=== PATIENT | female | born 1960 | race Caucasian/White ===

== ENCOUNTER 2018-01-12 17:33 | Emergency (ER) | payer MEDICAID, SELFPAY ==
[2018-01-12 17:35] VITALS: BP 113/56; PULSE 98; RESP 18; TEMP 37.3; O2SAT 97
[2018-01-12 17:50] LABS: Bedside Glucose 170 mg/dL (70-110)
--- NOTE | 2018-01-12 17:51 | ED.VISSUMM ---
- ER Visit Summary Date of Service: 01/12/18 Chief Complaint: Cat bite History of Present Illness: The patient is a 57 F with a cat bite to her left index finger that occurred 3 days ago. This was a stray cat that she was attempting to help. It bit her and then ran away. She has had increasing redness, pain, and swelling to the left index finger since the bite. Unsure of tetanus status. Physical Examination: Afebrile and vital signs unremarkable. Patient has 2 puncture wounds near the PIP of her left index finger. They are associated with erythema, tenderness, swelling. There is good range of motion through the joints. All of the erythema and swelling is localized to the puncture wounds. The rest of her fingers and hand are unremarkable. Test Results: X-rays pending. Emergency Department Course and Treatment: Patient has a history of diabetes. I checked her blood sugar and it was 170. She said her hemoglobin A1c runs about 7. Will check x-rays. Tetanus was updated. Rabies was discussed. The patient is declining vaccination and treatment for this. There are some signs that the patient could be developing an early flexor tenosynovitis. There is no sign of necrotizing fasciitis or any other emergent surgical complication. Basic labs are pending. She was treated with a round of IV clindamycin. Hand surgery is not available at this facility. I did speak with general orthopedics here, and the concern was if the patient had a complication, they would not be able to properly take care of this patient's medical condition. I notified the patient of this information and they requested [facility]. I spoke with Dr. Bautista who will accept the patient. X-rays and laboratory studies are pending at the time of this dictation, but there is nothing that will change the disposition at this time. Treatment Plan: As above Disposition: Transferred to [facility] Impression: 1. Cat bite left index finger 2. Cellulitis left index finger This note was generated with [employer] software. It may contain incorrect words, spelling, and punctuation that were not noted in review of the chart prior to signing ED Disposition - Plan for ED Patient: Chief Complaint: Bite Referrals: Darrell Langley MD [Primary Care Provider] -
[2018-01-12] MEDS: Diphth,Pertuss(Acell),Tet Vac 0.5 ML Vial IM (17:53)
[2018-01-12] MEDS: Doxycycline 100 MG CAPSULE PO (17:54)
--- NOTE | 2018-01-12 18:05 | RAD_ITS ---
STUDY: X-RAY - LEFT HAND, ATTENTION SECOND FINGER REASON FOR EXAM: Female, 57 years old. Pain and swelling after recent cat bite. TECHNIQUE: 3 view(s) of the finger were obtained. COMPARISON: None. FINDINGS: Normal metacarpal head. There is mild degenerative arthrosis of the metacarpophalangeal joint. Normal proximal phalanx. Normal middle phalanx. Normal distal phalanx. There is mild degenerative arthrosis of the proximal interphalangeal joint. There is mild degenerative arthrosis of the distal interphalangeal joint. RAD/Finger(s) Min 2 Views IMPRESSION: No acute bone or joint findings. Negative for fracture, osteolytic or blastic bone lesion. Soft tissue swelling without underlying foreign body. Mild degenerative joint changes. Electronically Signed: Unique Albarran MD at 19:22 EDT , Service support ,
[2018-01-12 19:00] LABS: Absolute Lymphocyte Count 3.74 X10^3/ul (0.83-4.51); Absolute Neutrophil Count 5.2 X10^3/uL (2.0-7.7); Basophil# 0.06 X10^3/uL; Basophil% 0.6 % (0-1); Eosinophil# 0.37 X10^3/uL; Eosinophils% 3.7 % (0-5); Hematocrit 43.3 % (37-47); Hemoglobin 14.3 g/dl (12.0-15.0); Lymphocyte # 3.74 X10^3/ul (4.0); Lymphocyte % 37.6 % (19-41); Mean Corpuscular Hgb 31.6 pg (27.0-32.0); Mean Corpuscular Volume 95.8 fL (81-99); Mean Platelet Vol. 10.5 fl (6.2-12.0); Monocyte# 0.57 X10^3/uL; Monocyte% 5.7 % (0-10); Neutrophil # 5.21 X10^3/uL (2.7-7.7); Neutrophil % 52.3 % (47-70); Platelet Count 293 K/mm3 (150-450); RBC Distribution Width CV 12.7 % (11.6-14.6); RBC Distribution Width SD 44.3 fl (35.1-43.9); Red Blood Count 4.52 M/mm3 (4.2-5.4)
[2018-01-12 19:04] LABS: POSITIVE COUNT NO; POSITIVE DIFFERENTIAL NO; POSITIVE MORPHOLOGY NO
[2018-01-12 19:08] VITALS: BP 141/105; PULSE 88; RESP 18; O2SAT 98
[2018-01-12] MEDS: Clindamycin 600 MG/50 ML BAG 100 MG IV (19:08)
[2018-01-12 19:15] LABS: Anion Gap 9 (5-15); BUN 16 mg/dL (7-18); BUN/Creat Ratio 16.6 RATIO (10-20); Calcium,Total 9.3 mg/dL (8.5-10.1); Chloride 104 mmol/L (98-107); Creatinine, Serum 0.96 mg/dL (0.55-1.02); EST Glomerular Filtration Rate 63 mL/min (>60); Est Glom Filt Rate - Afr Amer 76 mL/min (>60); Estimated Creatinine Clearance 62.12 ml/min; Glucose 158 mg/dL (74-106); Potassium 3.8 mmol/L (3.5-5.1); Sodium Level 140 mmol/L (136-145)
[2018-01-12 19:41] VITALS: BP 141/105
== END 2018-01-12 19:45 | disposition short-term general hospital (02) ==
PROVIDERS: Emergency Provider Emergency Medicine; Family Provider Family Medicine; PCP Family Medicine
DX: L03.012 Cellulitis of left finger (principal); W55.01XA Bitten by cat, initial encounter; Y93.9 Activity, unspecified; Y92.9 Unspecified place or not applicable; Y99.9 Unspecified external cause status; Z23 Encounter for immunization; E11.9 Type 2 diabetes mellitus without complications; I10 Essential (primary) hypertension; E78.00 Pure hypercholesterolemia, unspecified; Z72.0 Tobacco use
CPT/HCPCS: 73140; 80048; 82962; 85025; 90715; 99284; J7040; A4216

== ENCOUNTER 2018-01-19 12:53 | Emergency (ER) | payer MEDICAID, SELFPAY ==
[2018-01-19 12:55] VITALS: BP 125/81; PULSE 97; RESP 15; TEMP 36.9; O2SAT 98; BMI 29.5
[2018-01-19 13:55] LABS: Absolute Lymphocyte Count 2.74 X10^3/ul (0.83-4.51); Absolute Neutrophil Count 7.4 X10^3/uL (2.0-7.7); Basophil# 0.14 X10^3/uL; Basophil% 1.2 % (0-1); Eosinophil# 0.31 X10^3/uL; Eosinophils% 2.7 % (0-5); Hematocrit 43.1 % (37-47); Hemoglobin 14.7 g/dl (12.0-15.0); Lymphocyte # 2.74 X10^3/ul (4.0); Lymphocyte % 24.2 % (19-41); Mean Corp Hgb Conc 34.1 g/gl (32-36); Mean Corpuscular Hgb 32.2 pg (27.0-32.0); Mean Corpuscular Volume 94.5 fL (81-99); Mean Platelet Vol. 10.6 fl (6.2-12.0); Monocyte# 0.68 X10^3/uL; Neutrophil % 65.6 % (47-70); POSITIVE COUNT NO; POSITIVE DIFFERENTIAL NO; POSITIVE MORPHOLOGY NO; Platelet Count 313 K/mm3 (150-450); RBC Distribution Width CV 12.6 % (11.6-14.6); Red Blood Count 4.56 M/mm3 (4.2-5.4); White Blood Count 11.3 K/mm3 (4.4-11.0)
[2018-01-19 14:05] LABS: Anion Gap 9 (5-15); BUN 10 mg/dL (7-18); Calcium,Total 9.3 mg/dL (8.5-10.1); Chloride 106 mmol/L (98-107); Creatinine, Serum 0.71 mg/dL (0.55-1.02); EST Glomerular Filtration Rate 89 mL/min (>60); Est Glom Filt Rate - Afr Amer 108 mL/min (>60); Estimated Creatinine Clearance 83.99 ml/min; Glucose 114 mg/dL (74-106); Sodium Level 138 mmol/L (136-145)
[2018-01-19] MEDS: Clindamycin 600 MG/50 ML BAG 100 MG IV (14:27)
--- NOTE | 2018-01-19 14:43 | RAD_ITS ---
STUDY: X-RAY - LEFT HAND REASON FOR EXAM: Female, 57 years old. Pain and swelling following recent cat bite. TECHNIQUE: 3 view(s) of the hand. COMPARISON: Comparison is made with prior study dated January 12, 2018. FINDINGS: Normal radiocarpal articulation. Normal distal radioulnar joint. Normal visualized carpal bones. Normal carpal articulations Normal carpometacarpal articulation of the thumb. Normal second through fifth carpometacarpal joints. Normal metacarpi. Normal metacarpophalangeal joint of the thumb. Normal interphalangeal joint of the thumb. Normal proximal and distal phalanges of the thumb. Normal metacarpophalangeal joints of the second through fifth fingers. Normal proximal and distal interphalangeal joints of the second through fifth fingers. Normal phalanges of the second through fifth fingers. Soft tissue swelling. No radiopaque foreign body is seen. RAD/Hand Min 3 Views IMPRESSION: Soft tissue swelling. Electronically Signed: Paco Park MD at 15:15 EDT Tel [phone], Service support ,
[2018-01-19] MEDS: Ciprofloxacin 400 MG/200 ML BAG 200 MG IV (15:15)
[2018-01-19 15:17] VITALS: BP 149/92; PULSE 74; RESP 18; O2SAT 99
[2018-01-19] MEDS: HYDROcodone Bitartrate/Apap 5/325 Tablet PO (15:26)
--- NOTE | 2018-01-19 16:29 | ED.VISSUMM ---
- ER Visit Summary Date of Service: 01/19/18 Chief Complaint: [Cat bite left hand] History of Present Illness: The patient is a 57 F [presents to the emergency department with complaint of a cat bite to her left hand that occurred 10 days ago. Patient was seen initially in the emergency department at [place] and was transferred to home in hospital. Patient was treated with IV antibiotics and was taken to the OR for I&D by surgeon there. Patient was seen by infectious disease as well. Patient tells me she was discharged to home on Augmentin and she is allergic to penicillin therefore she did not take the Augmentin. Patient called her primary care physician 2 days ago and was ordered clindamycin as well as doxycycline which the patient started taking yesterday. Patient was seen by primary care physician today and there was concern for continued infection sent to the ER for evaluation and possible admission for IV antibiotics. Patient denies any fevers. Patient complains of continued swelling and pain in the left index finger. Patient apparently was very unhappy with the infectious disease doctor who put her on the Augmentin after she told that she was allergic to the medication and her allergy was vomiting.] Physical Examination: [HEENT-PERRLA, EOMI. Cranial nerves II through XII grossly intact. TMs clear. Mucous membranes moist. No adenopathy. Cardiovascular-regular rate and rhythm without murmur or ectopy Lungs-clear to auscultation, chest wall stable without crepitus or subcu emphysema Abdomen-normoactive bowel sounds, soft, nontender, no rebound or rigidity, no peritoneal signs. Extremities-intact ?4, normal range of motion, normal pulses. Left hand-patient has edema and erythema of the left index finger. Patient has incisions noted to the proximal phalanx medially and laterally from prior I&D these are now closed and scabbed over. Patient also has an incision over the palmar aspect of the second MCP joint with continued soft tissue swelling here. No overt cellulitis noted. Patient is able to flex and extend the digit however it is limited due to swelling and pain. She has normal cap refill. ] Test Results: [CBC with differential obtained showed a white count of 11.3, hemoglobin 14.7, hematocrit 43, platelets 313. Chemistries unremarkable. Initially discussed case with Dr. Mansoor Sheth who is on-call for orthopedics here who asked that patient be evaluated by hand surgeon. I discussed case with patient's surgeon of record from [facility] Antonina Meehan. Patient was to be seen today by the orthopedic surgeon however patient chose not to go but rather follow-up with her primary care physician. I was told that if I felt the patient needed readmission to [facility] to speak with the blood coordinator there and the hand surgeon on-call at this time. I spoke with the hand surgeon on-call at [facility] today who stated that based on my description of the wounds and exam that he did not feel the patient needed to be admitted for IV antibiotics or any further intervention at this time but recommended that patient be treated with clindamycin and Cipro and follow-up in the office with the surgeon. Was also told that if the patient felt that her symptoms were continuing to worsen that she could go to [place] [facility] where he would be able to see her and perform further evaluation]. I discussed this plan with patient's primary care physician in the patient. Patient is comfortable with this. X-ray of the left hand showed soft tissue swelling but no foreign body or evidence of osteo-myelitis. Emergency Department Course and Treatment: [Patient received IV Cipro and Flagyl in the emergency department. ] Treatment Plan: [Follow-up with orthopedic surgeon within the next 4-5 days.] Disposition: [Urged home in stable condition] Impression: [Bite left hand-infected] This note was generated with [employer] dictation software. It may contain incorrect words, spelling, and punctuation that were not noted in review of the chart prior to signing ED Disposition - Plan for ED Patient: Chief Complaint: Wound Check Referrals: Darrell Langley MD [Primary Care Provider] -
--- NOTE | 2018-01-19 16:35 | ED.DCSUM_ITS ---
- ER Visit Summary Date of Service: 01/19/18 Chief Complaint: [Cat bite left hand] History of Present Illness: The patient is a 57 F [presents to the emergency department with complaint of a cat bite to her left hand that occurred 10 days ago. Patient was seen initially in the emergency department at [place] and was transferred to home in hospital. Patient was treated with IV antibiotics and was taken to the OR for I&D by surgeon there. Patient was seen by infectious disease as well. Patient tells me she was discharged to home on Augmentin and she is allergic to penicillin therefore she did not take the Augmentin. Patient called her primary care physician 2 days ago and was ordered clindamycin as well as doxycycline which the patient started taking yesterday. Patient was seen by primary care physician today and there was concern for continued infection sent to the ER for evaluation and possible admission for IV antibiotics. Patient denies any fevers. Patient complains of continued swelling and pain in the left index finger. Patient apparently was very unhappy with the infectious disease doctor who put her on the Augmentin after she told that she was allergic to the medication and her allergy was vomiting.] Physical Examination: [HEENT-PERRLA, EOMI. Cranial nerves II through XII grossly intact. TMs clear. Mucous membranes moist. No adenopathy. Cardiovascular-regular rate and rhythm without murmur or ectopy Lungs-clear to auscultation, chest wall stable without crepitus or subcu emphysema Abdomen-normoactive bowel sounds, soft, nontender, no rebound or rigidity, no peritoneal signs. Extremities-intact ?4, normal range of motion, normal pulses. Left hand- patient has edema and erythema of the left index finger. Patient has incisions noted to the proximal phalanx medially and laterally from prior I&D these are now closed and scabbed over. Patient also has an incision over the palmar aspect of the second MCP joint with continued soft tissue swelling here. No overt cellulitis noted. Patient is able to flex and extend the digit however it is limited due to swelling and pain. She has normal cap refill. ] Test Results: [CBC with differential obtained showed a white count of 11.3, hemoglobin 14.7, hematocrit 43, platelets 313. Chemistries unremarkable. Initially discussed case with Dr. Mansoor Sheth who is on-call for orthopedics here who asked that patient be evaluated by hand surgeon. I discussed case with patient's surgeon of record from [facility] Antonina Meehan. Patient was to be seen today by the orthopedic surgeon however patient chose not to go but rather follow-up with her primary care physician. I was told that if I felt the patient needed readmission to [facility] to speak with the catering coordinator there and the hand surgeon on-call at this time. I spoke with the hand surgeon on-call at [facility] today who stated that based on my description of the wounds and exam that he did not feel the patient needed to be admitted for IV antibiotics or any further intervention at this time but recommended that patient be treated with clindamycin and Cipro and follow-up in the office with the surgeon. Was also told that if the patient felt that her symptoms were continuing to worsen that she could go to [place] [facility] where he would be able to see her and perform further evaluation]. I discussed this plan with patient's primary care physician in the patient. Patient is comfortable with this. X-ray of the left hand showed soft tissue swelling but no foreign body or evidence of osteo-myelitis. Emergency Department Course and Treatment: [Patient received IV Cipro and Flagyl in the emergency department. ] Treatment Plan: [Follow-up with orthopedic surgeon within the next 4-5 days.] Disposition: [Urged home in stable condition] Impression: [Bite left hand-infected] This note was generated with [employer] dictation software. It may contain incorrect words, spelling, and punctuation that were not noted in review of the chart prior to signing ED Disposition - Plan for ED Patient: Chief Complaint: Wound Check Referrals: Darrell Langley MD [Primary Care Provider] -
--- NOTE | 2018-01-19 16:35 | ED.DEP ---
ED Disposition - Plan for ED Patient: Chief Complaint: Wound Check Instructions: ED Bite Cat Prescriptions: Ciprofloxacin [Cipro] 500 mg PO BID #20 tab Referrals: Darrell Langley MD [Primary Care Provider] - Additional Instructions: see your Surgeon on 01-23 or 01-24. If symptoms worsen the hand surgeon asked that you go to [facility] where he can evaluate you further.
[2018-01-19 17:11] VITALS: BP 145/85; PULSE 71; RESP 18; O2SAT 99
[2018-01-19 17:12] VITALS: BP 145/85; PULSE 71; RESP 18; O2SAT 99
== END 2018-01-19 17:13 | disposition home or self-care (01) ==
PROVIDERS: Emergency Provider Emergency Medicine; Family Provider Family Medicine; PCP Family Medicine
DX: S60.572D Other superficial bite of hand of left hand, subsequent encounter (principal); W55.01XD Bitten by cat, subsequent encounter; Z88.0 Allergy status to penicillin; E11.9 Type 2 diabetes mellitus without complications
CPT/HCPCS: 73130; 80048; 85025; 99284; J7040; A4216; J0744

== ENCOUNTER 2018-02-05 14:49 | Outpatient (RCR) | payer MEDICAID, SELFPAY ==
--- NOTE | 2018-02-05 14:49 | DT_ITS ---
This patient was seen during an EMR downtime January 29, 2018 - February 05, 2018. This patient may have a combination of paper and electronic documentation or all paper documentation. All documentation is viewable within the e-chart portion of [facility] for each patient visit.
== END 2018-02-24 23:59 ==
LOC: DC 14:49
PROVIDERS: Family Provider Family Medicine; PCP Family Medicine; Visit Provider Family Medicine
DX: E11.9 Type 2 diabetes mellitus without complications (principal); Z71.3 Dietary counseling and surveillance

== ENCOUNTER → 2018-08-08 13:57 | Outpatient (CLI) | payer MEDICAID, SELFPAY ==
[2018-08-08 16:19] LABS: Vitamin D,25 Hydroxy 13.7 ng/mL (29.95-100.01)
[2018-08-08 16:27] LABS: Microalbumin,Random Urine 10.3 mg/L (NO RANGE EST.); Microalbumin:Creatinine Ratio 9.8 mg/g CRE (<30 mg/g CRE)
[2018-08-08 16:38] LABS: BUN 15 mg/dL (7-18); Creatinine, Serum 0.66 mg/dL (0.55-1.02); Glucose 79 mg/dL (74-106)
[2018-08-08 16:39] LABS: AST(SGOT) 12 U/L (15-37); Alanine Aminotransfer ALT/SGPT 25 U/L (13-56); Albumin, Serum 3.9 g/dL (3.2-5.0); Alkaline Phosphatase 75 U/L (45-117); Anion Gap 7 (5-15); BUN/Creat Ratio 22.9 RATIO (10-20); Bilirubin, Direct 0.09 mg/dL (0.00-0.30); Calcium,Total 9.1 mg/dL (8.5-10.1); Chloride 104 mmol/L (98-107); Cholesterol 175 mg/dL (200); EST Glomerular Filtration Rate 98 mL/min (>60); Est Glom Filt Rate - Afr Amer 119 mL/min (>60); Globulin 4.3 g/dL (2.2-4.2); High Density Lipoprotein 45 mg/dL; Potassium 3.7 mmol/L (3.5-5.1); Protein, Total 8.2 g/dL (6.4-8.2); Sodium Level 136 mmol/L (136-145); Triglycerides 228 mg/dL; Very Low Density Lipoprotein 46 mg/dL (5-40)
--- OUTSIDE RECORDS SUMMARY | 2018-09-24 18:26 | XMS RPT_ITS ---
:1960 Author Organization [facility] Care Team Providers Name Role Phone ALAINA LITTLE MD Attending Unavailable PHYSICIAN, NOT RECORDED Primary Care Unavailable ALAINA LITTLE MD Admitting Unavailable HUMPHREY HAMILTON MD Consulting Unavailable CAROLYN COLON MD Consulting Unavailable MARINE CRAIG MD Consulting Unavailable ALAINA LITTLE MD Consulting Unavailable HOSPITALISTFAUSTINO Consulting Unavailable BERNARD SANTIAGO MD Consulting Unavailable Darrell Langley Attending Unavailable Darrell Langley Primary Care Unavailable Darrell Langley Primary Care Unavailable Romario Huston Attending Unavailable Darrell Langley Primary Care Unavailable Marcellus Gilmore Attending Unavailable Darrell Langley Attending Unavailable Darrell Langley Primary Care Unavailable Darrell Langley Attending Unavailable Darrell Langley Primary Care Unavailable PROBLEMS PROBLEMS DATE TYPE CONDITION / CODE ATTENDING STATUS SOURCE 02/25/2018 Unknown E11.9 - Type 2 Darrell Langley Active [place] diabetes mellitus [facility] complications / Repository E11.9(ICD-10) PROCEDURES PROCEDURES No Procedure Records FoundRESULTS RESULTS VITAMIN D,25 HYDROXY Collected: 08/08/2018 Status: F Source: [place] 1:57 PM [facility] REPOSITORY TYPE CODE TESTS RESULT OUT OF REFERENCE UNITS RANGE LAB L506.1000 29.95-100.01 ng/mL Low Vitamin D 13.7 25-OH Result Comment: Vitamin D 25(OH) Status Range Deficiency <20 ng/mL (50nmol/L) Insuffciency 20 - 30 ng/mL (50 - 75 nmol/L) Sufficiency 30 - 100 ng/mL (75 - 250 nmol/L) Toxicity >100 ng/mL (>250 nmol/L) Performed By: #### L506.1000 #### [facility] [address] [place], [address] MICROALB:CREAT Collected: 08/08/2018 Status: F Source: [place] RATIO,RANDOM UR 1:57 PM [facility] REPOSITORY TYPE CODE TESTS RESULT OUT OF RANGE REFERENCE UNITS LAB L501.1200 NO RANGE EST. mg/dL Normal UR CREAT 105.00 LAB L502.0500 NO RANGE EST. mg/L Normal 10.3 MICROALBUMIN ,UR LAB L502.0600 <30 mg/g CRE mg/g CRE Normal 9.8 MALB:CREAT Performed By: #### L502.0250 #### [facility] [address] [place], [place], [address] BASIC METABOLIC Collected: 08/08/2018 Status: F Source: [place] PROFILE (BMP) 1:57 PM [facility] REPOSITORY TYPE CODE TESTS RESULT OUT OF RANGE REFERENCE UNITS LAB L501.0100 74-106 mg/dL Normal GLU 79 Result Comment: Please note revised GLUCOSE reference range effective 2017. LAB L501.1000 7-18 mg/dL Normal BUN 15 LAB L501.1100 0.55-1.02 mg/dL Normal CREAT,SERUM 0.66 Result Comment: The validity of the calculated GFR AND GFRAA in patients over 70 years has not been determined. Clinical correlation is essential. LAB L501.1110 >60 mL/min Normal EST GFR 98 Result Comment: Non- GFR Calc LAB L501.1115 >60 mL/min Normal EST GFR - AA 119 Result Comment: GFR Calc LAB L501.1300 10-20 RATIO High BUN/CRE 22.9 LAB L501.2200 8.5-10.1 mg/dL CA Normal 9.1 LAB L501.5300 136-145 mmol/L NA Normal 136 LAB L501.5600 3.5-5.1 mmol/L K Normal 3.7 LAB L501.5900 98-107 mmol/L CL Normal 104 LAB L501.6100 21.0-32.0 mmol/L Normal CO2 25.0 LAB L501.6200 5-15 Normal GAP 7 Performed By: #### L500.2500, L500.3400, L500.4100 #### [facility] [address] [place], [address] LIVER PROFILE Collected: 08/08/2018 Status: F Source: [place] 1:57 PM [facility] REPOSITORY TYPE CODE TESTS RESULT OUT OF RANGE REFERENCE UNITS LAB L501.1500 6.4-8.2 g/dL Normal T PROT 8.2 LAB L501.1800 3.2-5.0 g/dL Normal ALB 3.9 LAB L501.1950 2.2-4.2 g/dL High GLOB 4.3 LAB L501.4100 15-37 U/L Low AST 12 LAB L501.4305 45-117 U/L Normal ALK P 75 LAB L501.4405 13-56 U/L Normal ALT 25 LAB L501.4600 0.20-1.00 mg/dL Normal T BILI 0.30 LAB L501.4700 0.00-0.30 mg/dL Normal D BILI 0.09 Performed By: #### L500.2500, L500.3400, L500.4100 #### [facility] [address] [place], [address] LIPID PROFILE Collected: 08/08/2018 Status: F Source: [place] 1:57 PM [facility] REPOSITORY TYPE CODE TESTS RESULT OUT OF RANGE REFERENCE UNITS LAB L501.4900 200 mg/dL Normal CHOL 175 Result Comment: <200 mg/dL Desirable 200-240 mg/dL Borderline >240 mg/dL High Risk LAB L501.5000 mg/dL High TRIG 228 Result Comment: The drugs N-Acetylcysteine and Metamizole may falsely depress this assay. Serum Triglycerides Reference Interval Normal <150 mg/dL Borderline high 150 - 199 mg/dL High 200 - 499 mg/dL Very High > or = 500 mg/dL LAB L501.6400 mg/dL Normal HDL 45 Result Comment: The drugs N-Acetylcysteine and Metamizole may falsely depress this assay. Reference Range HDL <40 mg/dL Low HDL Cholesterol HDL >or= 60 mg/dL High HDL Cholesterol LAB L501.6500 0-130 mg/dL Normal LDL 84 LAB L501.6600 5-40 mg/dL High VLDL 46 Performed By: #### L500.2500, L500.3400, L500.4100 #### [facility] [address] [place], [address] DOWNTIME REPORT Observed: 02/15/2018 Status: F Source: [place] 11:46 AM [facility] Medical Records Department [address] [place] [address] Downtime Report MR#: [id number] Acct: [id number] Name: ALANAOVIARACELI Azucena Rep #: [id number] : 1960 57 From: Torsten Sheth PCP: Darrell Langley MD Status: REG RCR This patient was seen during an EMR downtime January 29, 2018 - February 05, 2018. This patient may have a combination of paper and electronic documentation or all paper documentation. All documentation is viewable within the e-chart portion of [employer] for each patient visit. DISCHARGE INSTRUCTION Observed: 01/19/2018 Status: F Source: [place] 4:37 PM [facility] Medical Records Department [address] [place] [address] Discharge Instruction 01/19/18 1635 MR#: [id number] Acct: [id number] Name: ARACELI WARNER Rep #: [id number] : 1960 57 From: Marcellus Gilmore DO PCP: Darrell Langley MD Status: REG ER ED Disposition - Plan for ED Patient: Chief Complaint: Wound Check Instructions: ED Bite Cat Prescriptions: Ciprofloxacin [Cipro] 500 mg PO BID #20 tab Referrals: Darrell Langley MD [Primary Care Provider] - Additional Instructions: see your Surgeon on 01-23 or 01-24. If symptoms worsen the hand surgeon asked that you go to [place] [facility] where he can evaluate you further. What to do if you have Problems For any increased pain, shortness of breath, bleeding, nausea or vomiting, chest pain, or any unexpected problems, contact your Primary Care Provider. Call [facility] ([phone]) or report to the closest Emergency Room. Call 911 if necessary. 01/19/18 1637 <Electronically signed by Marcellus Gilmore DO> Date Marcellus Gilmore DO Cosigner Signature (If Indicated): Date CC: Darrell Langley MD EMERGENCY DEPARTMENT Observed: 01/19/2018 Status: F Source: [place] SUMMARY 4:35 PM [facility] REPOSITORY [facility] Medical Records Department [address] [facility] [address] Emergency Department Summary 01/19/18 1629 MR#: [id number] Acct: [id number] Name: ARACELI WARNRE Rep #: [id number] : 1960 57 From: Marcellus Gilmore DO PCP: Darrell Langley MD Status: REG ER - ER Visit Summary Date of Service: 01/19/18 Chief Complaint: [Cat bite left hand] History of Present Illness: The patient is a 57 F [presents to the emergency department with complaint of a cat bite to her left hand that occurred 10 days ago. Patient was seen initially in the emergency department at [facility] and was transferred to home in hospital. Patient was treated with IV antibiotics and was taken to the OR for I AND D by surgeon there. Patient was seen by infectious disease as well. Patient tells me she was discharged to home on Augmentin and she is allergic to penicillin therefore she did not take the Augmentin. Patient called her primary care physician 2 days ago and was ordered clindamycin as well as doxycycline which the patient started taking yesterday. Patient was seen by primary care physician today and there was concern for continued infection sent to the ER for evaluation and possible admission for IV antibiotics. Patient denies any fevers. Patient complains of continued swelling and pain in the left index finger. Patient apparently was very unhappy with the infectious disease doctor who put her on the Augmentin after she told that she was allergic to the medication and her allergy was vomiting.] Physical Examination: [HEENT-PERRLA, EOMI. Cranial nerves II through XII grossly intact. TMs clear. Mucous membranes moist. No adenopathy. Cardiovascular-regular rate and rhythm without murmur or ectopy Lungs-clear to auscultation, chest wall stable without crepitus or subcu emphysema Abdomen-normoactive bowel sounds, soft, nontender, no rebound or rigidity, no peritoneal signs. Extremities-intact 4, normal range of motion, normal pulses. Left hand-patient has edema and erythema of the left index finger. Patient has incisions noted to the proximal phalanx medially and laterally from prior I AND D these are now closed and scabbed over. Patient also has an incision over the palmar aspect of the second MCP joint with continued soft tissue swelling here. No overt cellulitis noted. Patient is able to flex and extend the digit however it is limited due to swelling and pain. She has normal cap refill. ] Test Results: [CBC with differential obtained showed a white count of 11.3, hemoglobin 14.7, hematocrit 43, platelets 313. Chemistries unremarkable. Initially discussed case with Dr. Mansoor Sheth who is on-call for orthopedics here who asked that patient be evaluated by hand surgeon. I discussed case with patient's surgeon of record from [facility] Antonina Little. Patient was to be seen today by the orthopedic surgeon however patient chose not to go but rather follow-up with her primary care physician. I was told that if I felt the patient needed readmission to [facility] to speak with the weatherization coordinator there and the hand surgeon on-call at this time. I spoke with the hand surgeon on-call at [facility] today who stated that based on my description of the wounds and exam that he did not feel the patient needed to be admitted for IV antibiotics or any further intervention at this time but recommended that patient be treated with clindamycin and Cipro and follow-up in the office with the surgeon. Was also told that if the patient felt that her symptoms were continuing to worsen that she could go to [place] [facility] where he would be able to see her and perform further evaluation]. I discussed this plan with patient's primary care physician in the patient. Patient is comfortable with this. X-ray of the left hand showed soft tissue swelling but no foreign body or evidence of osteo-myelitis. Emergency Department Course and Treatment: [Patient received IV Cipro and Flagyl in the emergency department. ] Treatment Plan: [Follow-up with orthopedic surgeon within the next 4-5 days.] Disposition: [Urged home in stable condition] Impression: [Bite left hand-infected] This note was generated with [email or web address] dictation software. It may contain incorrect words, spelling, and punctuation that were not noted in review of the chart prior to signing ED Disposition - Plan for ED Patient: Chief Complaint: Wound Check Referrals: Darrell Langley MD [Primary Care Provider] - What to do if you have Problems For any increased pain, shortness of breath, bleeding, nausea or vomiting, chest pain, or any unexpected problems, contact your Primary Care Provider. Call [facility] ([phone]) or report to the closest Emergency Room. Call 911 if necessary. 01/19/18 0375 <Electronically signed by Marcellus Gilmore DO> Date Marcellus Gilmore DO Cosigner Signature (If Indicated): Date CC: Darrell Langley MD HAND MIN 3 VIEWS Observed: 01/19/2018 Status: F Source: [place] 2:36 PM [facility] REPOSITORY [facility] Imaging Services [address] [place] [address] Hand Min 3 Views MR#: [id number] Acct: [id number] Name: ARACELI WARNER Rep #: [id number] : 1960 F 57 From: Paco Park MD PCP: Darrell Langley MD Status: REG ER Study: Hand Min 3 Views Date of Exam: 01/19/18 Exam# [id number] Ordering Dr: Marcellus Gilmore DO STUDY: X-RAY - LEFT HAND REASON FOR EXAM: Female, 57 years old. Pain and swelling following recent cat bite. TECHNIQUE: 3 view(s) of the hand. COMPARISON: Comparison is made with prior study dated January 12, 2018. FINDINGS: Normal radiocarpal articulation. Normal distal radioulnar joint. Normal visualized carpal bones. Normal carpal articulations Normal carpometacarpal articulation of the thumb. Normal second through fifth carpometacarpal joints. Normal metacarpi. Normal metacarpophalangeal joint of the thumb. Normal interphalangeal joint of the thumb. Normal proximal and distal phalanges of the thumb. Normal metacarpophalangeal joints of the second through fifth fingers. Normal proximal and distal interphalangeal joints of the second through fifth fingers. Normal phalanges of the second through fifth fingers. Soft tissue swelling. No radiopaque foreign body is seen. RAD/Hand Min 3 Views IMPRESSION: Soft tissue swelling. Electronically Signed: Paco Park MD at 15:15 EDT Tel [phone], Service support , CC: Darrell Langley MD; Marcellus Gilmore DO Director [employer] Agency: Signed CBC W/DIFF, AUTOMATED Collected: 01/19/2018 Status: F Source: [place] 1:45 PM [facility] REPOSITORY TYPE CODE TESTS RESULT OUT OF RANGE REFERENCE UNITS LAB L100.1000 4.4-11.0 K/mm3 High WBC 11.3 LAB L100.1200 4.2-5.4 M/mm3 Normal RBC 4.56 LAB L100.1300 12.0-15.0 g/dl Normal HGB 14.7 LAB L100.1400 37-47 % Normal HCT 43.1 LAB L100.1500 81-99 fL Normal MCV 94.5 LAB L100.1600 27.0-32.0 pg High MCH 32.2 LAB L100.1700 32-36 g/gl Normal MCHC 34.1 LAB L100.1810 11.6-14.6 % Normal RDW CV 12.6 LAB L100.1820 35.1-43.9 fl Normal RDW SD 42.0 LAB L100.1900 150-450 K/mm3 Normal PLT 313 LAB L100.2000 6.2-12.0 fl Normal MPV 10.6 LAB L100.2100 47-70 % Normal NEUT% 65.6 LAB L100.2200 19-41 % Normal LY% 24.2 LAB L100.2300 0-10 % Normal MONO% 6.0 LAB L100.2400 0-5 % Normal EO% 2.7 LAB L100.2500 0-1 % High BASO% 1.2 LAB L100.2550 0.0-0.9 % Normal IM GRAN % 0.300 Result Comment: IG% - Immature Granulocytes (promyelocytes, myelocytes and metamyelocytes) > 1% indicates that a LEFT SHIFT is Present. LAB L100.2620 2.0-7.7 X10 3/uL Normal Absolute Neut 7.4 LAB L100.2720 0.83-4.51 X10 3/ul Normal Absolute Lymph 2.74 Performed By: #### L100.0100 #### [facility] [address] [place] [address]. [place], [place], [address] BASIC METABOLIC Collected: 01/19/2018 Status: F Source: [place] PROFILE (BMP) 1:45 PM [facility] REPOSITORY TYPE CODE TESTS RESULT OUT OF RANGE REFERENCE UNITS LAB L501.0100 74-106 mg/dL High GLU 114 Result Comment: Fasting Glucose result from 100 to 125 mg/dL suggests IMPAIRED HOMEOSTASIS per A.D.A. criteria. Please note revised GLUCOSE reference range effective 2017. LAB L501.1000 7-18 mg/dL Normal BUN 10 LAB L501.1100 0.55-1.02 mg/dL Normal CREAT,SERUM 0.71 Result Comment: The validity of the calculated GFR AND GFRAA in patients over 70 years has not been determined. Clinical correlation is essential. LAB L501.1110 >60 mL/min Normal EST GFR 89 Result Comment: Non- GFR Calc LAB L501.1115 >60 mL/min Normal EST GFR - AA 108 Result Comment: GFR Calc LAB L501.1255 ml/min Normal Estimated CRCL 83.99 LAB L501.1300 10-20 RATIO Normal BUN/CRE 14.0 LAB L501.2200 8.5-10 mg/dL Normal .1 CA 9.3 LAB L501.5300 136-14 mmol/L Normal 5 NA 138 LAB L501.5600 3.5-5. mmol/L Normal 1 K 4.0 LAB L501.5900 98-107 mmol/L Normal CL 106 LAB L501.6100 21.0-3 mmol/L Normal 2.0 CO2 23.0 LAB L501.6200 5-15 Normal GAP 9 Performed By: #### L500.2500 #### [facility] [address] [place] [address]. [place], [place], [address] OWEN Collected: 01/16/2018 Status: F Source: [facility] 3:57 AM [facility] REPOSITORY TYPE CODE TESTS RESULT OUT OF REFERENCE UNITS RANGE LAB CAION(LOINC 1.12-1.32 mmol/L ) Calcium 1.16 Ionized Performed By: #### OWEN, CBC, ADIFF, ANEU, BMP, GFR #### [facility] [address] [place] [address] CBC Collected: 01/16/2018 Status: F Source: [facility] 3:57 AM [facility] REPOSITORY TYPE CODE TESTS RESULT OUT OF REFERENCE UNITS RANGE LAB WBC(LOINC) 4.50-10.80 10 3/mcL WBC 8.80 LAB RBCCT(LOINC 4.10-5.30 10 6/mcL ) Low RBC 3.60 LAB HGB(LOINC) 12.0-16.0 G/dL Low Hgb 11.7 LAB HCT(LOINC) 34.0-46.0 % Hct 34.2 LAB MCV(LOINC) 80.0-99.0 fL MCV 94.8 LAB MCH(LOINC) 27.0-33.0 pg MCH 32.4 LAB MCHC(LOINC) 32.0-36.0 G/dL MCHC 34.2 LAB RDW(LOINC) 11.5-15.5 % RDW 12.8 LAB PLT(LOINC) 150-450 10 3/mcL Platelet 234 LAB MPV(LOINC) 6.6-10.5 fL MPV 8.7 Performed By: #### OWEN, CBC, ADIFF, ANEU, BMP, GFR #### [address] [address] .AUTO DIFF Collected: 01/16/2018 Status: F Source: [facility] 3:57 AM [facility] REPOSITORY TYPE CODE TESTS RESULT OUT OF REFERENCE UNITS RANGE LAB FRAN(LOINC) 50.0-75.0 % Neutrophil % 51.3 LAB LYM(LOINC) 20.0-40.0 % Lymphocyte % 37.1 LAB MON(LOINC) 2.0-13.0 % Monocyte % 6.5 LAB EO(LOINC) 0.0-6.0 % Eosinophil % 4.2 LAB BAS(LOINC) 0.0-2.5 % Basophil % 0.9 LAB ABLYM(LOIN 0.90-4.32 10 3/mcL C) Lymphocyte, 3.30 Absolute LAB DURAN(LOINC 0.09-1.40 10 3/mcL ) Monocyte, 0.60 Absolute LAB AEOS(LOINC 0.00-0.65 10 3/mcL ) Eosinophil, 0.40 Absolute LAB ABAS(LOINC 0.00-0.27 10 3/mcL ) Basophil, 0.10 Absolute Performed By: #### OWEN, CBC, ADIFF, ANEU, BMP, GFR #### [address] [address] .NEUABS Collected: 01/16/2018 Status: F Source: [facility] 3:57 AM [facility] REPOSITORY TYPE CODE TESTS RESULT OUT OF REFERENCE UNITS RANGE LAB ANEU(LOINC) 2.25-8.10 10 3/mcL Neutrophil, 4.50 Absolute Performed By: #### CAIKARL, CBC, ADIFF, ANEU, BMP, GFR #### [address] [address] BMP Collected: 01/16/2018 Status: F Source: [facility] 3:57 AM [facility] REPOSITORY TYPE CODE TESTS RESULT OUT OF REFERENCE UNITS RANGE LAB GLU(LOINC) 70-110 mg/dL Glucose Level 103 LAB NA(LOINC) 136-145 mEq/L Sodium Level 141 LAB K(LOINC) 3.5-5.0 mEq/L Potassium Level 3.7 LAB CL(LOINC) 98-110 mEq/L Chloride 107 LAB CO2(LOINC) 22-32 mEq/L CO2 28 LAB EBAL(LOINC 4.0-15.0 mEq/L ) Electrolyte Balance 6.0 LAB BUN(LOINC) 8.0-22.0 mg/dL BUN 14.0 LAB CRE(LOINC) 0.50-1.20 mg/dL Creatinine Lvl (s) 0.65 LAB BC(LOINC) 10.0-22.0 ratio BUN/Creatinine 21.5 Ratio LAB CA(LOINC) 8.4-10.1 mg/dL Low Calcium Lvl 8.3 Performed By: #### CAION, CBC, ADIFF, ANEU, BMP, GFR #### [place] [address] .GFR Collected: 01/16/2018 Status: F Source: [facility] 3:57 AM [facility] REPOSIT[facility] TYPE CODE TESTS RESULT OUT OF REFERENCE UNITS RANGE LAB GFRAA(LOINC ml/min/1.73 ) sqm GFR >60 Belgian Result Comment: GFR Population mean for , Non- Americans Ages 20-29 = 116 mL/min/1.73 sq.m. Ages 30-39 = 107 mL/min/1.73 sq.m. Ages 40-49 = 99 mL/min/1.73 sq.m. Ages 50-59 = 93 mL/min/1.73 sq.m. Ages 60-69 = 85 mL/min/1.73 sq.m. Ages 70+ = 75 mL/min/1.73 sq.m. Chronic Kidney Disease: Less than 60 mL/min/1.73 square meters End Stage Renal Disease: Less than 15 mL/min/1.73 square meters LAB GFRNO(LOINC) ml/min/1.73sqm GFR Non- >60 Result Comment: GFR Population mean for , Non- Americans Ages 20-29 = 116 mL/min/1.73 sq.m. Ages 30-39 = 107 mL/min/1.73 sq.m. Ages 40-49 = 99 mL/min/1.73 sq.m. Ages 50-59 = 93 mL/min/1.73 sq.m. Ages 60-69 = 85 mL/min/1.73 sq.m. Ages 70+ = 75 mL/min/1.73 sq.m. Chronic Kidney Disease: Less than 60 mL/min/1.73 square meters End Stage Renal Disease: Less than 15 mL/min/1.73 square meters Performed By: #### CAION, CBC, ADIFF, ANEU, BMP, GFR #### [address] [address] CAION Collected: 01/15/2018 Status: F Source: [facility] 3:44 AM [facility] REPOSITORY TYPE CODE TESTS RESULT OUT OF REFERENCE UNITS RANGE LAB CAION(LOINC 1.12-1.32 mmol/L ) Calcium 1.15 Ionized Performed By: #### OWEN, CBC, ADIFF, ANEU, BMP, GFR #### [address] [address] CBC Collected: 01/15/2018 Status: F Source: [facility] 3:44 AM [facility] REPOSITORY TYPE CODE TESTS RESULT OUT OF REFERENCE UNITS RANGE LAB WBC(LOINC) 4.50-10.80 10 3/mcL WBC 6.90 LAB RBCCT(LOINC 4.10-5.30 10 6/mcL ) Low RBC 3.66 LAB HGB(LOINC) 12.0-16.0 G/dL Hgb 12.1 LAB HCT(LOINC) 34.0-46.0 % Hct 34.8 LAB MCV(LOINC) 80.0-99.0 fL MCV 95.2 LAB MCH(LOINC) 27.0-33.0 pg High MCH 33.1 LAB MCHC(LOINC) 32.0-36.0 G/dL MCHC 34.7 LAB RDW(LOINC) 11.5-15.5 % RDW 13.1 LAB PLT(LOINC) 150-450 10 3/mcL Platelet 219 LAB MPV(LOINC) 6.6-10.5 fL MPV 8.8 Performed By: #### CAION, CBC, ADIFF, ANEU, BMP, GFR #### [place] [address] .AUTO DIFF Collected: 01/15/2018 Status: F Source: [facility] 3:44 AM [facility] REPOSITORY TYPE CODE TESTS RESULT OUT OF REFERENCE UNITS RANGE LAB FRAN(LOINC) 50.0-75.0 % Low Neutrophil % 49.6 LAB LYM(LOINC) 20.0-40.0 % Lymphocyte % 36.9 LAB MON(LOINC) 2.0-13.0 % Monocyte % 6.8 LAB EO(LOINC) 0.0-6.0 % Eosinophil % 5.5 LAB BAS(LOINC) 0.0-2.5 % Basophil % 1.2 LAB ABLYM(LOIN 0.90-4.32 10 3/mcL C) Lymphocyte, 2.50 Absolute LAB DURAN(LOINC 0.09-1.40 10 3/mcL ) Monocyte, 0.50 Absolute LAB AEOS(LOINC 0.00-0.65 10 3/mcL ) Eosinophil, 0.40 Absolute LAB ABAS(LOINC 0.00-0.27 10 3/mcL ) Basophil, 0.10 Absolute Performed By: #### CAION, CBC, ADIFF, ANEU, BMP, GFR #### [place] [address] .NEUABS Collected: 01/15/2018 Status: F Source: [facility] 3:44 AM [facility] REPOSITORY TYPE CODE TESTS RESULT OUT OF REFERENCE UNITS RANGE LAB ANEU(LOINC) 2.25-8.10 10 3/mcL Neutrophil, 3.40 Absolute Performed By: #### CAION, CBC, ADIFF, ANEU, BMP, GFR #### [place] [address] BMP Collected: 01/15/2018 Status: F Source: [facility] 3:44 AM [facility] REPOSITORY TYPE CODE TESTS RESULT OUT OF REFERENCE UNITS RANGE LAB GLU(LOINC) 70-110 mg/dL Glucose High Level 115 LAB NA(LOINC) 136-145 mEq/L Sodium Level 142 LAB K(LOINC) 3.5-5.0 mEq/L Potassium Level 3.9 LAB CL(LOINC) 98-110 mEq/L Chloride 110 LAB CO2(LOINC) 22-32 mEq/L CO2 25 LAB EBAL(LOINC 4.0-15.0 mEq/L ) Electrolyte Balance 7.0 LAB BUN(LOINC) 8.0-22.0 mg/dL BUN 12.0 LAB CRE(LOINC) 0.50-1.20 mg/dL Creatinine Lvl (s) 0.63 LAB BC(LOINC) 10.0-22.0 ratio BUN/Creatinine 19.0 Ratio LAB CA(LOINC) 8.4-10.1 mg/dL Low Calcium Lvl 8.3 Performed By: #### CAION, CBC, ADIFF, ANEU, BMP, GFR #### [facility] [address] [place] [address] .GFR Collected: 01/15/2018 Status: F Source: [facility] 3:44 AM [facility] REPOSITORY TYPE CODE TESTS RESULT OUT OF REFERENCE UNITS RANGE LAB GFRAA(LOINC ml/min/1.73 ) sqm GFR >60 Belgian Result Comment: GFR Population mean for , Non- Americans Ages 20-29 = 116 mL/min/1.73 sq.m. Ages 30-39 = 107 mL/min/1.73 sq.m. Ages 40-49 = 99 mL/min/1.73 sq.m. Ages 50-59 = 93 mL/min/1.73 sq.m. Ages 60-69 = 85 mL/min/1.73 sq.m. Ages 70+ = 75 mL/min/1.73 sq.m. Chronic Kidney Disease: Less than 60 mL/min/1.73 square meters End Stage Renal Disease: Less than 15 mL/min/1.73 square meters LAB GFRNO(LOINC) ml/min/1.73sqm GFR Non- >60 Result Comment: GFR Population mean for , Non- Americans Ages 20-29 = 116 mL/min/1.73 sq.m. Ages 30-39 = 107 mL/min/1.73 sq.m. Ages 40-49 = 99 mL/min/1.73 sq.m. Ages 50-59 = 93 mL/min/1.73 sq.m. Ages 60-69 = 85 mL/min/1.73 sq.m. Ages 70+ = 75 mL/min/1.73 sq.m. Chronic Kidney Disease: Less than 60 mL/min/1.73 square meters End Stage Renal Disease: Less than 15 mL/min/1.73 square meters Performed By: #### CAION, CBC, ADIFF, ANEU, BMP, GFR #### [address] [address] CBC Collected: 01/14/2018 Status: F Source: [facility] 3:47 AM [facility] REPOSITORY TYPE CODE TESTS RESULT OUT OF REFERENCE UNITS RANGE LAB WBC(LOINC) 4.50-10.80 10 3/mcL WBC 9.00 LAB RBCCT(LOINC 4.10-5.30 10 6/mcL ) Low RBC 3.69 LAB HGB(LOINC) 12.0-16.0 G/dL Hgb 12.2 LAB HCT(LOINC) 34.0-46.0 % Hct 35.4 LAB MCV(LOINC) 80.0-99.0 fL MCV 95.8 LAB MCH(LOINC) 27.0-33.0 pg MCH 32.9 LAB MCHC(LOINC) 32.0-36.0 G/dL MCHC 34.4 LAB RDW(LOINC) 11.5-15.5 % RDW 12.8 LAB PLT(LOINC) 150-450 10 3/mcL Platelet 225 LAB MPV(LOINC) 6.6-10.5 fL MPV 8.7 Performed By: #### CBC, ADIFF, ANEU, CAION, MG, GFR, CMP #### [address] [address] .AUTO DIFF Collected: 01/14/2018 Status: F Source: [facility] 3:47 AM [facility] REPOSITORY TYPE CODE TESTS RESULT OUT OF REFERENCE UNITS RANGE LAB FRAN(LOINC) 50.0-75.0 % Neutrophil % 63.6 LAB LYM(LOINC) 20.0-40.0 % Lymphocyte % 26.7 LAB MON(LOINC) 2.0-13.0 % Monocyte % 4.8 LAB EO(LOINC) 0.0-6.0 % Eosinophil % 3.8 LAB BAS(LOINC) 0.0-2.5 % Basophil % 1.1 LAB ABLYM(LOIN 0.90-4.32 10 3/mcL C) Lymphocyte, 2.40 Absolute LAB DURAN(LOINC 0.09-1.40 10 3/mcL ) Monocyte, 0.40 Absolute LAB AEOS(LOINC 0.00-0.65 10 3/mcL ) Eosinophil, 0.30 Absolute LAB ABAS(LOINC 0.00-0.27 10 3/mcL ) Basophil, 0.10 Absolute Performed By: #### CBC, ADIFF, ANEU, CAION, MG, GFR, CMP #### [place] [address] .NEUABS Collected: 01/14/2018 Status: F Source: [facility] 3:47 AM [facility] REPOSITORY TYPE CODE TESTS RESULT OUT OF REFERENCE UNITS RANGE LAB ANEU(LOINC) 2.25-8.10 10 3/mcL Neutrophil, 5.70 Absolute Performed By: #### CBC, ADIFF, ANEU, CAION, MG, GFR, CMP #### [place] [address] CAION Collected: 01/14/2018 Status: F Source: [facility] 3:47 AM [facility] REPOSITORY TYPE CODE TESTS RESULT OUT OF REFERENCE UNITS RANGE LAB CAION(LOINC 1.12-1.32 mmol/L ) Calcium 1.12 Ionized Performed By: #### CBC, ADIFF, ANEU, CAION, MG, GFR, CMP #### [place] [address] MG Collected: 01/14/2018 Status: F Source: [facility] 3:47 AM [facility] REPOSITORY TYPE CODE TESTS RESULT OUT OF REFERENCE UNITS RANGE LAB MG(LOINC) 1.6-2.4 mg/dL Magnesium Lvl 2.0 Performed By: #### CBC, ADIFF, ANEU, CAION, MG, GFR, CMP #### [place] [address] .GFR Collected: 01/14/2018 Status: F Source: [facility] 3:47 AM [facility] REPOSITORY TYPE CODE TESTS RESULT OUT OF REFERENCE UNITS RANGE LAB GFRAA(LOINC ml/min/1.73 ) sqm GFR >60 Belgian Result Comment: GFR Population mean for , Non- Americans Ages 20-29 = 116 mL/min/1.73 sq.m. Ages 30-39 = 107 mL/min/1.73 sq.m. Ages 40-49 = 99 mL/min/1.73 sq.m. Ages 50-59 = 93 mL/min/1.73 sq.m. Ages 60-69 = 85 mL/min/1.73 sq.m. Ages 70+ = 75 mL/min/1.73 sq.m. Chronic Kidney Disease: Less than 60 mL/min/1.73 square meters End Stage Renal Disease: Less than 15 mL/min/1.73 square meters LAB GFRNO(LOINC) ml/min/1.73sqm GFR Non- >60 Result Comment: GFR Population mean for , Non- Americans Ages 20-29 = 116 mL/min/1.73 sq.m. Ages 30-39 = 107 mL/min/1.73 sq.m. Ages 40-49 = 99 mL/min/1.73 sq.m. Ages 50-59 = 93 mL/min/1.73 sq.m. Ages 60-69 = 85 mL/min/1.73 sq.m. Ages 70+ = 75 mL/min/1.73 sq.m. Chronic Kidney Disease: Less than 60 mL/min/1.73 square meters End Stage Renal Disease: Less than 15 mL/min/1.73 square meters Performed By: #### CBC, ADIFF, ANEU, CAION, MG, GFR, CMP #### [place] [address] CMP Collected: 01/14/2018 Status: F Source: [facility] 3:47 AM [facility] REPOSITORY TYPE CODE TESTS RESULT OUT OF REFERENCE UNITS RANGE LAB GLU(LOINC) 70-110 mg/dL Glucose High Level 118 LAB NA(LOINC) 136-145 mEq/L Sodium Level 143 LAB K(LOINC) 3.5-5.0 mEq/L Potassium Level 4.1 LAB CL(LOINC) 98-110 mEq/L Chloride High 111 LAB CO2(LOINC) 22-32 mEq/L CO2 24 LAB EBAL(LOINC 4.0-15.0 mEq/L ) Electrolyte Balance 8.0 LAB BUN(LOINC) 8.0-22.0 mg/dL BUN 17.0 LAB CRE(LOINC) 0.50-1.20 mg/dL Creatinine Lvl (s) 0.67 LAB BC(LOINC) 10.0-22.0 ratio High BUN/Creatinine 25.4 Ratio LAB CA(LOINC) 8.4-10.1 mg/dL Low Calcium Lvl 8.2 LAB PROT(LOINC 6.0-8.5 G/dL ) Total Protein 6.1 LAB ALB(LOINC) 3.2-4.8 G/dL Low Albumin Level 3.1 LAB GLB(LOINC) 1.5-3.8 G/dL Globulin 3.0 LAB AG(LOINC) 0.9-1.6 ratio A/G Ratio 1.0 LAB BILT(LOINC 0.2-1.2 mg/dL ) Bili Total 0.2 LAB AP(LOINC) 38-126 U/L Alk Phos 69 LAB AST(LOINC) 8-34 U/L AST/SGOT 18 LAB ALT(LOINC) 10-49 U/L ALT/SGPT 28 Performed By: #### CBC, ADIFF, ANEU, CAION, MG, GFR, CMP #### [place] [address] Observed: 01/13/2018 Status: F Source: [facility] 7:59 AM [facility] REPOSITORY . MICRO - Microbiology PROCEDURE: Culture Wound Deep Aerobe/Anaerobe w Gram Stain [O1 *1] SOURCE: Wound (deep) BODY SITE: Hand L COLLECTED DATE/TIME: 01/13/2018 07:59 EDT RECEIVED DATE/TIME: 01/13/2018 08:35 EDT START DATE/TIME: 01/13/2018 08:35 EDT FREE TEXT SOURCE: left index finger FINAL REPORTS Final Report [] Verified Date/Time/Personnel: 01/17/2018 10:49 EDT Light Staphylococcus aureus Light Pasteurella aerogenes Sensitivity testing is not recommended for one of the following reasons: 1. Established susceptibility patterns are available or 2. Interpretative criteria are not available. No anaerobes isolated at 96 hours. PRELIMINARY REPORTS Preliminary Report [] Verified Date/Time/Personnel: 01/16/2018 12:48 EDT Light Staphylococcus aureus Light Pasteurella aerogenes Sensitivity testing is not recommended for one of the following reasons: 1. Established susceptibility patterns are available or 2. Interpretative criteria are not available. Preliminary Report [] Verified Date/Time/Personnel: 01/15/2018 10:38 EDT Light Staphylococcus aureus BEL to follow Light Non Fermentering Gram Negative Rods Final identification and BEL to follow. Final report to follow. Preliminary Report [] Verified Date/Time/Personnel: 01/14/2018 11:53 EDT Culture results pending. STAINS GS [] Verified Date/Time/Personnel: 01/13/2018 13:43 EDT No White Blood Cells No organisms seen. SUSCEPTIBILITY RESULTS Staphylococcus aureus Antibiotic BEL Dilutn BEL Interp Ampicillin <=2 Beta Lactamase Positive Ceftriaxone <=8 Susceptible Clindamycin <=0.5 Susceptible Erythromycin <=0.5 Susceptible Oxacillin <=0.25 Susceptible Penicillin 2 Beta Lactamase Positive Tetracycline <=4 Susceptible MICRO - Microbiology SUSCEPTIBILITY RESULTS Staphylococcus aureus Antibiotic BEL Dilutn BEL Interp Trimethoprim/ <=0.5/9.5 Susceptible Sulfa Vancomycin 1 Susceptible Order Comments O1: Culture Wound Deep Aerobe/Anaerobe w Gram Stain (Wound Deep Culture (Aerobe and Anaerobe) w Gram Stain) Left index finger Procedure- Irrigation and Debridement Left Index Finger Performing Locations *1: This test was performed at: [address], [address] [place] [address] Performed By: #### CWDP #### [place] [address] CBC Collected: 01/13/2018 Status: F Source: [facility] 4:16 AM [facility] REPOSITORY TYPE CODE TESTS RESULT OUT OF REFERENCE UNITS RANGE LAB WBC(LOINC) 4.50-10.80 10 3/mcL WBC 9.90 LAB RBCCT(LOINC 4.10-5.30 10 6/mcL ) RBC 4.35 LAB HGB(LOINC) 12.0-16.0 G/dL Hgb 14.1 LAB HCT(LOINC) 34.0-46.0 % Hct 41.6 LAB MCV(LOINC) 80.0-99.0 fL MCV 95.7 LAB MCH(LOINC) 27.0-33.0 pg MCH 32.3 LAB MCHC(LOINC) 32.0-36.0 G/dL MCHC 33.8 LAB RDW(LOINC) 11.5-15.5 % RDW 12.9 LAB PLT(LOINC) 150-450 10 3/mcL Platelet 265 LAB MPV(LOINC) 6.6-10.5 fL MPV 8.9 Performed By: #### CBC, ADIFF, ANEU, MG, PHOS, TSH, T4, CMP, GFR, B12, ESR #### [address] [address] .AUTO DIFF Collected: 01/13/2018 Status: F Source: [facility] 4:16 AM [facility] REPOSITORY TYPE CODE TESTS RESULT OUT OF REFERENCE UNITS RANGE LAB FRAN(LOINC) 50.0-75.0 % Low Neutrophil % 46.8 LAB LYM(LOINC) 20.0-40.0 % High Lymphocyte % 42.0 LAB MON(LOINC) 2.0-13.0 % Monocyte % 6.3 LAB EO(LOINC) 0.0-6.0 % Eosinophil % 4.0 LAB BAS(LOINC) 0.0-2.5 % Basophil % 0.9 LAB ABLYM(LOIN 0.90-4.32 10 3/mcL C) Lymphocyte, 4.20 Absolute LAB DURAN(LOINC 0.09-1.40 10 3/mcL ) Monocyte, 0.60 Absolute LAB AEOS(LOINC 0.00-0.65 10 3/mcL ) Eosinophil, 0.40 Absolute LAB ABAS(LOINC 0.00-0.27 10 3/mcL ) Basophil, 0.10 Absolute Performed By: #### CBC, ADIFF, ANEU, MG, PHOS, TSH, T4, CMP, GFR, B12, ESR #### [address] [address] .NEUABS Collected: 01/13/2018 Status: F Source: [facility] 4:16 AM [facility] REPOSITORY TYPE CODE TESTS RESULT OUT OF REFERENCE UNITS RANGE LAB ANEU(LOINC) 2.25-8.10 10 3/mcL Neutrophil, 4.60 Absolute Performed By: #### CBC, ADIFF, ANEU, MG, PHOS, TSH, T4, CMP, GFR, B12, ESR #### [address] [address] MG Collected: 01/13/2018 Status: F Source: [facility] 4:16 AM [facility] REPOSITORY TYPE CODE TESTS RESULT OUT OF REFERENCE UNITS RANGE LAB MG(LOINC) 1.6-2.4 mg/dL Magnesium Lvl 2.2 Performed By: #### CBC, ADIFF, ANEU, MG, PHOS, TSH, T4, CMP, GFR, B12, ESR #### [address] [address] PHOS Collected: 01/13/2018 Status: F Source: [facility] 4:16 AM [facility] REPOSITORY TYPE CODE TESTS RESULT OUT OF REFERENCE UNITS RANGE LAB PHOS(LOINC 2.5-4.5 mg/dL ) Phosphorus 3.4 Performed By: #### CBC, ADIFF, ANEU, MG, PHOS, TSH, T4, CMP, GFR, B12, ESR #### [address] [address] TSH Collected: 01/13/2018 Status: F Source: [facility] 4:16 AM [facility] REPOSITORY TYPE CODE TESTS RESULT OUT OF RANGE REFERENCE UNITS LAB TSH(LOINC) 0.360-3.740 mcIU/mL TSH 2.350 Result Comment: Please note ? as of 03/11/17 new pediatric reference intervals were added for this test. Performed By: #### CBC, ADIFF, ANEU, MG, PHOS, TSH, T4, CMP, GFR, B12, ESR #### [address] [address] T4 Collected: 01/13/2018 Status: F Source: [facility] 4:16 AM [facility] REPOSITORY TYPE CODE TESTS RESULT OUT OF RANGE REFERENCE UNITS LAB T4(LOINC) 4.7-11.4 mcg/dL T4 9.6 Result Comment: Please note ? as of 03/11/17 new pediatric reference intervals were added for this test. Performed By: #### CBC, ADIFF, ANEU, MG, PHOS, TSH, T4, CMP, GFR, B12, ESR #### [address] [address] CMP Collected: 01/13/2018 Status: F Source: [facility] 4:16 AM [facility] REPOSITORY TYPE CODE TESTS RESULT OUT OF REFERENCE UNITS RANGE LAB GLU(LOINC) 70-110 mg/dL Glucose High Level 128 LAB NA(LOINC) 136-145 mEq/L Sodium Level 140 LAB K(LOINC) 3.5-5.0 mEq/L Potassium Level 4.3 LAB CL(LOINC) 98-110 mEq/L Chloride 104 LAB CO2(LOINC) 22-32 mEq/L CO2 25 LAB EBAL(LOINC 4.0-15.0 mEq/L ) Electrolyte Balance 11.0 LAB BUN(LOINC) 8.0-22.0 mg/dL BUN 18.0 LAB CRE(LOINC) 0.50-1.20 mg/dL Creatinine Lvl (s) 0.59 LAB BC(LOINC) 10.0-22.0 ratio High BUN/Creatinine 30.5 Ratio LAB CA(LOINC) 8.4-10.1 mg/dL Calcium Lvl 9.1 LAB PROT(LOINC 6.0-8.5 G/dL ) Total Protein 7.4 LAB ALB(LOINC) 3.2-4.8 G/dL Albumin Level 3.9 LAB GLB(LOINC) 1.5-3.8 G/dL Globulin 3.5 LAB AG(LOINC) 0.9-1.6 ratio A/G Ratio 1.1 LAB BILT(LOINC 0.2-1.2 mg/dL ) Bili Total 0.4 LAB AP(LOINC) 38-126 U/L Alk Phos 71 LAB AST(LOINC) 8-34 U/L AST/SGOT 20 LAB ALT(LOINC) 10-49 U/L ALT/SGPT 34 Performed By: #### CBC, ADIFF, ANEU, MG, PHOS, TSH, T4, CMP, GFR, B12, ESR #### [place] [address] .GFR Collected: 01/13/2018 Status: F Source: [facility] 4:16 AM [facility] REPOSITORY TYPE CODE TESTS RESULT OUT OF REFERENCE UNITS RANGE LAB GFRAA(LOINC ml/min/1.73 ) sqm GFR >60 Belgian Result Comment: GFR Population mean for , Non- Americans Ages 20-29 = 116 mL/min/1.73 sq.m. Ages 30-39 = 107 mL/min/1.73 sq.m. Ages 40-49 = 99 mL/min/1.73 sq.m. Ages 50-59 = 93 mL/min/1.73 sq.m. Ages 60-69 = 85 mL/min/1.73 sq.m. Ages 70+ = 75 mL/min/1.73 sq.m. Chronic Kidney Disease: Less than 60 mL/min/1.73 square meters End Stage Renal Disease: Less than 15 mL/min/1.73 square meters LAB GFRNO(LOINC) ml/min/1.73sqm GFR Non- >60 Result Comment: GFR Population mean for , Non- Americans Ages 20-29 = 116 mL/min/1.73 sq.m. Ages 30-39 = 107 mL/min/1.73 sq.m. Ages 40-49 = 99 mL/min/1.73 sq.m. Ages 50-59 = 93 mL/min/1.73 sq.m. Ages 60-69 = 85 mL/min/1.73 sq.m. Ages 70+ = 75 mL/min/1.73 sq.m. Chronic Kidney Disease: Less than 60 mL/min/1.73 square meters End Stage Renal Disease: Less than 15 mL/min/1.73 square meters Performed By: #### CBC, ADIFF, ANEU, MG, PHOS, TSH, T4, CMP, GFR, B12, ESR #### [address] [address] B12 Collected: 01/13/2018 Status: F Source: [facility] 4:16 AM [facility] REPOSITORY TYPE CODE TESTS RESULT OUT OF REFERENCE UNITS RANGE LAB B12(LOINC) 211-911 pg/mL Vitamin B12 298 Lvl Performed By: #### CBC, ADIFF, ANEU, MG, PHOS, TSH, T4, CMP, GFR, B12, ESR #### [address] [address] ESR Collected: 01/13/2018 Status: F Source: [facility] 4:16 AM [facility] REPOSITORY TYPE CODE TESTS RESULT OUT OF REFERENCE UNITS RANGE LAB ESR(LOINC) 0-30 mm/hr Erythrocyte High Sed Rate 40 Performed By: #### CBC, ADIFF, ANEU, MG, PHOS, TSH, T4, CMP, GFR, B12, ESR #### [address] [address] CBC Collected: 01/13/2018 Status: F Source: [facility] 12:24 AM [facility] REPOSITORY TYPE CODE TESTS RESULT OUT OF REFERENCE UNITS RANGE LAB WBC(LOINC) 4.50-10.80 10 3/mcL WBC 10.10 LAB RBCCT(LOINC 4.10-5.30 10 6/mcL ) RBC 4.27 LAB HGB(LOINC) 12.0-16.0 G/dL Hgb 13.9 LAB HCT(LOINC) 34.0-46.0 % Hct 40.7 LAB MCV(LOINC) 80.0-99.0 fL MCV 95.2 LAB MCH(LOINC) 27.0-33.0 pg MCH 32.5 LAB MCHC(LOINC) 32.0-36.0 G/dL MCHC 34.2 LAB RDW(LOINC) 11.5-15.5 % RDW 13.2 LAB PLT(LOINC) 150-450 10 3/mcL Platelet 267 LAB MPV(LOINC) 6.6-10.5 fL MPV 8.8 Performed By: #### CBC, ADIFF, ANEU, BMP, GFR #### [address] [address] .AUTO DIFF Collected: 01/13/2018 Status: F Source: [facility] 12:24 AM [facility] REPOSITORY TYPE CODE TESTS RESULT OUT OF REFERENCE UNITS RANGE LAB FRAN(LOINC) 50.0-75.0 % Low Neutrophil % 48.3 LAB LYM(LOINC) 20.0-40.0 % High Lymphocyte % 41.5 LAB MON(LOINC) 2.0-13.0 % Monocyte % 5.9 LAB EO(LOINC) 0.0-6.0 % Eosinophil % 3.5 LAB BAS(LOINC) 0.0-2.5 % Basophil % 0.8 LAB ABLYM(LOIN 0.90-4.32 10 3/mcL C) Lymphocyte, 4.20 Absolute LAB DURAN(LOINC 0.09-1.40 10 3/mcL ) Monocyte, 0.60 Absolute LAB AEOS(LOINC 0.00-0.65 10 3/mcL ) Eosinophil, 0.30 Absolute LAB ABAS(LOINC 0.00-0.27 10 3/mcL ) Basophil, 0.10 Absolute Performed By: #### CBC, ADIFF, ANEU, BMP, GFR #### [address] [address] .NEUABS Collected: 01/13/2018 Status: F Source: [facility] 12:24 AM [facility] REPOSITORY TYPE CODE TESTS RESULT OUT OF REFERENCE UNITS RANGE LAB ANEU(LOINC) 2.25-8.10 10 3/mcL Neutrophil, 4.90 Absolute Performed By: #### NYIAH CASTILLO ANEU, BMP, GFR #### [place] [id number] BMP Collected: 01/13/2018 Status: F Source: [facility] 12:24 AM [facility] REPOSITORY TYPE CODE TESTS RESULT OUT OF REFERENCE UNITS RANGE LAB GLU(LOINC) 70-110 mg/dL Glucose High Level 143 LAB NA(LOINC) 136-145 mEq/L Sodium Level 140 LAB K(LOINC) 3.5-5.0 mEq/L Potassium Level 4.1 LAB CL(LOINC) 98-110 mEq/L Chloride 106 LAB CO2(LOINC) 22-32 mEq/L CO2 22 LAB EBAL(LOINC 4.0-15.0 mEq/L ) Electrolyte Balance 12.0 LAB BUN(LOINC) 8.0-22.0 mg/dL BUN 20.0 LAB CRE(LOINC) 0.50-1.20 mg/dL Creatinine Lvl (s) 0.62 LAB BC(LOINC) 10.0-22.0 ratio High BUN/Creatinine 32.3 Ratio LAB CA(LOINC) 8.4-10.1 mg/dL Calcium Lvl 8.7 Performed By: #### NIYAH CASTILLO ANEU, BMP, GFR #### [address] [address] .GFR Collected: 01/13/2018 Status: F Source: [facility] 12:24 AM [facility] REPOSITORY TYPE CODE TESTS RESULT OUT OF REFERENCE UNITS RANGE LAB GFRAA(LOINC ml/min/1.73 ) sqm GFR >60 Belgian Result Comment: GFR Population mean for , Non- Americans Ages 20-29 = 116 mL/min/1.73 sq.m. Ages 30-39 = 107 mL/min/1.73 sq.m. Ages 40-49 = 99 mL/min/1.73 sq.m. Ages 50-59 = 93 mL/min/1.73 sq.m. Ages 60-69 = 85 mL/min/1.73 sq.m. Ages 70+ = 75 mL/min/1.73 sq.m. Chronic Kidney Disease: Less than 60 mL/min/1.73 square meters End Stage Renal Disease: Less than 15 mL/min/1.73 square meters LAB GFRNO(LOINC) ml/min/1.73sqm GFR Non- >60 Result Comment: GFR Population mean for , Non- Americans Ages 20-29 = 116 mL/min/1.73 sq.m. Ages 30-39 = 107 mL/min/1.73 sq.m. Ages 40-49 = 99 mL/min/1.73 sq.m. Ages 50-59 = 93 mL/min/1.73 sq.m. Ages 60-69 = 85 mL/min/1.73 sq.m. Ages 70+ = 75 mL/min/1.73 sq.m. Chronic Kidney Disease: Less than 60 mL/min/1.73 square meters End Stage Renal Disease: Less than 15 mL/min/1.73 square meters Performed By: #### CBC, ADIFF, ANEU, BMP, GFR #### [place] [address] EMERGENCY DEPARTMENT Observed: 01/12/2018 Status: F Source: [place] SUMMARY 10:48 PM [facility] REPOSITORY [facility] Medical Records Department [address] [place] [address] Emergency Department Summary 01/12/18 1751 MR#: [id number] Acct: [id number] Name: ARACELI WARNER Rep #: [id number] : [id number] 57 From: Romario Huston MD PCP: Darrell Langley MD Status: DEP ER - ER Visit Summary Date of Service: 01/12/18 Chief Complaint: Cat bite History of Present Illness: The patient is a 57 F with a cat bite to her left index finger that occurred 3 days ago. This was a stray cat that she was attempting to help. It bit her and then ran away. She has had increasing redness, pain, and swelling to the left index finger since the bite. Unsure of tetanus status. Physical Examination: Afebrile and vital signs unremarkable. Patient has 2 puncture wounds near the PIP of her left index finger. They are associated with erythema, tenderness, swelling. There is good range of motion through the joints. All of the erythema and swelling is localized to the puncture wounds. The rest of her fingers and hand are unremarkable. Test Results: X-rays pending. Emergency Department Course and Treatment: Patient has a history of diabetes. I checked her blood sugar and it was 170. She said her hemoglobin A1c runs about 7. Will check x-rays. Tetanus was updated. Rabies was discussed. The patient is declining vaccination and treatment for this. There are some signs that the patient could be developing an early flexor tenosynovitis. There is no sign of necrotizing fasciitis or any other emergent surgical complication. Basic labs are pending. She was treated with a round of IV clindamycin. Hand surgery is not available at this facility. I did speak with general orthopedics here, and the concern was if the patient had a complication, they would not be able to properly take care of this patient's medical condition. I notified the patient of this information and they requested [facility]. I spoke with Dr. Bautista who will accept the patient. X-rays and laboratory studies are pending at the time of this dictation, but there is nothing that will change the disposition at this time. Treatment Plan: As above Disposition: Transferred to [place] Impression: 1. Cat bite left index finger 2. Cellulitis left index finger This note was generated with [email or web address] dictation software. It may contain incorrect words, spelling, and punctuation that were not noted in review of the chart prior to signing ED Disposition - Plan for ED Patient: Chief Complaint: Bite Referrals: Darrell Langley MD [Primary Care Provider] - What to do if you have Problems For any increased pain, shortness of breath, bleeding, nausea or vomiting, chest pain, or any unexpected problems, contact your Primary Care Provider. Call [facility] ([phone]) or report to the closest Emergency Room. Call 911 if necessary. 01/12/18 9335 <Electronically signed by Romario Huston MD> Date Romario Huston MD Cosigner Signature (If Indicated): Date CC: Darrell Langley MD CBC W/DIFF, AUTOMATED Collected: 01/12/2018 Status: F Source: [facility] 6:45 PM [facility] REPOSITORY TYPE CODE TESTS RESULT OUT OF RANGE REFERENCE UNITS LAB L100.1000 4.4-11.0 K/mm3 Normal WBC 10.0 LAB L100.1200 4.2-5.4 M/mm3 Normal RBC 4.52 LAB L100.1300 12.0-15.0 g/dl Normal HGB 14.3 LAB L100.1400 37-47 % Normal HCT 43.3 LAB L100.1500 81-99 fL Normal MCV 95.8 LAB L100.1600 27.0-32.0 pg Normal MCH 31.6 LAB L100.1700 32-36 g/gl Normal MCHC 33.0 LAB L100.1810 11.6-14.6 % Normal RDW CV 12.7 LAB L100.1820 35.1-43.9 fl High RDW SD 44.3 LAB L100.1900 150-450 K/mm3 Normal PLT 293 LAB L100.2000 6.2-12.0 fl Normal MPV 10.5 LAB L100.2100 47-70 % Normal NEUT% 52.3 LAB L100.2200 19-41 % Normal LY% 37.6 LAB L100.2300 0-10 % Normal MONO% 5.7 LAB L100.2400 0-5 % Normal EO% 3.7 LAB L100.2500 0-1 % Normal BASO% 0.6 LAB L100.2550 0.0-0.9 % Normal IM GRAN % 0.100 Result Comment: IG% - Immature Granulocytes (promyelocytes, myelocytes and metamyelocytes) > 1% indicates that a LEFT SHIFT is Present. LAB L100.2620 2.0-7.7 X10 3/uL Normal Absolute Neut 5.2 LAB L100.2720 0.83-4.51 X10 3/ul Normal Absolute Lymph 3.74 Performed By: #### L100.0100 #### [facility] [address] [place], [address] BASIC METABOLIC Collected: 01/12/2018 Status: F Source: [facility] PROFILE (BMP) 6:45 PM [facility] REPOSITORY TYPE CODE TESTS RESULT OUT OF RANGE REFERENCE UNITS LAB L501.0100 74-106 mg/dL High GLU 158 Result Comment: Fasting Glucose result greater than or equal to 126 mg/dL suggests DIABETES MELLITUS per A.D.A. criteria. Please note revised GLUCOSE reference range effective 2017. LAB L501.1000 7-18 mg/dL Normal BUN 16 LAB L501.1100 0.55-1.02 mg/dL Normal CREAT,SERUM 0.96 Result Comment: The validity of the calculated GFR AND GFRAA in patients over 70 years has not been determined. Clinical correlation is essential. LAB L501.1110 >60 mL/min Normal EST GFR 63 Result Comment: Non- GFR Calc LAB L501.1115 >60 mL/min Normal EST GFR - AA 76 Result Comment: GFR Calc LAB L501.1255 ml/min Normal Estimated CRCL 62.12 LAB L501.1300 10-20 RATIO Normal BUN/CRE 16.6 LAB L501.2200 8.5-10 mg/dL Normal .1 CA 9.3 LAB L501.5300 136-14 mmol/L Normal 5 NA 140 LAB L501.5600 3.5-5. mmol/L Normal 1 K 3.8 LAB L501.5900 98-107 mmol/L Normal CL 104 LAB L501.6100 21.0-3 mmol/L Normal 2.0 CO2 27.0 LAB L501.6200 5-15 Normal GAP 9 Performed By: #### L500.2500 #### [facility] [address] [facility] [place], [address] FINGER(S) MIN 2 VIEWS Observed: 01/12/2018 Status: F Source: [place] 5:46 PM [facility] REPOSITORY [facility] Imaging Services [address] [place] [address] Finger(s) Min 2 Views MR#: [id number] Acct: [id number] Name: ARACELI WARNER Rep #: [id number] : 1960 F 57 From: Unique Albarran MD PCP: Darrell Langley MD Status: REG ER Study: Finger(s) Min 2 Views Date of Exam: 01/12/18 Exam# [id number] Ordering Dr: Romario Huston MD STUDY: X-RAY - LEFT HAND, ATTENTION SECOND FINGER REASON FOR EXAM: Female, 57 years old. Pain and swelling after recent cat bite. TECHNIQUE: 3 view(s) of the finger were obtained. COMPARISON: None. FINDINGS: Normal metacarpal head. There is mild degenerative arthrosis of the metacarpophalangeal joint. Normal proximal phalanx. Normal middle phalanx. Normal distal phalanx. There is mild degenerative arthrosis of the proximal interphalangeal joint. There is mild degenerative arthrosis of the distal interphalangeal joint. RAD/Finger(s) Min 2 Views IMPRESSION: No acute bone or joint findings. Negative for fracture, osteolytic or blastic bone lesion. Soft tissue swelling without underlying foreign body. Mild degenerative joint changes. Electronically Signed: Unique Albarran MD at 19:22 EDT , Service support , CC: Romario Huston MD; Darrell Langley MD Director [employer] Agency: Signed BEDSIDE GLUCOSE Collected: 01/12/2018 Status: F Source: [place] 5:44 PM [facility] REPOSITORY TYPE CODE TESTS RESULT OUT OF REFERENCE UNITS [facility] L501.080 70-110 mg/dL High BEDSIDE GLU 170 Result Comment: MANAGEMENT OF PATIENT CARE PER NURSING PROTOCOL Performed By: #### L501.080 #### [facility] Point of Care [address] [place] [address] ALLERGIES ALLERGIES DATE TYPE / CODE NAME / CODE REACTION SEVERITY SOURCE 01/19/2018 Drug Penicillins/ Unknown Unknown [facility] Allergy/4160 [id number]([place] [address](SNOMED XNORM) Repository CT) 01/19/2018 Drug propoxyphene Unknown Unknown [facility] Allergy/4160 /[id number]( [place] [address](SNOMED RXNORM) Repository CT) 01/19/2018 Drug acetaminophe Unknown Unknown [facility] Allergy/4160 n/[id number] [facility] [address](SNOMED (RXNORM) Repository CT) 01/19/2018 Drug meperidine/F Other Unknown [facility] Allergy/4160 [id number]([facility] [address](SNOMED NORM) Repository CT) 01/19/2018 Drug hydromorphon Vomiting Unknown [facility] Allergy/4160 e/[id number] Hospital [address](SNOMED (RXNORM) Repository CT) ENCOUNTERS ENCOUNTERS ADMIT/DISCHARGE ACCOUNT NUMBER ADMITTING ENCOUNTER LOCATION SOURCE CLASS 08/08/2018 [id number] Ambulatory [facility] ding:MFPLAB Repository 03/07/2018 [id number] Ambulatory [facility] ding:DC Repository 02/05/2018/02/25/20 [id number] Ambulatory [address] ding:DC Repository 01/19/2018/01/20/20 [id number] Emergency [address] ding:ED Repository 01/12/2018/01/17/20 [id number] ANABEL CARLISLE, Inpatient ABuilding:BENSON [place] [address] ALAINA Bee Encounter 5Room: [place] [address]Bed: A [facility] Repository 01/12/2018/01/13/20 [id number] Emergency [address] ding:ED Repository PAYERS PAYERS ENCOUNTER GUARANTOR PAYER SUBSCRIBER SOURCE 08/08/2018 ARACELI S Primary ARACELI S Angie [id number] Insurance:CARESOURCE CORBINDOB: [facility] Policy Number: [id number], [id number] [place]ository [place] [address]Adw: [phone]) Date:2018-08-08 O [phone] () [address]ATTN: [place] [address]MY: 08/08/2018 Secondary NOT GIVENUNK Angie Insurance:SELF PAY [facility] Number: Effective Repository Date:2018-08-08 03/07/2018 ARACELI S Primary ARACELI S Angie [id number] Insurance:CARESOURCE CORBINDOB: [facility] Policy Number: [id number] [place], [id number] [place]ository [place] [address]Ehk: ([phone]) Date:2018-01-17P O [phone] () [address]ATTN: [place] [address]UO: 03/07/2018 Secondary NOT GIVENUNK [place] Insurance:SELF PAY [facility] Number: Effective Repository Date:2018-02-25 02/05/2018 ARACELI S Primary ARACELI S Angie [id number] Insurance:CARESOURCE CORBINDOB: [facility] Policy Number: [id number] [place], [id number] [place]ository [place] [address]Bee: ([phone]) Date:2018-01-17P O [phone] () [address]ATTN[place] [address]PO: 02/05/2018 Secondary NOT GIVENUNK Angie Insurance:SELF PAY [facility] Number: Effective Repository Date:2018-01-17 01/19/2018 ARACELI S Primary ARACELI S Angie [id number] Insurance:CARESOURCE CORBINDOB: [facility] Policy Number: [id number] [place], [id number] [place] [address]Soj: ([phone]) Date:2018-01-19P O [phone] () [address]ATTN: [place] [address]PY: 01/19/2018 Secondary NOT GIVENUNK Angie Insurance:SELF PAY [facility] Number: Effective Repository Date:2018-01-19 01/12/2018 ARACELI CORBINDOB: Primary ARACELI CORBINDOB: [facility] [id number] Insurance:CARESOURCE [id number] Foundation [place] Repository [facility] [place], Number: [facility] [place], [place] [address]Vzt: [phone] [id number] [place] [address]Vii: () Date:2018-01-12 [phone] ()Tel: [phone] Name:XPO Box (WP) [address] [place] [address]HT: 01/12/2018 ARACELI [id number] Primary ARACELI CORBINDOB: [place] [facility] [id number] Community [facility] [place], Policy Number: [facility] [id number]: (277) [id number] Repository [phone] () Date:2018-01-12P [address]ATTN: [place] [address]QQ: 01/12/2018 Secondary NOT GIVENUNK [place] Insurance:SELF PAY [facility] Number: Effective Repository Date:2018-01-12
== END ==
PROVIDERS: Family Provider Family Medicine; PCP Family Medicine; Visit Provider Family Medicine
DX: E11.9 Type 2 diabetes mellitus without complications (principal); E55.9 Vitamin D deficiency, unspecified
CPT/HCPCS: 36415; 80048; 80061; 80076; 82043; 82306; 82570

== ENCOUNTER → 2019-02-11 09:28 | Outpatient (CLI) | payer MEDICAID, SELFPAY ==
[2019-02-11 13:21] LABS: Anion Gap 13 (5-15); BUN 11 mg/dL (7-18); BUN/Creat Ratio 14.9 RATIO (10-20); Calcium,Total 9.5 mg/dL (8.5-10.1); Chloride 101 mmol/L (98-107); Creatinine, Serum 0.74 mg/dL (0.55-1.02); EST Glomerular Filtration Rate 86 mL/min (>60); Est Glom Filt Rate - Afr Amer 104 mL/min (>60); Glucose 236 mg/dL (74-106); Potassium 4.2 mmol/L (3.5-5.1); Sodium Level 137 mmol/L (136-145)
== END ==
PROVIDERS: Family Provider Family Medicine; PCP Family Medicine; Referring Provider Family Medicine; Visit Provider Family Medicine
DX: E55.9 Vitamin D deficiency, unspecified (principal); E11.9 Type 2 diabetes mellitus without complications
CPT/HCPCS: 36415; 80048; 82306

== ENCOUNTER → 2019-09-02 09:02 | Outpatient (CLI) | payer MEDICAID, SELFPAY ==
[2019-09-02 10:25] LABS: Anion Gap 6 (5-15); BUN 15 mg/dL (7-18); BUN/Creat Ratio 19.9 RATIO (10-20); Calcium,Total 9.2 mg/dL (8.5-10.1); Chloride 108 mmol/L (98-107); Creatinine, Serum 0.76 mg/dL (0.55-1.02); EST Glomerular Filtration Rate 83 mL/min (>60); Est Glom Filt Rate - Afr Amer 101 mL/min (>60); Glucose 209 mg/dL (74-106); Potassium 3.9 mmol/L (3.5-5.1); Sodium Level 139 mmol/L (136-145)
== END ==
PROVIDERS: Family Provider Family Medicine; PCP Family Medicine; Visit Provider Family Medicine
DX: E11.9 Type 2 diabetes mellitus without complications (principal); E55.9 Vitamin D deficiency, unspecified
CPT/HCPCS: 36415; 80048; 82306

== ENCOUNTER → 2020-04-29 14:40 | Outpatient (CLI) | payer MEDICAID, SELFPAY ==
[2020-04-29 18:16] LABS: AST(SGOT) 43 U/L (15-37); Alanine Aminotransfer ALT/SGPT 46 U/L (13-56); Albumin, Serum 3.8 g/dL (3.2-5.0); Alkaline Phosphatase 60 U/L (45-117); Anion Gap 5 (5-15); BUN 11 mg/dL (7-18); BUN/Creat Ratio 15.6 RATIO (10-20); Calcium,Total 9.6 mg/dL (8.5-10.1); Chloride 110 mmol/L (98-107); EST Glomerular Filtration Rate 90 mL/min (>60); Est Glom Filt Rate - Afr Amer 109 mL/min (>60); Globulin 3.9 g/dL (2.2-4.2); Glucose 115 mg/dL (74-106); Protein, Total 7.7 g/dL (6.4-8.2); Sodium Level 141 mmol/L (136-145)
== END ==
PROVIDERS: PCP Family Medicine; Referring Provider Family Medicine; Visit Provider Family Medicine
DX: E78.5 Hyperlipidemia, unspecified (principal)
CPT/HCPCS: 36415; 80053

== ENCOUNTER → 2021-03-10 09:21 | Outpatient (CLI) | payer MEDICAID, SELFPAY ==
[2021-03-10 10:36] LABS: Anion Gap 6 (5-15); BUN 18 mg/dL (7-18); Chloride 107 mmol/L (98-107); Cholesterol 188 mg/dL (200); Creatinine, Serum 0.75 mg/dL (0.55-1.02); EST Glomerular Filtration Rate 83 mL/min (>60); Est Glom Filt Rate - Afr Amer 101 mL/min (>60); Glucose 182 mg/dL (74-106); High Density Lipoprotein 43 mg/dL; Sodium Level 136 mmol/L (136-145); Triglycerides 192 mg/dL; Very Low Density Lipoprotein 38 mg/dL (5-40)
== END ==
PROVIDERS: PCP Family Medicine; Referring Provider Family Medicine; Visit Provider Family Medicine
DX: E11.9 Type 2 diabetes mellitus without complications (principal)
CPT/HCPCS: 36415; 80048; 80061

== ENCOUNTER 2021-09-15 11:13 | Outpatient (CLI) | payer MEDICAID, SELFPAY ==
[2021-09-15 15:33] LABS: Anion Gap 7 (5-15); BUN 17 mg/dL (7-18); BUN/Creat Ratio 23.4 RATIO (10-20); Calcium,Total 9.4 mg/dL (8.5-10.1); Chloride 105 mmol/L (98-107); Cholesterol 189 mg/dL (200); Creatinine, Serum 0.73 mg/dL (0.55-1.02); EST Glomerular Filtration Rate 86 mL/min (>60); Est Glom Filt Rate - Afr Amer 104 mL/min (>60); Glucose 116 mg/dL (74-106); High Density Lipoprotein 44 mg/dL; Potassium 4.1 mmol/L (3.5-5.1); Sodium Level 136 mmol/L (136-145); Triglycerides 215 mg/dL; Very Low Density Lipoprotein 43 mg/dL (5-40)
== END 2021-09-15 23:59 | disposition short-term general hospital (02) ==
LOC: MFPLAB 11:24
PROVIDERS: PCP Family Medicine; Referring Provider Family Medicine; Visit Provider Family Medicine
DX: E11.9 Type 2 diabetes mellitus without complications (principal)
CPT/HCPCS: 36415; 80048; 80061

== ENCOUNTER → 2021-11-10 | Emergency (ER) | payer MEDICAID, SELFPAY ==
[2021-11-10 11:07] VITALS: BP 136/77; PULSE 97; RESP 14; TEMP 36.1; O2SAT 100; BMI 29.3
--- NOTE | 2021-11-10 11:21 | EX.ED.DYSGE1 ---
HPI History of Present Illness Chief Complaint: Lower Extremity Injury Narrative Narrative: Patient ran into the door with her right foot 4 days ago, she continues to have pain and swelling of the right foot. No other injuries. Although she is complaining of a chronic rash for about 3 to 4 months. PFSH PFSH Home Medications Exenatide Microspheres [Bydureon] 2 mg QWEEK 06/07/16 [History Last Taken Unknown] gabapentin 600 mg PO BIDCM 06/07/16 [History Last Taken Unknown] metformin 1,000 mg PO BIDCM 06/07/16 [History Last Taken Unknown] simvastatin 20 mg PO QHS 06/07/16 [History Last Taken Unknown] lisinopril 2.5 mg PO DAILY 01/12/18 [History Last Taken Unknown] ciprofloxacin HCl 500 mg PO BID #20 tab 01/19/18 [Rx Last Taken Unknown] oxycodone 5 mg PO BID PRN 3 Days #7 cap 11/10/21 [Rx Last Taken Unknown] Allergy/AdvReac Type Severity Reaction Status Date / Time acetaminophen Allergy Unknown Verified 11/10/21 11:09 [From Darvocet-N] Penicillins Allergy Unknown Verified 11/10/21 11:09 propoxyphene Allergy Unknown Verified 11/10/21 11:09 [From Darvocet-N] hydromorphone [From Dilaudid] AdvReac Vomiting Verified 11/10/21 11:09 meperidine [From Demerol] AdvReac Other Verified 11/10/21 11:09 Social History Smoking Status: Current every day smoker tobacco type: cigarettes ROS ROS ED ROS Narrative Past medical history: Diabetes, hyper cholesterolemia, hypertension, depression Medications: Reviewed Social history: Noncontributory Review of systems: Musculoskeletal: Right foot injury Skin: Chronic rash Neurological: No weakness or paresthesias Hematologic: No easy bleeding or easy bruising EXAM Physical Exam Narrative Exam Narrative: Physical exam General: Patient appears comfortable. She appears chronically ill but not acutely ill Head: Normocephalic, Atraumatic Neck: Supple, Nontender, No lymphadenopathy Cardiovascular: Regular rate, Regular rhythm Respiratory: No distress, CTA bilaterally Abdomen: Soft, Nontender, Nondistended Back: Nontender, Normal Inspection. Negative for: CVA tenderness Extremities: Right foot has tenderness over the proximal fourth and fifth metatarsal region. There is also some tenderness over the fifth digit, there is also some swelling in that region. Neurovascularly intact Skin: Patient has diffuse scaly rash throughout her trunk and extremities this consistent with dry skin and/or eczema. I do not see any signs of superinfection. Neurological: Alert, Normal Strength, Normal Sensation Psychological: Normal affect Const Vital Signs: 11/10/21 11:07 Temperature 97.0 F L Temperature Source Temporal Pulse Rate 97 Respiratory Rate 14 Blood Pressure 136/77 H Blood Pressure Mean 96 Pulse Ox 100 Oxygen Delivery Method Room Air MDM MDM MDM Narrative Medical decision making narrative: Patient has a proximal fifth phalanx fracture. I will treat with a postop shoe and henrietta tape and discharged to follow-up with podiatry. Radiography Diagnostic Testing: Clinical Impression(s) from Imaging Studies Foot X-Ray 11/10/21 11:25 IMPRESSION: Fifth proximal phalangeal fracture. Electronically Signed: Kana Boo MD at 12:01 EDT , Foot x-ray read by me and radiologist shows a proximal phalanx fracture that is transverse. It is not intra-articular. Discharge Plan Triage Chief Complaint: Lower Extremity Injury ED Provider: Darrell Bush Dx/Rx/DC Orders Clinical Impression: Fracture of toe Instructions: Fx Finger Toe Prescriptions: New oxycodone 5 mg capsule 5 mg PO BID PRN (Reason: pain) 3 Days Qty: 7 RF: 0 No Action gabapentin 600 MG tablet 600 mg PO BIDCM RF: 0 simvastatin 20 MG tablet 20 mg PO QHS RF: 0 metformin 1,000 MG tablet 1,000 mg PO BIDCM RF: 0 Exenatide Microspheres [Bydureon] 2 MG Vial 2 mg QWEEK RF: 0 lisinopril 2.5 tablet 2.5 mg PO DAILY RF: 0 ciprofloxacin HCl 500 MG tablet 500 mg PO BID Qty: 20 RF: 0 Primary Care Provider: Darrell Langley Referrals: Jose Rodriguez DPM [STAFF PHYSICIAN] - 2 Days Darrell Langley MD [Primary Care Provider] - Disposition Disposition: Home, Self Care
--- NOTE | 2021-11-10 11:25 | RAD_ITS ---
STUDY: X-RAY - RIGHT FOOT CLINICAL: Lateral right foot pain, right foot injury yesterday. TECHNIQUE: 3 view(s) of the foot. COMPARISON: None. FINDINGS: There are posterior and plantar calcaneal enthesophytes. Otherwise, unremarkable talus, calcaneus, and tarsal bones. Normal visualized subtalar, talonavicular, calcaneocuboid, tarsal and tarsometatarsal articulations. Normal metatarsi. Normal metatarsophalangeal joint of the great toe. Normal tibial and fibular sesamoid bones. Normal interphalangeal joint of the great toe. Normal phalanges of the great toe. Normal second through fifth metatarsophalangeal joints. There is a nondisplaced transverse fracture through the proximal metaphysis of the fifth proximal phalanx. There is soft tissue swelling at the base of the fifth toe. RAD/Foot min 3 Views IMPRESSION: Fifth proximal phalangeal fracture. Electronically Signed: Kana Boo MD at 12:01 EDT ,
== END | disposition home or self-care (01) ==
PROVIDERS: Emergency Provider Emergency Medicine; PCP Family Medicine; Visit Provider Emergency Medicine
DX: S92.511A Displaced fracture of proximal phalanx of right lesser toe(s), initial encounter for closed fracture (principal); E11.9 Type 2 diabetes mellitus without complications; W22.09XA Striking against other stationary object, initial encounter; I10 Essential (primary) hypertension; E78.00 Pure hypercholesterolemia, unspecified; F17.210 Nicotine dependence, cigarettes, uncomplicated; Z79.84 Long term (current) use of oral hypoglycemic drugs; Z79.899 Other long term (current) drug therapy
CPT/HCPCS: 73630; 99283

== ENCOUNTER → 2022-06-01 | Outpatient (CLI) | payer MEDICAID, SELFPAY ==
[2022-06-01 16:27] LABS: Anion Gap 7 (5-15); BUN 18 mg/dL (7-18); BUN/Creat Ratio 23.7 RATIO (10-20); Calcium,Total 9.7 mg/dL (8.5-10.1); Chloride 107 mmol/L (98-107); Cholesterol 178 mg/dL (200); Creatinine, Serum 0.76 mg/dL (0.55-1.02); EST Glomerular Filtration Rate 82 mL/min (>60); Est Glom Filt Rate - Afr Amer 99 mL/min (>60); Glucose 142 mg/dL (74-106); High Density Lipoprotein 45 mg/dL; Potassium 4.2 mmol/L (3.5-5.1); Sodium Level 135 mmol/L (136-145); Triglycerides 176 mg/dL; Very Low Density Lipoprotein 35 mg/dL (5-40)
[2022-06-01 16:29] LABS: Hemoglobin A1c 7.7 % (3.8-5.6)
[2022-06-02 14:45] LABS: Microalbumin,Random Urine 15.4 mg/L (NO RANGE EST.); Microalbumin:Creatinine Ratio 13.9 mg/g CRE (<30 mg/g CRE)
== END | disposition home or self-care (01) ==
LOC: MFPLAB 12:02
PROVIDERS: PCP Family Medicine; Referring Provider Family Medicine; Visit Provider Family Medicine
DX: E11.9 Type 2 diabetes mellitus without complications (principal)
CPT/HCPCS: 36415; 80048; 80061; 82043; 82570; 83036

== ENCOUNTER → 2022-06-16 | Outpatient (CLI) | payer MEDICAID, SELFPAY ==
--- NOTE | 2022-06-16 | LES_PTH ---
PATIENT: ARACELI WARNER LOC: [facility] U#:[id number] AGE/SX: 62/F ROOM: RE06/16/[address]: Dr. Darrell Langley MD : 1960 BED: DIS: 06/16/2022 SPEC #: [id number] RECD: 06/16/22 15:02 STATUS: ELVA MARIA G #: [id number] ALEXANDER: 06/16/22 00:[address]: Darrell Langley DEPT: SURGICAL PATHOLOGY RECD BY: Daniel Becerra Tissues: Skin of upper extremity, NOS Procedures: Surgery Specimen Level IV HEADER OPERATION: Skin excision PRE-OP DIAGNOSIS: Right shoulder suspicious skin lesion TISSUE SUBMITTED: Right shoulder suspicious skin lesion MICROSCOPIC DIAGNOSIS Skin lesion of right shoulder, excision: Minimally invasive squamous cell carcinoma, keratoacanthomatous type. See comment. AM:lisy 06/20/2022 COMMENT The lesion appears to have been completely excised in the planes examined. MICROSCOPIC DESCRIPTION Slides are reviewed. GROSS DESCRIPTION Received in fixative is one container labeled with the patient's name and designated right shoulder lesion. The specimen consists of an irregular fragment of firm, white-rodriguez soft tissue measuring 1.6 x 1.5 x 0.7 cm. The specimen is inked, serially sectioned and totally submitted in one cassette. / AM:lisy 06/17/2022 TC:0 [facility]: [id number]
== END | disposition home or self-care (01) ==
LOC: LABSPEC 15:29
PROVIDERS: PCP Family Medicine; Visit Provider Family Medicine
DX: C44.622 Squamous cell carcinoma of skin of right upper limb, including shoulder (principal)
CPT/HCPCS: 88305

== ENCOUNTER → 2023-03-20 | Outpatient (CLI) | payer MEDICAID, SELFPAY ==
[2023-03-20 11:37] LABS: Anion Gap 5 (5-15); BUN 21 mg/dL (7-18); BUN/Creat Ratio 24.5 RATIO (10-20); Calcium,Total 9.2 mg/dL (8.5-10.1); Chloride 106 mmol/L (98-107); Cholesterol 171 mg/dL (200); Creatinine, Serum 0.86 mg/dL (0.55-1.02); EST Glomerular Filtration Rate 71 mL/min (>60); Est Glom Filt Rate - Afr Amer 86 mL/min (>60); Glucose 180 mg/dL (74-106); High Density Lipoprotein 41 mg/dL; Sodium Level 137 mmol/L (136-145); Triglycerides 159 mg/dL; Very Low Density Lipoprotein 32 mg/dL (5-40)
== END | disposition home or self-care (01) ==
LOC: MFPLAB 09:24
PROVIDERS: PCP Family Medicine; Visit Provider Family Medicine
DX: E11.9 Type 2 diabetes mellitus without complications (principal)
CPT/HCPCS: 36415; 80048; 80061

== ENCOUNTER → 2023-07-21 | Outpatient (CLI) | payer MEDICAID, SELFPAY ==
[2023-07-21 17:46] LABS: Anion Gap 7 (5-15); BUN 17 mg/dL (7-18); Calcium,Total 9.1 mg/dL (8.5-10.1); Chloride 107 mmol/L (98-107); Cholesterol 195 mg/dL (200); Creatinine, Serum 0.77 mg/dL (0.55-1.02); EST Glomerular Filtration Rate 80 mL/min (>60); Est Glom Filt Rate - Afr Amer 97 mL/min (>60); Glucose 158 mg/dL (74-106); High Density Lipoprotein 43 mg/dL; Potassium 4.1 mmol/L (3.5-5.1); Sodium Level 138 mmol/L (136-145); Triglycerides 274 mg/dL; Very Low Density Lipoprotein 55 mg/dL (5-40)
[2023-07-21 17:53] LABS: Microalbumin,Random Urine 21.4 mg/L (NO RANGE EST.)
== END | disposition home or self-care (01) ==
LOC: MFPLAB 14:09
PROVIDERS: PCP Family Medicine; Visit Provider Family Medicine
DX: E11.9 Type 2 diabetes mellitus without complications (principal)
CPT/HCPCS: 36415; 80048; 80061; 82043; 82570

== ENCOUNTER → 2023-10-31 | Outpatient (CLI) | payer MEDICAID, SELFPAY ==
--- NOTE | 2023-10-31 11:07 | US_ITS ---
HISTORY: Localized swelling, mass and lump. TECHNIQUE: Routine and color duplex imaging of the right axilla. 26 images. Comparison: none. FINDINGS: 1.2 x 2.1 x 2.2 cm solid and mildly heterogeneous circumscribed oval lesion in the right axilla corresponding to the palpable abnormality. US/Ext Non Vasc Limited/Soft Tiss IMPRESSION: 2.2 cm soft tissue mass in the right axilla, which may represent a pathologically enlarged lymph node. Consider follow-up or correlation with tissue diagnosis. Electronically Signed: Dina King MD at 9:14 EST ,
== END | disposition home or self-care (01) ==
LOC: US 11:05
PROVIDERS: PCP Family Medicine; Referring Provider Family Medicine; Visit Provider Family Medicine
DX: R22.30 Localized swelling, mass and lump, unspecified upper limb (principal)
CPT/HCPCS: 76882

== ENCOUNTER → 2023-11-15 | Outpatient (CLI) | payer MEDICAID, SELFPAY ==
--- NOTE | 2023-11-15 09:02 | BI_ITS ---
MAMMOGRAPHY - BILATERAL DIAGNOSTIC REASON FOR EXAM: Female, 63 years old. Right axillary lymph node. PERTINENT HISTORY: Non-contributory. TECHNIQUE: Digital bilateral breast guillermo (3D mammographic acquisition) in the CC and MLO projections. 2-D mediolateral oblique (MLO) and craniocaudad (CC) views of both breasts were obtained. CAD: Full Field Digital Mammography with Computer Added Detection was performed. COMPARISON: No comparison mammograms available at this time. If any prior films become available, an addendum to this report can be generated. FINDINGS: Breast Composition: The breasts are almost entirely fatty. 1.7 cm dominant lymph node in the right axilla. This is palpable. Small benign-appearing lymph nodes are also seen in the both axilla No other significant abnormalities are identified. BI/DIAG MAMM W/CAD, BILAT IMPRESSION: The palpable lump corresponds to a 1.7 cm lymph node in the right axilla. ASSESSMENT CATEGORY: BIRADS Category 2: Benign. A letter regarding these results will be sent to the patient by the facility within 30 days. Approximately 10% of breast cancers are not detected by mammography. A normal mammogram should not delay biopsy of a clinically suspicious abnormality. Electronically Signed: Paco Park MD at 9:59 EDT ,
== END | disposition home or self-care (01) ==
LOC: OPBI 09:02
PROVIDERS: PCP Family Medicine; Referring Provider Surgery; Visit Provider Surgery
DX: R22.31 Localized swelling, mass and lump, right upper limb (principal)
CPT/HCPCS: 77062; 77066; G0279

== ENCOUNTER → 2024-02-12 | Outpatient (CLI) | payer MEDICAID, SELFPAY ==
[2024-02-12 20:40] LABS: Anion Gap 10 (5-15); BUN 21 mg/dL (7-18); BUN/Creat Ratio 23.3 RATIO (10-20); Calcium,Total 9.7 mg/dL (8.5-10.1); Chloride 105 mmol/L (98-107); Cholesterol 174 mg/dL (200); EST Glomerular Filtration Rate 67 mL/min (>60); Est Glom Filt Rate - Afr Amer 81 mL/min (>60); Glucose 96 mg/dL (74-106); High Density Lipoprotein 42 mg/dL; Potassium 4.6 mmol/L (3.5-5.1); Sodium Level 138 mmol/L (136-145); Triglycerides 239 mg/dL; Very Low Density Lipoprotein 48 mg/dL (5-40)
[2024-02-12 22:23] LABS: Microalbumin,Random Urine 12.1 mg/L (NO RANGE EST.); Microalbumin:Creatinine Ratio 8.9 mg/g CRE (<30 mg/g CRE)
== END | disposition home or self-care (01) ==
LOC: MFPLAB 11:35
PROVIDERS: PCP Family Medicine; Visit Provider Family Medicine
DX: E11.9 Type 2 diabetes mellitus without complications (principal)
CPT/HCPCS: 36415; 80048; 80061; 82043; 82570

== ENCOUNTER 2024-07-03 01:49 | Emergency (ER) | payer MEDICARE, MEDICAID, SELFPAY ==
[2024-07-03 01:51] VITALS: BP 171/72; PULSE 89; RESP 16; TEMP 37.3; O2SAT 94; BMI 27.5
[2024-07-03] MEDS: Clindamycin HCl 150 MG Capsule 300 MG PO (02:14)
[2024-07-03] MEDS: Lidocaine 2% /Epi 1:100 (20ml) 20 ML VIAL INFILT (02:14)
[2024-07-03] MEDS: Ondansetron ODT 4 MG Tablet PO (02:15)
[2024-07-03] MEDS: morphine 10 MG/ML Syringe 8 MG IM (02:16)
[2024-07-03] MEDS: oxyCODONE 5 MG Tablet 10 MG PO (03:06)
[2024-07-03 03:07] VITALS: BP 138/73; PULSE 86; RESP 18; TEMP 36.7; O2SAT 94
== END 2024-07-03 03:09 | disposition home or self-care (01) ==
PROVIDERS: Emergency Provider Emergency Medicine; PCP Family Medicine; Visit Provider Emergency Medicine
DX: K04.7 Periapical abscess without sinus (principal); E11.638 Type 2 diabetes mellitus with other oral complications; Z87.891 Personal history of nicotine dependence; E78.5 Hyperlipidemia, unspecified; I10 Essential (primary) hypertension
CPT/HCPCS: 41800; 64999; 96372; 99283

== ENCOUNTER → 2024-08-12 | Outpatient (CLI) | payer MEDICARE, MEDICAID, SELFPAY ==
--- NOTE | 2024-08-12 13:51 | RAD_ITS ---
EXAM: XR RIGHT CALCANEUS, 2 OR MORE VIEWS CLINICAL INDICATION: pain in feet TECHNIQUE: Lateral and plantar views of the right calcaneus. COMPARISON: No relevant prior studies available. FINDINGS: BONES/JOINTS: No acute fracture or subluxation. Dorsal and plantar calcaneal spurring is present. SOFT TISSUES: Normal. No soft tissue swelling or gas. No radiopaque foreign body. RAD/Calcaneus min 2 Views IMPRESSION: 1. No acute osseous findings. 2. Dorsal and plantar calcaneal spurring. Electronically Signed: Francis Barr MD at 14:57 EST ,
[2024-08-12 15:35] LABS: ALB/GLOB Ratio 0.9 RATIO (0.9-2.4); AST(SGOT) 11 U/L (15-37); Alanine Aminotransfer ALT/SGPT 20 U/L (13-56); Albumin, Serum 3.7 g/dL (3.2-5.0); Alkaline Phosphatase 60 U/L (45-117); Anion Gap 5 (5-15); BUN 21 mg/dL (7-18); BUN/Creat Ratio 27.2 RATIO (10-20); Calcium,Total 9.4 mg/dL (8.5-10.1); Chloride 105 mmol/L (98-107); Cholesterol 174 mg/dL (200); Creatinine, Serum 0.77 mg/dL (0.55-1.02); EST Glomerular Filtration Rate 80 mL/min (>60); Est Glom Filt Rate - Afr Amer 96 mL/min (>60); Globulin 4.3 g/dL (2.2-4.2); Glucose 79 mg/dL (74-106); High Density Lipoprotein 53 mg/dL; Potassium 3.9 mmol/L (3.5-5.1); Sodium Level 136 mmol/L (136-145); Triglycerides 156 mg/dL; Very Low Density Lipoprotein 31 mg/dL (5-40)
[2024-08-12 15:36] LABS: Hemoglobin A1c 5.4 % (3.8-5.6)
== END | disposition home or self-care (01) ==
PROVIDERS: PCP Family Medicine; Referring Provider Family Medicine; Visit Provider Family Medicine
DX: E11.9 Type 2 diabetes mellitus without complications (principal)
CPT/HCPCS: 36415; 73650; 80053; 80061; 83036

== ENCOUNTER 2024-09-10 09:10 | Day surgery (SDC) | payer MEDICARE, MEDICAID, SELFPAY ==
[2024-09-10] VITALS (10 sets, daily range): BP systolic 93–129; BP diastolic 48–71; PULSE 69–73; RESP 14–18; TEMP 36.1–37; O2SAT 88–98; BMI 27.2
[2024-09-10 10:08] LABS: Bedside Glucose 95 mg/dL (74-106)
--- NOTE | 2024-09-10 10:46 | PRE.ANES_ITS ---
ASA Classification* ASA Classification ASA Classification: 2 Assessment & Plan Anesthesia* Anesthesia Assessment Anesthesia Assessment: Discussed sedation and/or anesthesia options, risks, benefits, and alternatives with patient/parents/legal guardian/POA. Questions invited. The patient/parents/legal guardian/POA seems to understand and agrees to proceed with anesthesia plan. Reviewed the physical assessment, medical history, allergy history and patient home medications list prior to surgery/procedure/anesthetic and documented any changes. Performed airway and anesthesia risk assessments. Anesthesia Type Anesthesia Type: MAC History Source History Obtained from:: Patient and Chart Anesthesia Focused Assessment* Temperature: 98.6 F Pulse Rate: 69 Blood Pressure: 129/71 Respiratory Rate: 18 Pulse Ox: 98 Oxygen Delivery Method: Room Air Airway Assessment Mouth opens: >3 cm Mallampati Score: III Teeth Condition: Dentures (Upper dentures are out.) and Missing (Patient has several missing molars on the lower jaw. Remaining teeth are tight.) Neck Range of motion (ROM): Full ROM Focused Labs Anesthesia Preop lab: CBC WBC 11.3 K/mm3 (4.4-11.0) H 01/19/18 13:45 RBC 4.56 M/mm3 (4.2-5.4) 01/19/18 13:45 Hgb 14.7 g/dl (12.0-15.0) 01/19/18 13:45 Hct 43.1 % (37-47) 01/19/18 13:45 Plt Count 313 K/mm3 (150-450) 01/19/18 13:45 CHEMISTRY Potassium 3.9 mmol/L (3.5-5.1) 08/12/24 13:48 Sodium 136 mmol/L (136-145) 08/12/24 13:48 BUN 21 mg/dL (7-18) H 08/12/24 13:48 Creatinine 0.77 mg/dL (0.55-1.02) 08/12/24 13:48 Glucose 79 mg/dL (74-106) 08/12/24 13:48 POC Glucose 95 mg/dL (74-106) 09/10/24 09:41 TSH 1.04 uIU/mL (0.358-3.74) 07/28/17 09:45 COAG Pre-Assessment Diagnosis/Proposed Procedure Planned Operative Procedure(s): U/S RIGHT EXCISIONAL BREAST BIOPSY OF AXILLA LYMPH NODE Anesthesia History Anesthesia History - info specialist: Anesthesia History - info specialist Hx Hospitalization No 09/06/24 10:08 Any Problems With Anesthesia Yes: SLOW TO AWAKEN 09/06/24 10:08 Cholinesterase deficiency No 09/06/24 10:08 You/Your Family Experience No 09/06/24 10:08 fever (hyperthermia) with Relationship Recent Exposure to Contagious No 09/10/24 09:43 Disease Does patient have nerve No 09/06/24 10:08 stimulator Patient instructed to have device shut off --Does patient have Pacemaker No 09/10/24 09:43 or ICD? When Was Last Pacemaker Check QUESTION #4 FULL TEXT: You/Your Family Experience fever (hyperthermia) with Anesthesia Last Oral Intake Last Oral intake: Last Oral Intake NPO since 08:30 09/10/24 09:43 Meds taken in AM with sips of No 09/10/24 09:43 water? Meds patient instructed to take am of surgery Any additional information?: Yes NPO since: 08:30 (Patient had black coffee at 8:30 AM.) PONV PONV - info specialist: PONV - info specialist Female Yes 09/06/24 10:08 HX of Motion Sickness No 09/06/24 10:08 HX of N/V After Surgery No 09/06/24 10:08 Non-Smoker Yes 09/06/24 10:08 Duration of Surgery greater Yes 09/06/24 10:08 than 60 minutes Number of Risk Factors 3 09/06/24 10:08 PONV Score Moderate Risk 09/06/24 10:08 Height & Weight Height & Weight: Anesthesia: Height & Weight Height 5 ft 7 in 09/10/24 09:43 Weight: 79 kg 09/10/24 09:43 Body Mass Index (BMI) 27.2 09/10/24 09:43 Respiratory Assessment Respiratory Assessment - info specialist: Respiratory Tract Infection Hx - info specialist Hx Respiratory Tract Infection No 09/06/24 10:08 STOP Sleep Apnea STOP Sleep Apnea - info specialist: STOP Sleep Apnea - info specialist Hx Hypertension Yes: CONTROLLED WITH MED 09/06/24 10:08 Hx Sleep Apnea No 09/06/24 10:08 CPAP BIPAP Do you snore loudly (louder No 09/06/24 10:08 than talking or can be heard Do you often feel tired/ No 09/06/24 10:08 fatigued/ sleepy during daytime? Has anyone observed you stop No 09/06/24 10:08 breathing during sleep? STOP Results Negative 09/06/24 10:08 QUESTION #5 FULL TEXT : Do you snore loudly (louder than talking or can be heard through closed doors)? 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 - info specialist: Tobacco Use History - info specialist Tobacco Use Cigarettes 09/05/23 08:55 Smoking Status Former smoker 09/06/24 10:08 Hx Tobacco Use No 09/06/24 10:08 Years Smoking Packs Smoked per Day Smoking Cessation Date was Yes - quit smoking within 15 09/06/24 10:08 within the last 15 years years Hx Smoking Cessation Date 07/28/23 09/06/24 10:08 Hx Smoking Cessation No 09/06/24 10:08 Counseling Hematologic Medial History Hematologic Hx - info specialist: Hematologic Medical Hx - dredge mate Hx of Blood Transfusion Yes 09/06/24 10:08 Hx of Transfusion in last 3 No 09/06/24 10:08 Months Date of Last Transfusion (if within last 3 months) Ever experience any problems No 09/06/24 10:08 with transfusion(s)? Specify any problems Hx of Preganancy in last 3 No 09/06/24 10:08 Months Nurse Filling Out Transfusion DSCHRIBER 09/06/24 10:08 & Questions: Date: 09/06/24 09/06/24 10:08 Time: 10:09 09/06/24 10:08 Patient unable to answer at this time (ie. confused, unrespo /Reproduction History /Reproductive History - info specialist: /Reproductive Hx- info specialist Hx Now No 09/06/24 10:08 Gestational Age (in weeks): EDC: Hx Hx Para Hx Section SAB No 09/06/24 10:08 Active Medications Active Medications: Current Medications Generic Name Dose Route Start Last Admin Trade Name Freq PRN Reason Stop Dose Admin Clindamycin Phosphate 900 mg in 50 mls @ 75 mls/hr 09/10/24 11:00 Cleocin IV 09/10/24 11:39 PREOP ONE [facility] Medical History Loss of hearing Wears glasses Wears dentures Cancer Post-menopausal Anxiety Arthritis Low iron Dietary restriction Shortness of breath on exertion Former smoker Leg cramps History of rheumatic fever Axillary mass Tobacco user Obesity Hyperlipidemia Diabetes mellitus, type 2 Depression Benign essential hypertension Home Medications ?Medication ?Instructions ?Recorded ?Last Taken ?Type metformin 1,000 mg tablet 1,000 mg PO BIDCM 06/07/16 Unknown History ergocalciferol (vitamin D2) 1,250 1,250 mcg PO QWEEK 11/09/23 Unknown History mcg (50,000 unit) capsule glimepiride 4 mg tablet 4 mg PO BID 11/09/23 Unknown History lisinopril 5 mg tablet 5 mg PO QDAY 11/09/23 Unknown History sertraline 25 mg tablet 25 mg PO QDAY 11/09/23 Unknown History simvastatin 40 mg tablet 40 mg PO QHS 11/09/23 Unknown History semaglutide 1 mg/dose (4 mg/3 mL) 1 mg subcut WE 07/03/24 08/28/24 History subcutaneous pen injector (Ozempic) Allergy/AdvReac Type Severity Reaction Status Date / Time acetaminophen (From Allergy Unknown Verified 09/10/24 09:37 Darvocet-N) Penicillins Allergy Unknown Verified 09/10/24 09:37 propoxyphene (From Allergy Unknown Verified 09/10/24 09:37 Darvocet-N) hydromorphone (From Dilaudid) AdvReac Vomiting Verified 09/10/24 09:37 meperidine (From Demerol) AdvReac Other Verified 09/10/24 09:37 Family History Father Prostate cancer Skin cancer Surgical History Hx of appendectomy S/P tonsillectomy and adenoidectomy H/O tubal ligation Social History Smoking Status: Former smoker alcohol intake: never substance use type: does not use Review of Systems (Anesthesia) ROS Narrative System reviewed and no additional complaints, except as documented.
--- NOTE | 2024-09-10 11:00 | CYST_PTH ---
PATIENT: ARACELI WARNER [place] [facility] [id number] AGE/SX: 64/F ROOM: RE09/10/[address]: Dr. Jose Whitmore MD : 1960 BED: DIS: 09/10/2024 SPEC #: [id number] RECD: 09/10/24 14:12 STATUS: ELVA MARIA G #: [id number] ALEXANDER: 09/10/24 11:[address]: Jose Whitmore DEPT: SURGICAL PATHOLOGY RECD BY: Halley Monteiro ENTERED: 09/11/24 10:01 SP TYPE: Cyst OTHR DR: Dr. Darrell Langley MD Tissues: CYST Procedures: Surgery Specimen Level III HEADER OPERATION: Ultrasound excision of axilla sebaceous cyst PRE-OP DIAGNOSIS: Axillary mass, lymph node, sebaceous cyst TISSUE SUBMITTED: Sebaceous cyst MICROSCOPIC DIAGNOSIS Sebaceous cyst, excision: Epidermal inclusion cyst. SJ.mr 09/12/2024 MICROSCOPIC DESCRIPTION Slides are reviewed. GROSS DESCRIPTION Received in fixative is one container labeled with the patient's name and designated Sebaceous cyst. The specimen consists of a previously ruptured cyst filled with rodriguez-white cheesy material measuring 2.5 x 2.0 x 1.5cm. Branner Machine Tender sections are submitted in one cassette. 09/11/2024 TC:5 CPT:41865
--- NOTE | 2024-09-10 12:03 | PCM.HP.BLA ---
History and Physical I have examined the patient and the H&P has been reviewed. There are no clinical changes since date of exam. Right axillary lymph node has remained stable in size and appearance since our last visit on 08/30/2024. Overview of procedure as well as postprocedural wound care instructions was provided. Patient denies any further questions. Consents were confirmed. Proceed to the operating room for planned excision of right axillary lymph node.
[2024-09-10] MEDS: Clindamycin 900 MG/50 ML BAG 75 MG IV (12:19)
[2024-09-10] MEDS: Bupivacaine Mpf 0.5% 30 ML VIAL (12:33)
--- NOTE | 2024-09-10 12:59 | PCM.OPRPT ---
Procedures Integumentary 114x: [id number] Exc tr-ext b9+ghazal 2.1-3cm/< Operative Report (Standard) Operative Information Date of Procedure: 09/10/24 Pre-Operative Diagnosis: Right axillary adenopathy Post-Operative Diagnosis: Right axillary sebaceous cyst (2 cm) Surgery/Procedure Performed: Excision of right axillary sebaceous cyst relationship banker: Yes District Service Manager: Alycia Winter Tasks completed by assistant grocery: Opening & closing and Retracting Type of Anesthesia: MAC/Supplemental RN Documented Start/Stop Times: Operation Date: 09/10/24 11:00 Case Time Into Pre-Op 09/10/24 09:28 Out of Pre-Op 09/10/24 12:11 Anesthesia Start 09/10/24 12:13 Into Room 09/10/24 12:13 Procedure Start 09/10/24 12:34 Procedure End 09/10/24 13:00 Anesthesia End 09/10/24 13:05 Out of Room 09/10/24 13:05 Into Recovery 09/10/24 13:07 Out of Recovery 09/10/24 13:49 Into Phase II Recovery 09/10/24 13:50 Out of Phase II 09/10/24 14:24 Procedure Start Time: 12:34 Procedure Stop Time: 13:00 Select all DRAINS/GRAFTS/IMPLANTS that apply: None Estimated Blood Loss: 2ml Specimen collected: Yes Description of specimen(s) removed: Sebaceous cyst Description of surgery: After appropriate identification the preoperative holding area patient was brought to the operating room where she was positioned in a supine position with her right arm extended on a armboard. There she was administered a local MAC. Preoperative antibiotics were infused. Her axilla was prepped and draped in usual sterile fashion. A formal timeout followed to confirm both patient and procedure. I then performed a local block with 0.5% bupivacaine and made a oblique incision parallel to the lines of Langerhans 3 cm long along the mid aspect of patient's superficial nodular area. Despite extending this just to the level of the dermis was immediately met with extrusion of curd-like material and recognized that we had inadvertently disrupted the capsule of the underlying sebaceous cyst. Recognizing this pathologic entity I took great care to avoid any further disruption of the capsule and using Metzenbaum scissors sharply excised this lesion from the surrounding subcutaneous tissue. The cyst capsule, fortunately, was cleanly excised and the mass, completely extirpated, was passed off the operative field for pathology. The resulting cavity was irrigated and inspected for hemostasis which was found to be largely intact aside from a few isolated skin bleeders which were promptly addressed with selective electrocautery. The cavity was then closed in layers 3-0 Vicryl for the dermis and in a subcuticular fashion using 4-0 Monocryl. Dermabond was applied and the patient's sedation was lightened and she was transferred to the PACU bed for her ongoing care. Surgical Findings: ? Superficial sebaceous cyst abutting the dermis Complications Complications: No Admit VTE Documentation VTE Mechan Device Prophylaxis: SCD's
--- NOTE | 2024-09-10 13:01 | DCINST_ITS ---
Discharge Instructions Diet Discharge Diet: No restrictions Activity Discharge Activity: May Drive (No driving while using narcotic pain medication) May shower in (days): 1 Lifting Restrictions: Limit lifting with left upper extremity to no more than 5 pounds Dressing / Incision Call your doctor if your incision/area has: Continuous Slow Oozing, Sudden Increased Bleeding, Increased Pain/ Swelling, Increased Redness, Foul Smelling Discharge and Swelling at the incision site Call your doctor if you observe: Fever of 101 or Higher Suture Line Care: Avoid Pulling/Pushing Cleanse incision/area with: Soap & Water Follow Up Care Please Follow Up With: Sherrie Lozano PA-C When: 10-14 days postop Test Results: Test results from this visit will be discussed in further detail at your follow-up appointment, if applicable. Discharge Plan Admission Primary Reason for Your Visit: Excision of sebaceous cyst Attending Provider: Jose Whitmore Primary Care Provider: Darrell Langley Instructions Print Language: Kosovan Discharge Orders/Prescriptions Prescriptions: Continued simvastatin 40 mg tablet 40 mg PO QHS ergocalciferol (vitamin D2) 1,250 mcg (50,000 unit) capsule 1,250 mcg PO QWEEK lisinopril 5 mg tablet 5 mg PO QDAY sertraline 25 mg tablet 25 mg PO QDAY glimepiride 4 mg tablet 4 mg PO BID metformin 1,000 MG tablet 1,000 mg PO BIDCM Ozempic 1 mg/dose (4 mg/3 mL) pen injector 1 mg subcut WE Referrals / Follow Up: Darrell Langley MD [Primary Care Provider] - Disposition Disposition (needs filled in before D/C Order can be placed): Home, Self Care
--- NOTE | 2024-09-10 13:39 | PCM.POST.ANE ---
Anesthesia: Postop Eval I Current Vital Signs Temperature: 97 F Pulse Rate: 71 Blood Pressure: 114/63 Respiratory Rate: 16 Pulse Ox: 97 Oxygen Delivery Method: Room Air Assessment Airway patent: Yes Spontaneous unlabored respirations: Yes Mental status: Awake and Calm nausea: No Vomiting: No Anesthesia Complication: No Fluid Hydration Crystalloid volume administer (ml): 400 Total IV fluid infused: 400 Progress Note Anesthesia document: Postop Eval 1 completed: Yes
--- NOTE | 2024-09-10 21:08 | POSTOPAN2_ITS ---
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 [email or web address].[email or web address] respirations Mental status Awake,Calm 09/10/24 13:40 MACHINE BANDER AND CELLOPHANER [email or web address].[email or web address] nausea No 09/10/24 13:40 MACHINE BANDER AND CELLOPHANER HELPER.[email or web address] Vomiting No 09/10/24 13:40 MACHINE BANDER AND CELLOPHANER HELPER.[email or web address] Anesthesia Postop Eval I: Fluid Summary Crystalloid volume administer 400 09/10/24 13:40 MACHINE BANDER AND CELLOPHANER HELPER.[email or web address] (ml) Colloids volume administered ( ml) Blood Product volume administered (ml) Total IV fluid infused 400 09/10/24 13:40 MACHINE BANDER AND CELLOPHANER HELPER.[email or web address] Anesthesia Postop Eval I: Summary Notes Anesthesia Complication No 09/10/24 13:40 MACHINE 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
--- NOTE | 2024-09-10 21:08 | PCM.POSTANE2 ---
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 Spontaneous unlabored Yes 09/10/24 13:40 DEHYDROGENATION CONVERTER OPERATOR.[email or web address] respirations Mental status Awake,Calm 09/10/24 13:40 DEHYDROGENATION CONVERTER OPERATOR.[email or web address] nausea No 09/10/24 13:40 DEHYDROGENATION CONVERTER OPERATOR.[email or web address] Vomiting No 09/10/24 13:40 DEHYDROGENATION CONVERTER OPERATOR.[email or web address] Anesthesia Postop Eval I: Fluid Summary Crystalloid volume administer 400 09/10/24 13:40 DEHYDROGENATION CONVERTER OPERATOR.[email or web address] (ml) Colloids volume administered ( ml) Blood Product volume administered (ml) Total IV fluid infused 400 09/10/24 13:40 DEHYDROGENATION CONVERTER OPERATOR.[email or web address] Anesthesia Postop Eval I: Summary Notes Anesthesia Complication No 09/10/24 13:40 DEHYDROGENATION CONVERTER OPERATOR.[email or web address] Anesthesia Complication Comment: Post-operative progress note Anesthesia: Postop Eval II Evaluation Mental status: Awake and Calm Pain Level: 1 nausea: No Vomiting: No Complications Anesthesia Complication: No
== END 2024-09-10 14:24 | disposition home or self-care (01) ==
LOC: SDC 09:12 → AC 09:14
PROVIDERS: PCP Family Medicine; Referring Provider Surgery; Visit Provider Surgery
PROC: (CPT 38500; principal; 2024-09-10 10:45)
DX: L72.0 Epidermal cyst (principal); E11.9 Type 2 diabetes mellitus without complications; Z79.84 Long term (current) use of oral hypoglycemic drugs; Z79.899 Other long term (current) drug therapy; I10 Essential (primary) hypertension; E78.5 Hyperlipidemia, unspecified; Z87.891 Personal history of nicotine dependence; Z79.85 Long-term (current) use of injectable non-insulin antidiabetic drugs; R20.0 Anesthesia of skin
CPT/HCPCS: 24075; 12031; 01710

== ENCOUNTER → 2024-10-14 | Outpatient (CLI) | payer MEDICARE, MEDICAID, SELFPAY ==
--- NOTE | 2024-10-14 09:31 | ART_ITS ---
Reason For Study Reason For Study: PVD Procedure A bilateral lower extremity continuous wave Doppler with analog waveform analysis,segmental pressures,and ankle brachial indexes without exercise. Left Segmental Pressures Left brachial= 140mmHg. Left high thigh = 192mmHg. Left low thigh = 156mmHg. Left calf = 142mmHg. Left posterior tibial artery = 123mmHg. Left dorsalis pedis artery = 126mmHg. Left digit = 97 mmHg. Right Segmental Pressures Right brachial= 138mmHg. Right posterior tibial artery = 148mmHg. Right dorsalis pedis artery = 145mmHg. Right digit = 85 mmHg. Indices The right ankle brachial index by the posterior tibial artery is 1.06. The right ankle brachial index by the dorsalis pedis is 1.04. The right digital-brachial index is 0.61. The left ankle brachial index by the posterior tibial artery is 0.88. The left ankle brachial index by the dorsalis pedis is 0.90. The left digital-brachial index is 0.69. VL/Lower Ext Art Exam w/o Exercis Interpretation Summary Triphasic Doppler waveforms are noted at ankle level bilaterally. Pulse-volume recordings appear diminished at digital levels bilaterally, but satisfactory at all other levels bilaterally. The resti ng right ankle-brachial index is normal. The resting left ankle-brachial index is mildly diminished. Digital-brachial in dices are mildly diminished bilaterally. Arterial flow appears normal at ankle level on the right. 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 Ordering Physician: Tab Sparks Referring Physician: Darerll Langley Performed By: Patrizia Ruvalcaba RDCS/RVT
--- NOTE | 2024-10-14 09:31 | VDLE_ITS ---
Reason For Study Reason For Study: Leg Pain BLE RIGHT LEFT GSV is normal. GSV is normal. CFV is compressible, spontaneous, phasic, competent CFV is compressible, spontaneous, phasic, competent, and demonstrates normal augmentation. and demonstrates normal augmentation. FV is compressible, spontaneous, phasic, competent FV is compressible, spontaneous, phasic, competent and demonstrates normal augmentation. and demonstrates normal augmentation. POP V is compressible, spontaneous, phasic, competent POP V is compressible, spontaneous, phasic, competent and demonstrates normal augmentation. and demonstrates normal augmentation. T/P Trunk is compressible. T/P Trunk is compressible. PTV is compressible. PTV is compressible. RT PerV is compressible. LT PerV is compressible. Procedure This is a venous duplex using B-mode, color flow and spectral Doppler. Exam performed in department. A preliminary report was called and/or faxed to Dr. Sparks. VL/Venous Duplex US - [place] Extrem Interpretation Summary Deep veins of the lower extremities are bilaterally patent and compressible seg mentally. There is no evidence of deep vein thrombosis on either side. Valvular competence appears intact within the p roximal deep venous systems bilaterally. The great saphenous veins appear bilaterally patent and compressible segmentall y. Ordering Physician: Tab Sparks Referring Physician: Darrell Langley Performed By: Patrizia Ruvalcaba, JASMIN, RVT
== END | disposition home or self-care (01) ==
PROVIDERS: PCP Family Medicine; Referring Provider Podiatrist Foot & Ankle Surgery; Visit Provider Podiatrist Foot & Ankle Surgery
DX: I73.89 Other specified peripheral vascular diseases (principal); M79.604 Pain in right leg; M79.605 Pain in left leg
CPT/HCPCS: 93923; 93970

== ENCOUNTER 2024-10-24 06:20 | Day surgery (SDC) | payer MEDICARE, MEDICAID, SELFPAY ==
[2024-10-24] VITALS (9 sets, daily range): BP systolic 119–134; BP diastolic 64–75; PULSE 62–77; RESP 16; TEMP 36.1–36.8; O2SAT 92–98; BMI 28.3
--- NOTE | 2024-10-24 07:15 | PCM.PRE.AN2 ---
ASA Classification* ASA Classification ASA Classification: 2 Assessment & Plan Anesthesia* Anesthesia Assessment Anesthesia Assessment: Discussed sedation and/or anesthesia options, risks, benefits, and alternatives with patient/parents/legal guardian/POA. Questions invited. The patient/parents/legal guardian/POA seems to understand and agrees to proceed with anesthesia plan. Reviewed the physical assessment, medical history, allergy history and patient home medications list prior to surgery/procedure/anesthetic and documented any changes. Performed airway and anesthesia risk assessments. Anesthesia Type Anesthesia Type: MAC History Source History Obtained from:: Patient and Chart Anesthesia Focused Assessment* Temperature: 98.3 F Pulse Rate: 77 Blood Pressure: 134/67 Respiratory Rate: 16 Pulse Ox: 97 Oxygen Delivery Method: Room Air Airway Assessment Mouth opens: >3 cm Mallampati Score: IV Teeth Condition: Dentures (Patient has full upper dentures. They are out.) and Missing (Patient has multiple missing teeth on the lower jaw. Rest are tight.) Neck Range of motion (ROM): Full ROM Focused Labs Anesthesia Preop lab: CBC WBC 11.3 K/mm3 (4.4-11.0) H 01/19/18 13:45 01/19/18 RBC 4.56 M/mm3 (4.2-5.4) 01/19/18 13:45 01/19/18 Hgb 14.7 g/dl (12.0-15.0) 01/19/18 13:45 01/19/18 Hct 43.1 % (37-47) 01/19/18 13:45 01/19/18 Plt Count 313 K/mm3 (150-450) 01/19/18 13:45 01/19/18 CHEMISTRY Potassium 3.9 mmol/L (3.5-5.1) 08/12/24 13:48 08/12/24 Sodium 136 mmol/L (136-145) 08/12/24 13:48 08/12/24 BUN 21 mg/dL (7-18) H 08/12/24 13:48 08/12/24 Creatinine 0.77 mg/dL (0.55-1.02) 08/12/24 13:48 08/12/24 Glucose 79 mg/dL (74-106) 08/12/24 13:48 08/12/24 POC Glucose 95 mg/dL (74-106) 09/10/24 09:41 09/10/24 TSH 1.04 uIU/mL (0.358-3.74) 07/28/17 09:45 07/28/17 COAG Pre-Assessment Diagnosis/Proposed Procedure Planned Operative Procedure(s): COLONOSCOPY Anesthesia History 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 When Was Last Pacemaker Check QUESTION #4 FULL TEXT: You/Your Family Experience fever (hyperthermia) with Anesthesia Last Oral Intake Last Oral intake: Last Oral Intake NPO since 22:00 10/24/24 06:55 Meds taken in AM with sips of water? Meds patient instructed to take am of surgery PONV PONV - credit card control clerk: PONV - credit card control clerk Female Yes 10/18/24 10:39 HX of Motion Sickness No 10/18/24 10:39 HX of N/V After Surgery No 10/18/24 10:39 Non-Smoker Yes 10/18/24 10:39 Duration of Surgery greater No 10/18/24 10:39 than 60 minutes Number of Risk Factors 2 10/18/24 10:39 PONV Score Moderate Risk 10/18/24 10:39 Height & Weight Height & Weight: Anesthesia: Height & Weight Height 5 ft 7 in 10/24/24 06:55 Weight: 81.9 kg 10/24/24 06:55 Body Mass Index (BMI) 28.3 10/24/24 06:55 Respiratory Assessment Respiratory Assessment - credit card control clerk: Respiratory Tract Infection Hx - credit card control clerk Hx Respiratory Tract Infection No 10/18/24 10:39 STOP Sleep Apnea STOP Sleep Apnea - credit card control clerk: STOP Sleep Apnea - credit card control clerk Hx Hypertension No 10/18/24 10:39 Hx Sleep Apnea No 10/18/24 10:39 CPAP BIPAP Do you snore loudly (louder No 10/18/24 10:39 than talking or can be heard Do you often feel tired/ No 10/18/24 10:39 fatigued/ sleepy during daytime? Has anyone observed you stop No 10/18/24 10:39 breathing during sleep? STOP Results Negative 10/18/24 10:39 QUESTION #5 FULL TEXT : Do you snore loudly (louder than talking or can be heard through closed doors)? 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 Specify any problems Hx of Preganancy in last 3 No 10/18/24 10:39 Months Nurse Filling Out Transfusion [facility] 10/18/24 10:39 & Questions: Date: 10/18/24 10/18/24 10:39 Time: 10:43 10/18/24 10:39 Patient unable to answer at this time (ie. confused, unrespo /Reproduction History /Reproductive History - credit card control clerk: /Reproductive Hx- credit card control clerk Hx Now Gestational Age (in weeks): EDC: Hx Hx Para Hx Section SAB No 09/06/24 10:08 PFSH Medical History Sebaceous cyst of axilla Loss of hearing Wears glasses Wears dentures Cancer Post-menopausal Anxiety Arthritis Low iron Dietary restriction Shortness of breath on exertion Former smoker Leg cramps History of rheumatic fever Axillary mass Tobacco user Obesity Hyperlipidemia Diabetes mellitus, type 2 Depression Benign essential hypertension Home Medications ?Medication ?Instructions ?Recorded ?Last Taken ?Type metformin 1,000 mg tablet 1,000 mg PO BIDCM 06/07/16 10/22/24 History ergocalciferol (vitamin D2) 1,250 1,250 mcg PO QWEEK 11/09/23 Unknown History mcg (50,000 unit) capsule glimepiride 4 mg tablet 4 mg PO BID 11/09/23 10/22/24 History lisinopril 5 mg tablet 5 mg PO QDAY 11/09/23 10/22/24 History sertraline 25 mg tablet 25 mg PO QDAY 11/09/23 10/22/24 History simvastatin 40 mg tablet 40 mg PO QHS 11/09/23 10/22/24 History semaglutide 1 mg/dose (4 mg/3 mL) 1 mg subcut WE 07/03/24 10/16/24 History subcutaneous pen injector (Ozempic) Allergy/AdvReac Type Severity Reaction Status Date / Time acetaminophen (From Allergy Unknown Verified 10/24/24 06:54 Darvocet-N) Penicillins Allergy Unknown Verified 10/24/24 06:54 propoxyphene (From Allergy Unknown Verified 10/24/24 06:54 Darvocet-N) hydromorphone (From Dilaudid) AdvReac Vomiting Verified 10/24/24 06:54 meperidine (From Demerol) AdvReac Other Verified 10/24/24 06:54 Family History Father Prostate cancer Skin cancer Surgical History History of surgery Hx of appendectomy S/P tonsillectomy and adenoidectomy H/O tubal ligation Social History Smoking Status: Former smoker alcohol intake: never substance use type: does not use Review of Systems (Anesthesia) ROS Narrative System reviewed and no additional complaints, except as documented.
--- NOTE | 2024-10-24 07:21 | PCM.HP.BLA ---
History and Physical Date of Admission: 10/24/24 Date of Service: 08/30/24 MR#: [id number] Acct: [id number] Name: ARACELI ACOSTA Rep #: [id number] : 1960 Provider: Dr. 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 Required: No Is patient in pain?: No Allergies acetaminophen (From Darvocet-N) Allergy (Verified 08/30/24 14:08) UnknownPenicillins Allergy (Verified 08/30/24 14:08) Unknownpropoxyphene (From Darvocet-N) Allergy (Verified 08/30/24 14:08) Unknownhydromorphone (From Dilaudid) Adverse Reaction (Verified 08/30/24 14:08) Vomitingmeperidine (From Demerol) Adverse Reaction (Verified 08/30/24 14:08) Other Medications ?Medication ?Instructions ?Recorded ?Confirmed ?Type metformin 1,000 mg tablet 1,000 mg PO BIDCM 06/07/16 08/30/24 History ergocalciferol (vitamin D2) 1,250 1,250 mcg PO QWEEK 11/09/23 08/30/24 History mcg (50,000 unit) capsule glimepiride 4 mg tablet 4 mg PO BID 11/09/23 08/30/24 History lisinopril 5 mg tablet 5 mg PO QDAY 11/09/23 08/30/24 History sertraline 25 mg tablet 25 mg PO QDAY 11/09/23 08/30/24 History simvastatin 40 mg tablet 40 mg PO QHS 11/09/23 08/30/24 History clindamycin HCl 300 mg capsule 300 mg PO 4X/DAY 10 days #40 caps 07/03/24 08/30/24 Rx ondansetron 4 mg disintegrating 4 mg PO TID PRN nausea and 07/03/24 08/30/24 Rx tablet vomiting #21 tabs oxycodone 5 mg tablet 5 mg PO Q6H PRN pain 3 days #12 07/03/24 08/30/24 Rx tabs semaglutide 1 mg/dose (4 mg/3 mL) mg subcut 07/03/24 08/30/24 History subcutaneous pen injector (Ozempic) Have you fallen in the past year?: No PFSH Medical History (Updated 08/30/24 @ 14:[address] Jose Whitmore MD) Tobacco user Benign essential hypertension Depression Diabetes mellitus, type 2 Hyperlipidemia Obesity Axillary mass Surgical History (Updated 08/30/24 @ 14:06 by Natalie Roberson) S/P tonsillectomy and adenoidectomy H/O tubal ligation Family History Father Prostate cancer Skin cancer Social History Smoking Status: Former smoker alcohol intake: never substance use type: does not use HPI HPI HPI: Patient is a 64-year-old female who presents for need to schedule diagnostic colonoscopy secondary to positive Cologuard testing for her insurance. They are referred for surgical consultation from Dr. Langley. Patient actually presented to this office earlier last year due to complaints of a nontender right axillary lymph node and was due for excisional biopsy but somewhere along the lines became convinced that she was to just wait and see if it decreased in size spontaneously. When this did not happen she simply let the issue drop. She notes that it is a same size and remains nontender. Patient has not had prior colonoscopy. Patient has no personal history of colon cancer, phonatory bowel disease, or diverticulitis. They describe their bowel habits as normal. They have approximately 1 bowel movements per day and spend roughly minutes on the toilet without significant straining. They have not noticed recent bleeding or dark stools. There is no history of hemorrhoids Patient has no family history of colon cancer, colon polyps, or diverticulitis. The patient's weight is not stable and she shares that she has lost approximately 10 pounds through use of Ozempic over the last year for her diabetes. The patient is not prescribed anticoagulants/blood thinners. Relevant prior abdominal surgical history includes: Laparoscopic appendectomy Patient does not have a significant history of GERD/heartburn ROS General General: Yes weight change (loss); No appetite, fatigue, colon cancer, breast cancer or weakness HEENT HEENT: No difficulty swallowing, eye injury, eye surgery, swollen glands or hoarseness Endo Endocrine: Yes diabetes mellitus; No thyroid disease, thyroid cancer, Hair loss, heat intolerance or cold intolerance Skin Skin: No rash or changing moles Musc Musculoskeletal: No back problems, arthritis, rheumatoid arthritis, gout or joint pain Cardio Cardiovascular: No murmur, pacemaker, heart disease, atrial fibrillation, high blood pressure, heart attack, heart stent, palpitations, shortness of breat with exertion or chest pain Psych Psychiatric: No depression, anxiety or hearing voices Resp Respiratory: No shortness of breath, No sleep apnea, No cough, No COPD, No asthma, No emphysema and No wheezing Gastro Gastrointestinal: No abdominal pain, No nausea or vomiting, No diarrhea, No constipation, No blood in stool, No acid reflux, No hemorrhoids, No ulcers, No gallbladder problem and No black,tarry stools Edy Hematologic: No blood thinners, No blood disorders, No bleeding, No anemia and No blood clots Neuro Neurologic: Yes numbness, Yes tingling and No weakness Exam Const General: cooperative, comfortable and no acute distress Orientation: alert, awake and oriented x3 Resp Effort & Inspection: normal respiratory effort GI Other: Nondistended Assessment and Plan Assessment and Plan (1) Positive colorectal cancer screening using Cologuard test: Status: Acute Comment: Patient is 64-year-old female who presents for positive Cologuard testing and need to schedule reflex diagnostic colonoscopy. She denies any current bowel or GI issues. She appears to be at average risk for colon cancer through her negative family history. She is on no blood thinning medications. I extended the recommendation for colonoscopy and provided detail describing the procedure as well as postprocedure results reporting of polypectomy or biopsy is performed. I also described the need for preprocedure prep and use of a inventory associate and driver the day of the procedure given sedation used for the procedure. Plan: Plan will be to complete colonoscopy on first mutually agreeable date under local MAC. Pre-procedure prep discussed and paper instructions provided. Patient is also made aware that she will need to have a inventory associate and driver with her the day of the procedure. We will need to look into when her Ozempic must be held to proceed with her procedure. (2) Axillary mass: Status: Chronic Qualifiers: Laterality: right Qualified Code(s): R22.31 - Localized swelling, mass and lump, right upper limb Comment: This is a 63-year-old female who presents for a enlarging right axillary mass that was recently evaluated by ultrasound and read by radiology is consistent with a pathologically enlarged lymph node. Patient denies any tenderness with this finding but it is rather superficial and when I discussed biopsy options (core needle versus excisional) patient readily stated her preference was to simply have it removed in total. 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 Per pathology this was felt to be removed in its entirety. Unfortunately, Mrs. Acosta has not had any recent breast screening. A clinical breast exam was performed bilaterally today along with both axillae. She has moderately dense breast with some lobular architecture but I did not feel any discrete mass lesions. I have advised that we should proceed for bilateral screening mammography and, if negative, then proceed to the operating room for excisional biopsy of right axillary lymph node. Ms. Acosta expresses normally understanding and appreciation of this recommendation and wishes to proceed as described. Update 08/30/2024: Patient was lost to follow-up on this issue after initial consultation October 2023. As above, is recommending excisional biopsy, but patient became convinced that we were simply going to enter a period of watchful waiting. She did complete a screening mammogram that was a BI-RADS 2. However, the nodule area persists both in size and nontender characteristic. While I find the stability of size reassuring the nontender aspect of this nodule remains suspicious. With it so superficially located I do believe core needle biopsy would risk the biopsy device coming through the skin. Therefore, I have reiterated the recommendation to pursue biopsy via an excisional technique in the operating room. Patient is receptive. Will look to schedule her at first mutual availability. Plan: Plan for excisional biopsy of right axillary lymph node in OR I have examined the patient and the H&P has been reviewed. There are no clinical changes since date of exam. Patient confirms he completed prep for today's procedure and her output is now clear. Apart from a distaste for the prep she denies any issues with taking the prep and specifically denies notice of any passage of blood. Will now proceed to endoscopy suite for planned colonoscopy following positive Cologuard testing.
[2024-10-24 07:27] LABS: Bedside Glucose 169 mg/dL (74-106)
--- NOTE | 2024-10-24 07:30 | COLBX_PTH ---
PATIENT: ARACELI WARNER LOC: EN U#:[id number] AGE/SX: 64/F ROOM: RE10/24/[address]: Dr. Jose Whitmore MD : 1960 BED: DIS: 10/24/2024 SPEC #: [id number] RECD: 10/24/24 09:11 STATUS: ELVA CUMMINS #: [id number] ALEXANDER: 10/24/24 07:[address]: Jose Whitmore DEPT: SURGICAL PATHOLOGY RECD BY: Mina Reyes ENTERED: 10/24/24 11:06 SP TYPE: COLON BX OTHR DR: Dr. Darrell Langley MD Tissues: POLYP Procedures: Surgery Specimen Level IV HEADER OPERATION: Colonoscopy with polypectomy PRE-OP DIAGNOSIS: Positive colorectal cancer screening using Cologuard test, polyp TISSUE SUBMITTED: Rectal polyp MICROSCOPIC DIAGNOSIS Rectal polyp, polypectomy: Tubular adenoma. 10/25/2024 MICROSCOPIC DESCRIPTION Slides are reviewed. GROSS DESCRIPTION Received in fixative is one container labeled with the patient's name and designated Rectal polyp. The specimen consists of a pink-red polyp measuring 1 x 0.9 x 0.9 cm. The presumed base is inked. The polyp is serially sectioned and submitted entirely in one cassette. 10/24/2024 TC:1 CPT:04008
--- NOTE | 2024-10-24 08:12 | PCM.POST.ANE ---
Anesthesia: Postop Eval I Current Vital Signs Temperature: 97.6 F Pulse Rate: 71 Blood Pressure: 119/68 Respiratory Rate: 16 Pulse Ox: 98 Oxygen Delivery Method: Room Air Assessment Airway patent: Yes Spontaneous unlabored respirations: Yes Mental status: Awake and Calm nausea: No Vomiting: No Anesthesia Complication: No Fluid Hydration Crystalloid volume administer (ml): 30 Total IV fluid infused: 30 Progress Note Anesthesia document: Postop Eval 1 completed: Yes
--- NOTE | 2024-10-24 08:15 | OP.COLON_ITS ---
Patient Name: Kaitlin Acosta Procedure Date: 10/24/2024 7:21 AM Date of : 1960 Age: 64 Procedure: Colonoscopy Indications: Positive Cologuard test Providers: Jose Whitmore MD Medicines: See the Anesthesia note for documentation of the administered medications Patient Profile: Refer to note in patient chart for documentation of history and physical. Last Colonoscopy: none. The patient's first colonoscopy is today. Complications: No immediate complications. Procedure: Pre-Anesthesia Assessment: - The heart rate, respiratory rate, oxygen saturations, blood pressure, adequacy of pulmonary ventilation, and response to care were monitored throughout the procedure. After I obtained informed consent, the scope was passed under direct vision. Throughout the procedure, the patient's blood pressure, pulse, and oxygen saturations were monitored continuously. The Colonoscope was introduced through the anus with the intention of advancing to the cecum. The scope was advanced to the splenic flexure before the procedure was aborted. Medications were given. The colonoscopy was performed with difficulty due to poor bowel prep with stool present. Successful completion of the procedure was aided by lavage. The patient tolerated the procedure well. The quality of the bowel preparation was 50 percent obscured. Scope In: 7:36:25 AM Scope Withdrawal Time 0 hours 0 minutes 49 seconds Scope Out: 8:03:04 AM Total Procedure Duration Time 0 hours 26 minutes 39 seconds Findings: The perianal and digital rectal examinations were normal. A 15 mm polyp was found in the mid rectum. The polyp was semi-pedunculated. The polyp was removed with a hot snare. Resection and retrieval were complete. Estimated blood loss: none. A large amount of stool was found in the sigmoid colon and in the descending colon, interfering with visualization. Lavage of the area was performed using copious amounts of sterile water, resulting in incomplete clearance with continued poor visualization. The retroflexed view of the distal rectum and anal verge was normal and showed no anal or rectal abnormalities. No biopsies or other specimens were collected for this exam. Impression: - One 15 mm polyp in the mid rectum, removed with a hot snare. Resected and retrieved. - Stool in the sigmoid colon and in the descending colon. - The distal rectum and anal verge are normal on retroflexion view. - The procedure was aborted due to poor bowel prep with stool present. Recommendation: - Discharge patient to home (via wheelchair). - Resume previous diet today. - No aspirin, ibuprofen, naproxen, or other non-steroidal anti-inflammatory drugs for 2 days after polyp removal. - Await pathology results. - Repeat colonoscopy in 3 months because the examination was incomplete. - Telephone my office for pathology results in 1 week. Procedure Code(s): --- Professional --- 14774, 52, Colonoscopy, flexible; with removal of tumor(s), polyp(s), or other lesion(s) by snare technique Diagnosis Code(s): --- Professional --- D12.8, Benign neoplasm of rectum R19.5, Other fecal abnormalities CPT copyright 2021 [employer]. All rights reserved. The codes documented in this report are preliminary and upon him coder review may be revised to meet current compliance requirements. Jose Whitmore MD 10/24/2024 8:15:03 AM This report has been signed electronically. Number of Addenda: 0 Note Initiated On: 10/24/2024 7:21 AM
--- NOTE | 2024-10-24 08:16 | OP.CCLET_ITS ---
10/24/2024 Darrell Langley MD [address] [place] [address] Re : Colonoscopy procedure for Kaitlin Acosta Dear Dr. Langley This procedure was performed on September. My impressions and recommendations are as follows: Impressions : - One 15 mm polyp in the mid rectum, removed with a hot snare. Resected and retrieved. - Stool in the sigmoid colon and in the descending colon. - The distal rectum and anal verge are normal on retroflexion view. - The procedure was aborted due to poor bowel prep with stool present. Recommendations : - Discharge patient to home (via wheelchair). - Resume previous diet today. - No aspirin, ibuprofen, naproxen, or other non-steroidal anti-inflammatory drugs for 2 days after polyp removal. - Await pathology results. - Repeat colonoscopy in 3 months because the examination was incomplete. - Telephone my office for pathology results in 1 week. My findings are described in the full procedure note, which is enclosed. If I can be of further assistance, please feel free to contact me at Doctor phone number(s): , Work: . Sincerely, Jose Whitmore MD 10/24/2024 8:15:03 AM This report has been signed electronically.
--- NOTE | 2024-10-24 12:07 | POSTOPAN2_ITS ---
Anesthesia Postop Eval I Sum Postop Eval Completion status Anesthesia document: Postop Eval 1 completed: Yes Anesthesia Postop Eval I Summary Anesthesia Postop Eval I Summary: Anesthesia Postop Eval I: Assessment Summary Airway patent Yes 10/24/24 08:13 [email or web address] Spontaneous unlabored Yes 10/24/24 08:13 [email or web address] [email or web address] respirations Mental status Awake,Calm 10/24/24 08:13 [email or web address] nausea No 10/24/24 08:13 [email or web address] Vomiting No 10/24/24 08:13 [email or web address] Anesthesia Postop Eval I: Fluid Summary Crystalloid volume administer 30 10/24/24 08:13 [email or web address] (ml) Colloids volume administered ( ml) Blood Product volume administered (ml) Total IV fluid infused 30 10/24/24 08:13 [email or web address] Anesthesia Postop Eval I: Summary Notes Anesthesia Complication No 10/24/24 08:13 [email or web address] Anesthesia Complication Comment: Post-operative progress note Anesthesia: Postop Eval II Evaluation Mental status: Awake and Calm Pain Level: 0 nausea: No Vomiting: No Complications Anesthesia Complication: No
--- NOTE | 2024-10-24 12:07 | PCM.POSTANE2 ---
Anesthesia Postop Eval I Sum Postop Eval Completion status Anesthesia document: Postop Eval 1 completed: Yes Anesthesia Postop Eval I Summary Anesthesia Postop Eval I Summary: Anesthesia Postop Eval I: Assessment Summary Airway patent Yes 10/24/24 08:13 MAINSPRING FABRICATION [email or web address] Spontaneous unlabored Yes 10/24/24 08:13 MAINSPRING FABRICATION [email or web address] respirations Mental status Awake,Calm 10/24/24 08:13 MAINSPRING FABRICATION [email or web address] nausea No 10/24/24 08:13 MAINSPRING FABRICATION [email or web address] Vomiting No 10/24/24 08:13 MAINSPRING FABRICATION [email or web address] Anesthesia Postop Eval I: Fluid Summary Crystalloid volume administer 30 10/24/24 08:13 MAINSPRING FABRICATION [email or web address] (ml) Colloids volume administered ( ml) Blood Product volume administered (ml) Total IV fluid infused 30 10/24/24 08:13 MAINSPRING FABRICATION [email or web address] Anesthesia Postop Eval I: Summary Notes Anesthesia Complication No 10/24/24 08:13 MAINSPRING FABRICATION [email or web address] Anesthesia Complication Comment: Post-operative progress note Anesthesia: Postop Eval II Evaluation Mental status: Awake and Calm Pain Level: 0 nausea: No Vomiting: No Complications Anesthesia Complication: No
== END 2024-10-24 09:25 | disposition home or self-care (01) ==
LOC: EN 06:21 → AC 06:23
PROVIDERS: PCP Family Medicine; Referring Provider Family Medicine; Visit Provider Surgery
PROC: 0DJD8ZZ Inspection of Lower Intestinal Tract, Via Natural or Artificial Opening Endoscopic (ICD-10-PCS; CPT 45378; principal; 2024-10-24 07:25)
DX: E11.9 Type 2 diabetes mellitus without complications (principal); Z87.891 Personal history of nicotine dependence; D12.8 Benign neoplasm of rectum; E78.5 Hyperlipidemia, unspecified; I10 Essential (primary) hypertension; R22.31 Localized swelling, mass and lump, right upper limb; Z53.09 Procedure and treatment not carried out because of other contraindication; Z79.84 Long term (current) use of oral hypoglycemic drugs; Z79.85 Long-term (current) use of injectable non-insulin antidiabetic drugs; Z79.899 Other long term (current) drug therapy
CPT/HCPCS: 45385; 82962; 88305; A4216

== ENCOUNTER → 2024-11-04 | Outpatient (CLI) | payer MEDICARE, SELFPAY ==
[2024-11-04 17:59] LABS: Absolute Lymphocyte Count 3.32 X10^3/uL (0.83-4.51); Absolute Neutrophil Count 5.9 X10^3/uL (2.0-7.7); Basophil# 0.08 X10^3/uL; Basophil% 0.8 % (0-1); Eosinophils% 3.8 % (0-5); Hematocrit 39.8 % (37-47); Hemoglobin 13.2 g/dL (12.0-15.0); Lymphocyte # 3.32 X10^3/ul (0.83-4.51); Lymphocyte % 31.7 % (19-41); Mean Corp Hgb Conc 33.2 g/dL (32-36); Mean Corpuscular Volume 96.6 fL (81-99); Mean Platelet Vol. 10.7 fl (6.2-12.0); Monocyte# 0.72 X10^3/uL; Monocyte% 6.9 % (0-10); NRBC Flagged by Analyzer 0 % (0-5); Neutrophil % 56.4 % (47-70); Platelet Count 343 K/mm3 (150-450); RBC Distribution Width CV 13.2 % (11.6-14.6); RBC Distribution Width SD 47.3 fl (35.1-43.9); Red Blood Count 4.12 M/mm3 (4.2-5.4); White Blood Count 10.5 K/mm3 (4.4-11.0)
[2024-11-04 18:08] LABS: Hemoglobin A1c 6.1 % (<=5.6)
[2024-11-04 18:26] LABS: Anion Gap 12 (5-15); BUN 15 mg/dL (4-19); BUN/Creat Ratio 19.6 RATIO (10-20); Calcium,Total 9.6 mg/dL (7.6-11.0); Carbon Dioxide 22.6 mmol/L (21.0-32.0); Chloride 102 mmol/L (98-108); Creatinine, Serum 0.76 mg/dL (0.70-1.20); EST Glomerular Filtration Rate 87 (>60); Glucose 132 mg/dL (70-99); Potassium 3.9 mmol/L (3.3-5.1); Sodium Level 136 mmol/L (133-145); Vitamin D,25 Hydroxy 47.2 ng/mL (30-100)
[2024-11-04 19:03] LABS: Microalbumin,Random Urine < 12.0 mg/L (NO RANGE EST.); Microalbumin:Creatinine Ratio UNABLE TO CALCULATE mg/g CRE
[2024-11-11 08:07] LABS: Cotinine Screen Blood 161.1 ng/mL (.); Nicotine Blood 12.8 ng/mL (.)
== END | disposition home or self-care (01) ==
LOC: MFPLAB 15:08
PROVIDERS: PCP Family Medicine; Visit Provider Family Medicine
DX: Z01.818 Encounter for other preprocedural examination (principal); E11.9 Type 2 diabetes mellitus without complications
CPT/HCPCS: 36415; 80048; 80323; 82043; 82306; 82570; 83036; 85025; G0480

== ENCOUNTER 2024-11-15 05:47 | Day surgery (SDC) | payer MEDICARE, SELFPAY ==
[2024-11-15] VITALS (14 sets, daily range): BP systolic 108–141; BP diastolic 57–68; PULSE 62–91; RESP 16–20; TEMP 35.8–36.7; O2SAT 92–99; BMI 27.2
--- NOTE | 2024-11-15 | TESH_PTH ---
PATIENT: ARACELI WARNER LOC: [facility] [place] U#:[id number] AGE/SX: 64/F ROOM: RE11/15/[address]: Dr. Tab Sparks DPM : 1960 BED: DIS: 11/15/2024 SPEC #: [id number] RECD: 11/15/24 12:56 STATUS: ELVA REAravind #: [id number] ALEXANDER: 11/15/24 00:[address]: Tab Sparks DEPT: SURGICAL PATHOLOGY RECD BY: Daniel Becerra ENTERED: 11/15/24 12:57 SP TYPE: TENDON OTHR DR: Dr. Darrell Langley MD Tissues: Tendon and tendon sheath, NOS Procedures: Surgery Specimen Level III HEADER OPERATION: Right achilles tendon debridement and repair PRE-OP DIAGNOSIS: Right foot pain, right achilles tendonitis, calcaneal spurring, right lower extremity, bursitis, right heel, edema, right foot TISSUE SUBMITTED: A- Achilles tendon MICROSCOPIC DIAGNOSIS Achilles tendon, excision:Fibrous, fibroelastic, and adipose tissueDesiree Osorio MD 11/24/2024 MICROSCOPIC DESCRIPTION Slides are reviewed. GROSS DESCRIPTION A. Received in fixative is one container labeled with the patient's name and designated Achilles tendonosis. The specimen consists of five fragments of fibrous tissue measuring in aggregate 2.7 x 1.4 x 2cm. Hat Block Bench Hand sections are submitted in one cassette. 11/15/2024 CPT:31756, TC:4
[2024-11-15] MEDS: 0.9% Normal Saline (1000mL) 1,000 ML 15 ML IV (06:27)
[2024-11-15 06:50] LABS: Bedside Glucose 161 mg/dL (74-106)
--- NOTE | 2024-11-15 06:50 | OP.PCM_ITS ---
Problems Associated Problem List Diagnoses (1) Achilles bursitis of right lower extremity: (2) Achilles tendinitis, right leg: (3) Calcaneal spur of right foot: (4) Pain in right foot: Operative Report (Standard) Operative Information Date of Procedure: 11/15/24 Pre-Operative Diagnosis: 1. Pain, right lower extremity 2. Achilles tendinitis, right lower extremity 3. Calcaneal spur, right lower extremity 4. Retrocalcaneal bursitis, right lower extremity 5. Soft tissue defect, right lower extremity Post-Operative Diagnosis: Same as preoperative diagnosis Surgery/Procedure Performed: Procedure #1: Excision of bursa, right lower extremity Procedure #2: Partial excision of calcaneus, right lower extremity Procedure #3: Achilles tendon debridement repair, right lower extremity Procedure #4: Application of graft jacket, right lower extremity Procedure #5: Advancement flap closure, right lower extremity Procedure #6: Application posterior splint, right lower extremity corporation lawyer: Yes Reproduction Production Manager: Joan Trimble PGY2 Tasks completed by per diem physical therapist assistant: Opening, Closing, Dissecting tissue, Removing tissue, Implanting device and Altering tissue Additional development assistant?: No Type of Anesthesia: General/Regional RN Documented Start/Stop Times: Operation Date: 11/15/24 07:30 Case Time Into Pre-Op 11/15/24 05:55 Anesthesia Start 11/15/24 07:38 Into Room 11/15/24 07:38 Procedure Start 11/15/24 08:03 Procedure End 11/15/24 09:40 Anesthesia End 11/15/24 09:47 Out of Room 11/15/24 09:47 Into Recovery 11/15/24 09:50 Into Phase II Recovery 11/15/24 11:43 Out of Recovery 11/15/24 11:43 Out of Phase II 11/15/24 13:04 Procedure Start Time: 08:03 Procedure Stop Time: 09:40 Select all DRAINS/GRAFTS/IMPLANTS that apply: Graft Graft details: Pichardo medical graft jacket and Implanted device Implanted device details: Suture fix 3.5 mm anchors, x 4 Special Medications: Per anesthesia Estimated Blood Loss: 25 mL Fluids Replaced: Per anesthesia Specimen collected: Yes Description of specimen(s) removed: Right lower extremity Achilles tendinosis Description of surgery: Indications For Operation: Mrs. Acosta is a 64-year-old female who was admitted to [facility] for right lower extremity surgery consisting of the procedure above. Patient was seen in the private office for multiple visits where we have exhausted conservative treatment consisting of home physical therapy and stretching, offloading, taping, nonsteroid anti-inflammatories. Due to the patient failing conservative treatment as an outpatient we have discussed surgical intervention with removal of the increased bone growth to the right calcaneal region. All risk and benefits were discussed with the patient in great detail. The patient is diabetic and is well-controlled and has A1c around 5.2%. Patient is very compliant and does not show any signs of neuropathy to the level of the surgical area that we will be doing today. Patient was seen in the office for surgical consultation with all risk and benefits discussed with the patient in great detail. Her chart was reviewed and consents signed. She was cleared by her medicine doctor for elective surgery to the right lower extremity today. Due to increasing Achilles tendon pain as well as exostosis growing in the Achilles tendon at the level of the calcaneus it was deemed necessary at this time to take the patient the operating room to perform the above procedures to help decrease her constant pain, repair her Achilles tendon with advancement flap closure and get the patient back to normal functional activity.. The nature of the problem, anticipated procedures, postop recovery/convalences and risk/complications include but not limited to infection, wound healing complications, digital amputation, hypertrophic scarring, numbness, tingling, chronic pain, CRPS, over and under correction, recurrence of deformity, DVT and or PE and the need for further surgery have been discussed in great detail with the patient. All questions have been answered to the patient's satisfaction. There are no guarantees given as to the outcome of the procedure. Description of Procedure: Under mild sedation, the patient was brought into the operating room and placed on the operating table in supine position. Once the patient was under general anesthesia by the anesthesia team with endotracheal tube, please see anesthesia notes for further detail. The patient was then placed in a prone position. The right lower extremity was blocked with popetial and adductor block per anesthesia in the PACU before the case, please see anesthesia notes for details. Next, a well-padded thigh tourniquet was applied to the right lower extremity. Next, the right lower extremity was prepped and draped in normal aseptic manner. Next, a timeout was then undertaken verifying the correct patient, extremity, visibility of preoperative markings, availability of the equipment. Next, attention was directed to the right lower extremity. Using a 6 inch Esmarch, right lower extremity was exsanguinated and elevated to 60 degrees for 1 minute. Procedure #1: Excision of bursa, right lower extremity (CPT code: 31024) Next, attention was directed to the Achilles tendon, a skin marker was used to map out the incision which would be slightly posterior medial. Using a #15 blade a full-thickness incision down to subcutaneous tissue was made. Continued blunt dissection was carried down to the level of the peritenon. Next, using a deep #15 blade the Achilles tendon was incised centrally all the way down to the enthesophyte. The Achilles tendon was booked ended allowing for exposure of the Ervin's deformity as well as enthesophyte. The retro-calcaneus bursa was identified and removed at this time. Copious amounts of normal saline were used to flush the incision area. Procedure #2: Partial excision of calcaneus, right lower extremity (CPT code: 48593) Next, using a sagittal saw and blade, the enthesophyte was cut and removed without incident. It was noted that there was a depression after removal of the enthesophyte which was completely removed. Next, using the sagittal saw and blade, the Ervin's deformity was removed via partial excision of the calcaneus. All sharp edges were made smoothed with a reciprocating rasp. Procedure #3: Achilles tendon debridement repair, right lower extremity (CPT code: 43195) / Procedure #4: Application of graft jacket, right lower extremity (CPT code: 76989) Next, attention was redirected back to the Achilles tendon, there showed evidence on the operating table of Achilles tendinosis. Using a #15 blade Achilles tendon was debrided down to and including tendon which was removed and sent to the back table to be sent off for pathology. Incision area was again flushed with copious rounds of normal saline. Next, the Achilles tendon was reattached to its insertion using the Miriam citrefix anchoring system in a double row fashion per the antiquer's recommendation with the rep in the room. The Achilles tendon was reapproximated and closed with 2-0 FiberWire in running suture technique. Again, copious amounts of normal saline were used to flush out the incision area. Next, time was taken to perform a Jackson test, the right lower extremity was elevated to 90 degrees with the knee flexed, squeezing of the gastrocnemius and soleus complex caused a plantarflexory attitude with the foot in the air. Next the right thigh tourniquet was deflated with reperfusion noted instantly to the right lower extremity. All bleeders were cauterized and ligated as necessary. A 2 x 4 cm graft jacket was applied over the Achilles tendon and sutured in place with 3-0 Vicryl to decrease adhesions. The peritenon was reapproximated and closed with 3-0 Vicryl and running locking suture technique. Procedure #5: Advancement flap closure, right lower extremity (CPT code: 00729) Next, due to large defect after removal of the bone the skin was undermined and remodeled to allow for a more tight closure at the level of the calcaneal bone. Next, the skin was advanced and closed with the subcutaneous layer being reapproximated closed with 3-0 Vicryl in running suture technique. The skin was reapproximated and closed with 4-0 Monocryl and running subcuticular suture technique. 1 cc of via flow was injected to the incision to help with healing as well as decrease inflammatory effects in the postoperative phase. Procedure #6: Application of posterior splint, right lower extremity (CPT code: 50580) Right posterior incision was dressed with quarter inch Steri-Strips cut in half, Betadine soaked Adaptic, 4 x 4's, dry sterile dressing and a double layer Nicholas AO splint was donned to the right lower extremity in a plantarflexion fashion. The patient tolerated the procedure and anesthesia well and apparent satisfactory condition and was transported to the PACU for further monitoring prior to discharge home. Vital signs stable and vascular status intact to all digits bilateral. Post Operative Plan: Weightbearing: Nonweightbearing to right lower extremity with assist of the knee scooter and or crutches. Full weightbearing left lower extremity. Antibiotics: 900 mg of clindamycin through the IV DVT Prophylaxis: 81 mg aspirin Stratton: None Dressing: Betadine soaked Adaptic, dry sterile dressing double layer Nicholas AO splint in plantarflexion X-Rays: Post-operative films taken on the operating room. Pain Medication: Percocet 5/325, Flexeril 10 mg 3 times daily Follow-up: Follow-up 1 week in private office. Page Dr. Sparks with any question or concerns Surgical Findings: 1. Evidence of Achilles tendinosis that was passed back table to be sent off for pathology. 2. Evidence of anatomic repair of the Achilles tendon after debridement and implantation of suture fix anchors to the calcaneus. 3. Negative Jackson test when tested with the knee flexed. Complications Complications: No Admit VTE Documentation VTE Present on Admission: No VTE Mechan Device Prophylaxis: SCD's VTE Pharm Prophylaxis ordered?: Yes
--- NOTE | 2024-11-15 07:38 | PCM.PRE.AN2 ---
ASA Classification* ASA Classification ASA Classification: 2 Assessment & Plan Anesthesia* Anesthesia Assessment Anesthesia Assessment: Discussed sedation and/or anesthesia options, risks, benefits, and alternatives with patient/parents/legal guardian/POA. Questions invited. The patient/parents/legal guardian/POA seems to understand and agrees to proceed with anesthesia plan. Reviewed the physical assessment, medical history, allergy history and patient home medications list prior to surgery/procedure/anesthetic and documented any changes. Performed airway and anesthesia risk assessments. Anesthesia Type Anesthesia Type: General and Block (Popliteal SS and ACB SS) History Source History Obtained from:: Patient and Chart Anesthesia Focused Assessment* Temperature: 98.0 F Pulse Rate: 91 Blood Pressure: 108/65 Respiratory Rate: 16 Pulse Ox: 99 Oxygen Delivery Method: Room Air Airway Assessment Mouth opens: >3 cm Mallampati Score: II Teeth Condition: Dentures (upper dentures), Lower (lower poor dentition) and Upper Neck Range of motion (ROM): Limited ROM (mildly restricted) Focused Labs Anesthesia Preop lab: CBC WBC 10.5 K/mm3 (4.4-11.0) 11/04/24 15:11/04/24 RBC 4.12 M/mm3 (4.2-5.4) L 11/04/24 15:11/04/24 Hgb 13.2 g/dL (12.0-15.0) 11/04/24 15:11/04/24 Hct 39.8 % (37-47) 11/04/24 15:11/04/24 Plt Count 343 K/mm3 (150-450) 11/04/24 15:11/04/24 CHEMISTRY Potassium 3.9 mmol/L (3.3-5.1) 11/04/24 15:11/04/24 Sodium 136 mmol/L (133-145) 11/04/24 15:11/04/24 BUN 15 mg/dL (4-19) 11/04/24 15:11/04/24 Creatinine 0.76 mg/dL (0.70-1.20) 11/04/24 15:11/04/24 Glucose 132 mg/dL (70-99) H 11/04/24 15:11/04/24 POC Glucose 161 mg/dL (74-106) H 11/15/24 06:08 11/15/24 TSH 1.04 uIU/mL (0.358-3.74) 07/28/17 09:45 07/28/17 COAG Pre-Assessment Diagnosis/Proposed Procedure Planned Operative Procedure(s): (R) Right Achilles tendon debridement and repair with partial excision of calcaneal, Possible Flexor hallucis longus tendon transfer with application of a graft jacket, Excision of a bursa and advancement flap closure. 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 When Was Last Pacemaker Check QUESTION #4 FULL TEXT: You/Your Family Experience fever (hyperthermia) with Anesthesia Last Oral Intake Last Oral intake: Last Oral Intake NPO since 23:00 11/15/24 06:12 Meds taken in AM with sips of No 11/15/24 06:12 water? 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 Female Yes 11/01/24 14:16 HX of Motion Sickness No 11/01/24 14:16 HX of N/V After Surgery No 11/01/24 14:16 Non-Smoker Yes 11/01/24 14:16 Duration of Surgery greater Yes 11/01/24 14:16 than 60 minutes Number of Risk Factors 3 11/01/24 14:16 PONV Score Moderate Risk 11/01/24 14:16 Height & Weight Height & Weight: Anesthesia: Height & Weight Height 5 ft 7 in 11/15/24 06:12 Weight: 79 kg 11/15/24 06:12 Body Mass Index (BMI) 27.2 11/15/24 06:12 Respiratory Assessment Respiratory Assessment - 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 Has anyone observed you stop No 11/01/24 14:16 breathing during sleep? STOP Results Negative 11/01/24 14:16 QUESTION #5 FULL TEXT : Do you snore loudly (louder than talking or can be heard through closed doors)? 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 Specify any problems Hx of Preganancy in last 3 No 11/01/24 14:16 Months Nurse Filling Out Transfusion VCHRISTIN 11/01/24 14:16 & Questions: Date: 11/01/24 11/01/24 14:16 Time: 14:17 11/01/24 14:16 Patient unable to answer at this time (ie. 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: /Reproductive Hx- butadiene converter utility operator Hx Now No 11/01/24 14:16 Gestational Age (in weeks): EDC: Hx Hx Para Hx Section SAB No 11/01/24 14:16 Active Medications Active Medications: Current Medications Generic Name Dose Route Start Last Admin Trade Name Brie PRN Reason Stop Dose Admin Clindamycin Phosphate 900 mg in 50 mls @ 75 mls/hr 11/15/24 07:30 Cleocin IV 11/15/24 08:09 PREOP ONE Sodium Chloride 1,000 mls @ 15 mls/hr 11/15/24 06:00 11/15/24 06:27 IV 15 mls/hr .Q48H LILLI Administration PFSH Medical History Sebaceous cyst of axilla Loss of hearing Wears glasses Wears dentures Cancer Post-menopausal Anxiety Arthritis Low iron Dietary restriction Shortness of breath on exertion Former smoker Leg cramps History of rheumatic fever Axillary mass Tobacco user Obesity Hyperlipidemia Diabetes mellitus, type 2 Depression Benign essential hypertension Home Medications ?Medication ?Instructions ?Recorded ?Last Taken ?Type metformin 1,000 mg tablet 1,000 mg PO BIDCM 06/07/16 10/22/24 History glimepiride 4 mg tablet 4 mg PO BID 11/09/23 10/22/24 History lisinopril 5 mg tablet 5 mg PO QDAY 11/09/23 10/22/24 History sertraline 25 mg tablet 25 mg PO QDAY 11/09/23 10/22/24 History simvastatin 40 mg tablet 40 mg PO QHS 11/09/23 10/22/24 History semaglutide 1 mg/dose (4 mg/3 mL) 1 mg subcut WE 07/03/24 10/16/24 History subcutaneous pen injector (Ozempic) cholecalciferol (vitamin D3) 50 50 mcg PO DAILY 11/01/24 Unknown History mcg (2,000 unit) capsule (Vitamin D3) Allergy/AdvReac Type Severity Reaction Status Date / Time acetaminophen (From Allergy Unknown Verified 11/15/24 06:11 Darvocet-N) Penicillins Allergy Unknown Verified 11/15/24 06:11 propoxyphene (From Allergy Unknown Verified 11/15/24 06:11 Darvocet-N) hydromorphone (From Dilaudid) AdvReac Vomiting Verified 11/15/24 06:11 meperidine (From Demerol) AdvReac Other Verified 11/15/24 06:11 Family History Father Prostate cancer Skin cancer Surgical History (Updated 11/01/24 @ 14:15 by Kerri Abdalla) Hx of colonoscopy History of surgery Hx of appendectomy S/P tonsillectomy and adenoidectomy H/O tubal ligation Social History Smoking Status: Former smoker alcohol intake: never substance use type: does not use Review of Systems (Anesthesia) ROS Narrative System reviewed and no additional complaints, except as documented.
[2024-11-15] MEDS: Clindamycin 900 MG/50 ML BAG 75 MG IV (07:50)
--- NOTE | 2024-11-15 07:50 | RAD_ITS ---
EXAM: XR Right Calcaneus, 2 or More Views CLINICAL INDICATION: PAIN TECHNIQUE: Lateral and plantar views of the right calcaneus. COMPARISON: No relevant prior studies available. FINDINGS: BONES/JOINTS: Unremarkable. No acute fracture. No dislocation. SOFT TISSUES: Unremarkable. No radiopaque foreign body. OTHER FINDINGS: Fluoroscopic guidance was used intraoperatively. 1 spot image was performed. Total fluoroscopy time 41 seconds. Total radiation dose 0.78 mGy. RAD/Calcaneus min 2 Views IMPRESSION: Intra op fluoroscopic guidance was used. Please refer to operative note for fu rther details. Reading Location: [facility]
--- NOTE | 2024-11-15 09:55 | PCM.POST.ANE ---
Anesthesia: Postop Eval I Current Vital Signs Temperature: 96.5 F Pulse Rate: 85 Blood Pressure: 141/61 Respiratory Rate: 20 Pulse Ox: 97 Oxygen Delivery Method: Room Air Assessment Airway patent: Yes Spontaneous unlabored respirations: Yes Mental status: Asleep nausea: No Vomiting: No Anesthesia Complication: No Fluid Hydration Crystalloid volume administer (ml): 1,400 Total IV fluid infused: 1,400 Progress Note Anesthesia document: Postop Eval 1 completed: Yes
--- NOTE | 2024-11-15 11:50 | POSTOPAN2_ITS ---
Anesthesia Postop Eval I Sum Postop Eval Completion status Anesthesia document: Postop Eval 1 completed: Yes Anesthesia Postop Eval I Summary Anesthesia Postop Eval I Summary: Anesthesia Postop Eval I: Assessment Summary Airway patent Yes 11/15/24 09:56 [email or web address] Spontaneous unlabored Yes 11/15/24 09:56 [email or web address] respirations Mental status Asleep 11/15/24 09:56 [email or web address] nausea No 11/15/24 09:56 [email or web address] [email or web address] Vomiting No 11/15/24 09:56 [email or web address] Anesthesia Postop Eval I: Fluid Summary Crystalloid volume administer 1,400 11/15/24 09:56 [email or web address] (ml) Colloids volume administered ( ml) Blood Product volume administered (ml) Total IV fluid infused 1,400 11/15/24 09:56 [email or web address] Anesthesia Postop Eval I: Summary Notes Anesthesia Complication No 11/15/24 09:56 [email or web address] Anesthesia Complication Comment: Post-operative progress note Anesthesia: Postop Eval II Evaluation Mental status: Awake Pain Level: 2 nausea: No Vomiting: No Complications Anesthesia Complication: No
--- NOTE | 2024-11-15 11:50 | PCM.POSTANE2 ---
Anesthesia Postop Eval I Sum Postop Eval Completion status Anesthesia document: Postop Eval 1 completed: Yes Anesthesia Postop Eval I Summary Anesthesia Postop Eval I Summary: Anesthesia Postop Eval I: Assessment Summary Airway patent Yes 11/15/24 09:56 FLIGHT CONTROLS [email or web address] Spontaneous unlabored Yes 11/15/24 09:56 FLIGHT CONTROLS [email or web address].[email or web address] respirations Mental status Asleep 11/15/24 09:56 FLIGHT CONTROLS [email or web address] nausea No 11/15/24 09:56 FLIGHT CONTROLS [email or web address].[email or web address] Vomiting No 11/15/24 09:56 FLIGHT CONTROLS [email or web address] Anesthesia Postop Eval I: Fluid Summary Crystalloid volume administer 1,400 11/15/24 09:56 FLIGHT CONTROLS [email or web address] (ml) Colloids volume administered ( ml) Blood Product volume administered (ml) Total IV fluid infused 1,400 11/15/24 09:56 FLIGHT CONTROLS [email or web address].[email or web address] Anesthesia Postop Eval I: Summary Notes Anesthesia Complication No 11/15/24 09:56 FLIGHT CONTROLS [email or web address].[email or web address] Anesthesia Complication Comment: Post-operative progress note Anesthesia: Postop Eval II Evaluation Mental status: Awake Pain Level: 2 nausea: No Vomiting: No Complications Anesthesia Complication: No
== END 2024-11-15 13:04 | disposition home or self-care (01) ==
LOC: SDC 05:49 → AC 05:51
PROVIDERS: PCP Family Medicine; Referring Provider Podiatrist Foot & Ankle Surgery; Visit Provider Podiatrist Foot & Ankle Surgery
PROC: (CPT 27650; principal; 2024-11-15 07:15)
DX: M76.61 Achilles tendinitis, right leg (principal); E11.9 Type 2 diabetes mellitus without complications; M77.31 Calcaneal spur, right foot; M77.51 Other enthesopathy of right foot and ankle; I10 Essential (primary) hypertension; F41.9 Anxiety disorder, unspecified; F32.A Depression, unspecified; E78.5 Hyperlipidemia, unspecified; Z88.0 Allergy status to penicillin; Z79.84 Long term (current) use of oral hypoglycemic drugs; Z79.85 Long-term (current) use of injectable non-insulin antidiabetic drugs; Z79.899 Other long term (current) drug therapy; Z87.891 Personal history of nicotine dependence
CPT/HCPCS: 27652; 28090; 28120; 14040; 01470; 64445; 64447; 73650; 76000; 82962; 88304; C1713; J2405

== ENCOUNTER → 2025-02-10 | Outpatient (CLI) | payer MEDICARE, SELFPAY ==
[2025-02-11 15:58] LABS: ALB/GLOB Ratio 1.3 RATIO (0.9-2.4); AST(SGOT) 17 U/L (<=31); Alanine Aminotransfer ALT/SGPT 20 U/L (<=34); Albumin, Serum 4.4 g/dL (3.4-4.8); Alkaline Phosphatase 75 U/L (35-104); Anion Gap 12 (5-15); BUN 13 mg/dL (4-19); BUN/Creat Ratio 16.4 RATIO (10-20); Calcium,Total 9.9 mg/dL (7.6-11.0); Carbon Dioxide 22.2 mmol/L (21.0-32.0); Chloride 102 mmol/L (98-108); Cholesterol 275 mg/dL (<=200); EST Glomerular Filtration Rate 82 (>60); Globulin 3.2 g/dL (2.2-4.2); Glucose 164 mg/dL (70-99); High Density Lipoprotein 37 mg/dL; Low Density Lipoprotein Calc. 169 mg/dL; Potassium 4.6 mmol/L (3.3-5.1); Protein, Total 7.6 g/dL (5.9-8.4); Sodium Level 137 mmol/L (133-145); Total Bilirubin 0.28 mg/dL (0.00-1.30); Triglycerides 343 mg/dL; Very Low Density Lipoprotein 69 mg/dL (5-40); cholesterol:hdl ratio screen 7.39
== END | disposition home or self-care (01) ==
LOC: MFPLAB 11:01
PROVIDERS: PCP Family Medicine; Referring Provider Family Medicine; Visit Provider Family Medicine
DX: E11.9 Type 2 diabetes mellitus without complications (principal)
CPT/HCPCS: 36415; 80053; 80061

== ENCOUNTER 2025-03-20 06:11 | Day surgery (SDC) | payer MEDICARE, SELFPAY ==
--- OUTSIDE RECORDS SUMMARY | 2025-03-20 06:13 | XMS RPT_ITS | CCD ---
Author Organization [facility] Care Team Providers Care Angle Shear Set Up Operator Name Role Phone ALAINA LITTLE Unavailable Unavailable PHYSICIAN, NOT RECORDED Unavailable Unavaila ALAINA Wakefield Unavailable Unavailable HUMPHREY HAMILTON Unavailable Unavailable CAROLYN COLON Unavailable Unavaila MARINE Mitchell Unavailable Unavailable ALAINA LITTLE Unavailable Unavailable MARGARITO ALEXANDER Unavailable Unavailable BERNARD SANTIAGO Unavailable Unavailable Darrell Langley Primary Care Provider [phone] Dr. Darrell Langley Primary Care Provider Dr. Darrell Langley Referring Provider Dr. Jose Whitmore Attending Provider Dr. Darrell Langley MD Primary Care Provider Dr. Darrell Langley MD Attending Provider Dr. Darrell Langley MD Referring Provider Dr. Jose Whitmore MD Attending Provider Dr. Jose Whitmore MD Referring Provider Myranda CARLISLE, Dr. Garcia Other Provider Sherrie Lozano PA-C Attending Provider Bridger ANTUNEZ, Dr. Barth Attending Provider Dr. Tab Sparks DPM Referring Provider Laureano CARLISLE, Dr. Paresh Sarkar Attending Provider hSivam CARLISLE, Dr. Ramírez Primary Care Provider Dr. Darrell Langley MD Referring Provider Myranda CARLISLE, Dr. Garcia Attending Provider Myranda CARLISLE, Dr. Garcia Other Provider Shivam CARLISLE, Dr. Ramírez Attending Provider Sparks DPM, Dr. Barth Attending Provider Bridger DPM, Dr. Barth Referring Provider Devon CARLISLE, Dr. Newman Attending Provider Devon CARLISLE, Dr. Newman Referring Provider Natalie Roberson Attending Provider Unavailable Sparks, Tab Referring Unavailable Sparks, Tab Attending Unavailable Langley, Darrell Primary Care Unavailable Bortz, Jose Referring Unavailable Bortz, Jose Attending Unavailable Langley, Darrell Primary Care Unavailable Bortz, Jose Attending Unavailable Langley, Darrell Primary Care Unavailable Langley, Darrell Referring Unavailable Sparks, Tab Referring Unavailable Sparks, Tab Attending Unavailable Langley, Darrell Primary Care Unavailable Sherrie Tripp Attending Unavailable Langley, Darrell Primary Care Unavailable Langley, Darrell Referring Unavailable Sailors, Trent Referring Unavailable Sailors, Trent Attending Unavailable Langley, Darrell Primary Care Unavailable Natalie Roberson Attending Unavailable Langley, Darrell Primary Care Unavailable Bortz, Jose Consulting Unavailable Bortz, Jose Referring Unavailable Bortz, Jose Attending Unavailable Langley, Darrell Primary Care Unavailable Bortz, Jose Consulting Unavailable Bortz, Jose Attending Unavailable Langley, Darrell Primary Care Unavailable Langley, Darrell Referring Unavailable Bortz, Jose Attending Unavailable Langley, Darrell Primary Care Unavailable Langley, Darrell Referring Unavailable Bortz, Jose Attending Unavailable Langley, Darrell Primary Care Unavailable Langley, Darrell Primary Care Unavailable Langley, Darrell Attending Unavailable Langley, Darrell Primary Care Unavailable Langley, Darrell Attending Unavailable Langley, Darrell Referring Unavailable Langley, Darrell Attending Unavailable Langley, Darrell Referring Unavailable Langley, Darrell Primary Care Unavailable Rj Hartmann Attending Unavailable Langley, Darrell Primary Care Unavailable Allergies Allergy Classification Reported Allergen(s) Allergy Type Date of Onset Reaction(s) Facility NSAIDs (1 source) meloxicam Drug Allergy 4 Other: See Comments [facility] Work Phone: Opioid Agonists (1 source) Meperidine Drug Allergy 9 Intolerance [facility] Work Phone: Penicillins (antibiotic) (1 source) Penicillins Drug Allergy 6 [facility] Work Phone: Unclassified (1 source) Propoxyphene N-Acetaminophen Propensity to adverse reactions 6 [facility] Work Phone: (10 sources) Acetaminophen Drug Allergy 2 Unknown [facility] (10 sources) HYDROmorphone Drug Allergy 2 Vomiting [facility] (10 sources) Meperidine Drug Allergy 2 Other [facility] (11 sources) Penicillins; Translations: [Penicillins] Allergy to substance 2 Unknown [facility] (10 sources) Propoxyphene Drug Allergy 2 Unknown [facility] (1 source) Acetaminophen Drug Allergy 5 [facility] (1 source) HYDROmorphone Drug Allergy 5 [facility] (1 source) Meperidine Drug Allergy 5 [facility] (1 source) Propoxyphene Drug Allergy 5 [facility] Medications Current Medications Medication Drug Class(es) Dates Sig (Normalized) Sig (Original) cholecalciferol 0.05 mg oral capsule (3 sources) Vitamin D Start: 11-01-2024 take 1 capsule by mouth once daily Cholecalciferol (Vitamin D3) (Vitamin D3) 50 mcg (2,000 unit) capsule Active 50 ug PO DAILY November 01, 2024 1:00am Exenatide Microspheres (Bydureon) 2 MG Vial (10 sources) Start: 06-07-2016 Exenatide Microspheres (Bydureon) 2 MG Vial Active 2 MG EVERY WEEK June 07, 2016 2:56pm Start: 06-07-2016 End: 11-09-2023 Exenatide Microspheres (Bydu reon) 2 MG Vial Discontinued 2 mg EVERY WEEK June 07, 2016 12:00am November 09, 2023 1:56pm Start: 06-07-2016 End: 11-09-2023 Exenatide Microspheres (Bydu reon) 2 MG Vial Discontinued 2 MG EVERY WEEK June 07, 2016 12:00am November 09, 2023 1:56pm Start: 06-07-2016 Exenatide Micr ospheres (Bydureon) 2 MG Vial Active 2 MG EVERY WEEK June 06, 2016 11:00pm Start: 06-07-2016 Exenatide Micr ospheres (Bydureon) 2 MG Vial Active 2 MG EVERY WEEK June 07, 2016 12:00am glimepiride 4 mg oral tablet (4 sources) Sulfonylurea Start: 11-09-2023 take 1 tablet by mouth twice daily Glimepiride 4 mg tablet Active 4 mg PO TWICE A DAY November 09, 2023 12:00am lisinopril 5 mg oral tablet (14 sources) Angiotensin Converting Enzyme Inhibitor Start: 11-09-2023 take 1 tablet by mouth once daily Lisinopril 5 mg tablet Active 5 mg PO daily November 09, 2023 12:00am Start: 01-12-2018 End: 11-09-2023 take 1 tablet by mouth once daily Lisinopril 2.5 tablet Discontinued 2.5 mg PO DAILY January 12, 2018 12:00am November 09, 2023 1:56pm metFORMIN hydrochloride 1000 mg oral tablet (11 sources) Biguanide Start: 01-28-2014 take 1 tablet by mouth twice daily at mealtime Metformin 1,000 MG tablet Active 1000 mg PO TWICE DAILY WITH MEALS June 07, 2016 12:00am Comment on above: Take 1 tablet by ayaan th twice daily with meals. polyethylene glycol 3350 359423 mg / potassium chloride 2970 mg / sodium bicarbonate 6740 mg / sodium chloride 5860 mg / sodium sulfate 86386 mg powder for oral solution (1 source) Osmotic Laxative Start: 01-15-2025 take 4000 mL by mouth once Peg 3350-Electrolytes 236-22.74-6.74 -5.86 gram recon soln Active 4000 mL PO ONCE 4000 January 15, 2025 12:00am until fecal effluent is clear; do not exceed a total volume of 4000 mL Semaglutide (3 sources) Start: 07-03-2024 Semaglutide (Ozempic) 1 mg/dose (4 mg/3 mL) pen injector Active 1 mg SC WE July 03, 2024 1:00am simvastatin 40 mg oral tablet (15 sources) HMG-CoA Reductase Inhibitor Start: 11-09-2023 take 1 tablet by mouth at bedtime Simvastatin 40 mg tablet Active 40 mg PO AT BEDTIME November 09, 2023 12:00am Start: 06-07-2016 End: 11-09-2023 take 1 tablet by mouth at bedtime Simvastatin 20 MG tablet Discontinued 20 mg PO AT BEDTIME June 07, 2016 12:00am November 09, 2023 1:55pm Start: 01-28-2014 take 1 tablet by ayaan th once daily at bedtime simvastatin (ZOCOR) 40 mg tablet Take 1 tablet by mouth daily at bedtime. 0 01/28/2014 Active Comment on above: Take 1 tablet by ayaan th daily at bedtime. Completed/Discontinued Medications Medication Drug Class(es) Dates Sig (Normalized) Sig (Original) acetaminophen 325 mg / oxyCODONE hydrochloride 5 mg oral tablet (2 sources) Opioid Agonist Start: 11-15-2024 End: 01-15-2025 Oxycodone-Acetamin ophen (Percocet) 5-325 mg tablet Discontinued 1 {tbl} PO EVERY 6 HOURS as needed for pain 24 03November 15, 2024 January 15, 2025 8:43am ascorbic acid 1000 mg oral tablet (2 sources) Vitamin C Start: 11-15-2024 End: 01-15-2025 take 1 g by mouth once daily Ascorbic Acid (Vitamin C) (Vitamin C) 1,000 mg tablet Discontinued 1 g PO DAILY November 15, 2024 12:00am January 15, 2025 8:43am aspirin 81 mg delayed release oral tablet (3 sources) Platelet Aggregation Inhibitor, Nonsteroidal Anti-inflammatory Drug Start: 11-15-2024 End: 01-15-2025 take 1 tablet by mouth once daily Aspirin 81 mg tablet,delayed release (DR/EC) Discontinued 81 mg PO DAILY November 15, 2024 12:00am January 15, 2025 8:43am Start: 01-28-2014 take 1 tablet by ayaan th once daily aspirin, enteric coated (ASPIR-81) 81 mg EC tablet Take 1 tablet by mouth once daily. 0 01/28/2014 Active Comment on above: Take 1 tablet by ayaan th once daily. calcium carbonate 1250 mg / cholecalciferol 600 unt oral tablet (2 sources) Vitamin D Start: 025 End: 025 Calcium Carbonate-Vitamin D3 (Os-Edgar 500 + D3) 500 mg-15 mcg (600 unit) tablet Discontinued 1 {tbl} PO DAILY November 15, 2024 12:00am January 15, 2025 8:43am ciprofloxacin 500 mg oral tablet (10 sources) Quinolone Antimicrobial Start: End: take 1 tablet by mouth twice daily Ciprofloxacin Hcl 500 MG tablet Discontinued 500 mg PO TWICE A DAY January 19, 2018 12:00am November 09, 2023 1:53pm clindamycin 300 mg oral capsule (3 sources) Lincosamide Antibacterial Start: End: take 1 capsule by mouth four times daily Clindamycin Hcl 300 mg capsule Discontinued 300 mg PO 4 TIMES DAILY July 03, 2024 1:00am September 06, 2024 11:05am cyclobenzaprine hydrochloride 10 mg oral tablet (2 sources) Muscle Relaxant Start: End: take 1 tablet by mouth three times daily Cyclobenzaprine 10 mg tablet Discontinued 10 mg PO THREE TIMES A DAY 17 03November 15, 2024 12:00am January 15, 2025 8:43am docusate sodium 100 mg oral capsule (2 sources) Start: End: take 1 capsule by mouth once daily Docusate Sodium (Colace) 100 mg capsule Discontinued 100 mg PO DAILY 06 06November 15, 2024 12:00am January 15, 2025 8:43am Dulaglutide (4 sources) GLP-1 Receptor Agonist Start: End: Dulaglutide (Trulicity) 3 mg/0.5 mL pen injector Discontinued mg SC November 09, 2023 12:00am July 03, 2024 2:58am Start: 11-09-2023 Dulaglutide (T rulicity) 3 mg/0.5 mL pen injector Active MG SC November 09, 2023 12:00am ergocalciferol 1.25 mg oral capsule (4 sources) Provitamin D2 Compound Start: 11-09-2023 End: 11-01-2024 Ergocalciferol (Vitamin D2) 1,250 mcg (50,000 unit) capsule Discontinued 1250 ug PO EVERY WEEK November 09, 2023 12:00am November 01, 2024 3:12pm gabapentin 600 mg oral tablet (10 sources) Anti-epileptic Agent Start: 06-07-2016 End: 11-09-2023 take 1 tablet by mouth twice daily at mealtime Gabapentin 600 MG tablet Discontinued 600 mg PO TWICE DAILY WITH MEALS June 07, 2016 12:00am November 09, 2023 1:56pm hydrOXYzine pamoate 50 mg oral capsule (10 sources) Antihistamine Start: 11-10-2021 End: 11-09-2023 take 1 capsule by mouth twice daily Hydroxyzine Pamoate (Vistaril) 50 mg capsule Discontinued 50 mg PO TWICE A DAY November 10, 2021 12:00am November 09, 2023 1:56pm ondansetron 4 mg disintegrating oral tablet (3 sources) Serotonin-3 Receptor Antagonist Start: 07-03-2024 End: 09-06-2024 take 1 tablet by mouth three times daily as needed for nausea and vomiting Ondansetron 4 mg tablet,disintegrati ng Discontinued 4 mg PO THREE TIMES A DAY as needed for nausea and vomiting July 03, 2024 3:58am September 06, 2024 11:06am oxyCODONE hydrochloride 5 mg oral tablet (13 sources) Opioid Agonist Start: 07-03-2024 End: 09-06-2024 take 1 tablet by mouth every six hours as needed for pain Oxycodone 5 mg tablet Discontinued 5 mg PO EVERY 6 HOURS as needed for pain 12 3 July 03, 2024 September 06, 2024 11:06am Start: 11-10-2021 End: 11-09-2023 take 1 capsule by mouth twice daily as needed for pain Oxycodone 5 mg capsule Discontinued 5 mg PO TWICE A DAY as needed for pain 7 3 November 10, 2021 November 09, 2023 1:55pm sertraline 25 mg oral tablet (4 sources) Serotonin Reuptake Inhibitor Start: 11-09-2023 End: 01-15-2025 take 1 tablet by mouth once daily Sertraline 25 mg tablet Discontinued 25 mg PO daily November 09, 2023 12:00am January 15, 2025 8:43am Problems Active Problems Problem Classification Problem Date Documented Da te Episodic/Chronic Diabetes mellitus without complication (11 sources) Type 2 diabetes mellitus; Translations: [Type 2 diabetes mellitus without complications] Onset: 02-13-2025 06-07-2016 Chronic Comment on above: ON MEDS Disorders of lipid metabolism (10 sources) Hyperlipidemia; Translations: [Hyperlipidemia, unspecified] 06-07-2016 Chronic Essential hypertension (10 sources) Benign essential hypertension; Translations: [Essential (primary) hypertension] 06-07-2016 Chronic Comment on above: CONTROLLED WITH MED Fracture of lower limb (10 sources) Fracture of phalanx of foot; Translations: [Unspecified fracture of unspecified toe(s), initial encounter for closed fracture] 11-21-2021 Episodic Menstrual disorders (2 sources) Excessive and frequent menstruation; Translations: [Excessive and frequent menstruation with regular cycle] Onset: 09-19-2008 09-19-2008 Chronic Mood disorders (10 sources) Depressive disorder; Translations: [Depression] 06-07-2016 Chronic Comment on above: ON MED Other circulatory disease (1 source) Other specified peripheral vascular diseases; Translations: [Other specified peripheral vascular diseases] Onset: 10-25-2024 Chronic Other connective tissue disease (4 sources) Right achilles tendonitis; Translations: [Achilles tendinitis, right leg] 11-15-2024 Episodic Other connective tissue disease (4 sources) Achilles bursitis; Translations: [Achilles tendinitis, right leg] 11-15-2024 Episodic Other connective tissue disease (4 sources) Foot pain; Translations: [Pain in right foot] 11-15-2024 Episodic Other connective tissue disease (4 sources) Calcaneal spur; Translations: [Calcaneal spur, right foot] 11-15-2024 Episodic Other gastrointestinal disorders (5 sources) Stool DNA-based colorectal cancer screening positive; Translations: [Other fecal abnormalities] 08-30-2024 Episodic Comment on above: Patient is 64-year-o ld female who presents for positive Cologuard testing and need to schedule reflex diagnostic colonoscopy. She denies any current bowel or GI issues. She appears to be at average risk for colon cancer through her negative family history. She is on no blood thinning medications. I extended the recommendation for colonoscopy and provided detail describing the procedure as well as postprocedure results reporting of polypectomy or biopsy is performed. I also described the need for preprocedure prep and use of a yard driver the day of the procedure given sedation used for the procedure. Other nervous system disorders (2 sources) Acute postoperative pain; Translations: [Other acute postprocedural pain] 11-15-2024 Episodic Other non-traumatic joint disorders (1 source) Knee joint inflamed; Translations: [Monoarthritis, not elsewhere classified, unspecified knee] Onset: 01-28-2014 01-28-2014 Chronic Other nutritional; endocrine; and metabolic disorders (10 sources) Obesity; Translations: [Obesity, unspecified] 06-07-2016 Chronic Other skin disorders (6 sources) Mass of axilla; Translations: [Localized swelling, mass and lump, unspecified upper limb] 11-09-2023 Episodic Comment on above: This is a 63-year-ol d female who presents for a enlarging right axillary mass that was recently evaluated by ultrasound and read by radiology is consistent with a pathologically enlarged lymph node. Patient denies any tenderness with this finding but it is rather superficial and when I discussed biopsy options (core needle versus excisional) patient readily stated her preference was to simply have it removed in total. 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 Per pathology this was felt to be removed in its entirety. Unfortunately, Mrs. Acosta has not had any recent breast screening. A clinical breast exam was performed bilaterally today along with both axillae. She has moderately dense breast with some lobular architecture but I did not feel any discrete mass lesions. I have advised that we should proceed for bilateral screening mammography and, if negative, then proceed to the operating room for excisional biopsy of right axillary lymph node. Ms. Acosta expresses normally understanding and appreciation of this recommendation and wishes to proceed as described.Update 08/30/2024: Patient was lost to follow-up on this issue after initial consultation October 2023. As above, is recommending excisional biopsy, but patient became convinced that we were simply going to enter a period of watchful waiting. She did complete a screening mammogram that was a BI-RADS 2. However, the nodule area persists both in size and nontender characteristic. While I find the stability of size reassuring the nontender aspect of this nodule remains suspicious. With it so superficially located I do believe core needle biopsy would risk the biopsy device coming through the skin. Therefore, I have reiterated the recommendation to pursue biopsy via an excisional technique in the operating room. Patient is receptive. Will look to schedule her at first mutual availability. Other skin disorders (1 source) Localized swelling, mass and lump, unspecified upper limb; Translations: [Localized superficial swelling, mass, or lump] 11-09-2023 Episodic Other skin disorders (5 sources) Sebaceous cyst of skin; Translations: [Sebaceous cyst] 09-24-2024 Episodic Residual codes; unclassified (10 sources) Tobacco user; Translations: [Tobacco use] 06-07-2016 Episodic Past or Other Problems Problem Classification Problem Date Documented Da te Episodic/Chronic Disorders of teeth and jaw (4 sources) Dental abscess; Translations: [Periapical abscess without sinus] Onset: 07-29-2024 07-11-2024 Episodic Other connective tissue disease (1 source) Pain in right foot; Translations: [Pain in right foot] Onset: 12-04-2024 Episodic Other female genital disorders (1 source) Female genital organ symptoms; Translations: [Unspecified condition associated with female genital organs and menstrual cycle] Onset: 09-19-2008 09-19-2008 Episodic Other gastrointestinal disorders (1 source) Other fecal abnormalities; Translations: [Other fecal abnormalities] Onset: 11-06-2024 Episodic Other non-traumatic joint disorders (1 source) Pain in unspecified knee; Translations: [Pain in joint, lower leg] Onset: 01-28-2014 01-28-2014 Episodic Other skin disorders (1 source) Sebaceous cyst; Translations: [Sebaceous cyst] Onset: 10-01-2024 Episodic Results Test Name Value Interpretation Reference Range Facility Comprehensive Metabolic Prof mtshonna 02-11-2025 Albumin [Mass/Vol] 4.4 g/dL Normal 3.4-4.8 [facility] Comment on above: Performed By: #### L 500.4100, L500.4050 #### [facility] [address] [place], [place], [id number] Albumin/Globulin [Mass ratio] 1.3 {ratio} Normal 0.9-2.4 [facility] Comment on above: Performed By: #### L 500.4100, [id number] #### [facility] [address] [place], [address] ALK PHOS 75 U/L Normal 35-104 [facility] Comment on above: Performed By: #### L 500.4100, [id number] #### [facility] [address] [place], [address] ALT [Catalytic activity/Vol] 20 U/L Normal <=34 [facility] Comment on above: Performed By: #### L 500.4100, [id number] #### [facility] [address] [place], [address] AST [Catalytic activity/Vol] 17 U/L Normal <=31 [facility] Comment on above: Performed By: #### L 500.4100, [id number] #### [facility] [address] [place], [address] Bilirubin [Mass/Vol] 0.28 mg/dL Normal 0.00-1.30 [facility] Comment on above: Performed By: #### L 500.4100, [id number] #### [facility] [address] [place], [address] BUN/CRE 16.4 RATIO Normal 10-20 [facility] Comment on above: Performed By: #### L 500.4100, [id number] #### [facility] [address] [place], [address] Calcium [Mass/Vol] 9.9 mg/dL Normal 7.6-11.0 [facility] Comment on above: Performed By: #### L 500.4100, [id number] #### [facility] [address] [place], [address] Chloride [Moles/Vol] 102 mmol/L Normal 98-108 [facility] Comment on above: Performed By: #### L 500.4100, [id number] #### [facility] [address] [place], [address] CO2 [Moles/Vol] 22.2 mmol/L Normal 21.0-32.0 [facility] Comment on above: Performed By: #### L 500.4100, [id number] #### [facility] [address] [place], [address] Creatinine [Mass/Vol] 0.80 mg/dL Normal 0.70-1.20 [facility] Comment on above: Performed By: #### L 500.4100, [id number] #### [facility] [address] [place], [address] GAP 12 Normal 5-15 [facility] Comment on above: Performed By: #### L 500.4100, [id number] #### [facility] [address] [place], [address] GFR/1.73 sq M.predicted among non-blacks MDRD (S/P/Bld) [Vol rate/Area] 82 mL/min/{1.73_m2} Normal >60 [facility] Comment on above: Result Comment: mL/m in/1.73m2 CKD-EPI Creatinine Equation (2020) Performed By: #### L 500.4100, [id number] #### [facility] [address] [place], [address] Globulin (S) [Mass/Vol] 3.2 g/dL Normal 2.2-4.2 [facility] Comment on above: Performed By: #### L 500.4100, [id number] #### [facility] [address] [place], [address] Glucose [Mass/Vol] 164 mg/dL High 70-99 [facility] Comment on above: Performed By: #### L 500.4100, [id number] #### [facility] [address] [place], [address] Potassium [Moles/Vol] 4.6 mmol/L Normal 3.3-5.1 [facility] Comment on above: Performed By: #### L 500.4100, [id number] #### [facility] [address] [place], [address] Sodium [Moles/Vol] 137 mmol/L Normal 133-145 [facility] Comment on above: Performed By: #### L 500.4100, [id number] #### [facility] [address] [place], [address] T PROT 7.6 g/dL Normal 5.9-8.4 [facility] Comment on above: Performed By: #### L 500.4100, [id number] #### [facility] [address] [place], [address] Urea nitrogen [Mass/Vol] 13 mg/dL Normal 4-19 [facility] Comment on above: Performed By: #### L 500.4100, [id number] #### [facility] [address] [place], [address] Lipid Profileon 02-11-2025 CHOL:HDL 7.39 Normal [facility] Comment on above: Performed By: #### L 500.4100, [id number] #### [facility] [address] [place], [address] Cholesterol [Mass/Vol] 275 mg/dL High <=200 [facility] Comment on above: Result Comment: Chol esterol level, Desirable <200 mg/dL Borderline high cholesterol 200-239 mg/dL High cholesterol >=240 mg/dL Recommendations of the NCEP Adult Treatment Panel for the following risk-cutoff thresholds for the [place] population. Performed By: #### L 500.4100, [id number] #### [facility] [address] [place], [address] Cholesterol in HDL [Mass/Vol] 37 mg/dL Low [facility] Comment on above: Result Comment: [place] onal Cholesterol Education Program (NCEP) guidelines: <40 mg/dL: Low HDL-cholesterol (major risk factor for CHD) >= 60 mg/dL: High HDL-cholesterol (negative risk factor for CHD) HDL-cholesterol is affected by a number of factors, e.g. smoking, exercise, hormones, sex and age. Performed By: #### L 500.4100, [id number] #### [facility] [address] [place], [address] Cholesterol in LDL [Mass/Vol] 169 mg/dL Normal [facility] Comment on above: Result Comment: Bord dgpdgt=598-987 mg/dL Higher Qkdf=494 mg/dL or greater Performed By: #### L 500.4100, L500.4050 #### [facility] [address] [place], [address] Cholesterol in VLDL [Mass/Vol] 69 mg/dL High 5-40 [facility] Comment on above: Performed By: #### L 500.4100, L500.4050 #### [facility] [address] [place], [address] Triglyceride [Mass/Vol] 343 mg/dL High [facility] Comment on above: Result Comment: The drugs N-Acetylcysteine and Metamizole may falsely depress this assay. Normal range: <150 mg/dL Borderline High: 150-199 mg/dL High: 200-499 mg/dL Very High: >500 mg/dL Performed By: #### L 500.4100, L500.4050 #### [facility] [address] [place], [address] Anion gap in Serum or Plasma Ordered By: Darrell Langley on 02-10-2025 Anion gap [Moles/Vol] 12 mmol/L -15 [facility] BUN/creatinine ratioOrdered By: Darrell Langley on 02-10-2025 Urea nitrogen/Creatinine [Mass ratio] 16.4 mg/mg 10-20 [facility] Bilirubin, totalOrdered By: Darrell Langley on 02-10-2025 Bilirubin [Mass/Vol] 0.28 mg/dL 0.00-1.30 [facility] Calculated very low density lipoprotein (VLDL) cholesterol measurementOrdered By: Darrell Langley on 02-10-2025 Calculated very low density lipoprotein (VLDL) cholesterol measurement 69 mg/dL High 5-40 [facility] Carbon dioxide, total [Moles /volume] in Central venous bloodOrdered By: Darrell Langley on 02-10-2025 CO2 [Moles/Vol] 22.2 mmol/L 21.0-32.0 [facility] Chloride assayOrdered By: Lion Langley on 02-10-2025 Chloride [Moles/Vol] 102 mmol/L 98-108 [facility] Glomerular filtration rate ( GFR) estimation/1.73 sq m using serum, plasma, or whole bOrdered By: Darrell Langley on 02-10-2025 GFR/1.73 sq M.predicted among non-blacks MDRD (S/P/Bld) [Vol rate/Area] 82 mL/min/{1.73_m2} >60 [facility] Comment on above: mL/min/1.73m2 CKD-EP I Creatinine Equation (2020) LDL calc ser/plasOrdered By: Darrell Langley on 02-10-2025 Cholesterol in LDL [Mass/Vol] 169 mg/dL [facility] Comment on above: Wwghazwaco=538-219 m g/dL & Higher Cfio=723 mg/dL or greater Laboratory - Chemistry and C hemistry - challengeOrdered By: Darrell Langley on 02-10-2025 AST [Catalytic activity/Vol] 17 U/L <32 [facility] Potassium measurement (mass/ volume)Ordered By: Darrell Langley on 02-10-2025 Potassium (Unsp spec) [Mass/Vol] 4.6 mmol/L 3.3-5.1 [facility] Screening total cholesterol/ high density lipoprotein (HDL) cholesterol ratioOrdered By: Darrell Langley on 02-10-2025 Cholesterol.total/Chol esterol in HDL [Mass ratio] 7.39 {ratio} [facility] Serum creatinine measurement (mass/volume)Ordered By: Darrell Langley on 02-10-2025 Creatinine [Mass/Vol] 0.80 mg/dL 0.70-1.20 [facility] Serum globulin measurementOr dered By: Darrell Langley on 02-10-2025 Globulin (S) [Mass/Vol] 3.2 g/dL 2.2-4.2 [facility] Serum glucose measurement (m ass/volume)Ordered By: Darrell Langley on 02-10-2025 Glucose [Mass/Vol] 164 mg/dL High 70-99 [facility] Serum or plasma alanine alicia otransferase (ALT) measurementOrdered By: Darrell Langley on 02-10-2025 ALT [Catalytic activity/Vol] 20 U/L <35 [facility] Serum or plasma albumin ruslan urement (mass/volume)Ordered By: Darrell Langley on 02-10-2025 Albumin [Mass/Vol] 4.4 g/dL 3.4-4.8 [facility] Serum or plasma albumin/glob ulin mass ratioOrdered By: Darrell Langley on 02-10-2025 Albumin/Globulin [Mass ratio] 1.3 {ratio} 0.9-2.4 [facility] Serum or plasma alkaline quinton sphatase measurementOrdered By: Darrell Langley on 02-10-2025 ALP [Catalytic activity/Vol] 75 U/L 35-104 [facility] Serum or plasma calcium ruslan urement (mass/volume)Ordered By: Darrell Langley on 02-10-2025 Calcium [Mass/Vol] 9.9 mg/dL 7.6-11.0 [facility] Serum or plasma cholesterol in HDL measurement (mass/volume)Ordered By: Darrell Langley on 02-10-2025 Cholesterol in HDL [Mass/Vol] 37 mg/dL Low >40 [facility] Comment on above: National Cholesterol Education Program (NCEP) guidelines:<40 mg/dL: Low HDL-cholesterol (major risk factor for CHD)>= 60 mg/dL: High HDL-cholesterol (negative risk factor for CHD)HDL-cholesterol is affected by a number of factors, e.g. smoking, exercise, hormones, sex and age. Serum or plasma cholesterol measurement (mass/volume)Ordered By: Darrell Langley on 02-10-2025 Cholesterol [Mass/Vol] 275 mg/dL High <201 [facility] Comment on above: Cholesterol level, D esirable <200 mg/dLBorderline high cholesterol 200-239 mg/dLHigh cholesterol >=240 mg/dLRecommendations of the NCEP Adult Treatment Panel for the following risk-cutoff thresholds for the [place] population. Serum or plasma urea nitroge n measurement (mass/volume)Ordered By: Darrell Langley on 02-10-2025 Urea nitrogen [Mass/Vol] 13 mg/dL 4-19 [facility] Sodium levelOrdered By: Darrell Langley on 02-10-2025 Sodium [Moles/Vol] 137 mmol/L 133-145 [facility] Total proteinOrdered By: Krystyna Langley on 02-10-2025 Protein [Mass/Vol] 7.6 g/dL 5.9-8.4 [facility] Triglycerides measurementOrd ered By: Darrell Langley on 02-10-2025 Triglyceride [Mass/Vol] 343 mg/dL High <199 [facility] Comment on above: The drugs N-Acetylcy steine and Metamizole may falsely depress this assay. Normal range: <150 mg/dLBorderline High: 150-199 mg/dLHigh: 200-499 mg/dLVery High: >500 mg/dL Bedside Glucoseon 11-15-2024 FINGERSTICK GLU 161 mg/dL High 74-106 [facility] Comment on above: Result Comment: JOSE GEMENT OF PATIENT CARE PER NURSING PROTOCOL Performed By: #### L 501.080 #### [facility] [address] [place], [place], [address] Calcaneus min 2 Viewson 10-27 Calcaneus min 2 Views [facility] Imaging Services [address] [place], [place] [address] Calcaneus min 2 Views MR#: [id number] Acct: [id number] Name: KAITLIN ACOSTA Rep #: [id number] : 1960 F 64 From: Charly Comer MD PCP: Dr. Darrell Langley MD Status: [facility] Study: Calcaneus min 2 Views Date of Exam: 11/15/24 Exam# [id number] Ordering Dr: Tab Sparks DPM EXAM: XR Right Calcaneus, 2 or More Views CLINICAL INDICATION: PAIN TECHNIQUE: Lateral and plantar views of the right calcaneus. COMPARISON: No relevant prior studies available. FINDINGS: BONES/JOINTS: Unremarkable. No acute fracture. No dislocation. SOFT TISSUES: Unremarkable. No radiopaque foreign body. OTHER FINDINGS: Fluoroscopic guidance was used intraoperatively. 1 spot image was performed. Total fluoroscopy time 41 seconds. Total radiation dose 0.78 mGy. RAD/Calcaneus min 2 Views IMPRESSION: Intra op fluoroscopic guidance was used. Please refer to operative note for further details. Reading [facility] CC: TULIO Sparks; Dr. Darrell Langley MD Flat Hammerer: Signed Normal [facility] Gl[facility] at [facility] deOrdered By: Tab Sparks on 11-15-2024 Bedside Glucose (Misc Panel) 161 mg/dL High 74-106 [facility] Comment on above: MANAGEMENT OF PATIEN T CARE PER NURSING PROTOCOL Glucose [Mass/Vol] 161 mg/dL High 74-106 [facility] Comment on above: MANAGEMENT OF PATIEN T CARE PER NURSING PROTOCOL MR/POSTOP.ANEon 11-15-2024 MR/POSTOP.[facility] Medical Records Department [address] [place] [address] Anesthesia Postop Eval I 11/15/24 0955 MR#: [id number] Acct: [id number] Name: KAITLIN ACOSTA Rep #: [id number] : 1960 64 From: Ez Champagne CRNA PCP: Dr. Darrell Langley MD Status:REG SDC Y Race: C Location: [place] [address] Anesthesia: Postop Eval I Current Vital Signs Temperature: 96.5 F Pulse Rate: 85 Blood Pressure: 141/61 Respiratory Rate: 20 Pulse Ox: 97 Oxygen Delivery Method: Room Air Assessment Airway patent: Yes Spontaneous unlabored respirations: Yes Mental status: Asleep nausea: No Vomiting: No Anesthesia Complication: No Fluid Hydration Crystalloid volume administer (ml): 1,400 Total IV fluid infused: 1,400 Progress Note Anesthesia document: Postop Eval 1 completed: Yes 11/15/24 09 Date Ez Champagne HORTICULTURAL WORKER Lorraineigner Signature: Date CC: Signed Normal [facility] MR/IWOTNWNX3mi 11-15-2024 MR/POSTOPAN2 [facility] Medical Records Department [address] [place] [address] Anesthesia Postop Eval II 11/15/24 1150 MR#: [id number] Acct: [id number] Name: KAITLIN ACOSTA Rep #: [id number] : 1960 64 From: Jones Dillard MD PCP: Dr. Darrell Langley MD Status:REG SDC Y Race: C Location: [place] [address] Anesthesia Postop Eval I Sum Postop Eval Completion status Anesthesia document: Postop Eval 1 completed: Yes Anesthesia Postop Eval I Summary Anesthesia Postop Eval I Summary: Anesthesia Postop Eval I: Assessment Summary Airway patent Yes 11/15/24 09:56 [email or web address] Spontaneous unlabored Yes 11/15/24 09:56 HORTICULTURAL [email or web address] respirations Mental status Asleep 11/15/24 09:56 HORTICULTURAL [email or web address] nausea No 11/15/24 09:56 HORTICULTURAL WORKER.[email or web address] Vomiting No 11/15/24 09:56 HORTICULTURAL [email or web address] Anesthesia Postop Eval I: Fluid Summary Crystalloid volume administer 1,400 11/15/24 09:56 HORTICULTURAL [email or web address] (ml) Colloids volume administered ( ml) Blood Product volume administered (ml) Total IV fluid infused 1,400 11/15/24 09:56 HORTICULTURAL [email or web address] Anesthesia Postop Eval I: Summary Notes Anesthesia Complication No 11/15/24 09:56 [email or web address] [email or web address] Anesthesia Complication Comment: Post-operative progress note Anesthesia: Postop Eval II Evaluation Mental status: Awake Pain Level: 2 nausea: No Vomiting: No Complications Anesthesia Complication: No 11/15/24 1150 Date Jones Dillard MD Cosigner Signature: Date CC: Signed Normal [facility] Operative Reporton 5 Operative Report [facility] Medical Records Department [address] [place] [address] Operative Report 11/15/24 0650 MR#: [id number] Acct: [id number] Name: KAITLIN ACOSTA Rep #: [id number] : 1960 64 From: Tab Sparks DPM PCP: Dr. Darrell Langley MD Status:DEP [facility] Location: [facility] Problems Associated Problem List Diagnoses (1) Achilles bursitis of right lower extremity: (2) Achilles tendinitis, right leg: (3) Calcaneal spur of right foot: (4) Pain in right foot: Operative Report (Standard) Operative Information Date of Procedure: 11/15/24 Pre-Operative Diagnosis: 1. Pain, right lower extremity 2. Achilles tendinitis, right lower extremity 3. Calcaneal spur, right lower extremity 4. Retrocalcaneal bursitis, right lower extremity 5. Soft tissue defect, right lower extremity Post-Operative Diagnosis: Same as preoperative diagnosis Surgery/Procedure Performed: Procedure #1: Excision of bursa, right lower extremity Procedure #2: Partial excision of calcaneus, right lower extremity Procedure #3: Achilles tendon debridement repair, right lower extremity Procedure #4: Application of graft jacket, right lower extremity Procedure #5: Advancement flap closure, right lower extremity Procedure #6: Application posterior splint, right lower extremity medical anthropologist: Yes Registered Travel Nurse: Joan Trimble PGY2 Tasks completed by assistant construction superintendent: Opening, Closing, Dissecting tissue, Removing tissue, Implanting device and Altering tissue Additional audiology assistant?: No Type of Anesthesia: General/Regional RN Documented Start/Stop Times: Operation Date: 11/15/24 07:30 Case Time Into Pre-Op 11/15/24 05:55 Anesthesia Start 11/15/24 07:38 Into Room 11/15/24 07:38 Procedure Start 11/15/24 08:03 Procedure End 11/15/24 09:40 Anesthesia End 11/15/24 09:47 Out of Room 11/15/24 09:47 Into Recovery 11/15/24 09:50 Into Phase II Recovery 11/15/24 11:43 Out of Recovery 11/15/24 11:43 Out of Phase II 11/15/24 13:04 Procedure Start Time: 08:03 Procedure Stop Time: 09:40 Select all DRAINS/GRAFTS/IMPLANTS that apply: Graft Graft details: Sien graft jacket and Implanted device Implanted device details: Suture fix 3.5 mm anchors, x 4 Special Medications: Per anesthesia Estimated Blood Loss: 25 mL Fluids Replaced: Per anesthesia Specimen collected: Yes Description of specimen(s) removed: Right lower extremity Achilles tendinosis Description of surgery: Indications For Operation: Mrs. Acosta is a 64-year-old female who was admitted to [facility] for right lower extremity surgery consisting of the procedure above. Patient was seen in the private office for multiple visits where we have exhausted conservative treatment consisting of home physical therapy and stretching, offloading, taping, nonsteroid anti-inflammatories. Due to the patient failing conservative treatment as an outpatient we have discussed surgical intervention with removal of the increased bone growth to the right calcaneal region. All risk and benefits were discussed with the patient in great detail. The patient is diabetic and is well-controlled and has A1c around 5.2%. Patient is very compliant and does not show any signs of neuropathy to the level of the surgical area that we will be doing today. Patient was seen in the office for surgical consultation with all risk and benefits discussed with the patient in great detail. Her chart was reviewed and consents signed. She was cleared by her medicine doctor for elective surgery to the right lower extremity today. Due to increasing Achilles tendon pain as well as exostosis growing in the Achilles tendon at the level of the calcaneus it was deemed necessary at this time to take the patient the operating room to perform the above procedures to help decrease her constant pain, repair her Achilles tendon with advancement flap closure and get the patient back to normal functional activity.. The nature of the problem, anticipated procedures, postop recovery/convalences and risk/complications include but not limited to infection, wound healing complications, digital amputation, hypertrophic scarring, numbness, tingling, chronic pain, CRPS, over and under correction, recurrence of deformity, DVT and or PE and the need for further surgery have been discussed in great detail with the patient. All questions have been answered to the patient's satisfaction. There are no guarantees given as to the outcome of the procedure. Description of Procedure: Under mild sedation, the patient was brought into the operating room and placed on the operating table in supine position. Once the patient was under general anesthesia by the anesthesia team with endotracheal tube, please see anesthesia notes for further detail. The patient was then placed in a prone position. The right lower extremity was b (more content not included)... Normal [facility] Surgery Specimen Level IIIon 11-15-2024 Surgery Specimen Level III Patient Age/Sex Location Account Attending Physician KAITLIN ACOSTA 64/F [facility] [id number] Dr. Tab Sparks DPM Specimen: [id number] Received: 11/15/24-1255 Status: [facility] Stanton Num: [id number] Spec Type: TENDON Subm Dr: Dr. Tab Sparks, DPM HEADER OPERATION: Right achilles tendon debridement and repair PRE-OP DIAGNOSIS: Right foot pain, right achilles tendonitis, calcaneal spurring, right lower extremity, bursitis, right heel, edema, right foot TISSUE SUBMITTED: A- Achilles tendon MICROSCOPIC DIAGNOSIS Achilles tendon, excision:Fibrous, fibroelastic, and adipose tissueDesiree Osorio MD 11/24/2024 MICROSCOPIC DESCRIPTION Slides are reviewed. GROSS DESCRIPTION A. Received in fixative is one container labeled with the patient's name and designated Achilles tendonosis. The specimen consists of five fragments of fibrous tissue measuring in aggregate 2.7 x 1.4 x 2cm. Swatch Checker sections are submitted in one cassette. 11/15/2024 CPT:00331, TC:4 Patient Age/Sex Location Account Attending Physician KAITLIN ACOSTA 64/F [facility] [id number] Dr. Tab Sparks DPM Signed (signature on file) Dr. Trent Osorio MD 11/24/24 0153 Normal [facility] Comment on above: Performed By: #### P SUIII #### [facility] [address] [place], [address] Nicotine Screen Bloodon 10-26 COTININE BLOOD 161.1 ng/mL Normal . [facility] Comment on above: Result Comment: This test was developed and its performance characteristics determined by [facility]. It has not been cleared or approved by the Food and Drug Administration. Cotinine levels greater than 20.0 are consistent with the use of tobacco or tobacco cessation products. Performed at: [address] [id number] Osteopathic Medicine Teacher: Tj Cao MD, Phone: [phone] Performed By: #### L 501.9985, L3600.3400, L500.2500, L502.0250, L506.1001, L100.0100 ####[facility] [address] [place], [address] NICOTINE BLOOD 12.8 ng/mL Normal . [facility] Comment on above: Result Comment: This test was developed and its performance characteristics determined by [facility]. It has not been cleared or approved by the Food and Drug Administration. Nicotine levels greater than 2.0 are consistent with the use of tobacco or tobacco cessation products. Performed By: #### L 501.9985, L3600.3400, L500.2500, L502.0250, L506.1001, L100.0100 ####[facility] [address] [place], [place], [address] Absolute lymphocyte countOrd ered By: Darrell Langley on 11-04-2024 Lymphocytes Auto (Unsp spec) [#/Vol] 3.32 10*3/uL 0.83-4.51 [facility] Absolute neutrophil countOrd ered By: Darrell Langley on 11-04-2024 Neutrophils (Bld) [#/Vol] 5.9 10*3/uL 2.0-7.7 [facility] Albumin DL <= 20 mg/L (U) [M ass/Vol]Ordered By: Darrell Langley on 11-04-2024 Urine Random Microalbumin < 12.0 mg/L NO RANGE EST. [facility] Anion gap in Serum or Plasma Ordered By: Darrell Langley on 11-04-2024 Anion gap [Moles/Vol] 12 mmol/L - [facility] Automated lymphocyte count a s percentage of total leukocytesOrdered By: Darrell Langley on 11-04-2024 Lymphocytes/100 WBC Auto (Unsp spec) 31.7 % [facility] BUN/creatinine ratioOrdered By: Darrell Langley on 11-04-2024 Urea nitrogen/Creatinine [Mass ratio] 19.6 mg/mg - [facility] Basic Metabolic Profile (BMP )on 11-04-2024 BUN/CRE 19.6 RATIO Normal 06-16 [facility] Comment on above: Performed By: #### L 501.9985, L3600.3400, L500.2500, L502.0250, L506.1001, L100.0100 ####[facility] [address] [place], [address] Calcium [Mass/Vol] 9.6 mg/dL Normal 7.6-11.0 [facility] Comment on above: Performed By: #### L 501.9985, L3600.3400, L500.2500, L502.0250, L506.1001, L100.0100 ####[facility] [address] [place], [address] Chloride [Moles/Vol] 102 mmol/L Normal 98-108 [facility] Comment on above: Performed By: #### L 501.9985, L3600.3400, L500.2500, L502.0250, L506.1001, L100.0100 ####[facility] [address] [place], [address] CO2 [Moles/Vol] 22.6 mmol/L Normal 21.0-32.0 [facility] Comment on above: Performed By: #### L 501.9985, L3600.3400, L500.2500, L502.0250, L506.1001, L100.0100 ####[facility] [address] [place], [address] Creatinine [Mass/Vol] 0.76 mg/dL Normal 0.70-1.20 [facility] Comment on above: Performed By: #### L 501.9985, L3600.3400, L500.2500, L502.0250, L506.1001, L100.0100 ####[facility] [address] [place], [address] GAP 12 Normal 5-15 [facility] Comment on above: Performed By: #### L 501.9985, L3600.3400, L500.2500, L502.0250, L506.1001, L100.0100 ####[facility] [address] [place], [address] GFR/1.73 sq M.predicted among non-blacks MDRD (S/P/Bld) [Vol rate/Area] 87 mL/min/{1.73_m2} Normal >60 [facility] Comment on above: Result Comment: mL/m in/1.73m2 CKD-EPI Creatinine Equation (2020) Performed By: #### L 501.9985, L3600.3400, L500.2500, L502.0250, L506.1001, L100.0100 ####[facility] [address] [place], [address] Glucose [Mass/Vol] 132 mg/dL High 70-99 [facility] Comment on above: Performed By: #### L 501.9985, L3600.3400, L500.2500, L502.0250, L506.1001, L100.0100 ####[facility] [address] [place], [address] Potassium [Moles/Vol] 3.9 mmol/L Normal 3.3-5.1 [facility] Comment on above: Performed By: #### L 501.9985, L3600.3400, L500.2500, L502.0250, L506.1001, L100.0100 ####[facility] [address] [place], [address] Sodium [Moles/Vol] 136 mmol/L Normal 133-145 [facility] Comment on above: Performed By: #### L 501.9985, L3600.3400, L500.2500, L502.0250, L506.1001, L100.0100 ####[facility] [address] [place], [address] Urea nitrogen [Mass/Vol] 15 mg/dL Normal 4-19 [facility] Comment on above: Performed By: #### L 501.9985, L3600.3400, L500.2500, L502.0250, L506.1001, L100.0100 ####[facility] [address] [place], [address] Basophil percentageOrdered B y: Darrell Langley on 11-04-2024 Basophils/100 WBC (Bld) 0.8 % 0-1 [facility] Blood cotinine screen by enz yme immunoassayOrdered By: Darrell Langley on 11-04-2024 Nicotine & Cotinine 161.1 ug/mL . [facility] Comment on above: This test was develo ped and its performance characteristicsdetermined by [facility]. It has not been cleared orapproved by the Food and Drug Administration.Cotinine levels greater than 20.0 are consistent with theuse of tobacco or tobacco cessation products.Performed at: [address] [id number] Director: Tj Cao MD, Phone: [phone] CBC W/Diff, Automatedon 10-26 Absolute Lymph 3.32 X10 3/uL Normal 0.83-4.51 [facility] Comment on above: Performed By: #### L 501.9985, L3600.3400, L500.2500, L502.0250, L506.1001, L100.0100 #### [facility] [address] [place], [address] Absolute Neut 5.9 X10 3/uL Normal 2.0-7.7 [facility] Comment on above: Performed By: #### L 501.9985, L3600.3400, L500.2500, L502.0250, L506.1001, L100.0100 #### [facility] [address] [place], [address] Basophils/100 WBC (Bld) 0.8 % Normal 0-1 [facility] Comment on above: Performed By: #### L 501.9985, L3600.3400, L500.2500, L502.0250, L506.1001, L100.0100 #### [facility] [address] [place], [address] Eosinophils/100 WBC (Bld) 3.8 % Normal 0-5 [facility] Comment on above: Performed By: #### L 501.9985, L3600.3400, L500.2500, L502.0250, L506.1001, L100.0100 #### [facility] [address] [place], [address] Erythrocyte distribution width (RBC) [Ratio] 13.2 % Normal 11.6-14.6 [facility] Comment on above: Performed By: #### L 501.9985, L3600.3400, L500.2500, L502.0250, L506.1001, L100.0100 #### [facility] [address] [place], [address] Hematocrit (Bld) [Volume fraction] 39.8 % Normal 37-47 [facility] Comment on above: Performed By: #### L 501.9985, L3600.3400, L500.2500, L502.0250, L506.1001, L100.0100 #### [facility] [address] [place], [address] Hemoglobin (Bld) [Mass/Vol] 13.2 g/dL Normal 12.0-15.0 [facility] Comment on above: Performed By: #### L 501.9985, L3600.3400, L500.2500, L502.0250, L506.1001, L100.0100 #### [facility] [address] [place], [address] IG% 0.400 Normal 0.0-0.9 [facility] Comment on above: Result Comment: IG% - Immature Granulocytes (promyelocytes, myelocytes and metamyelocytes) > 1% indicates that a LEFT SHIFT is Present. Performed By: #### L 501.9985, L3600.3400, L500.2500, L502.0250, L506.1001, L100.0100 #### [facility] [facility] [address] [place], [address] Lymphocytes/100 WBC (Bld) 31.7 % Normal 19-41 [facility] Comment on above: Performed By: #### L 501.9985, L3600.3400, L500.2500, L502.0250, L506.1001, L100.0100 #### [facility] [address] [place], [address] MCH (RBC) [Entitic mass] 32.0 pg Normal 27.0-32.0 [facility] Comment on above: Performed By: #### L 501.9985, L3600.3400, L500.2500, L502.0250, L506.1001, L100.0100 #### [facility] [address] [place], [address] MCHC (RBC) [Mass/Vol] 33.2 g/dL Normal 32-36 [facility] Comment on above: Performed By: #### L 501.9985, L3600.3400, L500.2500, L502.0250, L506.1001, L100.0100 #### [facility] [address] [place], [address] MCV (RBC) [Entitic vol] 96.6 fL Normal 81-99 [facility] Comment on above: Performed By: #### L 501.9985, L3600.3400, L500.2500, L502.0250, L506.1001, L100.0100 #### [facility] [address] [place], [address] Monocytes/100 WBC (Bld) 6.9 % Normal 0-10 [facility] Comment on above: Performed By: #### L 501.9985, L3600.3400, L500.2500, L502.0250, L506.1001, L100.0100 #### [facility] [address] [place], [address] Neutrophils/100 WBC (Bld) 56.4 % Normal 47-70 [facility] Comment on above: Performed By: #### L 501.9985, L3600.3400, L500.2500, L502.0250, L506.1001, L100.0100 #### [facility] [address] [place], [address] Nucleated RBC (Bld) [#/Vol] 0 10*3/uL Normal 0-5 [facility] Comment on above: Performed By: #### L 501.9985, L3600.3400, L500.2500, L502.0250, L506.1001, L100.0100 #### [facility] [address] [place], [address] Platelet mean volume (Bld) [Entitic vol] 10.7 fL Normal 6.2-12.0 [facility] Comment on above: Performed By: #### L 501.9985, L3600.3400, L500.2500, L502.0250, L506.1001, L100.0100 #### [facility] [address] [place], [address] Platelets (Bld) [#/Vol] 343 10*3/uL Normal 150-450 [facility] Comment on above: Performed By: #### L 501.9985, L3600.3400, L500.2500, L502.0250, L506.1001, L100.0100 #### [facility] [address] [place], [address] RBC (Bld) [#/Vol] 4.12 10*6/uL Low 4.2-5.4 [facility] Comment on above: Performed By: #### L 501.9985, L3600.3400, L500.2500, L502.0250, L506.1001, L100.0100 #### [facility] [address] [place], [address] RDW SD 47.3 fl High 35.1-43.9 [facility] Comment on above: Performed By: #### L 501.9985, L3600.3400, L500.2500, L502.0250, L506.1001, L100.0100 #### [facility] [address] [place], [address] WBC (Bld) [#/Vol] 10.5 10*3/uL Normal 4.4-11.0 [facility] Comment on above: Performed By: #### L 501.9985, L3600.3400, L500.2500, L502.0250, L506.1001, L100.0100 #### [facility] [address] [place], [address] Carbon dioxide, total [Moles /volume] in Central venous bloodOrdered By: Darrell Langley on 11-04-2024 CO2 [Moles/Vol] 22.6 mmol/L 21.0-32.0 [facility] Chloride assayOrdered By: Lion Langley on 11-04-2024 Chloride [Moles/Vol] 102 mmol/L 98-108 [facility] Creatinine Unsp time (U) [Ma ss/Vol]Ordered By: Darrell Langley on 11-04-2024 Creatinine (U) [Mass/Vol] 102.00 mg/dL 28-217 [facility] Eosinophil percentageOrdered By: Darrell Langley on 11-04-2024 Eosinophils/100 WBC (Bld) 3.8 % 0-5 [facility] Erythrocyte distribution wid th ratioOrdered By: Darrell Langley on 11-04-2024 Erythrocyte distribution width (RBC) [Ratio] 13.2 % 11.6-14.6 [facility] Erythrocyte distribution wid th standard deviationOrdered By: Darrell Langley on 11-04-2024 Erythrocyte distribution width (RBC) [Entitic vol] 47.3 fL High 35.1-43.9 [facility] Erythrocyte distribution width (RBC) [Ratio] 47.3 fl High 35.1-43.9 [facility] GFR/1.73 sq M.predicted perry g non-blacks MDRD (S/P/Bld) [Vol rate/Area]Ordered By: Darrell Langley on 11-04-2024 Estimated GFR (MDRD) Non-Af Amer 87 >60 [facility] Comment on above: mL/min/1.73m2 CKD-EP I Creatinine Equation (2020) Glomerular filtration rate ( GFR) estimation/1.73 sq m using serum, plasma, or whole bOrdered By: Darrell Langley on 11-04-2024 GFR/1.73 sq M.predicted among non-blacks MDRD (S/P/Bld) [Vol rate/Area] 87 mL/min/{1.73_m2} >60 [facility] Comment on above: mL/min/1.73m2 CKD-EP I Creatinine Equation (2020) Hematocrit Auto (Bld) [Volum e fraction]Ordered By: Darrell Langley on 11-04-2024 Hematocrit (Bld) [Volume fraction] 39.8 % 37-47 [facility] Hemoglobin A1con 11-04-2024 HbA1c (Bld) [Mass fraction] 6.1 % Normal <=5.6 [facility] Comment on above: Performed By: #### L 501.9985, L3600.3400, L500.2500, L502.0250, L506.1001, L100.0100 ####[facility] [address] [facility] [place], [place], [id number] Hemoglobin A1c percentageOrd ered By: Darrell Langley on 11-04-2024 HbA1c (Bld) [Mass fraction] 6.1 % >5.7 [facility] Hemoglobin measurementOrdere d By: Darrell Langley on 11-04-2024 Hemoglobin (Bld) [Mass/Vol] 13.2 g/dL 12.0-15.0 [facility] Immature granulocytes/100 WB C Auto (Bld)Ordered By: Darrell Langley on 11-04-2024 Immature granulocytes/100 WBC (Bld) 0.400 % 0.0-0.9 [facility] Comment on above: IG% - Immature Granu locytes (promyelocytes, myelocytes and metamyelocytes) > 1% indicates that a LEFT SHIFT is Present. L506.1001on 11-04-2024 Vitamin D 25-OH 47.2 ng/mL Normal 30-100 [facility] Comment on above: Result Comment: Sariah min D Status Deficiency: <20 ng/mL (50nmol/L) Insufficiency: 20-30 ng/mL (50-75 nmol/L) Sufficiency: 30-100 ng/mL (75-250 nmol/L) Toxicity: >100 ng/mL (>250 nmol/L) Performed By: #### L 501.9985, L3600.3400, L500.2500, L502.0250, L506.1001, L100.0100 ####[facility] [address] [place], [address] Lymphocytes Auto (Unsp spec) [#/Vol]Ordered By: Darrell Langley on 11-04-2024 Lymphocytes (Bld) [#/Vol] 3.32 10*3/uL 0.83-4.51 [facility] Lymphocytes/100 WBC Auto (Un sp spec)Ordered By: Darrell Langley on 11-04-2024 Lymphocytes/100 WBC (Bld) 31.7 % 19-41 [facility] MCV (mean corpuscular volume ) determinationOrdered By: Darrell Langley on 11-04-2024 MCV (RBC) [Entitic vol] 96.6 fL 81-99 [facility] Mean corpuscular hemoglobin (MCH) determinationOrdered By: Darrell Langley on 11-04-2024 MCH (RBC) [Entitic mass] 32.0 pg 27.0-32.0 [facility] Mean corpuscular hemoglobin concentration (MCHC) determinationOrdered By: Darrell Langley on 11-04-2024 MCHC (RBC) [Mass/Vol] 33.2 g/dL 32-36 [facility] Mean platelet volume determi nationOrdered By: Darrell Langley on 11-04-2024 Platelet mean volume (Bld) [Entitic vol] 10.7 fL 6.2-12.0 [facility] Microalb:Creat Ratio,Random URon 11-04-2024 Creatinine [Mass/Vol] 102.00 mg/dL Normal 28-217 [facility] Comment on above: Performed By: #### L 501.9985, L3600.3400, L500.2500, L502.0250, L506.1001, L100.0100 ####[facility] [address] [place], [address] MALB:CREAT UNABLE TO CALCULATE Normal [facility] Comment on above: Performed By: #### L 501.9985, L3600.3400, L500.2500, L502.0250, L506.1001, L100.0100 ####[facility] [address] [place], [address] MICROALBUMIN,UR < 12.0 Normal NO RANGE EST. [facility] Comment on above: Performed By: #### L 501.9985, L3600.3400, L500.2500, L502.0250, L506.1001, L100.0100 ####[facility] [address] [place], [address] Microalbumin/creat ratio urO rdered By: Darrell Langley on 11-04-2024 Urine Microalbumin/Creatinin e Ratio UNABLE TO CALCULATE mg/g CRE [facility] Urine microalbumin/creatinin e ratio measurement UNABLE TO CALCULATE mg/g CRE [facility] Monocyte percentageOrdered B y: Darrell Langley on 11-04-2024 Monocytes/100 WBC (Bld) 6.9 % 0-10 [facility] Neutrophil percentageOrdered By: Darrell Langley on 11-04-2024 Neutrophils/100 WBC (Bld) 56.4 % 47-70 [facility] Nicotine [Mass/Vol]Ordered B y: Darrell Langley on 11-04-2024 Nicotine Level 12.8 ug/mL . [facility] Comment on above: This test was develo ped and its performance characteristicsdetermined by [employer]. It has not been cleared orapproved by the Food and Drug Administration.Nicotine levels greater than 2.0 are consistent with theuse of tobacco or tobacco cessation products. Nucleated red blood cell per centageOrdered By: Darrell Langley on 11-04-2024 Nucleated RBC/100 WBC (Bld) [Ratio] 0 % 0-5 [facility] Platelet countOrdered By: Lion Langley on 11-04-2024 Platelets (Bld) [#/Vol] 343 10*3/uL 150-450 [facility] Potassium (Unsp spec) [Mass/ Vol]Ordered By: Darrell Langley on 11-04-2024 Potassium [Moles/Vol] 3.9 mmol/L 3.3-5.1 [facility] Potassium measurement (mass/ volume)Ordered By: Darrell Langley on 11-04-2024 Potassium (Unsp spec) [Mass/Vol] 3.9 mmol/L 3.3-5.1 [facility] RBC Auto (Bld) [#/Vol]Ordere d By: Darrell Langley on 11-04-2024 RBC (Bld) [#/Vol] 4.12 10*6/uL Low 4.2-5.4 [facility] Random urine creatinine ruslan urement (mass/volume)Ordered By: Darrell Langley on 11-04-2024 Creatinine Unsp time (U) [Mass/Vol] 102.00 mg/dL 28-217 [facility] Serum creatinine measurement (mass/volume)Ordered By: Darrell Langley on 11-04-2024 Creatinine [Mass/Vol] 0.76 mg/dL 0.70-1.20 [facility] Serum glucose measurement (m ass/volume)Ordered By: Darrell Langley on 11-04-2024 Glucose [Mass/Vol] 132 mg/dL High 70-99 [facility] Serum or plasma calcium ruslan urement (mass/volume)Ordered By: Darrell Langley on 11-04-2024 Calcium [Mass/Vol] 9.6 mg/dL 7.6-11.0 [facility] Serum or plasma nicotine giovanni surement (mass/volume)Ordered By: Darrell Langley on 11-04-2024 Nicotine [Mass/Vol] 12.8 ug/mL . [facility] Comment on above: This test was develo ped and its performance characteristicsdetermined by [employer]. It has not been cleared orapproved by the Food and Drug Administration.Nicotine levels greater than 2.0 are consistent with theuse of tobacco or tobacco cessation products. Serum or plasma urea nitroge n measurement (mass/volume)Ordered By: Darrell Langley on 11-04-2024 Urea nitrogen [Mass/Vol] 15 mg/dL 4-19 [facility] Sodium levelOrdered By: Darrell Langley on 11-04-2024 Sodium [Moles/Vol] 136 mmol/L 133-145 [facility] Urine albumin measurement [facility] detection limit of 20 mg/L or less (mass/volume)Ordered By: Darrell Langley on 11-04-2024 Albumin DL <= 20 mg/L (U) [Mass/Vol] < 12.0 mg/L NO RANGE EST. [facility] Vitamin D, 25-hydroxyOrdered By: Darrell Langley on 11-04-2024 Vitamin D 25-Hydroxy 47.2 ng/mL 30-100 [facility] Comment on above: Vitamin D StatusDefi ciency: <20 ng/mL (50nmol/L)Insufficiency: 20-30 ng/mL (50-75 nmol/L)Sufficiency: 30-100 ng/mL (75-250 nmol/L)Toxicity: >100 ng/mL (>250 nmol/L) White blood cell (WBC) count Ordered By: Darrell Langley on 11-04-2024 WBC (Bld) [#/Vol] 10.5 10*3/uL 4.4-11.0 [facility] Bedside Glucoseon 10-24-2024 FINGERSTICK GLU 169 mg/dL High 74-106 [facility] Comment on above: Result Comment: JOSE HYMAN OF PATIENT CARE PER NURSING PROTOCOL Performed By: #### L 501.080 ####[facility] [address] [facility] [place], [address] Colonoscopy Reporton 025 Colonoscopy Report [facility] Medical Records Department [address] [place] [address] Colonoscopy Report MR#: [id number] Acct: [id number] Name: KAITLIN ACOSTA Rep #: [id number] : 1960 64 From: Jose [place] MD PCP: Dr. Darrell Langley MD Status:REG [facility] Patient Name: Kaitlin Acosta Procedure Date: 10/24/2024 7:21 AM Date of : 1960 Age: 64 Procedure: Colonoscopy Indications: Positive Cologuard test Providers: Jose [place] MD Medicines: See the Anesthesia note for documentation of the administered medications Patient Profile: Refer to note in patient chart for documentation of history and physical. Last Colonoscopy: none. The patient's first colonoscopy is today. Complications: No immediate complications. Procedure: Pre-Anesthesia Assessment: - The heart rate, respiratory rate, oxygen saturations, blood pressure, adequacy of pulmonary ventilation, and response to care were monitored throughout the procedure. After I obtained informed consent, the scope was passed under direct vision. Throughout the procedure, the patient's blood pressure, pulse, and oxygen saturations were monitored continuously. The Colonoscope was introduced through the anus with the intention of advancing to the cecum. The scope was advanced to the splenic flexure before the procedure was aborted. Medications were given. The colonoscopy was performed with difficulty due to poor bowel prep with stool present. Successful completion of the procedure was aided by lavage. The patient tolerated the procedure well. The quality of the bowel preparation was 50 percent obscured. Scope In: 7:36:25 AM Scope Withdrawal Time 0 hours 0 minutes 49 seconds Scope Out: 8:03:04 AM Total Procedure Duration Time 0 hours 26 minutes 39 seconds Findings: The perianal and digital rectal examinations were normal. A 15 mm polyp was found in the mid rectum. The polyp was semi-pedunculated. The polyp was removed with a hot snare. Resection and retrieval were complete. Estimated blood loss: none. A large amount of stool was found in the sigmoid colon and in the descending colon, interfering with visualization. Lavage of the area was performed using copious amounts of sterile water, resulting in incomplete clearance with continued poor visualization. The retroflexed view of the distal rectum and anal verge was normal and showed no anal or rectal abnormalities. No biopsies or other specimens were collected for this exam. Impression: - One 15 mm polyp in the mid rectum, removed with a hot snare. Resected and retrieved. - Stool in the sigmoid colon and in the descending colon. - The distal rectum and anal verge are normal on retroflexion view. - The procedure was aborted due to poor bowel prep with stool present. Recommendation: - Discharge patient to home (via wheelchair). - Resume previous diet today. - No aspirin, ibuprofen, naproxen, or other non-steroidal anti-inflammatory drugs for 2 days after polyp removal. - Await pathology results. - Repeat colonoscopy in 3 months because the examination was incomplete. - Telephone my office for pathology results in 1 week. Procedure Code(s): --- Professional --- 66028, 52, Colonoscopy, flexible; with removal of tumor(s), polyp(s), or other lesion(s) by snare technique Diagnosis Code(s): --- Professional --- D12.8, Benign neoplasm of rectum R19.5, Other fecal abnormalities CPT copyright 2021 [employer]. All rights reserved. The codes documented in this report are preliminary and upon electronics mechanic apprentice review may be revised to meet current compliance requirements. Jose [place] MD 10/24/2024 8:15:03 AM This report has been signed electronically. Number of Addenda: 0 Note Initiated On: 10/24/2024 7:21 AM 10/24/2415 Date Jose [place] MD Cosigner Signature: Date (if indicated) CC: Dr. Jose [place] MD; Dr. Darrell Langley MD Date Dictated: 10/24/24720 Date Transcribed: Flat Hammerer: NIRMALA Signed Normal [facility] Gl[facility] at [facility] deOrdered By: Jose [place] on 10-24-2024 Bedside Glucose (Misc Panel) 169 mg/dL High 74-106 [facility] Comment on above: MANAGEMENT OF PATIEN T CARE PER NURSING PROTOCOL Glucose [Mass/Vol] 169 mg/dL High 74-106 [facility] Comment on above: MANAGEMENT OF PATIEN T CARE PER NURSING PROTOCOL MR/POSTOP.Laura 10-24-2024 MR/POSTOP.[facility] Medical Records Department [address] [place] [address] Anesthesia Postop Eval I 10/24/24 0812 MR#: [id number] Acct: [id number] Name: KAITLIN ACOSTA Rep #: [id number] : 1960 64 From: Crescencio Perez CRNA PCP: Dr. Darrell Langley MD Status:REG SD Y Race: C Location: [place] [address] Anesthesia: Postop Eval I Current Vital Signs Temperature: 97.6 F Pulse Rate: 71 Blood Pressure: 119/68 Respiratory Rate: 16 Pulse Ox: 98 Oxygen Delivery Method: Room Air Assessment Airway patent: Yes Spontaneous unlabored respirations: Yes Mental status: Awake and Calm nausea: No Vomiting: No Anesthesia Complication: No Fluid Hydration Crystalloid volume administer (ml): 30 Total IV fluid infused: 30 Progress Note Anesthesia document: Postop Eval 1 completed: Yes 10/24/24 0813 Date Crescencio Perez HORTICULTURAL WORKER Cosigner Signature: Date CC: Signed Normal [facility] MR/[id number] 10-24-2024 [facility] Medical Records Department [facility] [place] [address] Anesthesia Postop Eval II 10/24/24 1207 MR#: [id number] Acct: [id number] Name: KAITLIN ACOSTA Rep #: [id number] : 1960 64 From: Augustina Medel PCP: Dr. Darrell Langley MD Status:REG SD Y Race: C Location: [place] [address] Anesthesia Postop Eval I Sum Postop Eval Completion status Anesthesia document: Postop Eval 1 completed: Yes Anesthesia Postop Eval I Summary Anesthesia Postop Eval I Summary: Anesthesia Postop Eval I: Assessment Summary Airway patent Yes 10/24/24 08:13 HORTICULTURAL WORKER.JBLOU Spontaneous unlabored Yes 10/24/24 08:13 HORTICULTURAL WORKER.AGGIEU respirations Mental status Awake,Calm 10/24/24 08:13 HORTICULTURAL WORKER.VITALIYLOU nausea No 10/24/24 08:13 HORTICULTURAL WORKER.VITALIYLOU Vomiting No 10/24/24 08:13 HORTICULTURAL WORKER.SONIA Anesthesia Postop Eval I: Fluid Summary Crystalloid volume administer 30 10/24/24 08:13 HORTICULTURAL WORKER.VITALIYLOU (ml) Colloids volume administered ( ml) Blood Product volume administered (ml) Total IV fluid infused 30 10/24/24 08:13 HORTICULTURAL WORKER.SONIA Anesthesia Postop Eval I: Summary Notes Anesthesia Complication No 10/24/24 08:13 HORTICULTURAL WORKER.SONIA Anesthesia Complication Comment: Post-operative progress note Anesthesia: Postop Eval II Evaluation Mental status: Awake and Calm Pain Level: 0 nausea: No Vomiting: No Complications Anesthesia Complication: No 10/24/24 120 Date Augustina Hawkins Signature: Date CC: Signed Normal [facility] Surgery Specimen Level Rama 10-24-2024 Surgery Specimen Level IV Patient Age/Sex Location Account Attending Physician KAITLIN ACOSTA Azucena 64/F EN [id number] Dr. Jose [place] MD Specimen: [id number] Received: 10/24/24 Status: ELVA Stanton Num: [id number] Spec Type: COLON BX Subm Dr: Dr. Jose [place] MD HEADER OPERATION: Colonoscopy with polypectomy PRE-OP DIAGNOSIS: Positive colorectal cancer screening using Cologuard test, polyp TISSUE SUBMITTED: Rectal polyp MICROSCOPIC DIAGNOSIS Rectal polyp, polypectomy: Tubular adenoma. . 10/25/2024 MICROSCOPIC DESCRIPTION Slides are reviewed. GROSS DESCRIPTION Received in fixative is one container labeled with the patient's name and designated Rectal polyp. The specimen consists of a pink-red polyp measuring 1 x 0.9 x 0.9 cm. The presumed base is inked. The polyp is serially sectioned and submitted entirely in one cassette. . 10/24/2024 TC:1 CPT:34404 Patient Age/Sex Location Account Attending Physician KAITLIN ACOSTA 64/F EN [id number] Dr. Jose [place] MD Signed (signature on file) Dr. Artemio Hampton MD 10/25/24 1102 Normal [facility] Comment on above: Performed By: #### P SUIV ####[facility] [address] [place], [place], [address] Lower Ext Art Exam w/o Exerc yoana 10-14-2024 Lower Ext Art Exam w/o Exercis [facility] [address] [place] [address] Lower Ext Art Exam w/o Exercis 10/14/24 1024 MR#: [id number] Acct: [id number] Name: KAITLIN ACOSTA Rep #: [id number] : 1960 64 From: Paresh Tinsley MD Attending Dr: Dr. Tab Sparks DPM Status: RE G CLI Ordering Dr: Tab Sparks DPM Date: 10/14/24 Location: [facility] Sex: F C Admitted: Reason For Study Reason For Study: PVD Procedure A bilateral lower extremity continuous wave Doppler with analog waveform analysis,segmental pressures,and ankle brachial indexes without exercise. Left Segmental Pressures Left brachial= 140mmHg. Left high thigh = 192mmHg. Left low thigh = 156mmHg. Left calf = 142mmHg. Left posterior tibial artery = 123mmHg. Left dorsalis pedis artery = 126mmHg. Left digit = 97 mmHg. Right Segmental Pressures Right brachial= 138mmHg. Right posterior tibial artery = 148mmHg. Right dorsalis pedis artery = 145mmHg. Right digit = 85 mmHg. Indices The right ankle brachial index by the posterior tibial artery is 1.06. The right ankle brachial index by the dorsalis pedis is 1.04. The right digital-brachial index is 0.61. The left ankle brachial index by the posterior tibial artery is 0.88. The left ankle brachial index by the dorsalis pedis is 0.90. The left digital-brachial index is 0.69. VL/Lower Ext Art Exam w/o Exercis Interpretation Summary Triphasic Doppler waveforms are noted at ankle level bilaterally. Pulse-volume recordings appear diminished at digital levels bilaterally, but satisfactory at all other levels bilaterally. The resting right ankle- brachial index is normal. The resting left ankle-brachial index is mildly diminished. Digital-brachial indices are mildly diminished bilaterally. Arterial flow appears normal at ankle level on the right. 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 Ordering Physician: Tab Sparks Referring Physician: Darrell Langley Performed By: Patrizia Ruvalcaba RDCS/RVT 10/14/24 1700 Date Paresh Tinsley MD CC: DPM Dr. Tab Sparks; Dr. Darrell Langley MD Date Dictated: 10/14/24 1024 Date Transcribed: 10/14/241699 Flat Hammerer: Signed Normal [facility] Venous Duplex US - [place] Extre mon 10-14-2024 Venous Duplex US - [place] Extrem [facility] [address] [place] [address] Venous Duplex US - [place] Extrem 10/14/24 0955 MR#: [id number] Acct: [id number] Name: KAITLIN ACOSTA Rep #: [id number] : 1960 64 From: Paresh Tinsley MD Attending Dr: Dr. Tab Sparks, DPM Status: RE G CLI Ordering Dr: Tab Sparks DPM Date: 10/14/24 Location: [facility] Sex: F C Admitted: Reason For Study Reason For Study: Leg Pain BLE RIGHT LEFT GSV is normal. GSV is normal. CFV is compressible, spontaneous, phasic, competent CFV is compressible, spontaneous, phasic, competent, and demonstrates normal augmentation. and demonstrates normal augmentation. FV is compressible, spontaneous, phasic, competent FV is compressible, spontaneous, phasic, competent and demonstrates normal augmentation. and demonstrates normal augmentation. POP V is compressible, spontaneous, phasic, competent POP V is compressible, spontaneous, phasic, competent and demonstrates normal augmentation. and demonstrates normal augmentation. T/P Trunk is compressible. T/P Trunk is compressible. PTV is compressible. PTV is compressible. RT PerV is compressible. LT PerV is compressible. Procedure This is a venous duplex using B-mode, color flow and spectral Doppler. Exam performed in department. A preliminary report was called and/or faxed to Dr. Sparks. VL/Venous Duplex US - [place] Extrem Interpretation Summary Deep veins of the lower extremities are bilaterally patent and compressible segmentally. There is no evidence of deep vein thrombosis on either side. Valvular competence appears intact within the proximal deep venous systems bilaterally. The great saphenous veins appear bilaterally patent and compressible segmentally. Ordering Physician: Tab Sparks Referring Physician: Darrell Langley Performed By: Patrizia Ruvalcaba, RDCS, RVT 10/14/241639 Date Paresh Tinsley MD CC: DPPrashant Sparks; Dr. Darrell Langley MD Date Dictated: 10/14/2455 Date Transcribed: 10/14/241639 Flat Hammerer: Signed Normal [facility] Surgery Visit Reporton 09-24 Surgery Visit Report [facility] [address] [place] [address]. [address] [place] [address] OFFICE VISIT Date of Service: 09/24/24 MR#: [id number] Acct: [id number] Name: KAITLIN ACOSTA Rep #: [id number] : 1960 Provider: ELEAZAR hines Age/Sex: 64/F Location: [facility] Status: Signed Intake Vital Signs 09/10/24 09:43 Height 5 ft 7 in Intake Visit Reasons: BREAST CHECK Chief Complaint: R axillary check Is patient in pain?: No Allergies acetaminophen (From Darvocet-N) Allergy (Verified 09/24/24 10:00) Unknown Penicillins Allergy (Verified 09/24/24 10:00) Unknown propoxyphene (From Darvocet-N) Allergy (Verified 09/24/24 10:00) Unknown hydromorphone (From Dilaudid) Adverse Reaction (Verified 09/24/24 10:00) Vomiting meperidine (From Demerol) Adverse Reaction (Verified 09/24/24 10:00) Other Medications ???Medication ???Instructions ???Recorded ???Confirmed ???Type metformin 1,000 mg tablet 1,000 mg PO BIDCM 06/07/16 09/24/24 History ergocalciferol (vitamin D2) 1,250 1,250 mcg PO QWEEK 11/09/23 09/24/24 History mcg (50,000 unit) capsule glimepiride 4 mg tablet 4 mg PO BID 11/09/23 09/24/24 History lisinopril 5 mg tablet 5 mg PO QDAY 11/09/23 09/24/24 History sertraline 25 mg tablet 25 mg PO QDAY 11/09/23 09/24/24 History simvastatin 40 mg tablet 40 mg PO QHS 11/09/23 09/24/24 History semaglutide 1 mg/dose (4 mg/3 mL) 1 mg subcut WE 07/03/24 09/24/24 History subcutaneous pen injector (Ozempic) Have you fallen in the past year?: No Subjective Details: Patient is a 64 y/o F I am following s/p excision of right axillary sebaceous cyst by Dr. Whitmore on 09/10/24. Patient tolerated the procedure well. She notes minimal amount of irritation at the incision site with certain movements due to the location. She has been able to return to normal house work. She denies any incisional drainage, redness or fever. Pathology demonstrated an epidermal inclusion cyst. Objective Details: Right axilla- incision c/d/i. No erythema or infection noted. Slight amount of faint ecchymosis. Coding Level of Care Code Global Post Op Diagnoses Sebaceous cyst of axilla L72.3 [facility] Medical History (Updated 09/24/24 @ 10:01 by Laura Rodriguez LPN) Sebaceous cyst of axilla Loss of hearing Wears glasses Wears dentures Cancer Post-menopausal Anxiety Arthritis Low iron Dietary restriction Shortness of breath on exertion Former smoker Leg cramps History of rheumatic fever Axillary mass Tobacco user Obesity Hyperlipidemia Diabetes mellitus, type 2 Depression Benign essential hypertension Surgical History Hx of appendectomy S/P tonsillectomy and adenoidectomy H/O tubal ligation Family History Father Prostate cancer Skin cancer Social History Smoking Status: Former smoker alcohol intake: never substance use type: does not use Assessment and Plan (No Qualifiers) Assessment and Plan (1) Sebaceous cyst of axilla: Status: Acute Plan: No restrictions at this time Discussed signs of infection Follow-up as needed 09/24/24 1121 Date Sherrie Hawkins Signature: Date (if applicable) CC: Dr. Darrell Langley MD Normal [facility] Bedside Glucoseon 09-10-2024 FINGERSTICK GLU 95 mg/dL Normal 74-106 [facility] Comment on above: Result Comment: JOSE HYMAN OF PATIENT CARE PER NURSING PROTOCOL Performed By: #### L 501.080 #### [facility] [address] [facility] [place], [address] Discharge Instructionon 08-28 Discharge Instruction [facility] Medical Records Department [address] [place] [address] Instructions for Home/Discharge Instructions 09/10/24 1301 MR#: [id number] Acct: [id number] Name: KAITLIN ACOSTA Rep #: [id number] : 1960 64 From: Jose Whitmore MD PCP: Dr. Darrell Langley MD Status:REG [facility] Discharge Instructions Diet Discharge Diet: No restrictions Activity Discharge Activity: May Drive (No driving while using narcotic pain medication) May shower in (days): 1 Lifting Restrictions: Limit lifting with left upper extremity to no more than 5 pounds Dressing / Incision Call your doctor if your incision/area has: Continuous Slow Oozing, Sudden Increased Bleeding, Increased Pain/ Swelling, Increased Redness, Foul Smelling Discharge and Swelling at the incision site Call your doctor if you observe: Fever of 101 or Higher Suture Line Care: Avoid Pulling/Pushing Cleanse incision/area with: Soap Water Follow Up Care Please Follow Up With: Sherrie Lozano PA-C When: 10-14 days postop Test Results: Test results from this visit will be discussed in further detail at your follow-up appointment, if applicable. Discharge Plan Admission Primary Reason for Your Visit: Excision of sebaceous cyst Attending Provider: Jose Whitmore Primary Care Provider: Darrell Langley Instructions Print Language: Hungarian Discharge Orders/Prescriptions Prescriptions: Continued simvastatin 40 mg tablet 40 mg PO QHS ergocalciferol (vitamin D2) 1,250 mcg (50,000 unit) capsule 1,250 mcg PO QWEEK lisinopril 5 mg tablet 5 mg PO QDAY sertraline 25 mg tablet 25 mg PO QDAY glimepiride 4 mg tablet 4 mg PO BID metformin 1,000 MG tablet 1,000 mg PO BIDCM Ozempic 1 mg/dose (4 mg/3 mL) pen injector 1 mg subcut WE Referrals / Follow Up: Darrell Langley MD [Primary Care Provider] - Disposition Disposition (needs filled in before D/C Order can be placed): Home, Self Care 09/10/24 520 Jose Whitmore MD CC: Dr. Darrell Langley MD Signed Normal [facility] deOrdered By: Jose Whitmore on 09-10-2024 Bedside Glucose (Misc Panel) 95 mg/dL 74-106 [facility] Comment on above: MANAGEMENT OF PATIEN T CARE PER NURSING PROTOCOL MR/POSTOP.ANEon 09-10-2024 MR/POSTOP.[facility] Medical Records Department [address] [place] [address] Anesthesia Postop Eval I 09/10/24 1339 MR#: [id number] Acct: [id number] Name: KAITLIN ACOSTA Rep #: [id number] : 1960 64 From: Crescencio Perez CRNA PCP: Dr. Darrell Langley MD Status:REG SDC Y Race: C Location: [place] [address] Anesthesia: Postop Eval I Current Vital Signs Temperature: 97 F Pulse Rate: 71 Blood Pressure: 114/63 Respiratory Rate: 16 Pulse Ox: 97 Oxygen Delivery Method: Room Air Assessment Airway patent: Yes Spontaneous unlabored respirations: Yes Mental status: Awake and Calm nausea: No Vomiting: No Anesthesia Complication: No Fluid Hydration Crystalloid volume administer (ml): 400 Total IV fluid infused: 400 Progress Note Anesthesia document: Postop Eval 1 completed: Yes 09/10/24 1340 Date Crescencio Perez HORTICULTURAL WORKER Cosigner Signature: Date CC: Signed Normal [facility] MR/MCCAGGYM9ze 09-10-2024 MR/POSTOPAN2 [facility] Medical Records Department [address] [place] [address] Anesthesia Postop Eval II 09/10/242107 MR#: [id number] Acct: [id number] Name: KAITLIN ACOSTA Rep #: [id number] : 1960 64 From: Ti Suarez MD PCP: Dr. Darrell Langley MD Status:REG [facility] Y Race: C Location: [place] [address] Anesthesia Postop Eval I Sum Postop Eval Completion status Anesthesia document: Postop Eval 1 completed: Yes Anesthesia Postop Eval I Summary Anesthesia Postop Eval I Summary: Anesthesia Postop Eval I: Assessment Summary Airway patent Yes 09/10/24 13:40 HORTICULTURAL [email or web address] Spontaneous unlabored Yes 09/10/24 13:40 HORTICULTURAL [email or web address].[email or web address] respirations Mental status Awake,Calm 09/10/24 13:40 HORTICULTURAL [email or web address].JBLOU nausea No 09/10/24 13:40 HORTICULTURAL [email or web address].JBLOU Vomiting No 09/10/24 13:40 HORTICULTURAL [email or web address].[email or web address] Anesthesia Postop Eval I: Fluid Summary Crystalloid volume administer 400 09/10/24 13:40 HORTICULTURAL [email or web address].JBLOU (ml) Colloids volume administered ( ml) Blood Product volume administered (ml) Total IV fluid infused 400 09/10/24 13:40 HORTICULTURAL [email or web address].[email or web address] Anesthesia Postop Eval I: Summary Notes Anesthesia Complication No 09/10/24 13:40 HORTICULTURAL [email or web address].JBLOU Anesthesia Complication Comment: Post-operative progress note Anesthesia: Postop Eval II Evaluation Mental status: Awake and Calm Pain Level: 1 nausea: No Vomiting: No Complications Anesthesia Complication: No 09/10/242107 Date Ti Petersigner Signature: Date CC: Signed Normal [facility] Operative Reporton 5 Operative Report [facility] Medical Records Department [address] [place] [address] Operative Report 09/10/24 1259 MR#: [id number] Acct: [id number] Name: KAITLIN ACOSTA Rep #: [id number] : 1960 64 From: Jose Whitmore MD PCP: Dr. Darrell Langley MD Status:[facility] Location: AC08-1 Procedures Integumentary 114x: 20462 Exc tr-ext b9+ghazal 2.1-3cm/< Operative Report (Standard) Operative Information Date of Procedure: 09/10/24 Pre-Operative Diagnosis: Right axillary adenopathy Post-Operative Diagnosis: Right axillary sebaceous cyst (2 cm) Surgery/Procedure Performed: Excision of right axillary sebaceous cyst medical anthropologist: Yes Registered Travel Nurse: Alycia Winter Tasks completed by assistant construction superintendent: Opening closing and Retracting Type of Anesthesia: MAC/Supplemental RN Documented Start/Stop Times: Operation Date: 09/10/24 11:00 Case Time Into Pre-Op 09/10/24 09:28 Out of Pre-Op 09/10/24 12:11 Anesthesia Start 09/10/24 12:13 Into Room 09/10/24 12:13 Procedure Start 09/10/24 12:34 Procedure End 09/10/24 13:00 Anesthesia End 09/10/24 13:05 Out of Room 09/10/24 13:05 Into Recovery 09/10/24 13:07 Out of Recovery 09/10/24 13:49 Into Phase II Recovery 09/10/24 13:50 Out of Phase II 09/10/24 14:24 Procedure Start Time: Procedure Stop Time: 13:00 Select all DRAINS/GRAFTS/IMPLANTS that apply: None Estimated Blood Loss: 2ml Specimen collected: Yes Description of specimen(s) removed: Sebaceous cyst Description of surgery: After appropriate identification the preoperative holding area patient was brought to the operating room where she was positioned in a supine position with her right arm extended on a armboard. There she was administered a local MAC. Preoperative antibiotics were infused. Her axilla was prepped and draped in usual sterile fashion. A formal timeout followed to confirm both patient and procedure. I then performed a local block with 0.5% bupivacaine and made a oblique incision parallel to the lines of Langerhans 3 cm long along the mid aspect of patient's superficial nodular area. Despite extending this just to the level of the dermis was immediately met with extrusion of curd-like material and recognized that we had inadvertently disrupted the capsule of the underlying sebaceous cyst. Recognizing this pathologic entity I took great care to avoid any further disruption of the capsule and using Metzenbaum scissors sharply excised this lesion from the surrounding subcutaneous tissue. The cyst capsule, fortunately, was cleanly excised and the mass, completely extirpated, was passed off the operative field for pathology. The resulting cavity was irrigated and inspected for hemostasis which was found to be largely intact aside from a few isolated skin bleeders which were promptly addressed with selective electrocautery. The cavity was then closed in layers 3-0 Vicryl for the dermis and in a subcuticular fashion using 4-0 Monocryl. Dermabond was applied and the patient's sedation was lightened and she was transferred to the PACU bed for her ongoing care. Surgical Findings: ??? Superficial sebaceous cyst abutting the dermis Complications Complications: No Admit VTE Documentation VTE Mechan Device Prophylaxis: SCD's 09/10/24 843 Cosigner Signature (if applicable): CC: Dr. Jose Whitmore MD; Dr. Darrell Langley MD Signed Normal [facility] Surgery Specimen Level IIIon 09-10-2024 Surgery Specimen Level III Patient Age/Sex Location Account Attending Physician KAITLIN ACOSTA 64/F [facility] [id number] Dr. Jose Whitmore MD Specimen: [id number] Received: 09/10/24 Status: ELVA Stanton Num: [id number] Spec Type: Cyst Subm Dr: Dr. Jose Whitmore MD HEADER OPERATION: Ultrasound excision of axilla sebaceous cyst PRE-OP DIAGNOSIS: Axillary mass, lymph node, sebaceous cyst TISSUE SUBMITTED: Sebaceous cyst MICROSCOPIC DIAGNOSIS Sebaceous cyst, excision: Epidermal inclusion cyst. . 09/12/2024 MICROSCOPIC DESCRIPTION Slides are reviewed. GROSS DESCRIPTION Received in fixative is one container labeled with the patient's name and designated Sebaceous cyst. The specimen consists of a previously ruptured cyst filled with rodriguez-white cheesy material measuring 2.5 x 2.0 x 1.5cm. Swatch Checker sections are submitted in one cassette. . 09/11/2024 TC:5 CPT:25549 Patient Age/Sex Location Account Attending Physician KAITLIN ACOSTA 64/F [facility] [id number] Dr. Jose Whitmore MD Signed (signature on file) Dr. Artemio Hampton MD 09/12/24 1212 Normal [facility] Comment on above: Performed By: #### P SUIII #### [facility] [address] [place], [place], [address] Surgery Visit Reporton 08-30 Surgery Visit Report [facility] [address] [place], [place] [address] OFFICE VISIT Date of Service: 08/30/24 MR#: [id number] Acct: [id number] Name: KAITLIN ACOSTA Rep #: [id number] : 1960 Provider: Dr. Jose cristina MD Age/Sex: 64/F Location: [facility] Status: Signed Intake Vital Signs 07/03/24 01:51 08/30/24 14:08 Height 5 ft 7 in 5 ft 7 in Weight: 170 lb BMI 26.6 BP 119/52 L Blood Pressure Location Rt brachial Position Sitting Respiration 16 Intake Visit Reasons: POSITIVE COLOGUARD Chief Complaint: positive cologuard Handtools Repairer Required: No Is patient in pain?: No Allergies acetaminophen (From Darvocet-N) Allergy (Verified 08/30/24 14:08) Unknown Penicillins Allergy (Verified 08/30/24 14:08) Unknown propoxyphene (From Darvocet-N) Allergy (Verified 08/30/24 14:08) Unknown hydromorphone (From Dilaudid) Adverse Reaction (Verified 08/30/24 14:08) Vomiting meperidine (From Demerol) Adverse Reaction (Verified 08/30/24 14:08) Other Medications ???Medication ???Instructions ???Recorded ???Confirmed ???Type metformin 1,000 mg tablet 1,000 mg PO BIDCM 06/07/16 08/30/24 History ergocalciferol (vitamin D2) 1,250 1,250 mcg PO QWEEK 11/09/23 08/30/24 History mcg (50,000 unit) capsule glimepiride 4 mg tablet 4 mg PO BID 11/09/23 08/30/24 History lisinopril 5 mg tablet 5 mg PO QDAY 11/09/23 08/30/24 History sertraline 25 mg tablet 25 mg PO QDAY 11/09/23 08/30/24 History simvastatin 40 mg tablet 40 mg PO QHS 11/09/23 08/30/24 History clindamycin HCl 300 mg capsule 300 mg PO 4X/DAY 10 days #40 caps 07/03/24 08/30/24 Rx ondansetron 4 mg disintegrating 4 mg PO TID PRN nausea and 07/03/24 08/30/24 Rx tablet vomiting #21 tabs oxycodone 5 mg tablet 5 mg PO Q6H PRN pain 3 days #12 07/03/24 08/30/24 Rx tabs semaglutide 1 mg/dose (4 mg/3 mL) mg subcut 07/03/24 08/30/24 History subcutaneous pen injector (Ozempic) Have you fallen in the past year?: No PFSH Medical History (Updated 08/30/24 @ 14:[address] Jose Whitmore MD) Tobacco user Benign essential hypertension Depression Diabetes mellitus, type 2 Hyperlipidemia Obesity Axillary mass Surgical History (Updated 08/30/24 @ 14:06 by Natalie Roberson) S/P tonsillectomy and adenoidectomy H/O tubal ligation Family History Father Prostate cancer Skin cancer Social History Smoking Status: Former smoker alcohol intake: never substance use type: does not use HPI HPI HPI: Patient is a 64-year-old female who presents for need to schedule diagnostic colonoscopy secondary to positive Cologuard testing for her insurance. They are referred for surgical consultation from Dr. Langley. Patient actually presented to this office earlier last year due to complaints of a nontender right axillary lymph node and was due for excisional biopsy but somewhere along the lines became convinced that she was to just wait and see if it decreased in size spontaneously. When this did not happen she simply let the issue drop. She notes that it is a same size and remains nontender. Patient has not had prior colonoscopy. Patient has no personal history of colon cancer, phonatory bowel disease, or diverticulitis. They describe their bowel habits as normal. They have approximately 1 bowel movements per day and spend roughly minutes on the toilet without significant straining. They have not noticed recent bleeding or dark stools. There is no history of hemorrhoids Patient has no family history of colon cancer, colon polyps, or diverticulitis. The patient's weight is not stable and she shares that she has lost approximately 10 pounds through use of Ozempic over the last year for her diabetes. The patient is not prescribed anticoagulants/blood thinners. Relevant prior abdominal surgical history includes: Laparoscopic appendectomy Patient does not have a significant history of GERD/heartburn ROS General General: Yes weight change (loss); No appetite, fatigue, colon cancer, breast cancer or weakness HEENT HEENT: No difficulty swallowing, eye injury, eye surgery, swollen glands or hoarseness Endo Endocrine: Yes diabetes mellitus; No thyroid disease, thyroid cancer, Hair loss, heat intolerance or cold intolerance Skin Skin: No rash or changing moles Musc Musculoskeletal: No back problems, arthritis, rheumatoid arthritis, gout or joint pain Cardio Cardiovascular: No murmur, pacemaker, heart disease, atrial fibrillation, high blood pressure, heart attack, heart stent, palpitations, shortness of breat with exertion or chest pain Psych Psychiatric: No depression, anxiety or hearing voices Resp Respiratory: No shortness of br (more content not included)... Normal [facility] Albumin to globulin ratioOrd ered By: Darrell Langley on 08-12-2024 Albumin/Globulin [Mass ratio] 0.9 {ratio} 0.9-2.4 [facility] Bilirubin, totalOrdered By: Darrell Langley on 08-12-2024 Bilirubin [Mass/Vol] 0.40 mg/dL 0.20-1.00 [facility] Comment on above: For patients on eltr ombopag therapy, use of Dimension [place] TBIL is not recommended. Blood urea nitrogen (BUN)/cr eatinine ratioOrdered By: Darrell Langley on 08-12-2024 Urea nitrogen/Creatinine [Mass ratio] 27.2 mg/mg High 10- [facility] Calcaneus min 2 Viewson 12 Calcaneus min 2 Views [facility] Imaging Services [address] [place], [place] [address] Calcaneus min 2 Views MR#: [id number] Acct: [id number] Name: KAITLIN ACOSTA Rep #: [id number] : 1960 F 64 From: Francis Barr MD PCP: Dr. Darrell Langley MD Status: REG CLI Study: Calcaneus min 2 Views Date of Exam: 08/12/24 Exam# [id number] Ordering Dr: Darrell Langley MD [id number] EXAM: XR RIGHT CALCANEUS, 2 OR MORE VIEWS CLINICAL INDICATION: pain in feet TECHNIQUE: Lateral and plantar views of the right calcaneus. COMPARISON: No relevant prior studies available. FINDINGS: BONES/JOINTS: No acute fracture or subluxation. Dorsal and plantar calcaneal spurring is present. SOFT TISSUES: Normal. No soft tissue swelling or gas. No radiopaque foreign body. RAD/Calcaneus min 2 Views IMPRESSION: 1. No acute osseous findings. 2. Dorsal and plantar calcaneal spurring. Electronically Signed: Francis Barr MD at 14:57 EST Reading Location ID and State: [address] [place] [address] Tel , Service support , CC: Dr. Darrell Langley MD Flat Hammerer: Signed Normal [facility] Carbon dioxide measurementOr dered By: Darrell Langley on 08-12-2024 CO2 [Moles/Vol] 26.0 mmol/L 21.0-32.0 [facility] Chloride measurementOrdered By: Darrell Langley on 08-12-2024 Chloride [Moles/Vol] 105 mmol/L 98-107 [facility] Comprehensive Metabolic Prof ilon 08-12-2024 Albumin [Mass/Vol] 3.7 g/dL Normal 3.2-5.0 [facility] Comment on above: Performed By: #### L 500.4050, L501.9985, L500.4100 ####[facility] [address] [place], [address] Albumin/Globulin [Mass ratio] 0.9 {ratio} Normal 0.9-2.4 [facility] Comment on above: Performed By: #### L 500.4050, L501.9985, L500.4100 ####[facility] [address] [place], [address] ALK P 60 U/L Normal 45-117 [facility] Comment on above: Performed By: #### L 500.4050, L501.9985, L500.4100 ####[facility] [address] [place], [address] ALT [Catalytic activity/Vol] 20 U/L Normal 13-56 [facility] Comment on above: Performed By: #### L 500.4050, L501.9985, L500.4100 ####[facility] [address] [place], [address] AST [Catalytic activity/Vol] 11 U/L Low 15-37 [facility] Comment on above: Performed By: #### L 500.4050, L501.9985, L500.4100 ####[facility] [address] [place], [address] Bilirubin [Mass/Vol] 0.40 mg/dL Normal 0.20-1.00 [facility] Comment on above: Result Comment: For patients on eltrombopag therapy, use of Dimension [place] TBIL is not recommended. Performed By: #### L 500.4050, L501.9985, L500.4100 ####[facility] [address] [place], [address] BUN/CRE 27.2 RATIO High 10-20 [facility] Comment on above: Performed By: #### L 500.4050, L501.9985, L500.4100 ####[facility] [address] [place], [address] CA,Total 9.4 mg/dL Normal 8.5-10.1 [facility] Comment on above: Performed By: #### L 500.4050, L501.9985, L500.4100 ####[facility] [address] [place], [address] Chloride [Moles/Vol] 105 mmol/L Normal 98-107 [facility] Comment on above: Performed By: #### L 500.4050, L501.9985, L500.4100 ####[facility] [address] [place], [address] CO2 [Moles/Vol] 26.0 mmol/L Normal 21.0-32.0 [facility] Comment on above: Performed By: #### L 500.4050, L501.9985, L500.4100 ####[facility] [address] [place], [address] Creatinine [Mass/Vol] 0.77 mg/dL Normal 0.55-1.02 [facility] Comment on above: Result Comment: The validity of the calculated GFR GFRAA in patients over 70 years has not been determined. Clinical correlation is essential. Performed By: #### L 500.4050, L501.9985, L500.4100 ####[facility] [address] [place], [address] EST GFR - AA 96 mL/min Normal >60 [facility] Comment on above: Result Comment: Afri can Macedonian GFR Calc Performed By: #### L 500.4050, L501.9985, L500.4100 ####[facility] [address] [place], [address] GAP 5 Normal 5-15 [facility] Comment on above: Performed By: #### L 500.4050, L501.9985, L500.4100 ####[facility] [address] [place], [address] GFR/1.73 sq M.predicted among non-blacks MDRD (S/P/Bld) [Vol rate/Area] 80 mL/min/{1.73_m2} Normal >60 [facility] Comment on above: Result Comment: Non- GFR Calc Performed By: #### L 500.4050, L501.9985, L500.4100 ####[facility] [address] [place], [address] Globulin (S) [Mass/Vol] 4.3 g/dL High 2.2-4.2 [facility] Comment on above: Performed By: #### L 500.4050, L501.9985, L500.4100 ####[facility] [address] [place], [address] Glucose [Mass/Vol] 79 mg/dL Normal 74-106 [facility] Comment on above: Performed By: #### L 500.4050, L501.9985, L500.4100 ####[facility] [address] [place], [address] Potassium [Moles/Vol] 3.9 mmol/L Normal 3.5-5.1 [facility] Comment on above: Performed By: #### L 500.4050, L501.9985, L500.4100 ####[facility] [address] [place], [address] Sodium [Moles/Vol] 136 mmol/L Normal 136-145 [facility] Comment on above: Performed By: #### L 500.4050, L501.9985, L500.4100 ####[facility] [address] [place], [address] T PROT 8.0 g/dL Normal 6.4-8.2 [facility] Comment on above: Performed By: #### L 500.4050, L501.9985, L500.4100 ####[facility] [address] [place], [address] Urea nitrogen [Mass/Vol] 21 mg/dL High 7-18 [facility] Comment on above: Performed By: #### L 500.4050, L501.9985, L500.4100 ####[facility] [address] [place], [address] Estimated glomerular filtrat ion rate (GFR) AmericanOrdered By: Darrell Langley on 08-12-2024 Estimated GFR (MDRD) Amer 96 mL/min >60 [facility] Comment on above: GFR Calc Glomerular filtration rate ( GFR) estimationOrdered By: Darrell Langley on 08-12-2024 Estimated GFR (MDRD) Non-Af Amer 80 mL/min >60 [facility] Comment on above: Non- GFR Calc Glucose measurementOrdered B y: Darrell Langley on 08-12-2024 Glucose [Mass/Vol] 79 mg/dL 74-106 [facility] Hemoglobin A1con 08-12-2024 HbA1c (Bld) [Mass fraction] 5.4 % Normal 3.8-5.6 [facility] Comment on above: Result Comment: Norm al < 5.7 % Prediabetic 5.7 - 6.4 % Diabetic >or= 6.5 % Please note range changes. Performed By: #### L 500.4050, L501.9985, L500.4100 ####[facility] [address] [place], [address] Hemoglobin A1c percentageOrd ered By: Darrell Langley on 08-12-2024 HbA1c (Bld) [Mass fraction] 5.4 % 3.8-5.6 [facility] Comment on above: Normal < 5.7 % Predi abetic 5.7 - 6.4 % Diabetic >or= 6.5 % Please note range changes. High density lipoprotein (HD L) measurementOrdered By: Darrell Langley on 08-12-2024 Cholesterol in HDL [Mass/Vol] 53 mg/dL >40 [facility] Comment on above: The drugs N-Acetylcy steine and Metamizole may falsely depress this assay. Reference Range HDL <40 mg/dL Low HDL Cholesterol HDL >or= 60 mg/dL High HDL Cholesterol Laboratory - Chemistry and C hemistry - challengeOrdered By: Darrell Langley on 08-12-2024 AST [Catalytic activity/Vol] 11 U/L Low 15-37 [facility] Lipid Profileon 08-12-2024 Cholesterol [Mass/Vol] 174 mg/dL Normal 200 [facility] Comment on above: Result Comment: <200 mg/dL Desirable 200-240 mg/dL Borderline >240 mg/dL High Risk Performed By: #### L 500.4050, L501.9985, L500.4100 ####[facility] [address] [place], [address] Cholesterol in HDL [Mass/Vol] 53 mg/dL Normal [facility] Comment on above: Result Comment: The drugs N-Acetylcysteine and Metamizole may falsely depress this assay. Reference Range HDL <40 mg/dL Low HDL Cholesterol HDL >or= 60 mg/dL High HDL Cholesterol Performed By: #### L 500.4050, L501.9985, L500.4100 ####[facility] [address] [place], [address] Cholesterol in LDL [Mass/Vol] 90 mg/dL Normal 0-130 [facility] Comment on above: Performed By: #### L 500.4050, L501.9985, L500.4100 ####[facility] [address] [place], [address] Cholesterol in VLDL [Mass/Vol] 31 mg/dL Normal 5-40 [facility] Comment on above: Performed By: #### L 500.4050, L501.9985, L500.4100 ####[facility] [address] [place], [address] Triglyceride [Mass/Vol] 156 mg/dL Normal [facility] Comment on above: Result Comment: The drugs N-Acetylcysteine and Metamizole may falsely depress this assay. Serum Triglycerides Reference Interval Normal <150 mg/dL Borderline high 150 - 199 mg/dL High 200 - 499 mg/dL Very High > or = 500 mg/dL Performed By: #### L 500.4050, L501.9985, L500.4100 ####[facility] [address] [place], [place], [address] Low density lipoprotein (LDL ) cholesterol measurementOrdered By: Darrell Langley on 08-12-2024 Cholesterol in LDL [Mass/Vol] 90 mg/dL 0-130 [facility] Potassium measurementOrdered By: Darrell Langley on 08-12-2024 Potassium [Moles/Vol] 3.9 mmol/L 3.5-5.1 [facility] Serum anion gap measurementO rdered By: Darrell Langley on 08-12-2024 Anion gap [Moles/Vol] 5 mmol/L 5-15 [facility] Serum globulin measurementOr dered By: Darrell Langley on 08-12-2024 Globulin (S) [Mass/Vol] 4.3 g/dL High 2.2-4.2 [facility] Serum or plasma alanine alicia otransferase (ALT) measurementOrdered By: Darrell Langley on 08-12-2024 ALT [Catalytic activity/Vol] 20 U/L 13-56 [facility] Serum or plasma albumin ruslan urement (mass/volume)Ordered By: Darrell Langley on 08-12-2024 Albumin [Mass/Vol] 3.7 g/dL 3.2-5.0 [facility] Serum or plasma alkaline quinton sphatase measurementOrdered By: Darrell Langley on 08-12-2024 ALP [Catalytic activity/Vol] 60 U/L 45-117 [facility] Serum or plasma calcium ruslan urement (mass/volume)Ordered By: Darrell Langley on 08-12-2024 Calcium [Mass/Vol] 9.4 mg/dL 8.5-10.1 [facility] Serum or plasma cholesterol measurement (mass/volume)Ordered By: Darrell Langley on 08-12-2024 Cholesterol [Mass/Vol] 174 mg/dL <200 [facility] Comment on above: <200 mg/dL Desirable 200-240 mg/dL Borderline >240 mg/dL High Risk Serum or plasma creatinine m easurement (mass/volume)Ordered By: Darrell Langley on 08-12-2024 Creatinine [Mass/Vol] 0.77 mg/dL 0.55-1.02 [facility] Comment on above: The validity of the calculated GFR & GFRAA in patients over 70 years has not been determined. Clinical correlation is essential. Serum or plasma urea nitroge n measurement (mass/volume)Ordered By: Darrell Langley on 08-12-2024 Urea nitrogen [Mass/Vol] 21 mg/dL High 7-18 [facility] Sodium levelOrdered By: Darrell Langley on 08-12-2024 Sodium [Moles/Vol] 136 mmol/L 136-145 [facility] Total proteinOrdered By: Krystyna Langley on 08-12-2024 Protein [Mass/Vol] 8.0 g/dL 6.4-8.2 [facility] Triglycerides measurementOrd ered By: Darrell Langley on 08-12-2024 Triglyceride [Mass/Vol] 156 mg/dL <199 [facility] Comment on above: The drugs N-Acetylcy steine and Metamizole may falsely depress this assay.Serum Triglycerides Reference Interval Normal <150 mg/dL Borderline high 150 - 199 mg/dL High 200 - 499 mg/dL Very High > or = 500 mg/dL Very low density lipoprotein (VLDL) cholesterol measurementOrdered By: Darrell Langley on 08-12-2024 VLDL Cholesterol 31 mg/dL 5-40 [facility] Emergency Department Summary on 07-03-2024 Emergency Department Summary [facility] Medical Records Department [address] [place] [address] Emergency Department Summary 07/03/24 MR#: [id number] Acct: [id number] Name: KAITLIN ACOSTA Rep #: [id number] : 1960 64 From: Rj Hartmann DO PCP: Dr. Darrell Langley MD Status:DEP ER Location: ED HPI History of Present Illness Chief Complaint: Dental Informant: patient and family Narrative Narrative: Patient is a 64-year-old female with past medical history of hypertension hyperlipidemia and type 2 diabetes. She states that she noticed some pain yesterday without any obvious trauma such as biting down and breaking a tooth or hitting her face. She states she did not think much of this and did her normal daily activities. She states the pain was worsening and she got up this evening and went to the bathroom and when she looked in the mirror she noticed swelling along the left jaw. Therefore with the worsening pain and now swelling she has concern for infection and presents for evaluation [facility] Home Medications ???Medication ???Instructions ???Recorded ???Last Taken ???Type metformin 1,000 mg tablet 1,000 mg PO BIDCM 06/07/16 Unknown History ergocalciferol (vitamin D2) 1,250 1,250 mcg PO QWEEK 11/09/23 Unknown History mcg (50,000 unit) capsule glimepiride 4 mg tablet 4 mg PO BID 11/09/23 Unknown History lisinopril 5 mg tablet 5 mg PO QDAY 11/09/23 Unknown History sertraline 25 mg tablet 25 mg PO QDAY 11/09/23 Unknown History simvastatin 40 mg tablet 40 mg PO QHS 11/09/23 Unknown History clindamycin HCl 300 mg capsule 300 mg PO 4X/DAY 10 days #40 caps 07/03/24 Unknown Rx ondansetron 4 mg disintegrating 4 mg PO TID PRN nausea and 07/03/24 Unknown Rx tablet vomiting #21 tabs oxycodone 5 mg tablet 5 mg PO Q6H PRN pain 3 days #12 07/03/24 Unknown Rx tabs semaglutide 1 mg/dose (4 mg/3 mL) mg subcut 07/03/24 Unknown History subcutaneous pen injector (Ozempic) Allergy/AdvReac Type Severity Reaction Status Date / Time acetaminophen (From Allergy Unknown Verified 07/03/24 01:55 Darvocet-N) Penicillins Allergy Unknown Verified 07/03/24 01:55 propoxyphene (From Allergy Unknown Verified 07/03/24 01:55 Darvocet-N) hydromorphone (From Dilaudid) AdvReac Vomiting Verified 07/03/24 01:55 meperidine (From Demerol) AdvReac Other Verified 07/03/24 01:55 Family History Father Prostate cancer Skin cancer Surgical History H/O tubal ligation Social History Smoking Status: Former smoker alcohol intake: never substance use type: does not use ROS ROS ED Constitutional Constitutional ED: Denies chills or fever(s) Eyes Eyes: Denies change in vision ENT ENT ED: Reports other Details: Positive facial swelling and dental pain ; Denies rhinorrhea or sore throat Cardiovascular Cardiovascular: Denies chest pain Respiratory/Chest Respiratory/Chest: Denies cough or dyspnea Gastrointestinal Gastrointestinal: Denies abdominal pain, diarrhea, nausea or vomiting Genitourinary Genitourinary ED: Denies dysuria Musculoskeletal Musculoskeletal: Denies back pain or neck pain Integumentary Denies rash Neurologic Neurologic: Denies headache(s) Hematologic/Lymphatic Hematologic/Lymphatic: Denies easy bleeding or easy bruising Allergic/Immunologic Allergic/Immunologic ED: Denies mouth swelling or tongue swelling EXAM Physical Exam Const Vital Signs: 07/03/24 01:51 07/03/24 03:07 Temperature 99.1 F 98.1 F Temperature Source Oral Pulse Rate 89 86 Respiratory Rate 16 18 Blood Pressure 171/72 H 138/73 H Blood Pressure Mean 105 94 Pulse Ox 94 94 Oxygen Delivery Method Room Air Positive well nourished and well developed General Appearance ED: well developed; Negative for pallor HEENT HEENT Narrative: There is soft tissue swelling along the left lower jaw. There is tenderness to palpation at this site. No overlying erythema or warmth. Patient has dental caries present without any obvious signs of ANUG. No tongue or lip swelling No signs of infection noted in posterior pharynx No oral lesions Eyes PERRL and EOMs intact bilaterally General Eye ED: Negative for scleral icterus Neck supple Neck Narrative: No brawny edema in the submental space to suggest Lacho's angina Resp normal respiratory effort and clear to auscultation bilaterally Cardio regular rate and regular rhythm Extremity normal to inspection Neuro oriented x3, CN's II-XII intact bilaterally and no sensory deficits noted Sensorium / Orientation: alert Motor Exam: strength 5/5 throughout Psych mental status grossly normal Skin no rashes or lesions noted Skin Narrat (more content not included)... Normal [facility] Basophil percentageOrdered B y: Darrell Langley on 07-21-2023 Chloride [Moles/Vol] 107 mmol/L 98-107 [facility] Cholesterol [Mass/Vol] 195 mg/dL <200 [facility] Comment on above: <200 mg/dL Desirable 200-240 mg/dL Borderline >240 mg/dL High Risk Glucose [Mass/Vol] 158 mg/dL 74-106 [facility] Comment on above: Fasting Glucose resu lt greater than or equal to 126 mg/dL suggests DIABETES MELLITUS per A.D.A. criteria. Potassium [Moles/Vol] 4.1 mmol/L 3.5-5.1 [facility] Sodium [Moles/Vol] 138 mmol/L 136-145 [facility] Triglyceride [Mass/Vol] 274 mg/dL <199 [facility] Comment on above: The drugs N-Acetylcy steine and Metamizole may falsely depress this assay.Serum Triglycerides Reference Interval Normal <150 mg/dL Borderline high 150 - 199 mg/dL High 200 - 499 mg/dL Very High > or = 500 mg/dL Laboratory - Chemistry and C hemistry - challengeOrdered By: Darrell Langley on 07-21-2023 CO2 [Moles/Vol] 24.0 mmol/L 21.0-32.0 [facility] Urea nitrogen/Creatinine [Mass ratio] 22.0 mg/mg 10-20 [facility] No Panel InformationOrdered By: Darrell Langley on 07-21-2023 Estimated GFR (MDRD) Amer 97 mL/min >60 [facility] Comment on above: GFR Calc Estimated GFR (MDRD) Non-Af Amer 80 mL/min >60 [facility] Comment on above: Non- GFR Calc Urine Microalbumin/Creatinin e Ratio 18.0 mg/g CRE <30 [facility] Serum or plasma calcium ruslan urement (mass/volume)Ordered By: Darrell Langley on 07-21-2023 Calcium [Mass/Vol] 9.1 mg/dL 8.5-10.1 [facility] Serum or plasma cholesterol in HDL measurement (mass/volume)Ordered By: Darrell Langley on 07-21-2023 Cholesterol in HDL [Mass/Vol] 43 mg/dL >40 [facility] Comment on above: The drugs N-Acetylcy steine and Metamizole may falsely depress this assay. Reference Range HDL <40 mg/dL Low HDL Cholesterol HDL >or= 60 mg/dL High HDL Cholesterol Serum or plasma cholesterol in VLDL measurement (mass/volume)Ordered By: Darrell Langley on 07-21-2023 Cholesterol in VLDL [Mass/Vol] 55 mg/dL 5-40 [facility] Serum or plasma creatinine m easurement (mass/volume)Ordered By: Darrell Langley on 07-21-2023 Creatinine [Mass/Vol] 0.77 mg/dL 0.55-1.02 [facility] Comment on above: The validity of the calculated GFR & GFRAA in patients over 70 years has not been determined. Clinical correlation is essential. Serum or plasma low density lipoprotein (LDL) cholesterol measurement (mass/volume)Ordered By: Darrell Langley on 07-21-2023 Cholesterol in LDL [Mass/Vol] 97 mg/dL 0-130 [facility] Serum or plasma urea nitroge n measurement (mass/volume)Ordered By: Darrell Langley on 07-21-2023 Urea nitrogen [Mass/Vol] 17 mg/dL 7-18 [facility] Thin prep Papanicolaou smear with manual screeningOrdered By: Darrell Langley on 07-21-2023 Thin prep Papanicolaou smear with manual screening 7 5-15 [facility] Thin prep Papanicolaou smear with manual screening 21.4 mg/L NO RANGE EST. [facility] Urine creatinine measurement (mass/volume)Ordered By: Darrell Langley on 07-21-2023 Creatinine (U) [Mass/Vol] 119.00 mg/dL NO RANGE EST. [facility] Basophil percentageOrdered B y: Darrell Langley on 03-20-2023 Chloride [Moles/Vol] 106 mmol/L 98-107 [facility] Cholesterol [Mass/Vol] 171 mg/dL <200 [facility] Comment on above: <200 mg/dL Desirable 200-240 mg/dL Borderline >240 mg/dL High Risk Glucose [Mass/Vol] 180 mg/dL 74-106 [facility] Comment on above: Fasting Glucose resu lt greater than or equal to 126 mg/dL suggests DIABETES MELLITUS per A.D.A. criteria. Potassium [Moles/Vol] 4.0 mmol/L 3.5-5.1 [facility] Sodium [Moles/Vol] 137 mmol/L 136-145 [facility] Triglyceride [Mass/Vol] 159 mg/dL <199 [facility] Comment on above: The drugs N-Acetylcy steine and Metamizole may falsely depress this assay.Serum Triglycerides Reference Interval Normal <150 mg/dL Borderline high 150 - 199 mg/dL High 200 - 499 mg/dL Very High > or = 500 mg/dL Laboratory - Chemistry and C hemistry - challengeOrdered By: Darrell Langley on 03-20-2023 CO2 [Moles/Vol] 26.0 mmol/L 21.0-32.0 [facility] Urea nitrogen/Creatinine [Mass ratio] 24.5 mg/mg 10-20 [facility] No Panel InformationOrdered By: Darrell Langley on 03-20-2023 Estimated GFR (MDRD) Amer 86 mL/min >60 [facility] Comment on above: GFR Calc Estimated GFR (MDRD) Non-Af Amer 71 mL/min >60 [facility] Comment on above: Non- GFR Calc Serum or plasma calcium ruslan urement (mass/volume)Ordered By: Darrell Langley on 03-20-2023 Calcium [Mass/Vol] 9.2 mg/dL 8.5-10.1 [facility] Serum or plasma cholesterol in HDL measurement (mass/volume)Ordered By: Darrell Langley on 03-20-2023 Cholesterol in HDL [Mass/Vol] 41 mg/dL >40 [facility] Comment on above: The drugs N-Acetylcy steine and Metamizole may falsely depress this assay. Reference Range HDL <40 mg/dL Low HDL Cholesterol HDL >or= 60 mg/dL High HDL Cholesterol Serum or plasma cholesterol in VLDL measurement (mass/volume)Ordered By: Darrell Langley on 03-20-2023 Cholesterol in VLDL [Mass/Vol] 32 mg/dL 5-40 [facility] Serum or plasma creatinine m easurement (mass/volume)Ordered By: Darrell Langley on 03-20-2023 Creatinine [Mass/Vol] 0.86 mg/dL 0.55-1.02 [facility] Comment on above: The validity of the calculated GFR & GFRAA in patients over 70 years has not been determined. Clinical correlation is essential. Serum or plasma low density lipoprotein (LDL) cholesterol measurement (mass/volume)Ordered By: Darrell Langley on 03-20-2023 Cholesterol in LDL [Mass/Vol] 98 mg/dL 0-130 [facility] Serum or plasma urea nitroge n measurement (mass/volume)Ordered By: Darrell Langley on 03-20-2023 Urea nitrogen [Mass/Vol] 21 mg/dL 7-18 [facility] Thin prep Papanicolaou smear with manual screeningOrdered By: Darrell Langley on 03-20-2023 Thin prep Papanicolaou smear with manual screening 5 5-15 [facility] Basophil percentageon 2021 Chloride [Moles/Vol] 107 mmol/L 98-107 [facility] Work Phone: Cholesterol [Mass/Vol] 178 mg/dL <200 [facility] Work Phone: Comment on above: <200 mg/dL Desirable 200-240 mg/dL Borderline >240 mg/dL High Risk Glucose [Mass/Vol] 142 mg/dL 74-106 [facility] Work Phone: Comment on above: Fasting Glucose resu lt greater than or equal to 126 mg/dL suggests DIABETES MELLITUS per A.D.A. criteria. Potassium [Moles/Vol] 4.2 mmol/L 3.5-5.1 [facility] Work Phone: Sodium [Moles/Vol] 135 mmol/L 136-145 [facility] Work Phone: Triglyceride [Mass/Vol] 176 mg/dL <199 [facility] Work Phone: Comment on above: The drugs N-Acetylcy steine and Metamizole may falsely depress this assay.Serum Triglycerides Reference Interval Normal <150 mg/dL Borderline high 150 - 199 mg/dL High 200 - 499 mg/dL Very High > or = 500 mg/dL Laboratory - Chemistry and C hemistry - challengeon 06-01-2022 CO2 [Moles/Vol] 21.0 mmol/L 21.0-32.0 [facility] Work Phone: Urea nitrogen/Creatinine [Mass ratio] 23.7 mg/mg 10-20 [facility] Work Phone: No Panel Informationon 06-01 Estimated GFR (MDRD) Amer 99 mL/min >60 [facility] Work Phone: Comment on above: GFR Calc Estimated GFR (MDRD) Non-Af Amer 82 mL/min >60 [facility] Work Phone: Comment on above: Non- GFR Calc Urine Microalbumin/Creatinin e Ratio 13.9 mg/g CRE <30 [facility] Work Phone: Serum or plasma calcium ruslan urement (mass/volume)on 06-01-2022 Calcium [Mass/Vol] 9.7 mg/dL 8.5-10.1 [facility] Work Phone: Serum or plasma cholesterol in HDL measurement (mass/volume)on 06-01-2022 Cholesterol in HDL [Mass/Vol] 45 mg/dL >40 [facility] Work Phone: Comment on above: The drugs N-Acetylcy steine and Metamizole may falsely depress this assay. Reference Range HDL <40 mg/dL Low HDL Cholesterol HDL >or= 60 mg/dL High HDL Cholesterol Serum or plasma cholesterol in VLDL measurement (mass/volume)on 06-01-2022 Cholesterol in VLDL [Mass/Vol] 35 mg/dL 5-40 [facility] Work Phone: Serum or plasma creatinine m easurement (mass/volume)on 06-01-2022 Creatinine [Mass/Vol] 0.76 mg/dL 0.55-1.02 [facility] Work Phone: Comment on above: The validity of the calculated GFR & GFRAA in patients over 70 years has not been determined. Clinical correlation is essential. Serum or plasma low density lipoprotein (LDL) cholesterol measurement (mass/volume)on 06-01-2022 Cholesterol in LDL [Mass/Vol] 98 mg/dL 0-130 [facility] Work Phone: Serum or plasma urea nitroge n measurement (mass/volume)on 06-01-2022 Urea nitrogen [Mass/Vol] 18 mg/dL 7-18 [facility] Work Phone: Thin prep Papanicolaou smear with manual screeningon 06-01-2022 Thin prep Papanicolaou smear with manual screening 7 5-15 [facility] Work Phone: Thin prep Papanicolaou smear with manual screening 15.4 mg/L NO RANGE EST. [facility] Work Phone: Urine creatinine measurement (mass/volume)on 06-01-2022 Creatinine (U) [Mass/Vol] 111.00 mg/dL NO RANGE EST. [facility] Work Phone: Whole blood hemoglobin A1c/t otal hemoglobin ratio (mass fraction)on 06-01-2022 HbA1c (Bld) [Mass fraction] 7.7 % 3.8-5.6 [facility] Work Phone: Comment on above: Normal < 5.7 % Predi abetic 5.7 - 6.4 % Diabetic >or= 6.5 % Please note range changes. Basophil percentageon 2021 Chloride [Moles/Vol] 105 mmol/L 98-107 [facility] Work Phone: Cholesterol [Mass/Vol] 189 mg/dL <200 [facility] Work Phone: Comment on above: <200 mg/dL Desirable 200-240 mg/dL Borderline >240 mg/dL High Risk Glucose [Mass/Vol] 116 mg/dL 74-106 [facility] Work Phone: Comment on above: Fasting Glucose resu lt from 100 to 125 mg/dL suggests IMPAIRED HOMEOSTASIS per A.D.A. criteria. Potassium [Moles/Vol] 4.1 mmol/L 3.5-5.1 [facility] Work Phone: Sodium [Moles/Vol] 136 mmol/L 136-145 [facility] Work Phone: Triglyceride [Mass/Vol] 215 mg/dL [facility] Work Phone: Comment on above: The drugs N-Acetylcy steine and Metamizole may falsely depress this assay.Serum Triglycerides Reference Interval Normal <150 mg/dL Borderline high 150 - 199 mg/dL High 200 - 499 mg/dL Very High > or = 500 mg/dL Laboratory - Chemistry and C hemistry - challengeon 09-15-2021 CO2 [Moles/Vol] 24.0 mmol/L 21.0-32.0 [facility] Work Phone: Urea nitrogen/Creatinine [Mass ratio] 23.4 mg/mg 10-20 [facility] Work Phone: No Panel Informationon 09-15 Estimated GFR (MDRD) Amer 104 mL/min >60 [facility] Work Phone: Comment on above: GFR Calc Estimated GFR (MDRD) Non-Af Amer 86 mL/min >60 [facility] Work Phone: Comment on above: Non- GFR Calc Serum or plasma calcium ruslan urement (mass/volume)on 09-15-2021 Calcium [Mass/Vol] 9.4 mg/dL 8.5-10.1 [facility] Work Phone: Serum or plasma cholesterol in HDL measurement (mass/volume)on 09-15-2021 Cholesterol in HDL [Mass/Vol] 44 mg/dL [facility] Work Phone: Comment on above: The drugs N-Acetylcy steine and Metamizole may falsely depress this assay. Reference Range HDL <40 mg/dL Low HDL Cholesterol HDL >or= 60 mg/dL High HDL Cholesterol Serum or plasma cholesterol in VLDL measurement (mass/volume)on 09-15-2021 Cholesterol in VLDL [Mass/Vol] 43 mg/dL 5-40 [facility] Work Phone: Serum or plasma creatinine m easurement (mass/volume)on 09-15-2021 Creatinine [Mass/Vol] 0.73 mg/dL 0.55-1.02 [facility] Work Phone: Comment on above: The validity of the calculated GFR & GFRAA in patients over 70 years has not been determined. Clinical correlation is essential. Serum or plasma low density lipoprotein (LDL) cholesterol measurement (mass/volume)on 09-15-2021 Cholesterol in LDL [Mass/Vol] 102 mg/dL 0-130 [facility] Work Phone: Serum or plasma urea nitroge n measurement (mass/volume)on 09-15-2021 Urea nitrogen [Mass/Vol] 17 mg/dL 7-18 [facility] Work Phone: Thin prep Papanicolaou smear with manual screeningon 09-15-2021 Thin prep Papanicolaou smear with manual screening 7 5-15 [facility] Work Phone: Discharge Summaryon 01-25-20 18 Discharge Summary Normal [facility] CWDPon 01-17-2018 CWDP . MICRO - MicrobiologyPROCEDURE: Culture Wound Deep Aerobe/Anaerobe w Gram Stain [O1 *1]SOURCE: Wound (deep) BODY SITE: Hand LCOLLECTED DATE/TIME: 01/13/2018 07:59 EDT RECEIVED DATE/TIME: 01/13/2018 08:35 EDTSTART DATE/TIME: 01/13/2018 08:35 EDT FREE TEXT SOURCE: left index fingerFINAL REPORTSFinal Report []Verified Date/Time/Personnel: 01/17/2018 10:49 EDTLight Staphylococcus aureusLight Pasteurella aerogenesSensitivity testing is not recommended for one of thefollowing reasons: 1. Established susceptibilitypatterns are available or 2. Interpretativecriteria are not available.No anaerobes isolated at 96 hours.PRELIMINARY REPORTSPreliminary Report []Verified Date/Time/Personnel: 01/16/2018 12:48 EDTLight Staphylococcus aureusLight Pasteurella aerogenesSensitivity testing is not recommended for one of thefollowing reasons: 1. Established susceptibilitypatterns are available or 2. Interpretativecriteria are not available.Preliminary Report []Verified Date/Time/Personnel: 01/15/2018 10:38 EDTLight Staphylococcus aureusMIC to followLight Non Fermentering Gram Negative RodsFinal identification and BEL to follow.Final report to follow.Preliminary Report []Verified Date/Time/Personnel: 01/14/2018 11:53 EDTCulture results pending.STAINSGS []Verified Date/Time/Personnel: 01/13/2018 13:43 EDTNo White Blood CellsNo organisms seen.SUSCEPTIBILITY RESULTS Staphylococcus aureusAntibiotic BEL Dilutn BEL InterpAmpicillin <=2 Beta Lactamase PositiveCeftriaxone <=8 SusceptibleClindamycin <=0.5 SusceptibleErythromycin <=0.5 SusceptibleOxacillin <=0.25 SusceptiblePenicillin 2 Beta Lactamase PositiveTetracycline <=4 Susceptible MICRO - MicrobiologySUSCEPTIBILI TY RESULTS Staphylococcus aureusAntibiotic BEL Dilutn BEL InterpTrimethoprim/ <=0.5/9.5 SusceptibleSulfaVancomycin 1 SusceptibleOrder CommentsO1: Culture Wound Deep Aerobe/Anaerobe w Gram Stain (Wound Deep Culture (Aerobe and Anaerobe) w Gram Stain) Left index finger Procedure- Irrigation and Debridement Left Index FingerPerforming Locations*1: This test was performed at: [address], [facility] , [facility] Normal [facility] ([place]) Comment on above: Performed By: #### C BC, ADIFF, ANEU, BMP, GFR ####[place] [address] .Auto Diffon 01-16-2018 Basophils Auto #/vol (Bld) 0.10 10 3/mcL Normal 0.00-0.27 [facility] ([place]) Comment on above: Performed By: #### C BC, ADIFF, ANEU, BMP, GFR ####[address] [address] Basophils/100 WBC Auto (Bld) 0.9 % Normal 0.0-2.5 [facility] ([place] Comment on above: Performed By: #### C BC, ADIFF, ANEU, BMP, GFR ####[address] [address] Eosinophils 0.40 10 3/mcL Normal 0.00-0.65 [facility] ([place] Comment on above: Performed By: #### C BC, ADIFF, ANEU, BMP, GFR ####[address] [address] Eosinophils/100 leukocytes 4.2 % Normal 0.0-6.0 [facility] ([place] Comment on above: Performed By: #### C BC, ADIFF, ANEU, BMP, GFR ####[address] [address] Lymphocytes 3.30 10 3/mcL Normal 0.90-4.32 [facility] ([place] Comment on above: Performed By: #### C BC, ADIFF, ANEU, BMP, GFR ####[address] [address] Lymphocytes/100 leukocytes 37.1 % Normal 20.0-40.0 [facility] ([place] Comment on above: Performed By: #### C BC, ADIFF, ANEU, BMP, GFR ####[address] [address] Monocytes 0.60 10 3/mcL Normal 0.09-1.40 [facility] ([place] Comment on above: Performed By: #### C BC, ADIFF, ANEU, BMP, GFR ####[address] [address] Monocytes/100 leukocytes 6.5 % Normal 2.0-13.0 [facility] ([place] Comment on above: Performed By: #### C BC, ADIFF, ANEU, BMP, GFR ####[address] [address] Neutrophils/100 WBC Auto (Bld) 51.3 % Normal 50.0-75.0 [facility] ([place] Comment on above: Performed By: #### C BC, ADIFF, ANEU, BMP, GFR ####[address] [address] .GFRon 01-16-2018 eGFR (non-black) mL/min/{1.73_m2} Normal [facility] ([place]) Comment on above: Result Comment: GFR Population mean for , Non- Americans Ages 20-29 = 116 mL/min/1.73 sq.m. Ages 30-39 = 107 mL/min/1.73 sq.m. Ages 40-49 = 99 mL/min/1.73 sq.m. Ages 50-59 = 93 mL/min/1.73 sq.m. Ages 60-69 = 85 mL/min/1.73 sq.m. Ages 70+ = 75 mL/min/1.73 sq.m.Chronic Kidney Disease: Less than 60 mL/min/1.73 square metersEnd Stage Renal Disease: Less than 15 mL/min/1.73 square meters Performed By: #### C BC, ADIFF, ANEU, BMP, GFR ####[place] [address] .NEUABSon 01-16-2018 Neutrophils 4.50 10 3/mcL Normal 2.25-8.10 [facility] ([place] Comment on above: Performed By: #### C BC, ADIFF, ANEU, BMP, GFR ####[place] [address] BMPon 01-16-2018 BUN/Creatinine Ratio 21.5 ratio Normal 10.0-22.0 [facility] ([place]) Comment on above: Performed By: #### C BC, ADIFF, ANEU, BMP, GFR ####[place] [address] Calcium 8.3 mg/dL Low 8.4-10.1 [facility] ([place] Comment on above: Performed By: #### C BC, ADIFF, ANEU, BMP, GFR ####[place] [address] Chloride 107 mmol/L Normal 98-110 [facility] ([place] Comment on above: Performed By: #### C BC, ADIFF, ANEU, BMP, GFR ####[place] [address] CO2 28 mmol/L Normal 22-32 [facility] ([place] Comment on above: Performed By: #### C BC, ADIFF, ANEU, BMP, GFR ####[place] [address] Creatinine 0.65 mg/dL Normal 0.50-1.20 [facility] ([place] Comment on above: Performed By: #### C BC, ADIFF, ANEU, BMP, GFR ####[place] [address] Electrolyte Balance 6.0 mEq/L Normal 4.0-15.0 [facility] ([place]) Comment on above: Performed By: #### C BC, ADIFF, ANEU, BMP, GFR ####[place] [address] Glucose mass conc 103 mg/dL Normal 70-110 [facility] ([place] Comment on above: Performed By: #### C BC, ADIFF, ANEU, BMP, GFR ####[place] [address] Potassium molar conc 3.7 mmol/L Normal 3.5-5.0 [facility] ([place] Comment on above: Performed By: #### C BC, ADIFF, ANEU, BMP, GFR ####[place] [address] Sodium 141 mmol/L Normal 136-145 [facility] ([place] Comment on above: Performed By: #### C BC, ADIFF, ANEU, BMP, GFR ####[place] [address] Urea nitrogen 14.0 mg/dL Normal 8.0-22.0 [facility] ([place] Comment on above: Performed By: #### C BC, ADIFF, ANEU, BMP, GFR ####[place] [address] CAIONon 01-16-2018 Calcium Ionized 1.16 mmol/L Normal 1.12-1.32 [facility] ([place] Comment on above: Performed By: #### C BC, ADIFF, ANEU, BMP, GFR ####[place] [address] CBCon 01-16-2018 Erythrocyte distribution width Auto Ratio (RBC) 12.8 % Normal 11.5-15.5 [facility] ([place] Comment on above: Performed By: #### C BC, ADIFF, ANEU, BMP, GFR ####[place] [address] Erythrocytes (RBC) 3.60 10 6/mcL Low 4.10-5.30 [facility] [place] Comment on above: Performed By: #### C BC, ADIFF, ANEU, BMP, GFR ####[place] [address] Hematocrit (HCT) 34.2 % Normal 34.0-46.0 [facility] ([place] Comment on above: Performed By: #### C BC, ADIFF, ANEU, BMP, GFR ####[place] [address] Hemoglobin mass conc (Bld) 11.7 G/dL Low 12.0-16.0 [facility] ([place] Comment on above: Performed By: #### C BC, ADIFF, ANEU, BMP, GFR ####[place] [address] MCH 32.4 pg Normal 27.0-33.0 [facility] ([place] Comment on above: Performed By: #### C BC, ADIFF, ANEU, BMP, GFR ####[place] [address] MCHC mass conc (RBC) 34.2 G/dL Normal 32.0-36.0 [facility] ([place] Comment on above: Performed By: #### C BC, ADIFF, ANEU, BMP, GFR ####[place] [address] MCV 94.8 fL Normal 80.0-99.0 [facility] ([place] Comment on above: Performed By: #### C BC, ADIFF, ANEU, BMP, GFR ####[place] [address] Platelet mean volume (PMV) 8.7 fL Normal 6.6-10.5 [facility] ([place] Comment on above: Performed By: #### C BC, ADIFF, ANEU, BMP, GFR ####[place] [address] Platelets 234 10 3/mcL Normal 150-450 [facility] ([place] Comment on above: Performed By: #### C BC, ADIFF, ANEU, BMP, GFR ####[address] [address] WBC (Leukocytes) 8.80 10 3/mcL Normal 4.50-10.80 [facility] ([place] Comment on above: Performed By: #### C BC, ADKLARISSA, ANEU, BMP, GFR ####[address] [address] Depart Summaryon 01-16-2018 Depart Summary Normal [facility]) Hospitalist Progress Noteon 01-16-2018 Hospitalist Progress Note Normal [facility]) Infectious Disease Progress Noteon 01-16-2018 Infectious Disease Progress Note Normal [facility]) Inpatient Patient Summaryon 01-16-2018 Inpatient Patient Summary Normal [facility]) Orthopedic Progress Noteon 01-16-2018 Orthopedic Progress Note Normal [facility]) .Auto Diffon 01-15-2018 Basophils Auto #/vol (Bld) 0.10 10 3/mcL Normal 0.00-0.27 [facility] ([place] Comment on above: Performed By: #### C BC, ADKLARISSA, ANEU, BMP, GFR ####[address] [address] Basophils/100 WBC Auto (Bld) 1.2 % Normal 0.0-2.5 [facility]) Comment on above: Performed By: #### C BC, ADIFF, ANEU, BMP, GFR ####[address] [address] Eosinophils 0.40 10 3/mcL Normal 0.00-0.65 [facility] ([place] Comment on above: Performed By: #### C BC, ADIFF, ANEU, BMP, GFR ####[address] [address] Eosinophils/100 leukocytes 5.5 % Normal 0.0-6.0 [facility] ([place] Comment on above: Performed By: #### C BC, ADIFF, ANEU, BMP, GFR ####[address] [address] Lymphocytes 2.50 10 3/mcL Normal 0.90-4.32 [facility] ([place] Comment on above: Performed By: #### C BC, ADIFF, ANEU, BMP, GFR ####[address] [address] Lymphocytes/100 leukocytes 36.9 % Normal 20.0-40.0 [facility] ([place] Comment on above: Performed By: #### C BC, ADIFF, ANEU, BMP, GFR ####[address] [address] Monocytes 0.50 10 3/mcL Normal 0.09-1.40 [facility] ([place] Comment on above: Performed By: #### C BC, ADIFF, ANEU, BMP, GFR ####[address] [address] Monocytes/100 leukocytes 6.8 % Normal 2.0-13.0 [facility] ([place] Comment on above: Performed By: #### C BC, ADIFF, ANEU, BMP, GFR ####[address] [address] Neutrophils/100 WBC Auto (Bld) 49.6 % Low 50.0-75.0 [facility] ([place] Comment on above: Performed By: #### C BC, ADIFF, ANEU, BMP, GFR ####[address] [address] .GFRon 01-15-2018 eGFR (non-black) mL/min/{1.73_m2} Normal [facility] ([place] Comment on above: Result Comment: GFR Population mean for , Non- Americans Ages 20-29 = 116 mL/min/1.73 sq.m. Ages 30-39 = 107 mL/min/1.73 sq.m. Ages 40-49 = 99 mL/min/1.73 sq.m. Ages 50-59 = 93 mL/min/1.73 sq.m. Ages 60-69 = 85 mL/min/1.73 sq.m. Ages 70+ = 75 mL/min/1.73 sq.m.Chronic Kidney Disease: Less than 60 mL/min/1.73 square metersEnd Stage Renal Disease: Less than 15 mL/min/1.73 square meters Performed By: #### C BC, ADIFF, ANEU, BMP, GFR ####[place] [address] .NEUABSon 01-15-2018 Neutrophils 3.40 10 3/mcL Normal 2.25-8.10 [facility] ([place] Comment on above: Performed By: #### C BC, ADIFF, ANEU, BMP, GFR ####[place] [address] BMPon 01-15-2018 BUN/Creatinine Ratio 19.0 ratio Normal 10.0-22.0 [facility] ([place] Comment on above: Performed By: #### C BC, ADIFF, ANEU, BMP, GFR ####[place] [address] Calcium 8.3 mg/dL Low 8.4-10.1 [facility] ([place] Comment on above: Performed By: #### C BC, ADIFF, ANEU, BMP, GFR ####[place] [address] Chloride 110 mmol/L Normal 98-110 [facility] ([place] Comment on above: Performed By: #### C BC, ADIFF, ANEU, BMP, GFR ####[place] [address] CO2 25 mmol/L Normal 22-32 [facility] ([place] Comment on above: Performed By: #### C BC, ADIFF, ANEU, BMP, GFR ####[place] [address] Creatinine 0.63 mg/dL Normal 0.50-1.20 [facility] ([place] Comment on above: Performed By: #### C BC, ADIFF, ANEU, BMP, GFR ####[place] [address] Electrolyte Balance 7.0 mEq/L Normal 4.0-15.0 [facility] ([place] Comment on above: Performed By: #### C BC, ADIFF, ANEU, BMP, GFR ####[place] [address] Glucose mass conc 115 mg/dL High 70-110 [facility] ([place] Comment on above: Performed By: #### C BC, ADIFF, ANEU, BMP, GFR ####[place] [address] Potassium molar conc 3.9 mmol/L Normal 3.5-5.0 [facility] ([place] Comment on above: Performed By: #### C BC, ADIFF, ANEU, BMP, GFR ####[place] [address] Sodium 142 mmol/L Normal 136-145 [facility] ([place] Comment on above: Performed By: #### C BC, ADIFF, ANEU, BMP, GFR ####[place] [address] Urea nitrogen 12.0 mg/dL Normal 8.0-22.0 [facility] ([place] Comment on above: Performed By: #### C BC, ADIFF, ANEU, BMP, GFR ####[place] [address] CAIONon 01-15-2018 Calcium Ionized 1.15 mmol/L Normal 1.12-1.32 [facility] ([place] Comment on above: Performed By: #### C BC, ADIFF, ANEU, BMP, GFR ####[place] [address] CBCon 01-15-2018 Erythrocyte distribution width Auto Ratio (RBC) 13.1 % Normal 11.5-15.5 [facility] ([place] Comment on above: Performed By: #### C BC, ADIFF, ANEU, BMP, GFR ####[place] [address] Erythrocytes (RBC) 3.66 10 6/mcL Low 4.10-5.30 [facility] [place] Comment on above: Performed By: #### C BC, ADIFF, ANEU, BMP, GFR ####[place] [address] Hematocrit (HCT) 34.8 % Normal 34.0-46.0 [facility] ([place] Comment on above: Performed By: #### C BC, ADIFF, ANEU, BMP, GFR ####[place] [address] Hemoglobin mass conc (Bld) 12.1 G/dL Normal 12.0-16.0 [facility] ([place] Comment on above: Performed By: #### C BC, ADIFF, ANEU, BMP, GFR ####[place] [address] MCH 33.1 pg High 27.0-33.0 [facility] ([place] Comment on above: Performed By: #### C BC, ADIFF, ANEU, BMP, GFR ####[place] [address] MCHC mass conc (RBC) 34.7 G/dL Normal 32.0-36.0 [facility] ([place] Comment on above: Performed By: #### C BC, ADIFF, ANEU, BMP, GFR ####[place] [address] MCV 95.2 fL Normal 80.0-99.0 [facility] ([place] Comment on above: Performed By: #### C BC, ADIFF, ANEU, BMP, GFR ####[place] [address] Platelet mean volume (PMV) 8.8 fL Normal 6.6-10.5 [facility] ([place] Comment on above: Performed By: #### C BC, ADIFF, ANEU, BMP, GFR ####[place] [address] Platelets 219 10 3/mcL Normal 150-450 [facility] ([place] Comment on above: Performed By: #### C BC, ADIFF, ANEU, BMP, GFR ####[address] [address] WBC (Leukocytes) 6.90 10 3/mcL Normal 4.50-10.80 [facility] ([place] Comment on above: Performed By: #### C BC, ADIFF, ANEU, BMP, GFR ####[place] [address] Hospitalist Progress Noteon 01-15-2018 Hospitalist Progress Note Normal [facility] [place] Infectious Disease Progress Noteon 01-15-2018 Infectious Disease Progress Note Normal [facility] ([place] Main OR Intraop Recordon Main OR Intraop Record Normal [facility] ([place] Orthopedic Progress Noteon 0 01-15-2018 Orthopedic Progress Note Normal [facility]) .Auto Diffon 01-14-2018 Basophils Auto #/vol (Bld) 0.10 10 3/mcL Normal 0.00-0.27 [facility] ([place] Comment on above: Performed By: #### C BC, ADIFF, ANEU, BMP, GFR ####[address] [address] Basophils/100 WBC Auto (Bld) 1.1 % Normal 0.0-2.5 [facility] ([place] Comment on above: Performed By: #### C BC, ADIFF, ANEU, BMP, GFR ####[address] [address] Eosinophils 0.30 10 3/mcL Normal 0.00-0.65 [facility] ([place] Comment on above: Performed By: #### C BC, ADIFF, ANEU, BMP, GFR ####[address] [address] Eosinophils/100 leukocytes 3.8 % Normal 0.0-6.0 [facility] ([place] Comment on above: Performed By: #### C BC, ADIFF, ANEU, BMP, GFR ####[address] [address] Lymphocytes 2.40 10 3/mcL Normal 0.90-4.32 [facility] ([place] Comment on above: Performed By: #### C BC, ADIFF, ANEU, BMP, GFR ####[address] [address] Lymphocytes/100 leukocytes 26.7 % Normal 20.0-40.0 [facility] ([place] Comment on above: Performed By: #### C BC, ADIFF, ANEU, BMP, GFR ####[address] [address] Monocytes 0.40 10 3/mcL Normal 0.09-1.40 [facility] ([place] Comment on above: Performed By: #### C BC, ADIFF, ANEU, BMP, GFR ####[address] [address] Monocytes/100 leukocytes 4.8 % Normal 2.0-13.0 [facility] ([place] Comment on above: Performed By: #### C BC, ADIFF, ANEU, BMP, GFR ####[address] [address] Neutrophils/100 WBC Auto (Bld) 63.6 % Normal 50.0-75.0 [facility] ([place] Comment on above: Performed By: #### C BC, ADIFF, ANEU, BMP, GFR ####[address] [address] .GFRon 01-14-2018 eGFR (non-black) mL/min/{1.73_m2} Normal [facility] ([place] Comment on above: Result Comment: GFR Population mean for , Non- Americans Ages 20-29 = 116 mL/min/1.73 sq.m. Ages 30-39 = 107 mL/min/1.73 sq.m. Ages 40-49 = 99 mL/min/1.73 sq.m. Ages 50-59 = 93 mL/min/1.73 sq.m. Ages 60-69 = 85 mL/min/1.73 sq.m. Ages 70+ = 75 mL/min/1.73 sq.m.Chronic Kidney Disease: Less than 60 mL/min/1.73 square metersEnd Stage Renal Disease: Less than 15 mL/min/1.73 square meters Performed By: #### C BC, ADIFF, ANEU, BMP, GFR ####[address] [address] eGFR (non-black) mL/min/{1.73_m2} Normal [facility] ([place] Comment on above: Result Comment: GFR Population mean for , Non- Americans Ages 20-29 = 116 mL/min/1.73 sq.m. Ages 30-39 = 107 mL/min/1.73 sq.m. Ages 40-49 = 99 mL/min/1.73 sq.m. Ages 50-59 = 93 mL/min/1.73 sq.m. Ages 60-69 = 85 mL/min/1.73 sq.m. Ages 70+ = 75 mL/min/1.73 sq.m.Chronic Kidney Disease: Less than 60 mL/min/1.73 square metersEnd Stage Renal Disease: Less than 15 mL/min/1.73 square meters Performed By: #### C BC, ADIFF, ANEU, BMP, GFR ####[place] [address] .NEUABSon 01-14-2018 Neutrophils 5.70 10 3/mcL Normal 2.25-8.10 [facility] ([place] Comment on above: Performed By: #### C BC, ADIFF, ANEU, BMP, GFR ####[place] [address] CAIONon 01-14-2018 Calcium Ionized 1.12 mmol/L Normal 1.12-1.32 [facility] ([place] Comment on above: Performed By: #### C BC, ADIFF, ANEU, BMP, GFR ####[place] [address] CBCon 01-14-2018 Erythrocyte distribution width Auto Ratio (RBC) 12.8 % Normal 11.5-15.5 [facility] ([place] Comment on above: Performed By: #### C BC, ADIFF, ANEU, BMP, GFR ####[place] [address] Erythrocytes (RBC) 3.69 10 6/mcL Low 4.10-5.30 [facility] [place] Comment on above: Performed By: #### C BC, ADIFF, ANEU, BMP, GFR ####[place] [address] Hematocrit (HCT) 35.4 % Normal 34.0-46.0 [facility] ([place] Comment on above: Performed By: #### C BC, ADIFF, ANEU, BMP, GFR ####[place] [address] Hemoglobin mass conc (Bld) 12.2 G/dL Normal 12.0-16.0 [facility] ([place] Comment on above: Performed By: #### C BC, ADIFF, ANEU, BMP, GFR ####[place] [address] MCH 32.9 pg Normal 27.0-33.0 [facility] ([place] Comment on above: Performed By: #### C BC, ADIFF, ANEU, BMP, GFR ####[place] [address] MCHC mass conc (RBC) 34.4 G/dL Normal 32.0-36.0 [facility] ([place] Comment on above: Performed By: #### C BC, ADIFF, ANEU, BMP, GFR ####[place] [address] MCV 95.8 fL Normal 80.0-99.0 [facility] ([place] Comment on above: Performed By: #### C BC, ADIFF, ANEU, BMP, GFR ####[place] [address] Platelet mean volume (PMV) 8.7 fL Normal 6.6-10.5 [facility] ([place] Comment on above: Performed By: #### C BC, ADIFF, ANEU, BMP, GFR ####[place] [address] Platelets 225 10 3/mcL Normal 150-450 [facility] ([place] Comment on above: Performed By: #### C BC, ADIFF, ANEU, BMP, GFR ####[place] [address] WBC (Leukocytes) 9.00 10 3/mcL Normal 4.50-10.80 [facility] ([place] Comment on above: Performed By: #### C BC, ADIFF, ANEU, BMP, GFR ####[place] [address] CMPon 01-14-2018 Albumin/Globulin Ratio 1.0 {ratio} Normal 0.9-1.6 A [facility] ([place]) Comment on above: Performed By: #### C BC, ADIFF, ANEU, BMP, GFR ####[place] [address] Alk Phos 69 U/L Normal 38-126 [facility] ([place] Comment on above: Performed By: #### C BC, ADIFF, ANEU, BMP, GFR ####[address] [address] Globulin 3.0 G/dL Normal 1.5-3.8 [facility] ([place] Comment on above: Performed By: #### C BC, ADIFF, ANEU, BMP, GFR ####[address] [address] Protein 6.1 G/dL Normal 6.0-8.5 [facility] ([place] Comment on above: Performed By: #### C BC, ADIFF, ANEU, BMP, GFR ####[address] [address] Alanine aminotransferase (ALT) 28 U/L Normal 10-49 [facility] ([place] Comment on above: Performed By: #### C BC, ADIFF, ANEU, BMP, GFR ####[address] [address] Albumin 3.1 G/dL Low 3.2-4.8 [facility] ([place] Comment on above: Performed By: #### C BC, ADIFF, ANEU, BMP, GFR ####[address] [address] Aspartate aminotransferase (AST) 18 U/L Normal 8-34 [facility] ([place] Comment on above: Performed By: #### C BC, ADIFF, ANEU, BMP, GFR ####[address] [address] Bili Total 0.2 mg/dL Normal 0.2-1.2 [facility] ([place] Comment on above: Performed By: #### C BC, ADIFF, ANEU, BMP, GFR ####[address] [address] BUN/Creatinine Ratio 25.4 ratio High 10.0-22.0 [facility] ([place] Comment on above: Performed By: #### C BC, ADIFF, ANEU, BMP, GFR ####[address] [address] Calcium 8.2 mg/dL Low 8.4-10.1 [facility] ([place] Comment on above: Performed By: #### C BC, ADIFF, ANEU, BMP, GFR ####[address] [address] Chloride 111 mmol/L High 98-110 [facility] ([place] Comment on above: Performed By: #### C BC, ADIFF, ANEU, BMP, GFR ####[address] [address] CO2 24 mmol/L Normal 22-32 [facility] ([place] Comment on above: Performed By: #### C BC, ADIFF, ANEU, BMP, GFR ####[address] [address] Creatinine 0.67 mg/dL Normal 0.50-1.20 [facility] ([place] Comment on above: Performed By: #### C BC, ADIFF, ANEU, BMP, GFR ####[address] [address] Electrolyte Balance 8.0 mEq/L Normal 4.0-15.0 [facility] ([place] Comment on above: Performed By: #### C BC, ADIFF, ANEU, BMP, GFR ####[address] [address] Glucose mass conc 118 mg/dL High 70-110 [facility] ([place] Comment on above: Performed By: #### C BC, ADIFF, ANEU, BMP, GFR ####[address] [address] Potassium molar conc 4.1 mmol/L Normal 3.5-5.0 [facility] ([place] Comment on above: Performed By: #### C BC, ADIFF, ANEU, BMP, GFR ####[address] [address] Sodium 143 mmol/L Normal 136-145 [facility] ([place] Comment on above: Performed By: #### C BC, ADIFF, ANEU, BMP, GFR ####[address] [address] Urea nitrogen 17.0 mg/dL Normal 8.0-22.0 [facility] ([place] Comment on above: Performed By: #### C BC, ADIFF, ANEU, BMP, GFR ####[place] [address] History and Physicalon 01-14 History and Physical Normal [facility] ([place] Hospitalist Progress Noteon 01-14-2018 Hospitalist Progress Note Normal [facility] ([place] Infectious Disease Progress Noteon 01-14-2018 Infectious Disease Progress Note Normal [facility] ([place] MGon 01-14-2018 Magnesium 2.0 mg/dL Normal 1.6-2.4 [facility] ([place] Comment on above: Performed By: #### C BC, ADIFF, ANEU, BMP, GFR ####[place] [address] Operative Noteon 01-14-2018 Operative Note Normal [facility] [place] Orthopedic Progress Noteon 0 01-14-2018 Orthopedic Progress Note Normal [facility] ([place] Progress Note-Nurseon 2017 Progress Note-Nurse Normal [facility] ([place] .Auto Diffon 01-13-2018 Basophils Auto #/vol (Bld) 0.10 10 3/mcL Normal 0.00-0.27 [facility] ([place] Comment on above: Performed By: #### C BC, ADIFF, ANEU, MG, PHOS, TSH, T4, CMP, GFR, B12, ESR ####[place] [address] Basophils/100 WBC Auto (Bld) 0.9 % Normal 0.0-2.5 [facility] ([place] Comment on above: Performed By: #### C BC, ADIFF, ANEU, MG, PHOS, TSH, T4, CMP, GFR, B12, ESR ####[address] [address] Eosinophils 0.40 10 3/mcL Normal 0.00-0.65 [facility] ([place] Comment on above: Performed By: #### C BC, ADIFF, ANEU, MG, PHOS, TSH, T4, CMP, GFR, B12, ESR ####[address] [address] Eosinophils/100 leukocytes 4.0 % Normal 0.0-6.0 [facility] ([place] Comment on above: Performed By: #### C BC, ADIFF, ANEU, MG, PHOS, TSH, T4, CMP, GFR, B12, ESR ####[address] [address] Lymphocytes 4.20 10 3/mcL Normal 0.90-4.32 Formerly [facility] ([place]) Comment on above: Performed By: #### C BC, ADIFF, ANEU, MG, PHOS, TSH, T4, CMP, GFR, B12, ESR ####[address] [address] Lymphocytes/100 leukocytes 42.0 % High 20.0-40.0 [facility] ([place]) Comment on above: Performed By: #### C BC, ADIFF, ANEU, MG, PHOS, TSH, T4, CMP, GFR, B12, ESR ####[address] [address] Monocytes 0.60 10 3/mcL Normal 0.09-1.40 [facility] ([place]) Comment on above: Performed By: #### C BC, ADIFF, ANEU, MG, PHOS, TSH, T4, CMP, GFR, B12, ESR ####[address] [address] Monocytes/100 leukocytes 6.3 % Normal 2.0-13.0 [facility]ly [facility] ([place]) Comment on above: Performed By: #### C BC, ADIFF, ANEU, MG, PHOS, TSH, T4, CMP, GFR, B12, ESR ####[address] [address] Neutrophils/100 WBC Auto (Bld) 46.8 % Low 50.0-75.0 [facility] ([place]) Comment on above: Performed By: #### C BC, ADIFF, ANEU, MG, PHOS, TSH, T4, CMP, GFR, B12, ESR ####[address] [address] Basophils Auto #/vol (Bld) 0.10 10 3/mcL Normal 0.00-0.27 [facility] ([place]) Comment on above: Performed By: #### C BC, ADIFF, ANEU, BMP, GFR ####[address] [address] Basophils/100 WBC Auto (Bld) 0.8 % Normal 0.0-2.5 [facility] ([place] Comment on above: Performed By: #### C BC, ADIFF, ANEU, BMP, GFR ####[address] [address] Eosinophils 0.30 10 3/mcL Normal 0.00-0.65 [facility] ([place] Comment on above: Performed By: #### C BC, ADIFF, ANEU, BMP, GFR ####[address] [address] Eosinophils/100 leukocytes 3.5 % Normal 0.0-6.0 [facility] ([place] Comment on above: Performed By: #### C BC, ADIFF, ANEU, BMP, GFR ####[address] [address] Lymphocytes 4.20 10 3/mcL Normal 0.90-4.32 [facility] ([place] Comment on above: Performed By: #### C BC, ADIFF, ANEU, BMP, GFR ####[address] [address] Lymphocytes/100 leukocytes 41.5 % High 20.0-40.0 [facility] ([place] Comment on above: Performed By: #### C BC, ADIFF, ANEU, BMP, GFR ####[address] [address] Monocytes 0.60 10 3/mcL Normal 0.09-1.40 [facility] ([place] Comment on above: Performed By: #### C BC, ADIFF, ANEU, BMP, GFR ####[address] [address] Monocytes/100 leukocytes 5.9 % Normal 2.0-13.0 [facility] ([place] Comment on above: Performed By: #### C BC, ADIFF, ANEU, BMP, GFR ####[address] [address] Neutrophils/100 WBC Auto (Bld) 48.3 % Low 50.0-75.0 [facility] ([place] Comment on above: Performed By: #### C BC, ADIFF, ANEU, BMP, GFR ####[address] [address] .GFRon 01-13-2018 eGFR (non-black) mL/min/{1.73_m2} Normal [facility] ([place]) Comment on above: Result Comment: GFR Population mean for , Non- Americans Ages 20-29 = 116 mL/min/1.73 sq.m. Ages 30-39 = 107 mL/min/1.73 sq.m. Ages 40-49 = 99 mL/min/1.73 sq.m. Ages 50-59 = 93 mL/min/1.73 sq.m. Ages 60-69 = 85 mL/min/1.73 sq.m. Ages 70+ = 75 mL/min/1.73 sq.m.Chronic Kidney Disease: Less than 60 mL/min/1.73 square metersEnd Stage Renal Disease: Less than 15 mL/min/1.73 square meters Performed By: #### C BC, ADIFF, ANEU, BMP, GFR ####[address] [address] eGFR (non-black) mL/min/{1.73_m2} Normal [facility] ([place] Comment on above: Result Comment: GFR Population mean for , Non- Americans Ages 20-29 = 116 mL/min/1.73 sq.m. Ages 30-39 = 107 mL/min/1.73 sq.m. Ages 40-49 = 99 mL/min/1.73 sq.m. Ages 50-59 = 93 mL/min/1.73 sq.m. Ages 60-69 = 85 mL/min/1.73 sq.m. Ages 70+ = 75 mL/min/1.73 sq.m.Chronic Kidney Disease: Less than 60 mL/min/1.73 square metersEnd Stage Renal Disease: Less than 15 mL/min/1.73 square meters Performed By: #### C BC, ADIFF, ANEU, BMP, GFR ####[place] [address] .NEUABSon 01-13-2018 Neutrophils 4.60 10 3/mcL Normal 2.25-8.10 [facility] ([place] Comment on above: Performed By: #### C BC, ADIFF, ANEU, MG, PHOS, TSH, T4, CMP, GFR, B12, ESR ####[place] [address] Neutrophils 4.90 10 3/mcL Normal 2.25-8.10 [facility] ([place] Comment on above: Performed By: #### C BC, ADIFF, ANEU, BMP, GFR ####[place] [address] Anesthesiology Consultationo n 01-13-2018 Anesthesiology Consultation Normal [facility] ([place] Anesthesiology Consultation Normal [facility] [place] B12on 01-13-2018 Cobalamins (Vitamin B12) 298 pg/mL Normal 211-911 [facility] ([place] Comment on above: Performed By: #### C BC, ADIFF, ANEU, BMP, GFR ####[place] [address] BMPon 01-13-2018 BUN/Creatinine Ratio 32.3 ratio High 10.0-22.0 [facility] ([place]) Comment on above: Performed By: #### C BC, ADIFF, ANEU, BMP, GFR ####[place] [address] Calcium 8.7 mg/dL Normal 8.4-10.1 [facility] ([place] Comment on above: Performed By: #### C BC, ADIFF, ANEU, BMP, GFR ####[place] [address] Chloride 106 mmol/L Normal 98-110 [facility] ([place] Comment on above: Performed By: #### C BC, ADIFF, ANEU, BMP, GFR ####[place] [address] CO2 22 mmol/L Normal 22-32 [facility] ([place] Comment on above: Performed By: #### C BC, ADIFF, ANEU, BMP, GFR ####[place] [address] Creatinine 0.62 mg/dL Normal 0.50-1.20 [facility] ([place] Comment on above: Performed By: #### C BC, ADIFF, ANEU, BMP, GFR ####[place] [address] Electrolyte Balance 12.0 mEq/L Normal 4.0-15.0 [facility] ([place]) Comment on above: Performed By: #### C BC, ADIFF, ANEU, BMP, GFR ####[place] [address] Glucose mass conc 143 mg/dL High 70-110 [facility] ([place] Comment on above: Performed By: #### C BC, ADIFF, ANEU, BMP, GFR ####[place] [address] Potassium molar conc 4.1 mmol/L Normal 3.5-5.0 [facility] ([place] Comment on above: Performed By: #### C BC, ADIFF, ANEU, BMP, GFR ####[place] [address] Sodium 140 mmol/L Normal 136-145 [facility] ([place] Comment on above: Performed By: #### C BC, ADIFF, ANEU, BMP, GFR ####[place] [address] Urea nitrogen 20.0 mg/dL Normal 8.0-22.0 [facility] ([place] Comment on above: Performed By: #### C BC, ADIFF, ANEU, BMP, GFR ####[place] [address] CBCon 01-13-2018 Erythrocyte distribution width Auto Ratio (RBC) 12.9 % Normal 11.5-15.5 [facility] ([place] Comment on above: Performed By: #### C BC, ADIFF, ANEU, MG, PHOS, TSH, T4, CMP, GFR, B12, ESR ####[place] [address] Erythrocytes (RBC) 4.35 10 6/mcL Normal 4.10-5.30 [facility] [place] Comment on above: Performed By: #### C BC, ADIFF, ANEU, MG, PHOS, TSH, T4, CMP, GFR, B12, ESR ####[place] [address] Hematocrit (HCT) 41.6 % Normal 34.0-46.0 [facility] ([place]) Comment on above: Performed By: #### C BC, ADIFF, ANEU, MG, PHOS, TSH, T4, CMP, GFR, B12, ESR ####[place] [address] Hemoglobin mass conc (Bld) 14.1 G/dL Normal 12.0-16.0 [facility] ([place] Comment on above: Performed By: #### C BC, ADIFF, ANEU, MG, PHOS, TSH, T4, CMP, GFR, B12, ESR ####[place] [address] MCH 32.3 pg Normal 27.0-33.0 [facility] ([place] Comment on above: Performed By: #### C BC, ADIFF, ANEU, MG, PHOS, TSH, T4, CMP, GFR, B12, ESR ####[place] [address] MCHC mass conc (RBC) 33.8 G/dL Normal 32.0-36.0 [facility] ([place] Comment on above: Performed By: #### C BC, ADIFF, ANEU, MG, PHOS, TSH, T4, CMP, GFR, B12, ESR ####[place] [address] MCV 95.7 fL Normal 80.0-99.0 [facility] ([place] Comment on above: Performed By: #### C BC, ADIFF, ANEU, MG, PHOS, TSH, T4, CMP, GFR, B12, ESR ####[address] [place] [address] Platelet mean volume (PMV) 8.9 fL Normal 6.6-10.5 [facility] ([place] Comment on above: Performed By: #### C BC, ADIFF, ANEU, MG, PHOS, TSH, T4, CMP, GFR, B12, ESR ####[address] [address] Platelets 265 10 3/mcL Normal 150-450 [facility] ([place] Comment on above: Performed By: #### C BC, ADIFF, ANEU, MG, PHOS, TSH, T4, CMP, GFR, B12, ESR ####[address] [address] WBC (Leukocytes) 9.90 10 3/mcL Normal 4.50-10.80 [facility] ([place] Comment on above: Performed By: #### C BC, ADIFF, ANEU, MG, PHOS, TSH, T4, CMP, GFR, B12, ESR ####[place] [address] Erythrocyte distribution width Auto Ratio (RBC) 13.2 % Normal 11.5-15.5 [facility] ([place] Comment on above: Performed By: #### C BC, ADIFF, ANEU, BMP, GFR ####[place] [id number] Erythrocytes (RBC) 4.27 10 6/mcL Normal 4.10-5.30 [facility] ([place] Comment on above: Performed By: #### C BC, ADIFF, ANEU, BMP, GFR ####[address] [address] Hematocrit (HCT) 40.7 % Normal 34.0-46.0 [facility] ([place] Comment on above: Performed By: #### C BC, ADIFF, ANEU, BMP, GFR ####[place] [address] Hemoglobin mass conc (Bld) 13.9 G/dL Normal 12.0-16.0 [facility] ([place] Comment on above: Performed By: #### C BC, ADIFF, ANEU, BMP, GFR ####[address] [address] MCH 32.5 pg Normal 27.0-33.0 [facility] ([place] Comment on above: Performed By: #### C BC, ADIFF, ANEU, BMP, GFR ####[place] [address] MCHC mass conc (RBC) 34.2 G/dL Normal 32.0-36.0 [facility] ([place] Comment on above: Performed By: #### C BC, ADIFF, ANEU, BMP, GFR ####[place] [address] MCV 95.2 fL Normal 80.0-99.0 [facility] ([place] Comment on above: Performed By: #### C BC, ADIFF, ANEU, BMP, GFR ####[place] [address] Platelet mean volume (PMV) 8.8 fL Normal 6.6-10.5 [facility] ([place] Comment on above: Performed By: #### C BC, ADIFF, ANEU, BMP, GFR ####[place] [address] Platelets 267 10 3/mcL Normal 150-450 [facility] ([place] Comment on above: Performed By: #### C BC, ADKLARISSA, ANEU, BMP, GFR ####[place] [address] WBC (Leukocytes) 10.10 10 3/mcL Normal 4.50-10.80 [facility] ([place] Comment on above: Performed By: #### C BC, ADIFF, ANEU, BMP, GFR ####[place] [address] CMPon 01-13-2018 Albumin/Globulin Ratio 1.1 {ratio} Normal 0.9-1.6 A [facility] ([place]) Comment on above: Performed By: #### C BC, ADIFF, ANEU, BMP, GFR ####[place] [address] Alk Phos 71 U/L Normal 38-126 [facility] ([place] Comment on above: Performed By: #### C BC, NIYAH, ANEU, BMP, GFR ####[address] [address] Bili Total 0.4 mg/dL Normal 0.2-1.2 [facility] ([place] Comment on above: Performed By: #### C BC, ADIFF, ANEU, BMP, GFR ####[place] [address] BUN/Creatinine Ratio 30.5 ratio High 10.0-22.0 [facility] ([place] Comment on above: Performed By: #### C BC, ADIFF, ANEU, BMP, GFR ####[place] [address] Creatinine 0.59 mg/dL Normal 0.50-1.20 [facility] ([place] Comment on above: Performed By: #### C BC, ADIFF, ANEU, BMP, GFR ####[place] [address] Globulin 3.5 G/dL Normal 1.5-3.8 [facility] ([place] Comment on above: Performed By: #### C BC, ADIFF, ANEU, BMP, GFR ####[place] [address] Protein 7.4 G/dL Normal 6.0-8.5 [facility] ([place] Comment on above: Performed By: #### C BC, ADIFF, ANEU, BMP, GFR ####[place] [address] Alanine aminotransferase (ALT) 34 U/L Normal 10-49 [facility] ([place] Comment on above: Performed By: #### C BC, ADIFF, ANEU, BMP, GFR ####[place] [address] Albumin 3.9 G/dL Normal 3.2-4.8 [facility] ([place] Comment on above: Performed By: #### C BC, ADIFF, ANEU, BMP, GFR ####[place] [address] Aspartate aminotransferase (AST) 20 U/L Normal 8-34 [facility] ([place] Comment on above: Performed By: #### C BC, ADIFF, ANEU, BMP, GFR ####[address] [address] Calcium 9.1 mg/dL Normal 8.4-10.1 [facility] ([place] Comment on above: Performed By: #### C BC, ADIFF, ANEU, BMP, GFR ####[address] [address] Chloride 104 mmol/L Normal 98-110 [facility] ([place] Comment on above: Performed By: #### C BC, ADIFF, ANEU, BMP, GFR ####[address] [address] CO2 25 mmol/L Normal 22-32 [facility] ([place] Comment on above: Performed By: #### C BC, ADIFF, ANEU, BMP, GFR ####[address] [address] Electrolyte Balance 11.0 mEq/L Normal 4.0-15.0 [facility] ([place] Comment on above: Performed By: #### C BC, ADIFF, ANEU, BMP, GFR ####[place] [address] Glucose mass conc 128 mg/dL High 70-110 [facility] ([place] Comment on above: Performed By: #### C BC, ADIFF, ANEU, BMP, GFR ####[address] [address] Potassium molar conc 4.3 mmol/L Normal 3.5-5.0 [facility] ([place] Comment on above: Performed By: #### C BC, ADIFF, ANEU, BMP, GFR ####[place] [address] Sodium 140 mmol/L Normal 136-145 [facility] ([place] Comment on above: Performed By: #### C BC, ADIFF, ANEU, BMP, GFR ####[place] [address] Urea nitrogen 18.0 mg/dL Normal 8.0-22.0 [facility] ([place] Comment on above: Performed By: #### C BC, ADIFF, ANEU, BMP, GFR ####[place] [address] ESRon 01-13-2018 Erythrocytes (RBC) 40 mm/hr High 0-30 [facility] ([place] Comment on above: Performed By: #### C BC, ADIFF, ANEU, BMP, GFR ####[place] [address] Hospitalist Consultation Not armin 01-13-2018 Hospitalist Consultation Note Normal [facility] ([place] Infectious Disease Consultat ionon 01-13-2018 Infectious Disease Consultation Normal [facility] ([place] MGon 01-13-2018 Magnesium 2.2 mg/dL Normal 1.6-2.4 [facility] ([place] Comment on above: Performed By: #### C BC, ADIFF, ANEU, MG, PHOS, TSH, T4, CMP, GFR, B12, ESR ####[place] [address] PHOSon 01-13-2018 Phosphate 3.4 mg/dL Normal 2.5-4.5 [facility] ([place] Comment on above: Performed By: #### C BC, ADIFF, ANEU, MG, PHOS, TSH, T4, CMP, GFR, B12, ESR ####[place] [address] T4on 01-13-2018 T4 9.6 mcg/dL Normal 4.7-11.4 [facility] ([place] Comment on above: Result Comment: Plea se note ? as of 03/11/17 new pediatric reference intervals were added for this test. Performed By: #### C BC, ADIFF, ANEU, BMP, GFR ####[place] [address] TSHon 01-13-2018 Thyroid stimulating hormone (TSH) 2.350 mcIU/mL Normal 0.360-3.74 0 [facility] ([place] Comment on above: Result Comment: Plea se note ? as of 03/11/17 new pediatric reference intervals were added for this test. Performed By: #### C BC, ADIFF, ANEU, BMP, GFR ####[place] [id number] [place] [address] Vital Signs Date Time Vital Sign Value Performing Clinician Faci lity 11-15-2024 11:42-0400 Body temperature 97.5 [degF] Dr. Darrell Langley MD Work Phone: [facility] 11-15-2024 11:42-0400 Diastolic blood pressure 61 mm[Hg] Dr. Darrell Langley MD Work Phone: [facility] 11-15-2024 11:42-0400 Heart rate 62 /min Dr. Darrell Langley MD Work Phone: 3(103)535-454172 [address] 11-15-2024 11:42-0400 Respiratory rate 16 /min Dr. Darrell Langley MD Work Phone: [facility] 11-15-2024 11:42-0400 SaO2% (BldA) [Mass fraction] 96 % Dr. Darrell Langley MD Work Phone: [facility] 11-15-2024 11:42-0400 Systolic blood pressure 113 mm[Hg] Dr. Darrell Langley MD Work Phone: 4(649)581-792872 [address] 11-15-2024 06:12-0400 Body height 170.[address] Darrell Langley MD Work Phone: [facility] 11-15-2024 06:12-0400 Body mass index (BMI) [Ratio] 27.2 kg/m2 Dr. Darrell Langley MD Work Phone: [facility] 11-15-2024 06:12-0400 Body weight [address] Darrell Langley MD Work Phone: [facility] 10-24-2024 08:30-0500 Body temperature 97.2 [degF] Dr. Darrell Langley MD Work Phone: [facility] 10-24-2024 08:30-0500 Diastolic blood pressure 75 mm[Hg] Dr. Darrell Langley MD Work Phone: [facility] 10-24-2024 08:30-0500 Heart rate 64 /min Dr. Darrell Langley MD Work Phone: [facility] 10-24-2024 08:30-0500 Respiratory rate 16 /min Dr. Darrell Langley MD Work Phone: [facility] 10-24-2024 08:30-0500 SaO2% (BldA) [Mass fraction] 97 % Dr. Darrell Langley MD Work Phone: 5(971)769-353057 [place] [address] 10-24-2024 08:30-0500 Systolic blood pressure 129 mm[Hg] Dr. Darrell Langley MD Work Phone: 9(882)704-331904 [place] [address] 10-24-2024 06:55-0500 Body mass index (BMI) [Ratio] 28.3 kg/m2 Dr. Darrell Langley MD Work Phone: 7(032)926-438557 [place] [address] 10-24-2024 06:55-0500 Body weight 81.[address] Darrell Langley MD Work Phone: 0(410)667-255672 [address] 09-10-2024 13:45-0500 Body temperature 97 [degF] Dr. Darrell Langley MD Work Phone: 7(556)073-032072 [address] 09-10-2024 13:45-0500 Diastolic blood pressure 63 mm[Hg] Dr. Darrell Langley MD Work Phone: 6(835)099-734672 [address] 09-10-2024 13:45-0500 Heart rate 70 /min Dr. Darrell Langley MD Work Phone: 6(103)595-872857 [place] [address] 09-10-2024 13:45-0500 Respiratory rate 16 /min Dr. Darrell Langley MD Work Phone: [facility] 09-10-2024 13:45-0500 SaO2% (BldA) [Mass fraction] 92 % Dr. Darrell Langley MD Work Phone: 2(681)311-009157 [place] [address] 09-10-2024 13:45-0500 Systolic blood pressure 114 mm[Hg] Dr. Darrell Langley MD Work Phone: 8(431)651-930657 [place] [address] 09-10-2024 13:30-0500 Inhaled oxygen flow rate 2 L/min Dr. Darrell Langley MD Work Phone: [facility] 09-10-2024 09:43-0500 Body mass index (BMI) [Ratio] 27.2 kg/m2 Dr. Darrell Langley MD Work Phone: 1(008)739-137057 [place] [address] 09-10-2024 09:43-0500 Body weight [address] Darrell Langley MD Work Phone: 6(219)595-114304 [place] [address] 08-30-2024 14:08-0500 Body mass index (BMI) [Ratio] 26.6 kg/m2 Dr. Darrell Langley MD Work Phone: 7(640)109-881004 [place] [address] 08-30-2024 14:08-0500 Body weight 77.[address] Darrell Langley MD Work Phone: 4(475)046-577304 [place] [address] 08-30-2024 14:08-0500 Diastolic blood pressure 52 mm[Hg] Dr. Darrell Langley MD Work Phone: 6(205)429-105204 [place] [address] 08-30-2024 14:08-0500 Respiratory rate 16 /min Dr. Darrell Langley MD Work Phone: 5(604)394-356704 [place] [address] 08-30-2024 14:08-0500 Systolic blood pressure 119 mm[Hg] Dr. Darrell Langley MD Work Phone: 1(385)213-730104 [place] [address] 11-09-2023 13:51-0400 Body height 172.[address] Darrell Langley Work Phone: 9(925)426-287404 [place] [address] 11-09-2023 13:51-0400 Body mass index (BMI) [Ratio] 27.9 kg/m2 Dr. Darrell Langley Work Phone: 2(992)095-224857 [place] [address] 11-09-2023 13:51-0400 Body temperature 97.6 [degF] Dr. Darrell Langley Work Phone: 1(632)434-415304 [place] [address] 11-09-2023 13:51-0400 Body weight 83.[address] Darrell Langley Work Phone: 2(505)573-939804 [place] [address] 11-09-2023 13:51-0400 Diastolic blood pressure 79 mm[Hg] Dr. Darrell Langley Work Phone: [facility] 11-09-2023 13:51-0400 Heart rate 82 /min Dr. Darrell Langley Work Phone: [facility] 11-09-2023 13:51-0400 Respiratory rate 18 /min Dr. Darrell Langley Work Phone: [facility] 11-09-2023 13:51-0400 SaO2% (BldA) [Mass fraction] 99 % Dr. Darrell Langley Work Phone: [facility] 11-09-2023 13:51-0400 Systolic blood pressure 130 mm[Hg] Dr. Darrell Langley Work Phone: [facility] 11-10-2021 11:07-0400 Body height 170.18 cm [facility] Work Phone: 11-10-2021 11:07-0400 Body mass index (BMI) [Ratio] 29.3 kg/m2 [facility] Work Phone: 11-10-2021 11:07-0400 Body temperature 97 [degF] [facility] Work Phone: 11-10-2021 11:07-0400 Body weight 85 kg [facility] Work Phone: 11-10-2021 11:07-0400 Diastolic blood pressure 77 mm[Hg] [facility] Work Phone: 11-10-2021 11:07-0400 Heart rate 97 /min [facility] Work Phone: 11-10-2021 11:07-0400 Respiratory rate 14 /min [facility] Work Phone: 11-10-2021 11:07-0400 SaO2% (BldA) [Mass fraction] 100 % [facility] Work Phone: 11-10-2021 11:07-0400 Systolic blood pressure 136 mm[Hg] [facility] Work Phone: Encounters Encounter Date Encounter Type Care Provider Facility Start: 03-20-2025 ambulatory Jose Whitmore Facility: [facility] Start: 02-10-2025 End: 02-10-[address] Darrell Langley MD Work Phone: [facility] Work Phone: Start: 02-10-2025 End: 02-10-[address] Darrell Langley MD -Laboratory [facility] Start: 02-10-2025 End: 02-10-2025 ambulatory Darrell Stallworthelsen Facility:[facility] Start: 01-15-2025 Non-patient / Non-visit Natalie C Pipe Coverer s -[facility] Work Phone: Start: 01-15-2025 ambulatory Natalie C Siders Facility: [facility] Start: 11-15-2024 Non-patient / Non-visit Dr. Yaneth Osorio MD -[facility] Start: 11-15-2024 End: 11-15-2024 Admission to same day surgery center Dr. Tab Sparks DP [facility] Start: 11-15-2024 End: 11-15-[address] Darrell Langley MD Work Phone: [facility] Work Phone: Start: 11-14-2024 Encounter for other preprocedural examination Darrell Langley [facility] Start: 11-04-2024 End: 11-04-[address] Darrell Langley MD Work Phone: [facility] Work Phone: Start: 11-04-2024 End: 11-04-[address] Darrell Langley MD -Laboratory, [facility] Start: 11-04-2024 End: 11-04-2024 ambulatory Darrell Langley Facility:[facility] Start: 10-24-2024 ambulatory Jose Whitmore Facility: [facility] Start: 10-24-2024 Non-patient / Non-visit Dr. Samia [place] MD -[facility] Start: 10-24-2024 End: 10-24-2024 Admission to same day surgery center Dr. Jose Whitmore MD -Endoscopy Work Phone: Start: 10-24-2024 End: 10-24-2024 ambulatory Jose Whitmore Facility:[facility] Start: 10-14-2024 End: 10-14-[address] Tab Sparks DPPrashant [facility] Work Phone: Start: 10-14-2024 End: 10-14-2024 ambulatory aTb Sparks Facility:[facility] Start: 09-24-2024 End: 09-24-2024 Patient encounter procedure Sherrie Lozano PA-C -[facility] Work Phone: Start: 09-24-2024 End: 09-24-2024 ambulatory Sherrie GALINDO Facility:[facility] Start: 09-10-2024 ambulatory Jose Whitmore Facility: [facility] Start: 09-10-2024 Non-patient / Non-visit Dr. Samia [place] MD -[facility] Start: 09-10-2024 End: 09-10-2024 Admission to same day surgery center Dr. Jose Whitmore MD -[facility] Start: 09-10-2024 End: 09-10-2024 ambulatory Jose Whitmore Facility:[facility] Start: 08-30-2024 End: 08-30-[address] Jose Whitmore MD -[facility] Work Phone: Start: 08-30-2024 End: 08-30-2024 ambulatory Jose Whitmore Facility:[facility] Start: 08-12-2024 End: 08-12-[address] [facility] Start: 08-12-2024 End: 08-12-2024 ambulatory Darrell Langley Facility:[facility] Start: 07-03-2024 End: 07-03-2024 Emergency department patient visit Rj Hartmann Facility:[facility] Start: 11-15-2023 End: 11-15-[address] Darrell Langley Work Phone: [facility] Work Phone: Start: 11-15-2023 End: 11-15-[address] Darrell Langley Work Phone: [facility]-Outpatient Breast Imaging Work Phone: Start: 11-09-2023 End: 11-09-[address] Darrell Langley Work Phone: [facility] Work Phone: Start: 10-31-2023 End: 10-31-2023 ambulatory [facility] Work Phone: Start: 10-31-2023 End: 10-31-2023 Patient encounter procedure [facility]-Ultrasound, [facility] Work Phone: Start: 07-21-2023 End: 07-21-2023 ambulatory [facility] Work Phone: Start: 07-21-2023 End: 07-21-2023 Patient encounter procedure [facility] Start: 03-20-2023 End: 03-20-2023 ambulatory [facility] Work Phone: Start: 03-20-2023 End: 03-20-[address] [facility] Start: 06-16-2022 End: 06-16-2022 ambulatory [facility] Work Phone: Start: 06-16-2022 End: 06-16-2022 Patient encounter procedure [facility]-Laboratory, Specimen Start: 06-01-2022 End: 06-01-2022 ambulatory [facility] Work Phone: Start: 06-01-2022 End: 06-01-2022 [facility] Start[facility] 11-10-2021 End: 11-10-2021 Emergency department patient visit [facility]Emer[facility] Start: 09-15-2021 End: 09-15-2021 Patient encounter procedure [facility] Start: 01-12-2018 End: 01-16-2018 Evaluation and management of inpatient ALAINA LITTLE Facility:A Start: 04-02-2014 End: 04-02-2014 Refill Darrell Langley Work Phone: [facility] Comment on above: Refill Request Procedures Date Procedure Procedure Detail Performing Clinician Start: 11-15-[address] Darrell Langley MD Work Phone: Start: 11-15-2024 X-ray of calcaneus, two or more views Dr. Darrell Langley MD Work Phone: Start: 11-15-2024 Repair of tendo achilles Dr. Darrell ratliff MD Work Phone: Start: 11-04-[address] aDrrell Langley MD Work Phone: Comment on above: This test was developed and its performa nce characteristicsdetermined by [facility]. It has not been cleared orapproved by the Food and Drug Administration.Cotinine levels greater than 20.0 are consistent with theuse of tobacco or tobacco cessation products.Performed at: [address] [id number] Director: Tj Cao MD, Phone: [phone] Start: 11-04-2024 Vitamin D, 25-hydroxy measurement Dr. Lion Langley MD Work Phone: Comment on above: Vitamin D StatusDeficiency: <20 ng/mL (5 0nmol/L)Insufficiency: 20-30 ng/mL (50-75 nmol/L)Sufficiency: 30-100 ng/mL (75-250 nmol/L)Toxicity: >100 ng/mL (>250 nmol/L) Start: 08-12-2024 X-ray of calcaneus, two or more views Dr. Darrell Langley MD Work Phone: Start: 11-15-[address] Darrell Langley Work Phone: Start: 10-31-2023 Ultrasonography of limb Start: 11-10-2021 X-ray of both feet Plan of Treatment Date Care Activity Detail Author Start: 11-15-2024 Adjt tis trns/reargmt f/c/c/m/n/a/g/h/f 10sqcm/< TIS TRNFR F/C/C/M/N/A/G/H/F [facility] Start: 11-15-2024 Anes nrv/mus/tnd/fasc lower leg/ankle/foot nos ANESTH LOWER LEG SURGERY [facility] Start: 11-15-2024 Exc lesion tendon sheath/capsule w/synvct foot REMOVAL OF FOOT LESION [facility] Start: 11-15-2024 Injection aa&/strd femoral nerve NJX AA&/STRD FEMORAL NRV [facility] Start: 11-15-2024 Injection aa&/strd sciatic nerve NJX AA&/STRD SCIATIC NRV [facility] Start: 11-15-2024 Partial excision bone talus/calcaneus PART REMOVAL OF ANKLE/HEEL [facility] Start: 11-15-2024 Rpr primary open/prq ruptured achilles w/graft REPAIR/GRAFT ACHILLES TENDON [facility] Start: 11-15-2024 Patient discharge [facility] Start: 10-24-2024 Colsc flx w/rmvl of tumor polyp lesion snare tq COLONOSCOPY W/LESION REMOVAL [facility] Start: 10-24-2024 Patient discharge [facility] Start: 09-10-2024 Anes nrv musc tdn fsca&brs upr arm/elbow nos ANESTH ELBOW AREA SURGERY [facility] Start: 09-10-2024 Exc tumor soft tiss upper arm/elbow subq <3cm EXC ARM/ELBOW LES SC < 3 CM [facility] Start: 09-10-2024 Repair intermediate s/a/t/e 2.5 cm/< INTMD RPR S/A/T/EXT 2.5 CM/< [facility] Start: 09-10-2024 Patient discharge [facility] Start: 11-15-2023 Digital breast tomosynthesis bilateral BREAST TOMOSYNTHESIS BI [facility] Start: 04-28-2021 Influenza vaccination INFLUENZA (Season Ended) [facility] Start: 11-21-2010 HPV TESTING HPV TESTING [facility] Start: 11-21-2010 PAP TESTING PAP TESTING [facility] Start: 2009 Screening for malignant neoplasm of colon [facility] Start: 2009 SHINGRIX VACCINE (1 of 2) SHINGRIX VACCINE (1 of 2) [facility] Start: 2004 DIABETES SCREEN DIABETES SCREEN [facility] Start: 2004 LIPID SCREEN LIPID SCREEN [facility] Start: 1999 Mammography MAMMOGRAM [facility] Start: 1978 Urine microalbumin profile DTAP,TDAP,TD (1 - Tdap) [facility] Start: 1977 HEPATITIS C SCREENING HEPATITIS C SCREENING [facility] Start: 1977 HIV SCREENING HIV SCREENING [facility] Start: 1971 Adult depression screening assessment DEPRESSION SCREENING [facility] Patient Education [facility] Work Phone: Patient referral [facility] Work Phone: Immunizations Immunization Date Immunization Notes Care Provider Vern macario 01-12-2018 tetanus toxoid, redu andry diphtheria toxoid, and acellular pertussis vaccine, adsorbed [facility] Payers Date Payer Category Payer Medicare [id number] 2024 Unknown [id number] 2024 Self-pay [id number] 2024 Unknown [id number] 2018 Medicaid [id number] 2014 Medicaid [employer] [facility] [id number] 2014-Present Medicaid [id number] 2010 Unknown COMMERCIAL OTHER [id number] 2005 Self-pay SELF PAY HSP/MED ICAL SELF PAY [id number] 2005-2015 SELF PAY Indemnity [id number] Unknown [id number] Unknown [id number] Unknown [id number] Unknown [id number] Unknown [id number] [id number] Unknown [id number] [id number] Unknown [id number] [id number] Unknown [id number] [id number] Unknown [id number] [id number] Unknown [id number] [id number] Unknown [id number] [id number] Unknown [id number] [id number] Unknown [id number] [id number] Unknown [id number] [id number] Unknown [id number] Social History Date Type Detail Facility Start: 02-25-2014 Tobacco smoking status NHIS Current every day smoker [facility] History of tobacco use Cigarette Smoker [facility] Start: 02-25-2014 Cigarettes smoked current (pack per day) - Reported [facility] Start: 02-25-2014 Tobacco use and exposure Never used [facility] Start: 02-25-2014 Alcohol intake Current non-dr deckhand shrimp boat of alcohol (finding) [facility] Start: 1960 Sex Assigned At Not on file C [facility] Start: 11-10-2021 End: 11-09-2023 Tobacco smoking status WIIS Unknown if ever smoked [facility] Start: 03-10-2021 None [facility] Start: 03-10-2021 Homeless [facility] Start: 03-10-2021 Cigarettes [facility] Start: 1960 Sex Assigned At Female W [facility] Start: 11-01-2024 Tobacco smoking status NHIS Ex-smoker (finding) [facility] Start: 11-14-2024 End: 11-15-2024 Sex Female (finding) [facility] NEGATED: Highlighted row Not [facility] Medical Equipment Procedure Code Equipment Code Equipment Origin al Text Equipment Identifier Dates Repair, tendon, Achilles 3.5 x 15.5mm CITREFIX IMPLANT FDA Start: 11-15-2024 Repair, tendon, Achilles 3.5 x 15.5mm CITREFIX IMPLANT FDA Start: 11-15-2024 Repair, tendon, Achilles 3.5 x 15.5mm CITREFIX IMPLANT FDA Start: 11-15-2024 Repair, tendon, Achilles 3.5 x 15.5mm CITREFIX IMPLANT XPRESS SYSTEM FDA Start: 11-15-2024 Repair, tendon, Achilles GRAFT JACKET NOW THIN ([id number]) FDA Start: 11-15-2024 Repair, tendon, Achilles TAPE, LABRAL 1.5MM FDA Start: 11-15-2024 Repair, tendon, Achilles TAPE, LABRAL 1.5MM FDA Start: 11-15-2024 Repair, tendon, Achilles VIAFLOW, 1CC FDA Start: 11-15-2024 Goals Date Patient Goal Desired Activity /State Mental Status Date Assessment Result Facility 11-15-2024 Cognitive function Voice/Name [facility] Work Phone: 10-24-2024 Cognitive function Voice/Name [facility] Work Phone: 09-10-2024 Cognitive function Voice/Name [facility] Work Phone: Clinical Notes 08-30-2024 to 11-15-2024 Note Date & Type Note Facility 11-15-2024 Consult note [facility] 11-15-2024 Consult note Note Date/Time November 15, 2024 9:56am [facility] Medical Records Department [address] [place] [address] Anesthesia Postop Eval I 11/15/24954 MR#: [id number] Acct: [id number] Name: KAITLIN ACOSTA Rep #:[id number] : 1960 64 From: Ez Champagne CRNA PCP: Dr. Darrell Langley MD Status:REG S DC Y Race: C Location: [place] [address] Anesthesia: Postop Eval I Current Vital Signs Temperature: 96.5 F Pulse Rate: 85 Blood Pressure: 141/61 Respiratory Rate: 20 Pulse Ox: 97 Oxygen Delivery Method: Room Air Assessment Airway patent: Yes Spontaneous unlabored respirations: Yes Mental status: Asleep nausea: No Vomiting: No Anesthesia Complication: No Fluid Hydration Crystalloid volume administer (ml): 1,400 Total IV fluid infused: 1,400 Progress Note Anesthesia document: Postop Eval 1 completed: Yes 11/15/2456 <Electronically signed by Ez womack CRNA> Date _ Ez Champagne CRNA Cosigner Signature: Date CC: ~ Signed [facility] Work Phone: 1(431) 426-773103-21-2025 Consult note [facility] Medical Records Department [address] [facility] [place] [address] Anesthesia Postop Eval I 11/15/24954 MR#: [id number] Acct: [id number] Name: KAITLIN ACOSTA Rep #:[id number] : 1960 64 From: Ez Champagne CRNA PCP: Dr. Darrell Langley MD Status:REG S DC Y Race: C Location: [place] [address] Anesthesia: Postop Eval I Current Vital Signs Temperature: 96.5 F Pulse Rate: 85 Blood Pressure: 141/61 Respiratory Rate: 20 Pulse Ox: 97 Oxygen Delivery Method: Room Air Assessment Airway patent: Yes Spontaneous unlabored respirations: Yes Mental status: Asleep nausea: No Vomiting: No Anesthesia Complication: No Fluid Hydration Crystalloid volume administer (ml): 1,400 Total IV fluid infused: 1,400 Progress Note Anesthesia document: Postop Eval 1 completed: Yes 11/15/24 0956 y HORTICULTURAL WORKER> Date _ Ez Champagne HORTICULTURAL WORKER Cosigner Signature: Date CC: ~ Signed [facility]03-21-2025 Consult note Author Jones Dillard [facility] Note Date/Time November 15, 2024 7:4 1am [facility] Medical Records Department [address] [place] [address] Pre-Anesthesia Evaluation 11/15/24 0738 MR#: [id number] Acct: [id number] Name: KAITLIN ACOSTA Rep #:[id number] : 1960 64 From: Jones moore MD PCP: Dr. Darrell Langley MD Status:REG S DC Y Race: C Location: [place] [address] ASA Classification* ASA Classification ASA Classification: 2 Assessment & Plan Anesthesia* Anesthesia Assessment Anesthesia Assessment: Discussed sedation and/or anesthesia options, risks, benefits, and alternatives with patient/parents/legal guardian/POA. Questions invited. The patient/parents/legal guardian/POA seems to understand and agrees to proceedwith anesthesia plan. Reviewed the physical assessment, medical history, allergy history and patient home medications list prior to surgery/procedure/anesthetic and documented any changes. Performed airway and anesthesia risk assessments. Anesthesia Type Anesthesia Type: General and Block (Popliteal SS and ACB SS) History Source History Obtained from:: Patient and Chart Anesthesia Focused Assessment* Temperature: 98.0 F Pulse Rate: 91 Blood Pressure: 108/65 Respiratory Rate: 16 Pulse Ox: 99 Oxygen Delivery Method: Room Air Airway Assessment Mouth opens: >3 cm Mallampati Score: II Teeth Condition: Dentures (upper dentures), Lower (lower poor dentition) and Upper Neck Range of motion (ROM): Limited ROM (mildly restricted) Focused Labs Anesthesia Preop lab: CBC WBC 10.5 K/mm3 (4.4-11.0) 11/04/24 15:09 11/04/24 RBC 4.12 M/mm3 (4.2-5.4) L 11/04/24 15:11/04/24 Hgb 13.2 g/dL (12.0-15.0) 11/04/24 15:09 11/04/24 Hct 39.8 % (37-47) 11/04/24 15:09 11/04/24 Plt Count 343 K/mm3 (150-450) 11/04/24 15:09 11/04/24 CHEMISTRY Potassium 3.9 mmol/L (3.3-5.1) 11/04/24 15:09 11/04/24 Sodium 136 mmol/L (133-145) 11/04/24 15:09 11/04/24 BUN 15 mg/dL (4-19) 11/04/24 15:09 11/04/24 Creatinine 0.76 mg/dL (0.70-1.20) 11/04/24 15:09 11/04/24 Glucose 132 mg/dL (70-99) H 11/04/24 15:09 11/04/24 POC Glucose 161 mg/dL (74-106) H 11/15/24 06:08 11/15/24 TSH 1.04 uIU/mL (0.358-3.74) 07/28/17 09:45 COAG Pre-Assessment Diagnosis/Proposed Procedure Planned Operative Procedure(s): (R) Right Achilles tendon debridement and repairwith partial excision of calcaneal, Possible Flexor hallucis longus tendon transfer with application of a graft jacket, Excision of a bursa and advancementflap closure. Anesthesia History Anesthesia History - environmental remediation consultant: Anesthesia History - environmental remediation consultant Hx Hospitalization No 11/01/24 14:16 Any Problems With Anesthesia Yes: SLOW TO AWAKEN 11/01/24 14:16 Cholinesterase deficiency No 11/01/24 14:16 You/Your Family Experience No 11/01/24 14:16 fever (hyperthermia) with Relationship Recent Exposure to Contagious No 11/15/24 06:12 Disease Does patient have nerve No 11/01/24 14:16 stimulator Patient instructed to have device shut off --Does patient have Pacemaker No 11/15/24 06:12 or ICD? When Was Last Pacemaker Check QUESTION #4 FULL TEXT: You/Your Family Experience fever (hyperthermia) with Anesthesia Last Oral Intake Last Oral intake: Last Oral Intake NPO since 23:00 11/15/24 06:12 Meds taken in AM with sips of No 11/15/24 06:12 water? Meds patient instructed to take am of surgery PONV PONV - environmental remediation consultant: PONV - environmental remediation consultant Female Yes 11/01/24 14:16 HX of Motion Sickness No 11/01/24 14:16 HX of N/V After Surgery No 11/01/24 14:16 Non-Smoker Yes 11/01/24 14:16 Duration of Surgery greater Yes 11/01/24 14:16 than 60 minutes Number of Risk Factors 3 11/01/24 14:16 PONV Score Moderate Risk 11/01/24 14:16 Height & Weight Height & Weight: Anesthesia: Height & Weight Height 5 ft 7 in 11/15/24 06:12 Weight: 79 kg 11/15/24 06:12 Body Mass Index (BMI) 27.2 11/15/24 06:12 Respiratory Assessment Respiratory Assessment - environmental remediation consultant: Respiratory Tract Infection Hx - environmental remediation consultant Hx Respiratory Tract Infection No 11/01/24 14:16 STOP Sleep Apnea STOP Sleep Apnea - environmental remediation consultant: STOP Sleep Apnea - environmental remediation consultant Hx Hypertension Yes: CONTROLLED WITH MED 11/01/24 14:16 Hx Sleep Apnea No 11/01/24 14:16 CPAP BIPAP Do you snore loudly (louder No 11/01/24 14:16 than talking or can be heard Do you often feel tired/ No 11/01/24 14:16 fatigued/ sleepy during daytime? Has anyone observed you stop No 11/01/24 14:16 breathing during sleep? STOP Results Negative 11/01/24 14:16 QUESTION #5 FULL TEXT : Do you snore loudly (louder than talking or can be heard through closed doors)? 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 Specify any problems Hx of Preganancy in last 3 No 11/01/24 14:16 Months Nurse Filling Out Transfusion VCHRISTIN 11/01/24 14:16 & Questions: Date: 11/01/24 11/01/24 14:16 Time: 14:17 11/01/24 14:16 Patient unable to answer at this time (ie. confused, unrespo /Reproduction History /Reproductive History - environmental remediation consultant: /Reproductive Hx- environmental remediation consultant Hx Now No 11/01/24 14:16 Gestational Age (in weeks): EDC: Hx Hx Para Hx Section SAB No 11/01/24 14:16 Active Medications Active Medications: Current Medications Generic Name Dose Route Start Last Admin Trade Name Freq PRN Reason Stop Dose Admin Clindamycin Phosphate 900 mg in 50 mls @ 75 mls/hr 11/15/24 07:30 Cleocin IV 11/15/24 08:09 PREOP ONE Sodium Chloride 1,000 mls @ 15 mls/hr 11/15/24 06:00 11/15/24 06:27 IV 15 mls/hr .Q48H LILLI Administration PFSH Medical History Sebaceous cyst of axilla Loss of hearing Wears glasses Wears dentures Cancer Post-menopausal Anxiety Arthritis Low iron Dietary restriction Shortness of breath on exertion Former smoker Leg cramps History of rheumatic fever Axillary mass Tobacco user Obesity Hyperlipidemia Diabetes mellitus, type 2 Depression Benign essential hypertension Home Medications ?Medication ?Instructions ?Recorded ?Last Taken ?Type metformin 1,000 mg tablet 1,000 mg PO BIDCM 06/07/16 0 10/22/24 History glimepiride 4 mg tablet 4 mg PO BID 11/09/23 5 History lisinopril 5 mg tablet 5 mg PO QDAY 11/09/23 History sertraline 25 mg tablet 25 mg PO QDAY 11/09/2310/22 History simvastatin 40 mg tablet 40 mg PO QHS 11/09/23 History semaglutide 1 mg/dose (4 mg/3 mL) 1 mg subcut WE 07/0310/16/24 History subcutaneous pen injector (Ozempic) cholecalciferol (vitamin D3) 50 50 mcg PO DAILY Unknown History mcg (2,000 unit) capsule (Vitamin D3) Allergy/AdvReac Type Severity Reaction Status Date / Time acetaminophen (From Allergy Unknown Verified 11/15/24 06:11 Darvocet-N) Penicillins Allergy Unknown Verified 11/15/24 06:11 propoxyphene (From Allergy Unknown Verified 11/15/24 06:11 Darvocet-N) hydromorphone (From Dilaudid) AdvReac Vomiting Verified 11/15/24 06:11 meperidine (From Demerol) AdvReac Other Verified 11/15/24 06:11 Family History Father Prostate cancer Skin cancer Surgical History (Updated 11/01/24 @ 14:15 by Kerri Abdalla) Hx of colonoscopy History of surgery Hx of appendectomy S/P tonsillectomy and adenoidectomy H/O tubal ligation Social History Smoking Status: Former smoker alcohol intake: never substance use type: does not use Review of Systems (Anesthesia) ROS Narrative System reviewed and no additional complaints, except as documented. 11/15/24 0741 <Electronically signed by Jones hanks MD> Date _ Jones Dillard MD Cosigner Signature: Date CC: ~ Signed [facility] Work Phone: 1(923) 768-981603-21-2025 Radiology Diagnostic study note [facility] Imaging Services [address] [place] [address] Calcaneus min 2 Views MR#: [id number] Acct: [id number] Name: KAITLIN ACOSTA Rep #: [id number] : 1960 F 64 From: Amaris Comer MD PCP: Dr. Darrell Langley MD Status: REG S DC Study:Calcaneus min 2 Views Date of Exam: 11/15/24 Exam# [id number] Ordering Dr: Armando Sparks DPM EXAM: XR Right Calcaneus, 2 or More Views CLINICAL INDICATION: PAIN TECHNIQUE: Lateral and plantar views of the right calcaneus. COMPARISON: No relevant prior studies available. FINDINGS: BONES/JOINTS: Unremarkable. No acute fracture. No dislocation. SOFT TISSUES: Unremarkable. No radiopaque foreign body. OTHER FINDINGS: Fluoroscopic guidance was used intraoperatively. 1 spot image was performed. Total fluoroscopy time 41 seconds. Total radiation dose 0.78 mGy. RAD/Calcaneus min 2 Views IMPRESSION: Intra op fluoroscopic guidance was used. Please refer to operative note for further details. Reading Location: [facility] CC: DPM Dr. Tab Sparks; Dr. Darrell Langley MD ~ Flat Hammerer: Signed [facility]03-21-2025 Evaluation note* Diagnosis Onset Date Resolution Status Admit Date Achilles bursitis of right l ower extremity acute November 15, 2024 5:47am Achilles tendinitis, right leg acute November 15, 2024 5:47am Calcaneal spur of right foot acute November 15, 2024 5:47am Pain in right foot acute November 15, 2024 5:47am [facility] Work Phone: 1(510) 972-928903-21-2025 Consult note [facility] Medical Records Department [address] [place] [address] Pre-Anesthesia Evaluation 11/15/24 0738 MR#: [id number] Acct: [id number] Name: KAITLIN ACOSTA Rep #:[id number] : 1960 64 From: Jones moore MD PCP: Dr. Darrell Langley MD Status:REG S DC Y Race: C Location: [place] [address] ASA Classification* ASA Classification ASA Classification: 2 Assessment & Plan Anesthesia* Anesthesia Assessment Anesthesia Assessment: Discussed sedation and/or anesthesia options, risks, benefits, and alternatives with patient/parents/legal guardian/POA. Questions invited. The patient/parents/legal guardian/POA seems to understand and agrees to proceedwith anesthesia plan. Reviewed the physical assessment, medical history, allergy history and patient home medications list prior to surgery/procedure/anesthetic and documented any changes. Performed airway and anesthesia risk assessments. Anesthesia Type Anesthesia Type: General and Block (Popliteal SS and ACB SS) History Source History Obtained from:: Patient and Chart Anesthesia Focused Assessment* Temperature: 98.0 F Pulse Rate: 91 Blood Pressure: 108/65 Respiratory Rate: 16 Pulse Ox: 99 Oxygen Delivery Method: Room Air Airway Assessment Mouth opens: >3 cm Mallampati Score: II Teeth Condition: Dentures (upper dentures), Lower (lower poor dentition) and Upper Neck Range of motion (ROM): Limited ROM (mildly restricted) Focused Labs Anesthesia Preop lab: CBC WBC 10.5 K/mm3 (4.4-11.0) 11/04/24 15:09 11/04/24 RBC 4.12 M/mm3 (4.2-5.4) L 11/04/24 15:09 11/04/24 Hgb 13.2 g/dL (12.0-15.0) 11/04/24 15:09 11/04/24 Hct 39.8 % (37-47) 11/04/24 15:09 11/04/24 Plt Count 343 K/mm3 (150-450) 11/04/24 15:09 11/04/24 CHEMISTRY Potassium 3.9 mmol/L (3.3-5.1) 11/04/24 15:09 11/04/24 Sodium 136 mmol/L (133-145) 11/04/24 15:09 11/04/24 BUN 15 mg/dL (4-19) 11/04/24 15:09 11/04/24 Creatinine 0.76 mg/dL (0.70-1.20) 11/04/24 15:09 11/04/24 Glucose 132 mg/dL (70-99) H 11/04/24 15:09 11/04/24 POC Glucose 161 mg/dL (74-106) H 11/15/24 06:08 11/15/24 TSH 1.04 uIU/mL (0.358-3.74) 07/28/17 09:45 COAG Pre-Assessment Diagnosis/Proposed Procedure Planned Operative Procedure(s): (R) Right Achilles tendon debridement and repairwith partial excision of calcaneal, Possible Flexor hallucis longus tendon transfer with application of a graft jacket,Excision of a bursa and advancementflap closure. Anesthesia History Anesthesia History - environmental remediation consultant: Anesthesia History - environmental remediation consultant Hx Hospitalization No 11/01/24 14:16 Any Problems With Anesthesia Yes: SLOW TO AWAKEN 11/01/24 14:16 Cholinesterase deficiency No 11/01/24 14:16 You/Your Family Experience No 11/01/24 14:16 fever (hyperthermia) with Relationship Recent Exposure to Contagious No 11/15/24 06:12 Disease Does patient have nerve No 11/01/24 14:16 stimulator Patient instructed to have device shut off --Does patient have Pacemaker No 11/15/24 06:12 or ICD? When Was Last Pacemaker Check QUESTION #4 FULL TEXT: You/Your Family Experience fever (hyperthermia) with Anesthesia Last Oral Intake Last Oral intake: Last Oral Intake NPO since 23:00 03/21/25 06:12 Meds taken in AM with sips of No 11/15/24 06:12 water? Meds patient instructed to take am of surgery PONV PONV - environmental remediation consultant: PONV - environmental remediation consultant Female Yes 11/01/24 14:16 HX of Motion Sickness No 11/01/24 14:16 HX of N/V After Surgery No 11/01/24 14:16 Non-Smoker Yes 11/01/24 14:16 Duration of Surgery greater Yes 11/01/24 14:16 than 60 minutes Number of Risk Factors 3 11/01/24 14:16 PONV Score Moderate Risk 11/01/24 14:16 Height & Weight Height & Weight: Anesthesia: Height & Weight Height 5 ft 7 in 11/15/24 06:12 Weight: 79 kg 11/15/24 06:12 Body Mass Index (BMI) 27.2 11/15/24 06:12 Respiratory Assessment Respiratory Assessment - environmental remediation consultant: Respiratory Tract Infection Hx - environmental remediation consultant Hx Respiratory Tract Infection No 11/01/24 14:16 STOP Sleep Apnea STOP Sleep Apnea - environmental remediation consultant: STOP Sleep Apnea - environmental remediation consultant Hx Hypertension Yes: CONTROLLED WITH MED 11/01/24 14:16 Hx Sleep Apnea No 11/01/24 14:16 CPAP BIPAP Do you snore loudly (louder No 11/01/24 14:16 than talking or can be heard Do you often feel tired/ No 11/01/24 14:16 fatigued/ sleepy during daytime? Has anyone observed you stop No 11/01/24 14:16 breathing during sleep? STOP Results Negative 11/01/24 14:16 QUESTION #5 FULL TEXT : Do you snore loudly (louder than talking or can be heard through closeddoors)? 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 Specify any problems Hx of Preganancy in last 3 No 11/01/24 14:16 Months Nurse Filling Out Transfusion VCHRISTIN 11/01/24 14:16 & Questions: Date: 11/01/24 11/01/24 14:16 Time: 14:17 11/01/24 14:16 Patient unable to answer at this time (ie. confused, unrespo /Reproduction History /Reproductive History - environmental remediation consultant: /Reproductive Hx- environmental remediation consultant Hx Now No 11/01/24 14:16 Gestational Age (in weeks): EDC: Hx Hx Para Hx Section SAB No 11/01/24 14:16 Active Medications Active Medications: Current Medications Generic Name Dose Route Start Last Admin Trade Name Freq PRN Reason Stop Dose Admin Clindamycin Phosphate 900 mg in 50 mls @ 75 mls/hr 11/15/24 07:30 Cleocin IV 11/15/24 08:09 PREOP ONE Sodium Chloride 1,000 mls @ 15 mls/hr 11/15/24 06:00 11/15/24 06:27 IV 15 mls/hr .Q48H LILLI Administration PFSH Medical History Sebaceous cyst of axilla Loss of hearing Wears glasses Wears dentures Cancer Post-menopausal Anxiety Arthritis Low iron Dietary restriction Shortness of breath on exertion Former smoker Leg cramps History of rheumatic fever Axillary mass Tobacco user Obesity Hyperlipidemia Diabetes mellitus, type 2 Depression Benign essential hypertension Home Medications ?Medication ?Instructions ?Recorded ?Last Taken ?Type metformin 1,000 mg tablet 1,000 mg PO BIDCM 06/07/16 0 10/22/24 History glimepiride 4 mg tablet 4 mg PO BID 11/09/23 5 History lisinopril 5 mg tablet 5 mg PO QDAY 11/09/23 History sertraline 25 mg tablet 25 mg PO QDAY 11/09/2310/22 History simvastatin 40 mg tablet 40 mg PO QHS 11/09/23 History semaglutide 1 mg/dose (4 mg/3 mL) 1 mg subcut WE 07/0310/16/24 History subcutaneous pen injector (Ozempic) cholecalciferol (vitamin D3) 50 50 mcg PO DAILY Unknown History mcg (2,000 unit) capsule (Vitamin D3) Allergy/AdvReac Type Severity Reaction Status Date / Time acetaminophen (From Allergy Unknown Verified 11/15/24 06:11 Darvocet-N) Penicillins Allergy Unknown Verified 11/15/24 06:11 propoxyphene (From Allergy Unknown Verified 11/15/24 06:11 Darvocet-N) hydromorphone (From Dilaudid) AdvReac Vomiting Verified 11/15/24 06:11 meperidine (From Demerol) AdvReac Other Verified 11/15/24 06:11 Family History Father Prostate cancer Skin cancer Surgical History (Updated 11/01/24 @ 14:15 by Kerri Abdalla) Hx of colonoscopy History of surgery Hx of appendectomy S/P tonsillectomy and adenoidectomy H/O tubal ligation Social History Smoking Status: Former smoker alcohol intake: never substance use type: does not use Review of Systems (Anesthesia) ROS Narrative System reviewed and no additional complaints, except as documented. 11/15/24 0741 demario CARLISLE> Date _ Jones Hawkins Signature: Date CC: ~ Signed [facility]02-27-2025 [facility] Medical Records Department [address] [place] [address] History Physical Exam 10/24/24 0721 MR#: [id number] Acct: [id number] Name: KAITLIN ACOSTA Rep #: [id number] : 1960 64 From: Jose Whitmore MD PCP: Dr. Darrell Langley MD Status:[facility] Location: [place] [address] History and Physical Date of Admission: 10/24/24 Date of Service: 08/30/24 MR#: [id number] Acct: [id number] Name: KAITLIN ACOSTA Rep #: [id number] : 1960 Provider: Dr. Jose Whitmore MD Age/Sex: 64/F Location: [facility] Status: Signed Intake Vital Signs 07/03/2401:51 08/30/2513:08 Height 5 ft 7 in 5 ft 7 in Weight: 170 lb BMI 26.6 BP 119/52 L Blood Pressure Location Rt brachial Position Sitting Respiration 16 Intake Visit Reasons: POSITIVE COLOGUARD Chief Complaint: positive cologuard Handtools Repairer Required: No Is patient in pain?: No Allergies acetaminophen (From Darvocet-N) Allergy (Verified 08/30/24 14:08) UnknownPenicillins Allergy (Verified 08/30/24 14:08) Unknownpropoxyphene (From Darvocet-N) Allergy (Verified 08/30/24 14:08) Unknownhydromorphone (From Dilaudid) Adverse Reaction (Verified 08/30/24 14:08) Vomitingmeperidine (From Demerol) Adverse Reaction (Verified 08/30/24 14:08) Other Medications ???Medication ???Instructions ???Recorded ???Confirmed ???Type metformin 1,000 mg tablet 1,000 mg PO BIDCM 06/07/16 08/30/24 History ergocalciferol (vitamin D2) 1,250 1,250 mcg PO QWEEK 11/09/23 08/30/24 History mcg (50,000 unit) capsule glimepiride 4 mg tablet 4 mg PO BID 11/09/23 08/30/24 History lisinopril 5 mg tablet 5 mg PO QDAY 11/09/23 08/30/24 History sertraline 25 mg tablet 25 mg PO QDAY 11/09/23 08/30/24 History simvastatin 40 mg tablet 40 mg PO QHS 11/09/23 08/30/24 History clindamycin HCl 300 mg capsule 300 mg PO 4X/DAY 10 days #40 caps 07/03/24 08/30/24 Rx ondansetron 4 mg disintegrating 4 mg PO TID PRN nausea and 07/03/24 08/30/24 Rx tablet vomiting #21 tabs oxycodone 5 mg tablet 5 mg PO Q6H PRN pain 3 days #12 07/03/24 08/30/24 Rx tabs semaglutide 1 mg/dose (4 mg/3 mL) mg subcut 07/03/24 08/30/24 History subcutaneous pen injector (Ozempic) Have you fallen in the past year?: No PFSH Medical History (Updated 08/30/24 @ 14:[address] Jose Whitmore MD) Tobacco user Benign essential hypertension Depression Diabetes mellitus, type 2 Hyperlipidemia Obesity Axillary mass Surgical History (Updated 08/30/24 @ 14:06 by Natalie Roberson) S/P tonsillectomy and adenoidectomy H/O tubal ligation Family History Father Prostate cancer Skin cancer Social History Smoking Status: Former smoker alcohol intake: never substance use type: does not use HPI HPI HPI: Patient is a 64-year-old female who presents for need to schedule diagnostic colonoscopy secondary to positive Cologuard testing for her insurance. They are referred for surgical consultation from Dr. Langley. Patient actually presented to this office earlier last year due to complaints of a nontender right axillary lymph node and was due for excisional biopsy but somewhere along the lines became convinced that she was to just wait and see if it decreased in size spontaneously. When this did not happen she simply let the issue drop. She notes that it is a same size and remains nontender. Patient has not had prior colonoscopy. Patient has no personal history of colon cancer, phonatory bowel disease, or diverticulitis. They describe their bowel habits as normal. They have approximately 1 bowel movements per day and spend roughly minutes on the toilet without significant straining. They have not noticed recent bleeding or dark stools. There is no history of hemorrhoids Patient has no family history of colon cancer, colon polyps, or diverticulitis. The patient's weight is not stable and she shares that she has lost approximately 10 pounds through use of Ozempic over the last year for her diabetes. The patient is not prescribed anticoagulants/blood thinners. Relevant prior abdominal surgical history includes: Laparoscopic appendectomy Patient does not have a significant history of GERD/heartburn ROS General General: Yes weight change (loss); No appetite, fatigue, colon cancer, breast cancer or weakness HEENT HEENT: No difficulty swallowing, eye injury, eye surgery, swollen glands or hoarseness Endo Endocrine: Yes diabetes mellitus; No thyroid disease, thyroid cancer, Hair loss, heat intolerance or cold intolerance Skin Skin: No rash or changing moles Musc (more content not included)...[facility]01-14-2025 Note [facility] Medical Records Department [address] [place] [address] History Physical Exam 09/10/24 1203 MR#: [id number] Acct: [id number] Name: KAITLIN ACOSTA Rep #: [id number] : 1960 64 From: Jose Whitmore MD PCP: Dr. Darrell Langley MD Status:[facility] Location: [place] [address] History and Physical I have examined the patient and the H P has been reviewed. There are no clinical changes since date of exam. Right axillary lymph node has remained stable in size and appearance since our last visit on 08/30/2024. Overview of procedure as well as postprocedural wound care instructions was provided. Patient denies any further questions. Consents were confirmed. Proceed to the operating room for planned excision of right axillary lymph node. 09/10/24 1204 Cosigner Signature (if applicable): CC: Dr. Jose Whitmore MD; Dr. Darrell [facility]y [facility] Evaluation note* Diagnosis Onset Date Resolution Status Admit Date Positive colorectal cancer screening using Cologuard test acute August 30 1:52pm Axillary mass chronic August 1:52pm Sebaceous cyst of axilla acute September 24, 2024 9:54am [facility] Work Phone: [phone]) 823-570401-03-2025 Evaluation note* Diagnosis Onset Date Resolution Status Admit Date Positive colorectal cancer screening using Cologuard test acute August 30 1:52pm Axillary mass chronic August 1:52pm Sebaceous cyst of axilla acute September 24, 2024 9:54am Achilles bursitis of right lower extremity acute November 15, 2024 5:47am Achilles tendinitis, right leg acute November 15, 2024 5:47am Calcaneal spur of right foot acute November 15, 2024 5:47am Pain in right foot acute November 15, 2024 5:47am [facility] Work Phone: Consult note Author Jones Dillard [facility] Note Date/Time November 15, 2024 1:0 4pm [facility] Medical Records Department [address] [place] [address] Anesthesia Postop Eval II 11/15/24 1150 MR#: [id number] Acct: [id number] Name: KAITLIN ACOSTA Rep #:[id number] : 1960 64 From: Jones moore MD PCP: Dr. 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 Spontaneous unlabored Yes 11/15/24 09:56 HORTICULTURAL [email or web address].PKEL respirations Mental status Asleep 11/15/24 09:56 HORTICULTURAL [email or web address] nausea No 11/15/24 09:56 HORTICULTURAL [email or web address] Vomiting No 11/15/24 09:56 HORTICULTURAL [email or web address] Anesthesia Postop Eval I: Fluid Summary Crystalloid volume administer 1,400 11/15/24 09:56 HORTICULTURAL [email or web address].PKEL (ml) Colloids volume administered ( ml) Blood Product volume administered (ml) Total IV fluid infused 1,400 11/15/24 09:56 HORTICULTURAL [email or web address].PKEL Anesthesia Postop Eval I: Summary Notes Anesthesia Complication No 11/15/24 09:56 HORTICULTURAL WORKEROMAR Anesthesia Complication Comment: Post-operative progress note Anesthesia: Postop Eval II Evaluation Mental status: Awake Pain Level: 2 nausea: No Vomiting: No Complications Anesthesia Complication: No 11/15/24 1150 <Electronically signed by Jones hanks MD> Date _ Jones Dillard MD Cosigner Signature: Date CC: ~ Signed [facility] Work Phone: Evaluation noteNo assessment information available [facility] Work Phone: Evaluation note* Diagnosis Onset Date Resolution Status Axillary mass chronic [facility] Work Phone: Hospital Discharge instructions Additional Instructions 1. Please keep your surgical dressing clean dry and intact. Do not remove. Do not get it wet. 2. Continue rest, ice (behind your operative knee) and elevate per your postoperative instructions that were given to you at the day of your surgical consultation while in office. 3. Nonweightbearing with assistive knee scooter and/or crutches right lower extremity. Full weightbearing left lower extremity. 4. Please take all pain medication and prescriptions as written. 5. If you are a diabetic patient please continue tight glucose control while in the postoperative phase. 6. Please continue to follow-up with all your doctors visits prior and after surgery. 7. Please reach out to Dr. Sparks, through the paging system in the hospital or private office with any questions or concerns. 8. Thank you for letting me be involved in your surgical care![facility] Work Phone: Reason for referral (narrative)No reason for referral information available[facility] Work Phone: Summary Purpose Family History No Family History Records Found Relationship Condition Age at Onset Recorded Date/T anahy father Malignant neoplasm of prostate Unknown Malignant neoplasm of skin Unknown Advance Directives No Advanced Directives Records Found Advance Directive Response Recorded Date/ Time Living Will No November 10, 2021 11:31am Power of Clinical Quality Manager No November 10 11:31am Advance Directive Response Recorded Date/ Time Living Will No November 10, 2021 10:31am Power of Clinical Quality Manager No November 10 10:31am Advance Directive Response Recorded Date/ Time Living Will No September 05 8:55am Power of Clinical Quality Manager No September 05 8:55am Advance Directive Response Recorded Date/ Time Living Will No September 05 9:55am Power of Clinical Quality Manager No September 05 9:55am Advance Directive Response Recorded Date/ Time Living Will Yes September 06 11:08am Do you have a Healthcare Power of Clinical Quality Manager? Yes September 06, 2024 11:08am Name of Medical Power of Clinical Quality Manager SPOUSE September 06, 2024 11:08am Living Will Yes October 18 11:39am Do you have a Healthcare Power of Clinical Quality Manager? Yes October 18, 2024 11:39am Name of Medical Power of Clinical Quality Manager SON October 18, 2024 11:39am Advance Directive Response Recorded Date/ Time Living Will Yes November 01, 2024 3:16pm Do you have a Healthcare Power of Clinical Quality Manager? Yes November 01, 2024 3:16pm Name of Medical Power of Clinical Quality Manager HOMER ALANA November 01, 2024 3:16pm Living Will Yes September 06 11:08am Do you have a Healthcare Power of Clinical Quality Manager? Yes September 06, 2024 11:08am Name of Medical Power of Clinical Quality Manager SPOUSE September 06, 2024 11:08am Living Will Yes October 18 11:39am Do you have a Healthcare Power of Clinical Quality Manager? Yes October 18, 2024 11:39am Name of Medical Power of Clinical Quality Manager SON October 18, 2024 11:39am Advance Directive Response Recorded Date/ Time Living Will Yes November 01, 2024 3:16pm Do you have a Healthcare Power of Clinical Quality Manager? Yes November 01, 2024 3:16pm Name of Medical Power of Clinical Quality Manager HOMER ALANA November 01, 2024 3:16pm Living Will Yes February 21st, 2 025 11:39am Do you have a Healthcare Power of Clinical Quality Manager? Yes October 18, 2024 11:39am Name of Medical Power of Clinical Quality Manager SON October 18, 2024 11:39am Chief Complaint and Reason for Visit Chief Complaint right foot Chief Complaint SKIN EXCISION Chief Complaint Localized swelling, mass and lump, unspecified upp Chief Complaint Localized swelling, mass and lump, unspecified upp Axillary Mass RT AXILLARY MASS Reason for Visit Axillary mass Chief Complaint Admit Date LAB AND XRAY OF RIGHT HEEL July 1:45pm POSITIVE COLOGUARD August 30, 2024 1: 52pm Ultrasound Excision, Breast Biopsy of ax illa lymph September 10, 2024 9:10am Ultrasound Excision, Breast Biopsy of ax illa lymph September 10, 2024 12:03pm BREAST CHECK September 24, 2024 9 :54am BILAT LEG PAIN, PVD October 14, 2024 9:28am BLE LEG PAIN October 14, 2024 9:55am Reason for Visit Admit Date Positive colorectal cancer screening usi ng Cologuard test August 30, 2024 1:52pm Axillary mass August 30, 2024 1: 52pm Sebaceous cyst of axilla September 24 2 025 9:54am Chief Complaint Admit Date LAB AND XRAY OF RIGHT HEEL July 1:45pm POSITIVE COLOGUARD August 30, 2024 1: 52pm Ultrasound Excision, Breast Biopsy of ax illa lymph September 10, 2024 9:10am Ultrasound Excision, Breast Biopsy of ax illa lymph September 10, 2024 12:03pm BREAST CHECK September 24, 2024 9 :54am BILAT LEG PAIN, PVD October 14, 2024 9:28am BLE LEG PAIN October 14, 2024 9:55am Right Achilles tendon debridement and re pair with November 15, 2024 5:47am Reason for Visit Admit Date Positive colorectal cancer screening usi ng Cologuard test August 30, 2024 1:52pm Axillary mass August 30, 2024 1: 52pm Sebaceous cyst of axilla September 24, 2 025 9:54am Achilles bursitis of right lower extremi ty November 15, 2024 5:47am Achilles tendinitis, right leg October 5:47am Calcaneal spur of right foot November 15, 2024 5:47am Pain in right foot November 15, 2024 5:4 7am Chief Complaint Admit Date Right Achilles tendon debridement and re pair with November 15, 2024 5:47am RT FOOT PAIN November 15, 2024 9:0 0am Amb Documentation January 15, 2025 8:43a m Reason for Visit Admit Date Achilles bursitis of right lower extremi ty November 15, 2024 5:47am Achilles tendinitis, right leg October 5:47am Calcaneal spur of right foot November 15, 2024 5:47am Pain in right foot November 15, 2024 5:4 7am Additional Source Comments INFORMATION SOURCE (unrecogn ized section and content) DATE CREATED AUTHOR 02/14/2018 [facility] DATE CREATED AUTHOR AUTHOR'S ORGANIZ ATION 03/18/2025 [facility] Source Comments (unrecognize d section and content) In the event this informatio n is protected by the Federal Confidentiality of Alcohol and Drug Abuse Patient Records regulations: The Federal rules restrict any use of the information to criminally investigate or prosecute any alcohol or drug abuse patient.[facility] Reason for Visit (unrecogniz ed section and content) Reason Comments Refill Request Goals (unrecognized section and content) Goals may be documented in a n alternate sectionGoals may be documented in an alternate sectionGoals may be documented in an alternate sectionGoals may be documented in an alternate sectionGoals may be documented in an alternate sectionGoals may be documented in an alternate sectionGoals may be documented in an alternate section Care Teams (unrecognized sec tion and content) Team Status: Active Member Role Status Dates Dr. Darrell Langley MD Family Provider Active Dr. Darrell Langley MD Primary Care Provider Active Team Status: Inactive Member Role Status Dates Dr. Darrell Langley MD Primary Care Provider, Attending Provider Active Team Status: Inactive Member Role Status Dates Dr. Darrell Langley MD Primary Care Provi maria guadalupe, Attending Provider, Referring Provider Active Team Status: Inactive Member Role Status Dates Dr. Darrell Langley MD Primary Care Provider, Referring Provider Active Dr. Jose Whitmore MD Attending Provider Active Team Status: Inactive Member Role Status Dates Dr. Darrell Langley MD Primary Care Provider Active Dr. Jose Whitmore MD Attending Provider, Referring P shyder Active Team Status: Active Member Role Status Dates Dr. Darrell Langley MD Primary Care Provider Active Team Status: Inactive Member Role Status Dates Dr. Darrell Langley MD Primary Care Provider Active Start: August 12, 2024 End: August 12, 2024 Dr. Darrell Langley MD Attending Provider Active Start: August 12, 2024 End: August 12, 2024 Dr. Darrell Langley MD Referring Provider Active Start: August 12, 2024 End: August 12, 2024 Team Status: Inactive Member Role Status Dates Dr. Darrell Langley MD Primary Care Provider Active Start: August 30, 2024 End: August 30, 2024 Dr. Darrell Langley MD Referring Provider Active Start: August 30, 2024 End: August 30, 2024 Dr. Jose Whitmore MD Attending Provider Active Start: August 30, 2024 End: August 30, 2024 Team Status: Inactive Member Role Status Dates Dr. Darrell Langley MD Primary Care Provider Active Start: September 10, 2024 End: September 10, 2024 Dr. Jose Whitmore MD Attending Provider Active Start: September 10, 2024 End: September 10, 2024 Dr. Jose Whitmore MD Referring Provider Active Start: September 10, 2024 End: September 10, 2024 Team Status: Active Member Role Status Dates Dr. Darrell Langley MD Primary Care Provider Active Start: September 10, 2024 Dr. Jose Whitmore MD Attending Provider Active Start: September 10, 2024 Dr. Jose Whitmore MD Referring Provider Active Start: September 10, 2024 Dr. Jose Whitmore MD Other Provider Active Sta rt: September 10, 2024 Team Status: Inactive Member Role Status Dates Dr. Darrell Langley MD Primary Care Provider Active Start: September 24, 2024 End: September 24, 2024 Dr. Darrell Langley MD Referring Provider Active Start: September 24, 2024 End: September 24, 2024 Sherrie GALINDO PA-C Attending Provider Active Start: September 24, 2024 End: September 24, 2024 Team Status: Inactive Member Role Status Dates Dr. Darrell Langley MD Primary Care Provider Active Start: October 14, 2024 End: October 14, 2024 Dr. Tab Sparks DPM Attending Provider Active Start: October 14, 2024 End: October 14, 2024 Dr. Tab Sparks DPM Referring Provider Active Start: October 14, 2024 End: October 14, 2024 Team Status: Active Member Role Status Dates Dr. Paresh Tinsley MD Attending Provider Active Start: October 14, 2024 Dr. Tab Sparks DPM Referring Provider Active Start: October 14, 2024 Team Status: Inactive Member Role Status Dates Dr. Darrell Langley MD Primary Care Provider Active Start: October 24, 2024 End: October 24, 2024 Dr. Darrell Langley MD Referring Provider Active Start: October 24, 2024 End: October 24, 2024 Dr. Jose Whitmore MD Attending Provider Active Start: October 24, 2024 End: October 24, 2024 Team Status: Active Member Role Status Dates Dr. Darrell Langley MD Primary Care Provider Active Start: October 24, 2024 Dr. Darrell Langley MD Referring Provider Active Start: October 24, 2024 Dr. Jose Whitmore MD Attending Provider Active Start: October 24, 2024 Dr. Jose Whitmore MD Other Provider Active Sta rt: October 24, 2024 Team Status: Inactive Member Role Status Dates Dr. Darrell Langley MD Primary Care Provider Active Start: November 04, 2024 End: November 04, 2024 Dr. Darrell Langley MD Attending Provider Active Start: November 04, 2024 End: November 04, 2024 Team Status: Inactive Member Role Status Dates Dr. Darrell Langley MD Primary Care Provider Active Start: November 15, 2024 End: November 15, 2024 Dr. Tab Sparks DPM Attending Provider Active Start: November 15, 2024 End: November 15, 2024 Dr. Tab Sparks DPM Referring Provider Active Start: November 15, 2024 End: November 15, 2024 Team Status: Active Member Role Status Dates Dr. Darrell Langley MD Primary Care Provider Active Start: November 15, 2024 Dr. Trent Osorio MD Attending Provider Active Start: November 15, 2024 Dr. Trent Osorio MD Referring Provider Active Start: November 15, 2024 Team Status: Active Member Role Status Dates Dr. Darrell Langley MD Primary Care Provider Active Start: January 15, 2025 Natalie Roberson Attending Provider Active Start: 2024 Team Status: Inactive Member Role Status Dates Dr. Darrell Langley MD Primary Care Provider Active Start: February 10, 2025 End: February 10, 2025 Dr. Darrell Langley MD Attending Provider Active Start: February 10, 2025 End: February 10, 2025 Dr. Darrell Langley MD Referring Provider Active Start: February 10, 2025 End: February 10, 2025 FOR RECORDS PERTAINING TO PATIENTS WHO ARE OR HAVE BEEN ENROLLED IN A CHEMICAL DEPENDENCY/SUBSTANCEABUSE PROGRAM, SOME INFORMATION MAY BE OMITTED. This clinical summary was aggregated from multiple sources. Caution should be exercised in using it in the provision of clinical care. This summary normalizes information from multiple sources, and as a consequence, information in this document may materially change the coding, format and clinical context of patient data. In addition, data may be omitted in some cases. CLINICAL DECISIONS SHOULD BE BASED ON THE PRIMARY CLINICAL RECORDS. [employer] provides no warranty or guarantee of the accuracy or completeness of information in this document.
[2025-03-20 06:37] VITALS: BP 138/77; PULSE 75; RESP 18; TEMP 36.7; O2SAT 100; BMI 27.6
[2025-03-20] MEDS: Lactated Ringers 1,000 ML 15 ML IV (06:54)
--- NOTE | 2025-03-20 07:25 | PCM.HP.BLA ---
History and Physical Date of Admission: 03/20/25 MR#: [id number] Acct: [id number] Name: ARACELI WARNER Rep #: [id number] : 1960 Provider: Dr. Jose Whitmore MD Age/Sex: 64/F Location: [facility] Status: Signed Intake Vital Signs 07/03/2401:51 08/30/2513:08 Height 5 ft 7 in 5 ft 7 in Weight: 170 lb BMI 26.6 BP 119/52 L Blood Pressure Location Rt brachial Position Sitting Respiration 16 Intake Visit Reasons: POSITIVE COLOGUARD Chief Complaint: positive cologuard Dietitian Helper Required: No Is patient in pain?: No Allergies acetaminophen (From Darvocet-N) Allergy (Verified 08/30/24 14:08) UnknownPenicillins Allergy (Verified 08/30/24 14:08) Unknownpropoxyphene (From Darvocet-N) Allergy (Verified 08/30/24 14:08) Unknownhydromorphone (From Dilaudid) Adverse Reaction (Verified 08/30/24 14:08) Vomitingmeperidine (From Demerol) Adverse Reaction (Verified 08/30/24 14:08) Other Medications ?Medication ?Instructions ?Recorded ?Confirmed ?Type metformin 1,000 mg tablet 1,000 mg PO BIDCM 06/07/16 08/30/24 History ergocalciferol (vitamin D2) 1,250 1,250 mcg PO QWEEK 11/09/23 08/30/24 History mcg (50,000 unit) capsule glimepiride 4 mg tablet 4 mg PO BID 11/09/23 08/30/24 History lisinopril 5 mg tablet 5 mg PO QDAY 11/09/23 08/30/24 History sertraline 25 mg tablet 25 mg PO QDAY 11/09/23 08/30/24 History simvastatin 40 mg tablet 40 mg PO QHS 11/09/23 08/30/24 History clindamycin HCl 300 mg capsule 300 mg PO 4X/DAY 10 days #40 caps 07/03/24 08/30/24 Rx ondansetron 4 mg disintegrating 4 mg PO TID PRN nausea and 07/03/24 08/30/24 Rx tablet vomiting #21 tabs oxycodone 5 mg tablet 5 mg PO Q6H PRN pain 3 days #12 07/03/24 08/30/24 Rx tabs semaglutide 1 mg/dose (4 mg/3 mL) mg subcut 07/03/24 08/30/24 History subcutaneous pen injector (Ozempic) Have you fallen in the past year?: No PFSH Medical History (Updated 08/30/24 @ 14:[address] Jose Whitmore MD) Tobacco user Benign essential hypertension Depression Diabetes mellitus, type 2 Hyperlipidemia Obesity Axillary mass Surgical History (Updated 08/30/24 @ 14:06 by Natalie Roberson) S/P tonsillectomy and adenoidectomy H/O tubal ligation Family History Father Prostate cancer Skin cancer Social History Smoking Status: Former smoker alcohol intake: never substance use type: does not use HPI HPI HPI: Patient is a 64-year-old female who presents for need to schedule diagnostic colonoscopy secondary to positive Cologuard testing for her insurance. They are referred for surgical consultation from Dr. Langley. Patient actually presented to this office earlier last year due to complaints of a nontender right axillary lymph node and was due for excisional biopsy but somewhere along the lines became convinced that she was to just wait and see if it decreased in size spontaneously. When this did not happen she simply let the issue drop. She notes that it is a same size and remains nontender. Patient has not had prior colonoscopy. Patient has no personal history of colon cancer, phonatory bowel disease, or diverticulitis. They describe their bowel habits as normal. They have approximately 1 bowel movements per day and spend roughly minutes on the toilet without significant straining. They have not noticed recent bleeding or dark stools. There is no history of hemorrhoids Patient has no family history of colon cancer, colon polyps, or diverticulitis. The patient's weight is not stable and she shares that she has lost approximately 10 pounds through use of Ozempic over the last year for her diabetes. The patient is not prescribed anticoagulants/blood thinners. Relevant prior abdominal surgical history includes: Laparoscopic appendectomy Patient does not have a significant history of GERD/heartburn ROS General General: Yes weight change (loss); No appetite, fatigue, colon cancer, breast cancer or weakness HEENT HEENT: No difficulty swallowing, eye injury, eye surgery, swollen glands or hoarseness Endo Endocrine: Yes diabetes mellitus; No thyroid disease, thyroid cancer, Hair loss, heat intolerance or cold intolerance Skin Skin: No rash or changing moles Musc Musculoskeletal: No back problems, arthritis, rheumatoid arthritis, gout or joint pain Cardio Cardiovascular: No murmur, pacemaker, heart disease, atrial fibrillation, high blood pressure, heart attack, heart stent, palpitations, shortness of breat with exertion or chest pain Psych Psychiatric: No depression, anxiety or hearing voices Resp Respiratory: No shortness of breath, No sleep apnea, No cough, No COPD, No asthma, No emphysema and No wheezing Gastro Gastrointestinal: No abdominal pain, No nausea or vomiting, No diarrhea, No constipation, No blood in stool, No acid reflux, No hemorrhoids, No ulcers, No gallbladder problem and No black,tarry stools Edy Hematologic: No blood thinners, No blood disorders, No bleeding, No anemia and No blood clots Neuro Neurologic: Yes numbness, Yes tingling and No weakness Exam Const General: cooperative, comfortable and no acute distress Orientation: alert, awake and oriented x3 Resp Effort & Inspection: normal respiratory effort GI Other: Nondistended Assessment and Plan Assessment and Plan (1) Positive colorectal cancer screening using Cologuard test: Status: Acute Comment: Patient is 64-year-old female who presents for positive Cologuard testing and need to schedule reflex diagnostic colonoscopy. She denies any current bowel or GI issues. She appears to be at average risk for colon cancer through her negative family history. She is on no blood thinning medications. I extended the recommendation for colonoscopy and provided detail describing the procedure as well as postprocedure results reporting of polypectomy or biopsy is performed. I also described the need for preprocedure prep and use of a company truck driver the day of the procedure given sedation used for the procedure. Plan: Plan will be to complete colonoscopy on first mutually agreeable date under local MAC. Pre-procedure prep discussed and paper instructions provided. Patient is also made aware that she will need to have a company truck driver with her the day of the procedure. We will need to look into when her Ozempic must be held to proceed with her procedure. I have examined the patient the following changes are noted: Patient is a 64-year-old female who arrives for repeat colonoscopy after initial attempt was aborted in September of this year due to incomplete prep. Prior to the procedure did find evidence of a rectal tubular adenoma. Procedure initially scheduled due to history of positive Cologuard testing. Patient confirms that her prep proceeded well this time and she did note a difference from her previous preparation. She confirms that her output is now clear. She otherwise denies updates to her health history. Abdominal exam is benign. Proceed to endoscopy suite for colonoscopy as planned.
--- NOTE | 2025-03-20 07:27 | PCM.PRE.AN2 ---
ASA Classification* ASA Classification ASA Classification: 2 Assessment & Plan Anesthesia* Anesthesia Assessment Anesthesia Assessment: Discussed sedation and/or anesthesia options, risks, benefits, and alternatives with patient/parents/legal guardian/POA. Questions invited. The patient/parents/legal guardian/POA seems to understand and agrees to proceed with anesthesia plan. Reviewed the physical assessment, medical history, allergy history and patient home medications list prior to surgery/procedure/anesthetic and documented any changes. Performed airway and anesthesia risk assessments. Anesthesia Type Anesthesia Type: General and MAC History Source History Obtained from:: Patient and Chart Anesthesia Focused Assessment* Temperature: 98.0 F Pulse Rate: 75 Blood Pressure: 138/77 Respiratory Rate: 18 Pulse Ox: 100 Oxygen Delivery Method: Room Air Airway Assessment Mouth opens: >3 cm Mallampati Score: II Teeth Condition: Dentures (upper dentures), Lower (lower poor dentition) and Upper Neck Range of motion (ROM): Limited ROM (mildly restricted) Labs Anesthesia Preop lab: CBC WBC 10.5 K/mm3 (4.4-11.0) 11/04/24 15:09 11/04/24 RBC 4.12 M/mm3 (4.2-5.4) L 11/04/24 15:09 11/04/24 Hgb 13.2 g/dL (12.0-15.0) 11/04/24 15:09 11/04/24 Hct 39.8 % (37-47) 11/04/24 15:09 11/04/24 Plt Count 343 K/mm3 (150-450) 11/04/24 15:09 11/04/24 CHEMISTRY Potassium 4.6 mmol/L (3.3-5.1) 02/10/25 11:03 02/10/25 Sodium 137 mmol/L (133-145) 02/10/25 11:03 02/10/25 BUN 13 mg/dL (4-19) 02/10/25 11:03 02/10/25 Creatinine 0.80 mg/dL (0.70-1.20) 02/10/25 11:03 02/10/25 Glucose 164 mg/dL (70-99) H 02/10/25 11:03 02/10/25 POC Glucose 161 mg/dL (74-106) H 11/15/24 06:08 11/15/24 TSH 1.04 uIU/mL (0.358-3.74) 07/28/17 09:45 07/28/17 COAG Pre-Assessment Diagnosis/Proposed Procedure Planned Operative Procedure(s): CSCOPE Anesthesia History 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 When Was Last Pacemaker Check QUESTION #4 FULL TEXT: You/Your Family Experience fever (hyperthermia) with Anesthesia Last Oral Intake Last Oral intake: Last Oral Intake NPO since 21:00 03/20/25 06:37 Meds taken in AM with sips of No 03/20/25 06:37 water? Meds patient instructed to take am of surgery PONV PONV - manager of supply chain: PONV - manager of supply chain Female Yes 03/17/25 09:54 HX of Motion Sickness No 03/17/25 09:54 HX of N/V After Surgery No 03/17/25 09:54 Non-Smoker Yes 03/17/25 09:54 Duration of Surgery greater No 03/17/25 09:54 than 60 minutes Number of Risk Factors 2 03/17/25 09:54 PONV Score Moderate Risk 03/17/25 09:54 Height & Weight Height & Weight: Anesthesia: Height & Weight Height 5 ft 7 in 03/20/25 06:37 Weight: 80 kg 03/20/25 06:37 Body Mass Index (BMI) 27.6 03/20/25 06:37 Respiratory Assessment Respiratory Assessment - manager of supply chain: Respiratory Tract Infection Hx - manager of supply chain Hx Respiratory Tract Infection No 03/17/25 09:54 STOP Sleep Apnea STOP Sleep Apnea - manager of supply chain: STOP Sleep Apnea - manager of supply chain Hx Hypertension Yes: CONTROLLED WITH MED 03/17/25 09:54 Hx Sleep Apnea No 03/17/25 09:54 CPAP BIPAP Do you snore loudly (louder No 03/17/25 09:54 than talking or can be heard Do you often feel tired/ No 03/17/25 09:54 fatigued/ sleepy during daytime? Has anyone observed you stop No 03/17/25 09:54 breathing during sleep? STOP Results Negative 03/17/25 09:54 QUESTION #5 FULL TEXT : Do you snore loudly (louder than talking or can be heard through closed doors)? 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 Specify any problems Hx of Preganancy in last 3 N/A 03/17/25 09:54 Months Nurse Filling Out Transfusion NBUCHER 03/17/25 09:54 & Questions: Date: 03/17/25 03/17/25 09:54 Time: 09:55 03/17/25 09:54 Patient unable to answer at this time (ie. confused, unrespo /Reproduction History /Reproductive History - manager of supply chain: /Reproductive Hx- manager of supply chain Hx Now Gestational Age (in weeks): EDC: Hx Hx Para Hx Section SAB No 03/17/25 09:54 Active Medications Active Medications: Current Medications Generic Name Dose Route Start Last Admin Trade Name Freq PRN Reason Stop Dose Admin Lactated Ringer's 1,000 mls @ 15 mls/hr 03/20/25 06:30 03/20/25 06:54 IV 15 mls/hr .Q48H LILLI Administration PFSH Medical History (Updated 03/17/25 @ 09:57 by Elisabet Wong) Diabetes Sebaceous cyst of axilla Loss of hearing Wears glasses Wears dentures Cancer Post-menopausal Anxiety Arthritis Low iron Dietary restriction Shortness of breath on exertion Former smoker Leg cramps History of rheumatic fever Axillary mass Tobacco user Obesity Hyperlipidemia Diabetes mellitus, type 2 Depression Benign essential hypertension Home Medications ?Medication ?Instructions ?Recorded ?Last Taken ?Type metformin 1,000 mg tablet 1,000 mg PO DAILY 06/07/16 03/17/25 History glimepiride 4 mg tablet 4 mg PO BID 11/09/23 03/17/25 History lisinopril 5 mg tablet 5 mg PO QDAY 11/09/23 03/17/25 History simvastatin 40 mg tablet 40 mg PO QHS 11/09/23 03/17/25 History semaglutide 1 mg/dose (4 mg/3 mL) 1 mg subcut WE 07/03/24 03/05/25 History subcutaneous pen injector (Ozempic) cholecalciferol (vitamin D3) 50 50 mcg PO DAILY 11/01/24 03/18/25 History mcg (2,000 unit) capsule (Vitamin D3) peg 3350-electrolytes 236 4,000 ml PO ONCE #4,000 mL 01/15/25 03/20/25 Rx gram-22.74 gram-6.74 gram-5.86 gram solution Allergy/AdvReac Type Severity Reaction Status Date / Time Penicillins Allergy Unknown Verified 03/20/25 06:35 propoxyphene (From Allergy Unknown Verified 03/20/25 06:35 Darvocet-N) hydromorphone (From Dilaudid) AdvReac Vomiting Verified 03/20/25 06:35 meperidine (From Demerol) AdvReac Other Verified 03/20/25 06:35 Family History Father Prostate cancer Skin cancer Surgical History (Updated 03/17/25 @ 09:57 by Elisabet Wong) History of Achilles tendon repair (11/15/24) Hx of colonoscopy History of surgery Hx of appendectomy S/P tonsillectomy and adenoidectomy H/O tubal ligation Social History Smoking Status: Former smoker alcohol intake: never substance use type: does not use Review of Systems (Anesthesia) ROS Narrative System reviewed and no additional complaints, except as documented. Physical Exam Const alert, oriented x3 and average body habitus Orientation / Consciousness: awake Resp normal respiratory effort and normal air movement Cardio regular rate Neuro oriented x3 and moves all extremities
[2025-03-20 07:30] VITALS: BP 138/77; PULSE 75; RESP 18; TEMP 36.7; O2SAT 100
--- NOTE | 2025-03-20 07:30 | COLBX_PTH ---
PATIENT: ARACELI WARNER LOC: EN U#:[id number] AGE/SX: 64/F ROOM: RE03/20/[address]: Dr. Jose Whitmore MD : 1960 BED: DIS: 03/20/2025 SPEC #: [id number] RECD: 03/20/25 10:03 STATUS: ELVA MARIA G #: [id number] ALEXANDER: 03/20/25 07:[address]: Jose Whitmore DEPT: SURGICAL PATHOLOGY RECD BY: Patrick Correia ENTERED: 03/20/25 13:14 SP TYPE: COLON BX OTHR DR: Dr. Darrell Langley MD Tissues: A - Rectosigmoid junction B - Rectum, NOS C - Rectum, NOS D - Rectosigmoid junction Procedures: Surgery Specimen Level IV HEADER OPERATION: Colonoscopy, polypectomy PRE-OP DIAGNOSIS: Positive colorectal cancer screening using Cologuard test TISSUE SUBMITTED: A- Recto-sigmoid polyp biopsy, B- Rectal polyp biopsy, C- Rectal polyp biopsy #2,3,4, D- Recto-sigmoid polyp biopsy 2&3 MICROSCOPIC DIAGNOSIS A. Colon, recto-sigmoid polyp, biopsy: - Tubular adenoma. B. Rectum, polyp, biopsy: - Hyperplastic polyp. C. Rectum, polyp, 2,3,4, biopsy: - Hyperplastic polyp, multiple fragments. D. Colon, recto-sigmoid polyp, 2&3 biopsy: - Hyperplastic polyp, multiple fragments. MICROSCOPIC DESCRIPTION Slides are reviewed. GROSS DESCRIPTION A. Received in fixative is one container labeled with the patient's name and designated Recto-sigmoid polyp biopsy. The specimen consists of multiple irregular fragments of light rodriguez soft tissue that measure 0.2 to 0.6 cm. The specimen is totally submitted in one cassette. B. Received in fixative is one container labeled with the patient's name and designated Rectal polyp biopsy. The specimen consists of two fragments of light rodriguez soft tissue, 0.2 and 0.3 cm. Totally submitted in one cassette. C. Received in fixative is one container labeled with the patient's name and designated Rectal polyp 2-4 biopsy. The specimen consists of four irregular fragments of light rodriguez soft tissue that measure 0.3 to 0.5 cm. The specimen is totally submitted in one cassette. D. Received in fixative is one container labeled with the patient's name and designated Recto-sigmoid polyp 2&3 biopsy. The specimen consists of multiple irregular fragments of light rodriguez soft tissue that measure 0.2 to 0.5 cm. The specimen is totally submitted in one cassette. [place] 03/20/2025 CPT:31664f0
[2025-03-20 08:55] VITALS: BP 117/76; BP 138/77; PULSE 63; RESP 17; RESP 20; TEMP 36.1; O2SAT 92; O2SAT 93
--- NOTE | 2025-03-20 08:55 | PCM.POST.ANE ---
Anesthesia: Postop Eval I Current Vital Signs Temperature: 97 F Pulse Rate: 63 Blood Pressure: 117/76 Respiratory Rate: 20 Pulse Ox: 93 Assessment Airway patent: Yes Spontaneous unlabored respirations: Yes nausea: No Vomiting: No Anesthesia Complication: No Fluid Hydration Crystalloid volume administer (ml): 1,000 Total IV fluid infused: 1,000 Progress Note Anesthesia document: Postop Eval 1 completed: Yes
--- NOTE | 2025-03-20 08:58 | OP.COLON_ITS ---
Patient Name: Kaitlin Acosta Procedure Date: 03/20/2025 7:18 AM Date of : 1960 Age: 64 Procedure: Colonoscopy Indications: Positive Cologuard test Providers: Jose Whitmore MD Referring MD: Darrell Langley MD Medicines: See the Anesthesia note for documentation of the administered medications Patient Profile: Last Colonoscopy: within the past 6 months. Complications: No immediate complications. Estimated blood loss: Minimal. Procedure: Pre-Anesthesia Assessment: - The heart rate, respiratory rate, oxygen saturations, blood pressure, adequacy of pulmonary ventilation, and response to care were monitored throughout the procedure. After I obtained informed consent, the scope was passed under direct vision. Throughout the procedure, the patient's blood pressure, pulse, and oxygen saturations were monitored continuously. The Colonoscope was introduced through the anus and advanced to the cecum, identified by the appendiceal orifice, IC valve and transillumination. The colonoscopy was technically difficult and complex due to significant looping. Successful completion of the procedure was aided by using manual pressure, withdrawing and reinserting the scope, straightening and shortening the scope to obtain bowel loop reduction and using scope torsion. Scope In: 7:44:42 AM Scope Withdrawal Time 0 hours 36 minutes 12 seconds Scope Out: 8:48:46 AM Total Procedure Duration Time 1 hour 4 minutes 4 seconds Findings: The perianal and digital rectal examinations were normal. There was a medium-sized lipoma, 20 mm in diameter, in the cecum. No biopsies or other specimens were collected for this exam. Three semi-sessile polyps were found in the recto-sigmoid colon. The polyps were 3 to 5 mm in size. Biopsies were taken with a cold forceps for histology. Estimated blood loss was minimal. Four semi-sessile polyps were found in the rectum. The polyps were 3 to 7 mm in size. Biopsies were taken with a cold forceps for histology. Estimated blood loss was minimal. The retroflexed view of the distal rectum and anal verge was normal and showed no anal or rectal abnormalities. No biopsies or other specimens were collected for this exam. Impression: - Medium-sized lipoma in the cecum. No specimens collected. - Three 3 to 5 mm polyps at the recto-sigmoid colon. Biopsied. - Four 3 to 7 mm polyps in the rectum. Biopsied. - The distal rectum and anal verge are normal on retroflexion view. Recommendation: - Discharge patient to home (via wheelchair). - Resume previous diet today. - No aspirin, ibuprofen, naproxen, or other non-steroidal anti-inflammatory drugs for 2 days after biopsy. - Await pathology results. - Repeat colonoscopy date to be determined after pending pathology results are reviewed for surveillance based on pathology results. - Telephone my office for pathology results in 1 week. Procedure Code(s): --- Professional --- 84464, Colonoscopy, flexible; with biopsy, single or multiple Diagnosis Code(s): --- Professional --- D17.5, Benign lipomatous neoplasm of intra-abdominal organs D12.7, Benign neoplasm of rectosigmoid junction D12.8, Benign neoplasm of rectum R19.5, Other fecal abnormalities CPT copyright 2021 [employer]. All rights reserved. The codes documented in this report are preliminary and upon gas station service attendant review may be revised to meet current compliance requirements. Jose Whitmore MD 03/20/2025 8:57:28 AM This report has been signed electronically. Number of Addenda: 0 Note Initiated On: 03/20/2025 7:18 AM
--- NOTE | 2025-03-20 08:58 | OP.CCLET_ITS ---
03/20/2025 Darrell Langley MD [address] [place] [address] Re : Colonoscopy procedure for Kaitlin Acosta Dear Dr. Langley This procedure was performed on February. My impressions and recommendations are as follows: Impressions : - Medium-sized lipoma in the cecum. No specimens collected. - Three 3 to 5 mm polyps at the recto-sigmoid colon. Biopsied. - Four 3 to 7 mm polyps in the rectum. Biopsied. - The distal rectum and anal verge are normal on retroflexion view. Recommendations : - Discharge patient to home (via wheelchair). - Resume previous diet today. - No aspirin, ibuprofen, naproxen, or other non-steroidal anti-inflammatory drugs for 2 days after biopsy. - Await pathology results. - Repeat colonoscopy date to be determined after pending pathology results are reviewed for surveillance based on pathology results. - Telephone my office for pathology results in 1 week. My findings are described in the full procedure note, which is enclosed. If I can be of further assistance, please feel free to contact me at Doctor phone number(s): , Work: . Sincerely, Jose Whitmore MD 03/20/2025 8:57:28 AM This report has been signed electronically.
[2025-03-20 09:00] VITALS: BP 131/94; BP 138/77; PULSE 63; RESP 16; O2SAT 92
[2025-03-20 09:05] VITALS: BP 129/70; BP 138/77; PULSE 71; RESP 16; TEMP 36.1; O2SAT 93
[2025-03-20 09:23] VITALS: BP 138/77
--- NOTE | 2025-03-20 10:26 | POSTOPAN2_ITS ---
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 Spontaneous unlabored Yes 03/20/25 08:55 RETAIL EQUIPMENT ASSOCIATE.CSIR respirations Mental status nausea No 03/20/25 08:55 RETAIL EQUIPMENT ASSOCIATE.CSIR Vomiting No 03/20/25 08:55 RETAIL EQUIPMENT ASSOCIATE.CSIR Anesthesia Postop Eval I: Fluid Summary Crystalloid volume administer 1,000 03/20/25 08:55 RETAIL EQUIPMENT ASSOCIATE.CSIR (ml) Colloids volume administered ( ml) Blood Product volume administered (ml) Total IV fluid infused 1,000 03/20/25 08:55 RETAIL EQUIPMENT ASSOCIATE.CSIR Anesthesia Postop Eval I: Summary Notes Anesthesia Complication No 03/20/25 08:55 RETAIL EQUIPMENT ASSOCIATE.CSIR Anesthesia Complication Comment: Post-operative progress note Anesthesia: Postop Eval II Evaluation Mental status: Awake Pain Level: 1 nausea: No Vomiting: No Complications Anesthesia Complication: No
--- NOTE | 2025-03-20 10:26 | PCM.POSTANE2 ---
Anesthesia Postop Eval I Sum Postop Eval Completion status Anesthesia document: Postop Eval 1 completed: Yes Anesthesia Postop Eval I Summary Anesthesia Postop Eval I Summary: Anesthesia Postop Eval I: Assessment Summary Airway patent Yes 03/20/25 08:55 [email or web address] Spontaneous unlabored Yes 03/20/25 08:55 [employer]ACH[email or web address] respirations Mental status nausea No 03/20/25 08:55 [employer]ACH[email or web address] Vomiting No 03/20/25 08:55 MACHINE [email or web address] Anesthesia Postop Eval I: Fluid Summary Crystalloid volume administer 1,000 03/20/25 08:55 [email or web address] (ml) Colloids volume administered ( ml) Blood Product volume administered (ml) Total IV fluid infused 1,000 03/20/25 08:55 MACHINE [email or web address] Anesthesia Postop Eval I: Summary Notes Anesthesia Complication No 03/20/25 08:55 MACHINE [employer]AP [email or web address] Anesthesia Complication Comment: Post-operative progress note Anesthesia: Postop Eval II Evaluation Mental status: Awake Pain Level: 1 nausea: No Vomiting: No Complications Anesthesia Complication: No
== END 2025-03-20 09:38 | disposition home or self-care (01) ==
LOC: EN 06:11 → AC 06:14
PROVIDERS: PCP Family Medicine; Referring Provider Family Medicine; Visit Provider Surgery
PROC: 0DJD8ZZ Inspection of Lower Intestinal Tract, Via Natural or Artificial Opening Endoscopic (ICD-10-PCS; CPT 45378; principal; 2025-03-20 07:25)
DX: D12.7 Benign neoplasm of rectosigmoid junction (principal); E11.9 Type 2 diabetes mellitus without complications; I10 Essential (primary) hypertension; Z79.84 Long term (current) use of oral hypoglycemic drugs; D17.5 Benign lipomatous neoplasm of intra-abdominal organs; Z87.891 Personal history of nicotine dependence; E78.5 Hyperlipidemia, unspecified; R20.0 Anesthesia of skin; Z79.899 Other long term (current) drug therapy; K62.1 Rectal polyp
CPT/HCPCS: 45380; 82962; 88305; J2405